=== PATIENT | female | born 1985 | race Caucasian/White ===

== ENCOUNTER 2019-08-27 10:15 | Emergency (ER) | payer OTHER ==
[~2019-08-27] VITALS: Ht 157.5 cm; Wt 67.6 kg
[2019-08-27] MEDS ORDERED: ISOVUE-370 76% 100ML VIAL As Ordered ONE (10:51)
--- NOTE | 2019-08-27 11:12 | REPVR ---
PROCEDURE INFORMATION: Exam: CT Head Without Contrast Exam date and time: 08/27/2019 10:50 AM Age: 34 years old Clinical indication: Visual disturbance; Additional info: Blurred vision TECHNIQUE: Imaging protocol: Computed tomography of the head without contrast. Radiation optimization: All CT scans at this facility use at least one of these dose optimization techniques: automated exposure control; mA and/or kV adjustment per patient size (includes targeted exams where dose is matched to clinical indication); or iterative reconstruction. Other technique: STROKE PROTOCOL was implemented. COMPARISON: No relevant prior studies available. FINDINGS: Brain: No acute intracranial hemorrhage, cerebral edema, or midline shift. Ventricles: No hydrocephalus. Bones/joints: No acute fracture. Sinuses: No acute sinusitis. Mastoid air cells: Visualized mastoid air cells are well aerated. Soft tissues: Unremarkable. IMPRESSION: 1. No acute intracranial abnormality. 2. [place] Stroke Program Early CT Score (ASPECTS) = 10 Electronically signed by: Álvaro Mancuso On 08/27/2019 11:11:56 AM
[2019-08-27 11:14] LABS: BASO % 0.6 % (0.0-1.0); EOS # 0.1 10^3/uL (0.0-0.5); EOS % 1.3 % (0.0-3.0); HEMATOCRIT 41.3 % (36.0-47.0); HEMOGLOBIN 13.3 g/dl (12.0-15.5); LYMPH # 1.5 10^3/uL (1.5-5.0); LYMPH % 23.3 % (24.0-44.0); MEAN CORPUSCULAR HGB CONC 32.2 g/dl (32.0-36.5); MEAN CORPUSCULAR VOLUME 90.2 fl (80.0-96.0); MONO # 0.8 10^3/uL (0.0-0.8); MONO % 12.1 % (0.0-5.0); NEUTROPHILS % 62.4 % (36.0-66.0); PLATELET COUNT, AUTOMATED 159 10^3/uL (150-450); RED BLOOD COUNT 4.58 10^6/uL (4.00-5.40); WHITE BLOOD COUNT 6.4 10^3/uL (4.0-10.0)
[2019-08-27 11:31] LABS: INR 1.04; PROTHROMBIN TIME 13.3 SECONDS (11.8-14.0)
[2019-08-27 11:32] LABS: PARTIAL THROMBOPLASTIN TIME 28.9 SECONDS (25.0-38.4)
--- NOTE | 2019-08-27 11:37 | REPVR ---
PROCEDURE INFORMATION: Exam: CT Angiography Neck With Contrast Exam date and time: 08/27/2019 10:57 AM Age: 34 years old Clinical indication: Visual disturbance; Additional info: CVA - nursing interventions must not delay CT TECHNIQUE: Imaging protocol: Computed tomography angiography of the neck with intravenous contrast. 3D rendering: MIP and/or 3D reconstructed images were created by the technologist. Radiation optimization: All CT scans at this facility use at least one of these dose optimization techniques: automated exposure control; mA and/or kV adjustment per patient size (includes targeted exams where dose is matched to clinical indication); or iterative reconstruction. Contrast material: ISOVUE 370; Contrast volume: 100 ml; Contrast route: IV; COMPARISON: No relevant prior studies available. FINDINGS: Right common carotid artery: No stenosis. No dissection or occlusion. Right internal carotid artery: No stenosis of the extracranial segment. No dissection or occlusion. Right external carotid artery: No occlusion or stenosis of the origin. Right vertebral artery: No stenosis. No dissection or occlusion. Left common carotid artery: No stenosis. No dissection or occlusion. Left internal carotid artery: No stenosis of the extracranial segment. No dissection or occlusion. Left external carotid artery: No occlusion or stenosis of the origin. Left vertebral artery: No stenosis. No dissection or occlusion. Bones/joints: An artificial disc is noted at the C6-C7 level. Soft tissues: Normal. No significant soft tissue swelling. IMPRESSION: No acute abnormality. REFERENCES: NASCET CRITERIA. The degree of internal carotid artery stenosis is based on NASCET criteria. Normal is no stenosis. Mild is less than 50% stenosis. Moderate is 50-69% stenosis. Severe is 70% to 99% stenosis. Total occlusion is no detectable patent lumen. Electronically signed by: Álvaro Mancuso On 08/27/2019 11:37:07 AM
--- NOTE | 2019-08-27 11:40 | REPVR ---
PROCEDURE INFORMATION: Exam: CT Angiography Head With Contrast Exam date and time: 08/27/2019 10:57 AM Age: 34 years old Clinical indication: Visual disturbance; Additional info: CVA - nursing interventions must not delay CT TECHNIQUE: Imaging protocol: Computed tomography angiography of the head with intravenous contrast. 3D rendering: MIP and/or 3D reconstructed images were created by the technologist. Radiation optimization: All CT scans at this facility use at least one of these dose optimization techniques: automated exposure control; mA and/or kV adjustment per patient size (includes targeted exams where dose is matched to clinical indication); or iterative reconstruction. Contrast material: ISOVUE 370; Contrast volume: 100 ml; Contrast route: IV; COMPARISON: CT Head without contrast 08/27/2019 10:39 AM FINDINGS: Anterior cerebral arteries: No occlusion or significant stenosis. No aneurysm. Right internal carotid artery: Intracranial segment is patent with no significant stenosis or occlusion. No aneurysm. Right middle cerebral artery: No occlusion or significant stenosis. No aneurysm. Right posterior cerebral artery: No occlusion or significant stenosis. No aneurysm. Right vertebral artery: No occlusion or significant stenosis. No aneurysm. Left internal carotid artery: Intracranial segment is patent with no significant stenosis or occlusion. No aneurysm. Left middle cerebral artery: No occlusion or significant stenosis. No aneurysm. Left posterior cerebral artery: No occlusion or significant stenosis. No aneurysm. Left vertebral artery: No occlusion or significant stenosis. No aneurysm. Basilar artery: No occlusion or significant stenosis. No aneurysm. IMPRESSION: No large vessel stenosis or occlusion. Electronically signed by: Álvaro Mancuso On 08/27/2019 11:39:53 AM
[2019-08-27 11:42] LABS: CK-MB VALUE MASS 1.5 NG/ML (<3.6); CPK CREATINE PHOSPHOKINASE 120 U/L (26-192); MB/CK RELATIVE INDEX 1.25 (< OR =4); TROPONIN I < 0.02 NG/ML (< 0.10)
[2019-08-27] MEDS ORDERED: ALTEPLASE RECOMBINANT IV ONE (12:00)
[2019-08-27] MEDS ORDERED: ALTEPLASE 100MG VIAL IV ONE (12:00)
[2019-08-27] MEDS ORDERED: ACETAMINOPHEN TAB 650MG DOSE (2X325MG) As Ordered ONE (12:13)
[2019-08-27] MEDS ORDERED: ACETAMINOPHEN TAB 650MG DOSE (2X325MG) PO ONE (12:15)
[2019-08-27 12:30] VITALS: BP 128/81
[2019-08-27] MEDS ORDERED: SODIUM CHLORIDE 0.9% 50 ML IV ONE (13:00)
--- NOTE | 2019-08-27 13:07 | REP ---
CHEST: Single view. There is no evidence of acute infiltrate. No pleural effusion is seen. The heart is normal in size. The mediastinal silhouette is unremarkable. The visualized osseous structures are intact. IMPRESSION: No acute pulmonary disease. Electronically Signed by Naseem Cox MD 08/28/2019 07:04 P
--- NOTE | 2019-08-27 18:46 | ECGEPIP ---
[facility] - ED Test Date: 2019-08-27 Pat Name: MARY JAIN Department: Room: - Gender: Female Rnp: pacheco JOHNSONB: 1985 Requested By: Art Javier Order Number: [id number] Reading MD: Art Javier Measurements Intervals [place] Rate: 94 P: 53 VT: 143 QRS: 53 QRSD: 81 T: 11 QT: 343 QTc: 430 Interpretive Statements SINUS RHYTHM WITH SINUS ARRHYTHMIA NONSPECIFIC ST T WAVE CHANGES DELAYED R WAVE PROGRESSION LOW QRS VOLTAGE LIMB LEADS NO PRIOR ECG FOR COMPARISON Electronically Signed on 08-27-2019 18:46:09 EDT by Art Javier
== END 2019-08-27 12:43 | disposition short-term general hospital (02) ==
LOC: M ED 10:15
DX: I63.9 Cerebral infarction, unspecified (principal); Z88.8 Allergy status to other drugs, medicaments and biological substances
CPT/HCPCS: 70450; 70496; 70498; 71045; 80047; 82550; 82553; 84484; 84702; 85025; 85610; 85730; 86850; 86900; 86901; 93005; 93041; 94760; 96365; 99285; J2997; Q9967

== ENCOUNTER 2020-05-10 11:56 | Emergency (ER) | payer OTHER ==
[~2020-05-10] VITALS: Ht 157.5 cm; Wt 67.7 kg
--- OUTSIDE RECORDS SUMMARY | 2020-05-10 12:03 | CCD ---
Author Author [facility] Organization [facility] Address Unknown Phone Unavailable Care Team Providers Care Casket Inspector Name Role Phone Melissa NIELSEN MD Unavailable Unavailable Melissa NIELSEN MD Unavailable Unavailable Melissa NIELSEN MD Unavailable Unavailable Melissa NIELSEN MD Unavailable Unavailable Melissa NIELSEN MD Unavailable Unavailable Melissa NIELSEN MD Unavailable Unavailable Melissa NIELSEN MD Unavailable Unavailable Melissa NIELSEN MD Unavailable Unavailable Melissa NIELSEN MD Unavailable Unavailable Melissa NIELSEN MD Unavailable Unavailable Melissa NIELSEN MD Unavailable Unavailable Melissa NIELSEN MD Unavailable Unavailable Melissa NIELSEN MD Unavailable Unavailable Melissa NIELSEN MD Unavailable Unavailable Melissa NIELSEN MD Unavailable Unavailable Melissa NIELSEN MD Unavailable Unavailable Melissa NIELSEN MD Unavailable Unavailable Melissa NIELSEN MD Unavailable Unavailable Melissa NIELSEN MD Unavailable Unavailable Melissa NIELSEN MD Unavailable Unavailable Melissa NIELSEN MD Unavailable Unavailable Melissa NIELSEN MD Unavailable Melissa Mcgraw MD Unavailable Melissa Mcgraw MD Unavailable Melissa Mcgraw MD Unavailable Unavailable Melissa NIELSEN MD Unavailable Unavailable Melissa NIELSEN MD Unavailable Unavailable Melissa NIELSEN MD Unavailable Unavailable Melissa NIELSEN MD Unavailable Unavailable Melissa NIELSEN MD Unavailable Unavailable Melissa NIELSEN MD Unavailable Unavailable Melissa NIELSEN MD Unavailable Unavailable Melissa NIELSEN MD Unavailable Unavailable Melissa NIELSEN MD Unavailable Unavailable Melissa NIELSEN MD Unavailable Unavailable SETTERMelissa MD Unavailable Unavailable SETTERMelissa MD Unavailable Unavailable SETTERMelissa MD Unavailable Unavailable SETTER, Melissa EPPS MD Unavailable Unavailable SETTER, Melissa EPPS MD Unavailable Unavailable SETTER, Melissa EPPS MD Unavailable Unavailable SETTER, Melissa EPPS MD Unavailable Unavailable SETTER, Melissa EPPS MD Unavailable Unavailable SETTER, Melissa EPPS MD Unavailable Unavailable SETTER, Melissa EPPS MD Unavailable Unavailable SETTER, Melissa EPPS MD Unavailable Unavailable SETTER, Melissa EPPS MD Unavailable Unavailable SETTER, Melissa EPPS MD Unavailable Unavailable SETTER, Melissa EPPS MD Unavailable Unavailable SETTER, Melissa EPPS MD Unavailable Unavailable SETTER, Melissa EPPS MD Unavailable Unavailable SETTER, Melissa EPPS MD Unavailable Unavailable SETTER, Melissa EPPS MD Unavailable Unavailable SETTER, Melissa EPPS MD Unavailable Unavailable SETTER, Melissa EPPS MD Unavailable Unavailable SETTER, Melissa EPPS MD Unavailable Unavailable SETTERMelissa MD Unavailable Unavailable SETTERMelissa MD Unavailable Unavailable SETTER, Melissa EPPS MD Unavailable Unavailable SETTER, Melissa EPPS MD Unavailable Unavailable SETTER, Melissa EPPS MD Unavailable Unavailable SETTER, Melissa EPPS MD Unavailable Unavailable SETTER, Melissa EPPS MD Unavailable Unavailable SETTERMelissa MD Unavailable Unavailable SETTERMelissa MD Unavailable Unavailable SETTERMelissa MD Unavailable Unavailable SETTERMelissa MD Unavailable Unavailable SETTERMelissa MD Unavailable Unavailable SETTERMelissa MD Unavailable Unavailable SETTERMelissa MD Unavailable Unavailable SETTERMelissa MD Unavailable Unavailable SETTERMelissa MD Unavailable Unavailable SETTERMelissa MD Unavailable Unavailable SETTERMelissa MD Unavailable Unavailable SETTERMelissa MD Unavailable Unavailable SETTERMelissa MD Unavailable Unavailable SETTERMelissa MD Unavailable Unavailable SETTERMelissa MD Unavailable Unavailable SETTERMelissa MD Unavailable Unavailable SETTERMelissa MD Unavailable Unavailable SETTERMelissa MD Unavailable Unavailable SETTERMelissa MD Unavailable Unavailable SETTERMelissa MD Unavailable Unavailable SETTERMelissa MD Unavailable Unavailable SETTERMelissa MD Unavailable Unavailable SETTERMelissa MD Unavailable Unavailable SETTERMelissa MD Unavailable Unavailable SETTERMelissa MD Unavailable Unavailable SETTERMelissa MD Unavailable Unavailable SETTERMelissa MD Unavailable Unavailable SETTERMelissa MD Unavailable Unavailable SETTMelissa PHIPPS MD Unavailable Unavailable SETTDESIRE, Melissa EPPS MD Unavailable Unavailable SETTDESIRE, Melissa EPPS MD Unavailable Unavailable SETTER, Melissa EPPS MD Unavailable Unavailable SETTDESIRE, Melissa EPPS MD Unavailable Unavailable SETTDESIRE, Melissa EPPS MD Unavailable Unavailable SETTDESIRE, Melissa EPPS MD Unavailable Unavailable SETTDESIRE, Melissa EPPS MD Unavailable Unavailable SETTER, Melissa EPPS MD Unavailable Unavailable SETTDESIRE, Melissa EPPS MD Unavailable Unavailable SETTER, Melissa EPPS MD Unavailable Unavailable SETTDESIRE, Melissa EPPS MD Unavailable Unavailable SETTDESIRE, Melissa EPPS MD Unavailable Unavailable SETTER, Melissa EPPS MD Unavailable Unavailable SETTER, Melissa EPPS MD Unavailable Unavailable SETTER, Melissa EPPS MD Unavailable Unavailable Mollura, E Rosa PA Unavailable Unavailable Mollura, E Rosa PA Unavailable Unavailable Mollura, E Rosa PA Unavailable Unavailable Mollura, E Rosa PA Unavailable Unavailable Mollura, E Rosa PA Unavailable Unavailable Mollura, E Rosa PA Unavailable Unavailable Mollura, E Rosa PA Unavailable Unavailable Mollura, E Rosa PA Unavailable Unavailable Mollura, E Rosa PA Unavailable Unavailable Mollura, E Rosa PA Unavailable Unavailable Mollura, E Rosa PA Unavailable Unavailable Mollura, E Rosa PA Unavailable Unavailable Mollura, E Rosa PA Unavailable Unavailable Mollura, E Rosa PA Unavailable Unavailable Mollura, E Rosa PA Unavailable Unavailable Mollura, E Rosa PA Unavailable Unavailable Mollura, E Rosa PA Unavailable Unavailable Mollura, E Rosa PA Unavailable Unavailable Mollura, E Rosa PA Unavailable Unavailable Mollura, E Rosa PA Unavailable Unavailable Mollura, E Rosa PA Unavailable Unavailable Mollura, E Rosa PA Unavailable Unavailable Mollura, E Rosa PA Unavailable Unavailable Mollura, E Rosa PA Unavailable Unavailable Mollura, E Rosa PA Unavailable Unavailable Mollura, E Rosa PA Unavailable Unavailable Mollura, E Rosa PA Unavailable Unavailable Mollura, E Rosa PA Unavailable Unavailable Mollura, E Rosa PA Unavailable Unavailable Mollura, E Rosa PA Unavailable Unavailable Mollura, E Rosa PA Unavailable Unavailable Mollura, E Rosa PA Unavailable Unavailable Mollura, E Rosa PA Unavailable Unavailable Mollura, E Rosa PA Unavailable Unavailable Mollura, E Rosa PA Unavailable Unavailable Mollura, E Rosa PA Unavailable Unavailable Kwasi Forrester 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 HISTORY-C Unavailable Unavailable Ruszczyk, C Iliana 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 HISTORY-C Unavailable Unavailable Ruszczyk, C Iliana 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 HISTORY-C Unavailable Unavailable Ruszczyk, C Iliana 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 HISTORY-C Unavailable Unavailable Ruszczyk, C Iliana 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 HISTORY-C Unavailable Unavailable Ruszczyk, C Iliana 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 HISTORY-C Unavailable Unavailable Ruszczyk, C Iliana 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 HISTORY-C Unavailable Unavailable Ruszczyk, C Iliana 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 HISTORY-C Unavailable Unavailable Ruszczyk, C Iliana 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 HISTORY-C Unavailable Unavailable Ruszczyk, C Iliana 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 HISTORY-C Unavailable Unavailable Ruszczyk, C Iliana 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 HISTORY-C Unavailable Unavailable Ruszczyk, C Iliana 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 HISTORY-C Unavailable Unavailable Ruszczyk, C Iliana 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 HISTORY-C Unavailable Unavailable Ruszczyk, C Iliana 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 HISTORY-C Unavailable Unavailable Ruszczyk, C Iliana 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 HISTORY-C Unavailable Unavailable Ruszczyk, C Iliana 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 HISTORY-C Unavailable Unavailable Ruszczyk, C Iliana 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 HISTORY-C Unavailable Unavailable Ruszczyk, C Iliana 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 HISTORY-C Unavailable Unavailable Ruszczyk, C Iliana 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 HISTORY-C Unavailable Unavailable Ruszczyk, C Iliana 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 HISTORY-C Unavailable Unavailable Chiqui Ortega PA-C Unavailable Unavailable Chiqui Ortega PA-C Unavailable Unavailable Chiqui Ortega PA-C Unavailable Unavailable CECILE STEINBERG MD Unavailable Unavailable GALCECILE GAXIOLA MD Unavailable Unavailable GALCECILE GAXIOLA MD Unavailable Unavailable CECILE STEINBERG MD Unavailable Unavailable CECILE STEINBERG MD Unavailable Unavailable GALCECILE GAXIOLA MD Unavailable Unavailable GALCECILE GAXOILA MD Unavailable Unavailable GALCECILE GAXIOLA MD Unavailable Unavailable GALGANCECILE Woodruff MD Unavailable Unavailable GALGANCECILE Woodruff MD Unavailable Unavailable GALCECILE GAXIOLA MD Unavailable Unavailable GALCECILE GAXIOLA MD Unavailable Unavailable GALCECILE GAXIOLA MD Unavailable Unavailable GALCECILE GAXIOLA MD Unavailable Unavailable GALGANCECILE Woodruff MD Unavailable Unavailable GALGANCECILE Woodruff MD Unavailable Unavailable GALGANCECILE Woodruff MD Unavailable Unavailable GALGANCECILE Woodruff MD Unavailable Unavailable GALGANCECILE Woodruff MD Unavailable Unavailable GALCECILE GAXIOLA MD Unavailable Unavailable GALCECILE GAXOILA MD Unavailable Unavailable GALCECILE GAXIOLA MD Unavailable Unavailable GALGANCECILE Woodruff MD Unavailable Unavailable GALGANCECILE Woodruff MD Unavailable Unavailable GALGANCECILE Woodruff MD Unavailable Unavailable GALGANCECILE Woodruff MD Unavailable Unavailable GALGANCECILE Woodruff MD Unavailable Unavailable GALGANO, CECILE MD Unavailable Unavailable CECILE STEINBERG MD Unavailable Unavailable Kunnumpurath, F Stacy MD Unavailable Unavailable Kunnumpurath, F Stacy MD Unavailable Unavailable Kunnumpurath, F Stacy MD Unavailable Unavailable Kunnumpurath, F Stacy MD Unavailable Unavailable Kunnumpurath, F Stacy MD Unavailable Unavailable Kunnumpurath, F Stacy MD Unavailable Unavailable Kunnumpurath, F Stacy MD Unavailable Unavailable Kunnumpurath, F Stacy MD Unavailable Unavailable Kunnumpurath, F Stacy MD Unavailable Unavailable Kunnumpurath, F Stacy MD Unavailable Unavailable Kunnumpurath, F Stacy MD Unavailable Unavailable Kunnumpurath, F Stacy MD Unavailable Unavailable Kunnumpurath, F Stacy MD Unavailable Unavailable Kunnumpurath, F Stacy MD Unavailable Unavailable Kunnumpurath, F Stacy MD Unavailable Unavailable Kunnumpurath, F Stacy MD Unavailable Unavailable Kunnumpurath, F Stacy MD Unavailable Unavailable Kunnumpurath, F Stacy MD Unavailable Unavailable Kunnumpurath, F Stacy MD Unavailable Unavailable Kunnumpurath, F Stacy MD Unavailable Unavailable Kunnumpurath, F Stacy MD Unavailable Unavailable Kunnumpurath, F Stacy MD Unavailable Unavailable Kunnumpurath, F Stacy MD Unavailable Unavailable Kunnumpurath, F Stacy MD Unavailable Unavailable Kunnumpurath, F Stacy MD Unavailable Unavailable Kunnumpurath, F Stacy MD Unavailable Unavailable Kunnumpurath, F Stacy MD Unavailable Unavailable Kunnumpurath, F Stacy MD Unavailable Unavailable Kunnumpurath, F Stacy MD Unavailable Unavailable Kunnumpurath, F Stacy MD Unavailable Unavailable Kunnumpurath, F Stacy MD Unavailable Unavailable Kunnumpurath, F Stacy MD Unavailable Unavailable Kunnumpurath, F Stacy MD Unavailable Unavailable Kunnumpurath, F Stacy MD Unavailable Unavailable Kunnumpurath, F Stacy MD Unavailable Unavailable Kunnumpurath, F Stacy MD Unavailable Unavailable Kunnumpurath, F Stacy MD Unavailable Unavailable Kunnumpurath, F Stacy MD Unavailable Unavailable CECILE STEINBERG Unavailable Unavailable Kwasi Israel MD Unavailable Feghali, C Lake MD Unavailable Feghali, C Lake MD Unavailable Feghali, C Lake MD Unavailable Feghali, C Lake MD Unavailable Feghali, C Lake MD Unavailable Feghali, C Lake MD Unavailable Feghali, C Lake MD Unavailable Feghali, C Lake MD Unavailable Feghali, C Lake MD Unavailable Feghali, C Lake MD Unavailable Feghali, C Lake MD Unavailable Feghali, C Lake MD Unavailable Feghali, C Lake MD Unavailable Feghali, C Lake MD Unavailable SYSTEM, NOT IN PROVIDER Unavailable Unavailable Kely HARRISEW DO Unavailable [phone] Kely HARRIS KAILEE DO Unavailable [phone] Kely HARRIS KAILEE DO Unavailable [phone] Kely HARRIS KAILEE DO Unavailable [phone] Kely HARRIS KAILEE DO Unavailable [phone] Kely HARRIS KAILEE DO Unavailable [phone] Kely HARRIS KAILEE DO Unavailable [phone] Kely HARRIS KAILEE DO Unavailable [phone] Kely HARRIS KAILEE DO Unavailable [phone] Kely HARRIS KAILEE DO Unavailable [phone] Kely HARRIS KAILEE DO Unavailable [phone] Kely HARRISEW DO Unavailable [phone] Kely HARRIS KAILEE DO Unavailable [phone] Kely HARRIS DO Unavailable [phone] Kely HARRIS DO Unavailable [phone] Kely HARRIS DO Unavailable [phone] Kely HARRIS DO Unavailable [phone] Kely HARRIS DO Unavailable [phone] Kely HARRIS DO Unavailable [phone] Kely HARRIS DO Unavailable [phone] Kely HARRIS DO Unavailable [phone] Kunnumpurath, F Stacy MD Unavailable Unavailable Kunnumpurath, F Stacy MD Unavailable Unavailable Kunnumpurath, F Stacy MD Unavailable Unavailable Kunnumpurath, F Stacy MD Unavailable Unavailable Kunnumpurath, F Stacy MD Unavailable Unavailable Kunnumpurath, F Stacy MD Unavailable Unavailable Kunnumpurath, F Stacy MD Unavailable Unavailable Kunnumpurath, F Stacy MD Unavailable Unavailable Kunnumpurath, F Stacy MD Unavailable Unavailable Kunnumpurath, F Stacy MD Unavailable Unavailable Kunnumpurath, F Stacy MD Unavailable Unavailable Kunnumpurath, F Stacy MD Unavailable Unavailable Kunnumpurath, F Stacy MD Unavailable Unavailable Kunnumpurath, F Stacy MD Unavailable Unavailable Kunnumpurath, F Stacy MD Unavailable Unavailable Kunnumpurath, F Stacy MD Unavailable Unavailable Kunnumpurath, F Stacy MD Unavailable Unavailable Kunnumpurath, F Stacy MD Unavailable Unavailable Kunnumpurath, F Stacy MD Unavailable Unavailable Kunnumpurath, F Stacy MD Unavailable Unavailable Kunnumpurath, F Stacy MD Unavailable Unavailable Kunnumpurath, F Stacy MD Unavailable Unavailable Kunnumpurath, F Stacy MD Unavailable Unavailable Kunnumpurath, F Stacy MD Unavailable Unavailable Kunnumpurath, F Stacy MD Unavailable Unavailable Kunnumpurath, F Stacy MD Unavailable Unavailable Kunnumpurath, F Stacy MD Unavailable Unavailable Kunnumpurath, F Stacy MD Unavailable Unavailable Kunnumpurath, F Stacy MD Unavailable Unavailable Kvngnngocth, F Stacy MD Unavailable Unavailable Kvngnngocth, F Stacy MD Unavailable Unavailable Kvngnngocth, F Stacy MD Unavailable Unavailable Kunnumpurath, F Stacy MD Unavailable Unavailable Kunnumpurath, F Stacy MD Unavailable Unavailable Kunnumpurath, F Stacy MD Unavailable Unavailable Kunnjessicaurath, F Stacy MD Unavailable Unavailable Kvngndoug, F Stacy Unavailable Unavailable Kunndoug, F Stacy MD Unavailable Unavailable LAURA ODELL MD Unavailable LAURA ODELL MD Unavailable LAURA ODELL MD Unavailable LAURA ODELL MD Unavailable LAURA ODELL MD Unavailable SHU [id number], E JOVANA [id number] Unavailable Unavailab le SHU [id number], E JOVANA [id number] Unavailable Unavailab le SHU [id number], E JOVANA [id number] Unavailable Unavailab FRIDA Sellers MD Unavailable [phone] FRIDA DE LEON MD Unavailable [phone] FRIDA DE LEON MD Unavailable [phone] FRIDA DE LEON MD Unavailable [phone] FRIDA DE LEON MD Unavailable [phone] FRIDA DE LEON MD Unavailable [phone] FRIDA DE LEON MD Unavailable [phone] FRIDA DE LEON MD Unavailable [phone] FRIDA DE LEON MD Unavailable [phone] FRIDA DE LEON MD Unavailable [phone] FRIDA DE LEON MD Unavailable [phone] FRIDA DE LEON MD Unavailable [phone] FRIDA DE LEON MD Unavailable [phone] FRIDA DE LEON MD Unavailable [phone] FRIDA DE LEON MD Unavailable [phone] BLACK, FRIDA CHRISTOPHER MD Unavailable [phone] BLACK, FRIDA ENCARNACION MD Unavailable [phone] BLACK, FRIDA ENCARNACION MD Unavailable [phone] BLACK, FRIDA ENCARNACION MD Unavailable [phone] BLACK, FRIDA ALCAZARER MD Unavailable [phone] BLACK, FRIDA ENCARNACION MD Unavailable [phone] BLACK, FRIDA ENCARNACION MD Unavailable [phone] BLACK, FRIDA ENCARNACION MD Unavailable [phone] BLACK, FRIDA ENCARNACION MD Unavailable [phone] BLACK, FRIDA ENCARNACION MD Unavailable [phone] BLACK, FRIDA ENCARNACION MD Unavailable [phone] BLACK, FRIDA ENCARNACION MD Unavailable [phone] BLACK, FRIDA ENCARNACION MD Unavailable [phone] BLACK, FRIDA ENCARNACION MD Unavailable [phone] BLACK, FRIDA ENCARNACION MD Unavailable [phone] BLACK, FRIDA ENCARNACION MD Unavailable [phone] BLACK, FRIDA ENCARNACION MD Unavailable [phone] BLACK, FRIDA ENCARNACION MD Unavailable [phone] BLACK, FRIDA ENCARNACION MD Unavailable [phone] BLACK, FRIDA ENCARNACION MD Unavailable [phone] BLACK, FRIDA ENCARNACION MD Unavailable [phone] BLACK, FRIDA ENCARNACION MD Unavailable [phone] BLACK, FRIDA ENCARNACION MD Unavailable [phone] BLACK, FRIDA ENCARNACION MD Unavailable [phone] BLACK, FRIDA ENCARNACION MD Unavailable [phone] BLACK, FRIDA ENCARNACION MD Unavailable [phone] BLACK, FRIDA ENCARNACION MD Unavailable [phone] BLACK, FRIDA ENCARNACION MD Unavailable [phone] BLACK, FRIDA ENCARNACION MD Unavailable [phone] BLACK, FRIDA ENCARNACION MD Unavailable [phone] BLACK, FRIDA ENCARNACION MD Unavailable [phone] BLACK, FRIDA ENCARNACION MD Unavailable [phone] BLACK, FRIDA ENCARNACION MD Unavailable ([phone] BLACK, FRIDA ENCARNACION MD Unavailable ([phone] BLACK, FRIDA ENCARNACION MD Unavailable ([phone] Stuck, K Joselyn PA Unavailable Unavailable Stuck, K Joselyn PA Unavailable Unavailable Stuck, K Joselyn PA Unavailable Unavailable Stuck, K Joselyn PA Unavailable Unavailable Stuck, K Joselyn PA Unavailable Unavailable Stuck, K Joselyn PA Unavailable Unavailable Stuck, K Joselyn PA Unavailable Unavailable Stuck, K Joselyn PA Unavailable Unavailable Stuck, K Joselyn PA Unavailable Unavailable Stuck, K Joselyn PA Unavailable Unavailable Stuck, K Joselyn PA Unavailable Unavailable Stuck, K Joselyn PA Unavailable Unavailable Stuck, K Joselyn PA Unavailable Unavailable Stuck, K Joselyn PA Unavailable Unavailable Stuck, K Joselyn PA Unavailable Unavailable Stuck, K Joselyn PA Unavailable Unavailable Stuck, K Joselyn PA Unavailable Unavailable Stuck, K Joselyn PA Unavailable Unavailable Stuck, K Joselyn PA Unavailable Unavailable Stuck, K Joselyn PA Unavailable Unavailable Stuck, K Joselyn PA Unavailable Unavailable Stuck, K Joselyn PA Unavailable Unavailable Stuck, K Joselyn PA Unavailable Unavailable Stuck, K Joselyn PA Unavailable Unavailable Stuck, K Joselyn PA Unavailable Unavailable Stuck, K Joselyn PA Unavailable Unavailable Stuck, K Joselyn PA Unavailable Unavailable Stuck, K Joselyn PA Unavailable Unavailable Stuck, K Joselyn PA Unavailable Unavailable Stuck, K Joselyn PA Unavailable Unavailable Stuck, K Joselyn PA Unavailable Unavailable Stuck, K Joselyn PA Unavailable Unavailable Stuck, K Joselyn PA Unavailable Unavailable Stuck, K Joselyn PA Unavailable Unavailable Stuck, K Joselyn PA Unavailable Unavailable Stuck, K Joselyn PA Unavailable Unavailable Stuck, K Joselyn PA Unavailable Unavailable Stuck, K Joselyn PA Unavailable Unavailable Stuck, K Joselyn PA Unavailable Unavailable Stuck, K Joselyn PA Unavailable Unavailable Stuck, K Joselyn PA Unavailable Unavailable Melissa IBANEZ MD Unavailable Unavailable Melissa IBANEZ MD Unavailable Unavailable Melissa IBANEZ MD Unavailable Unavailable Melissa IBANEZ MD Unavailable Unavailable Melissa IBANEZ MD Unavailable Unavailable Melissa IBANEZ MD Unavailable Unavailable Melissa IBANEZ MD Unavailable Unavailable Melissa IBANEZ MD Unavailable Unavailable Melissa IBANEZ MD Unavailable Unavailable Melissa IBANEZ MD Unavailable Unavailable Melissa IBANEZ MD Unavailable Unavailable Melissa IBANEZ MD Unavailable Unavailable Melissa IBANEZ MD Unavailable Unavailable Melissa IBANEZ MD Unavailable Unavailable Melissa IBANEZ MD Unavailable Unavailable Melissa IBANEZ MD Unavailable Unavailable Melissa IBANEZ MD Unavailable Unavailable Melissa IBANEZ MD Unavailable Unavailable Melissa IBANEZ MD Unavailable Unavailable Melissa IBANEZ MD Unavailable Unavailable Melissa IBANEZ MD Unavailable Unavailable Melissa IBANEZ MD Unavailable Unavailable Melissa IBANEZ MD Unavailable Unavailable Melissa IBANEZ MD Unavailable Unavailable Melissa IBANEZ MD Unavailable Unavailable Melissa IBANEZ MD Unavailable Unavailable Melissa IBANEZ MD Unavailable Unavailable Melissa IBANEZ MD Unavailable Unavailable Melissa IBANEZ MD Unavailable Unavailable Melissa IBANEZ MD Unavailable Unavailable Melissa IBANEZ MD Unavailable Unavailable Melissa IBANEZ MD Unavailable Unavailable Melissa IBANEZ MD Unavailable Unavailable Melissa IBANEZ MD Unavailable Unavailable Melissa IBANEZ MD Unavailable Unavailable Melissa IBANEZ MD Unavailable Unavailable Melissa IBANEZ MD Unavailable Unavailable Melissa IBANEZ MD Unavailable Unavailable Melissa IBANEZ MD Unavailable Unavailable Melissa IBANEZ MD Unavailable Unavailable Melissa IBANZE MD Unavailable Unavailable Melissa IBANEZ MD Unavailable Unavailable Melissa IBANEZ MD Unavailable Unavailable Melissa IBANEZ MD Unavailable Unavailable Melissa IBANEZ MD Unavailable Unavailable Melissa IBANEZ MD Unavailable Unavailable Melissa IBANEZ MD Unavailable Unavailable Melissa IBANEZ MD Unavailable Unavailable Melissa IBANEZ MD Unavailable Unavailable Melissa IBANEZ MD Unavailable Unavailable Melissa IBANEZ MD Unavailable Unavailable Melissa IBANEZ MD Unavailable Unavailable Melissa IBANEZ MD Unavailable Unavailable Melissa IBANEZ MD Unavailable Unavailable Melissa IBANEZ MD Unavailable Unavailable Melissa IBANEZ MD Unavailable Unavailable Melissa IBANEZ MD Unavailable Unavailable Melissa IBANEZ MD Unavailable Unavailable Melissa IBANEZ MD Unavailable Unavailable Melissa IBANEZ MD Unavailable Unavailable Melissa IBANEZ MD Unavailable Unavailable Melissa IBANEZ MD Unavailable Unavailable Melissa IBANEZ MD Unavailable Unavailable Melissa IBANEZ MD Unavailable Unavailable Melissa IBANEZ MD Unavailable Unavailable Melissa IBANEZ MD Unavailable Unavailable PARNES, Z CARLO MD Unavailable Unavailable PARNES, Z CARLO MD Unavailable Unavailable PARNES, Z CARLO MD Unavailable Unavailable PARNES, Z CARLO MD Unavailable Unavailable PARNES, Z CARLO MD Unavailable Unavailable PARNES, Z CARLO MD Unavailable Unavailable PARNES, Z CARLO MD Unavailable Unavailable PARNES, Z CARLO MD Unavailable Unavailable PARNES, Z CARLO MD Unavailable Unavailable PARNES, Z CARLO MD Unavailable Unavailable PARNES, Z CARLO MD Unavailable Unavailable PARNES, Z CARLO MD Unavailable Unavailable PARNES, Z CARLO MD Unavailable Unavailable PARNES, Z CARLO MD Unavailable Unavailable PARNES, Z CARLO MD Unavailable Unavailable PARNES, Z CARLO MD Unavailable Unavailable PARNES, Z CARLO MD Unavailable Unavailable PARNES, Z CARLO MD Unavailable Unavailable PARNES, Z CARLO MD Unavailable Unavailable PARNES, Z CARLO MD Unavailable Unavailable PARNES, Z CARLO MD Unavailable Unavailable PARNES, Z CARLO MD Unavailable Unavailable PARNES, Z CARLO MD Unavailable Unavailable PARNES, Z CARLO MD Unavailable Unavailable PARNES, Z CARLO MD Unavailable Unavailable PARNES, Z CARLO MD Unavailable Unavailable PARNES, Z CARLO MD Unavailable Unavailable PARNES, Z CARLO MD Unavailable Unavailable PARNES, Z CARLO MD Unavailable Unavailable PARNES, Z CARLO MD Unavailable Unavailable PARNES, Z CARLO MD Unavailable Unavailable PARNES, Z CARLO MD Unavailable Unavailable PARNES, Z CARLO MD Unavailable Unavailable PARNES, Z CARLO MD Unavailable Unavailable PARNES, Z CARLO MD Unavailable Unavailable PARNES, Z CARLO MD Unavailable Unavailable PARNES, Z CARLO MD Unavailable Unavailable PARNES, Z CARLO MD Unavailable Unavailable Kimmie ANDERSON MD Unavailable Unavailable Kimmie ANDERSON MD Unavailable Unavailable Kimmie ANDERSON MD Unavailable Unavailable Kimmie ANDERSON MD Unavailable Unavailable Kimmie ANDERSON MD Unavailable Unavailable Kimmie ANDERSON MD Unavailable Unavailable Kimmie ANDERSON MD Unavailable Unavailable Kimmie ANDERSON MD Unavailable Unavailable DULEEP, K JUSTUS MD Unavailable Unavailable DULEEP, K JUSTUS MD Unavailable Unavailable DULEEP, K JUSTUS MD Unavailable Unavailable DULEEP, K JUSTUS MD Unavailable Unavailable DULEEP, K JUSTUS MD Unavailable Unavailable DULEEP, K JUSTUS MD Unavailable Unavailable DULEEP, K JUSTUS MD Unavailable Unavailable DULEEP, K JUSTUS MD Unavailable Unavailable DULEEP, K JUSTUS MD Unavailable Unavailable DULEEP, K JUSTUS MD Unavailable Unavailable DULEEP, K JUSTUS MD Unavailable Unavailable DULEEP, K JUSTUS MD Unavailable Unavailable DULEEP, K JUSTUS MD Unavailable Unavailable DULEEP, K JUSTUS MD Unavailable Unavailable DULEEP, K JUSTUS MD Unavailable Unavailable DULEEP, K JUSTUS MD Unavailable Unavailable DULEEP, K JUSTUS MD Unavailable Unavailable DULEEP, K JUSTUS MD Unavailable Unavailable DULEEP, K JUSTUS MD Unavailable Unavailable DULEEP, K JUSTUS MD Unavailable Unavailable DULEEP, K JUSTUS MD Unavailable Unavailable DULEEP, K JUSUTS MD Unavailable Unavailable DULEEP, K JUSTUS MD Unavailable Unavailable DULEEP, K JUSTUS MD Unavailable Unavailable DULEEP, K JUSTUS MD Unavailable Unavailable DULEEP, K JUSTUS MD Unavailable Unavailable DULEEP, K JUSTUS MD Unavailable Unavailable DULEEP, K JUSTUS MD Unavailable Unavailable DULEEP, K JUSTUS MD Unavailable Unavailable DULEEP, K JUSTUS MD Unavailable Unavailable DULEEP, K JUSTUS MD Unavailable Unavailable DULEEP, K JUSTUS MD Unavailable Unavailable DULEEP, K JUSTUS MD Unavailable Unavailable DULEEP, K JUSTUS MD Unavailable Unavailable DULEEP, K JUSTUS MD Unavailable Unavailable DULEEP, K JUSTUS MD Unavailable Unavailable DULEEP, K JUSTUS MD Unavailable Unavailable DULEEP, K JUSTUS MD Unavailable Unavailable DULEEP, K JUSTUS MD Unavailable Unavailable DULEEP, K JUSTUS MD Unavailable Unavailable DULEEP, K JUSTUS MD Unavailable Unavailable DULEEP, K JUSTUS MD Unavailable Unavailable DULEEP, K JUSTUS MD Unavailable Unavailable DULEEP, Kimmie JEROME MD Unavailable Unavailable DULEEP, K JUSTUS Unavailable Unavailable DULEEP, K JUSTUS Unavailable Unavailable DULEEP, K JUSTUS MD Unavailable Unavailable DULEEP, K JUSTUS MD Unavailable Unavailable DULEEP, K JUSTUS MD Unavailable Unavailable DULEEP, K JUSTUS MD Unavailable Unavailable DULEEP, K JUSTUS MD Unavailable Unavailable Re-disclosure Warning The records that you are about to access may contain information from federally-assisted alcohol or drug abuse programs. If such information is present, then the following federally mandated warning applies: This information has been disclosed to you from records protected by federal confidentiality rules (42 CFR part 2). The federal rules prohibit you from making any further disclosure of this information unless further disclosure is expressly permitted by the written consent of the person to whom it pertains or as otherwise permitted by 42 CFR part 2. A general authorization for the release of medical or other information is NOT sufficient for this purpose. The Federal rules restrict any use of the information to criminally investigate or prosecute any alcohol or drug abuse patient.The records that you are about to access may contain highly sensitive health information, the redisclosure of which is protected by Article 27-F of the [facility] Public Health law. If you continue you may have access to information: Regarding HIV / AIDS; Provided by facilities licensed or operated by the [facility] Office of Mental Health; or Provided by the [facility] Office for People With Developmental Disabilities. If such information is present, then the following [facility] mandated warning applies: This information has been disclosed to you from confidential records which are protected by state law. State law prohibits you from making any further disclosure of this information without the specific written consent of the person to whom it pertains, or as otherwise permitted by law. Any unauthorized further disclosure in violation of state law may result in a fine or long term sentence or both. A general authorization for the release of medical or other information is NOT sufficient authorization for further disc losure. Allergies and Adverse Reactions Type Description Substance Reaction Status Data Source(s ) Allergy to substance No Known Allergies No known allergies (situation ) [facility] (Freddie Nieves MD [facility]) Family History Family Member Name Family Member Gender Family Member Status Date o f Status Description Data Source(s) Unknown Male Problem [facility] ([facility]) Unknown Unknown Problem [facility] ([facility]) Encounters Encounter Providers Location Date Indications Data Source(s ) Outpatient Attender: Stacy Patino MDConsultant: Rosa LEA 02/02/2020 06:48:00 AM EST - 02/02/2020 07:48:00 AM EST [facility] Patient discharged. Outpatient Attender: CECILE STEINBERG MD 01/01/2020 12:00:0 0 AM EDT [facility] Outpatient Attender: Stacy Patino MDConsultant: Rosa LEA 10/30/2019 08:05:00 AM EDT - 10/30/2019 08:05:00 AM EDT [facility] Outpatient Attender: Lake Israel MD [id number] 12:00:00 AM EDT - 10/09/2019 11:11:22 AM [facility] Attender: CECILE STEINBERG MD [id number] 11/2019 12:00:00 AM EDT - 10/02/2019 10:12:56 AM EDT [facility] Outpatient Attender: CECILE BAILEYOConsultant: Rosa LEA 10/01/2019 08:41:00 AM EDT - 10/01/2019 09:41:00 AM EDT [facility] Outpatient Referrer: Joselyn LEA 09/18/2019 01:37 :20 PM EDT Pain in right arm [facility] Pain in right arm Outpatient Attender: CECILE STEINBERG MD [id number] 12:00:00 AM EDT - 09/18/2019 04:13:45 PM EDT Hemiplegia, unspecified affecting unspecified side [facility] Hemiplegia, unspecified affecting unspec ified side Outpatient Attender: Iliana ANDRE 09/18/2019 12: 00:00 AM EDT [facility] Outpatient Attender: Stacy Patino MDConsultant: Rosa LEA 09/11/2019 08:48:00 AM EDT - 09/11/2019 08:48:00 AM EDVa [facility] Outpatient<td ID="[email or web address] [email or web address]">NEW PATIENT WITH REFERRAL</td><td>Kailee Harris DO</td><td>Freddie Duckworth MD [facility]</td><td>09/05/2019</td><td>8:15AM</td><td>11:59PM</td><td><content ID="[email or web address]">Transient Visual Loss</content>, <content ID="encounterDiagnosisID0-1">Stroke/cerebrovascular Accident</content></td> Attender: KAILEE Mcnamara MD [facility] 09/05/2019 08:15:00 AM EDT - 09/05/2019 11:59:00 PM EDT Stroke/cerebrovascular AccidentTransient Visual Loss [facility] (Freddie Nieves MD [facility]) Stroke/cerebrovascular Accident Transient Visual Loss Outpatient Attender: Lake Israel MD 09/04/2019 12:00:[address] [facility] Outpatient Attender: Stacy Patino MD Family Practice 0 09/03/2019 02:20:00 PM EDT [facility] ([facility]) Outpatient Attender: Stacy Patino MDConsultant: Rosa LEA 09/03/2019 02:07:00 PM EDT - 09/03/2019 02:07:00 PM EDT [facility] Inpatient Attender: JUSTUS ANDERSON MD Attender: LAURA ODELL MDAdmitter: LAURA ODELL MDReferrer: PROVIDER SYSTEMConsultant: JOVANA IRELAND [id number] 08/27/2019 12:00:00 AM EDT - 08/30/2019 06:00:00 PM EDT stroke [facility] stroke Patient discharged. Outpatient Attender: CECILE STEINBERG MD 07/17/2019 12:00:[address] 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 Outpatient Attender: Dina Ortega PA-CReferrer: Lake king MD 05/02/2019 12:00:00 AM EST Encounter for other preprocedural examination [facility] Encounter for other preprocedural examin ation Outpatient Referrer: Joselyn LEA 05/02/2019 12:00 :00 AM EST Brachial plexus disorders [facility] Brachial plexus disorders Outpatient Attender: [place] MDReferrer: Joselyn LEA [id number] 04/24/2019 12:00:00 AM EST - 04/24/2019 10:57:59 AM [facility] Outpatient Attender: SUPRIYA NIELSEN MDReferrer: CARLO Chu 04/23/2019 12:00:00 AM [facility] Outpatient Referrer: CECILE STEINBERG MD 04/17/2019 1 0:24:20 AM EST Radiculopathy, cervical region [facility] Radiculopathy, cervical region Outpatient Attender: CECILE STEINBERG MD [id number] 12:00:00 AM EST - 04/17/2019 11:09:09 AM [facility] Outpatient Attender: SUPRIYA NIELSEN MDReferrer: CARLO Chu [id number] 04/09/2019 12:00:00 AM EST - 04/09/2019 08:59:21 AM EST Pain in right shoulder [facility] Pain in right shoulder Emergency Attender: ALYSHA DE LEON MDConsultant: Rosa LEA 04/02/2019 11:37:00 AM EST - 04/02/2019 02:37:00 PM [facility] Patient discharged. Outpatient Attender: CARLO IRAHETA MDConsultant: Rosa LEA 03/31/2019 10:01:00 AM EST - 03/31/2019 10:01:00 AM [facility] Outpatient Attender: CARLO ESEQUIEL MDConsultant: Rosa LEA 02/24/2019 01:50:00 PM EST - 02/24/2019 01:50:00 PM [facility] Outpatient Attender: Stacy Patino MDConsultant: Rosa LEA 02/17/2019 01:42:00 PM EST - 02/17/2019 02:42:00 PM [facility] Medications Medication Brand Name Start Date Product Form Dose Route Admi nistrative Instructions Pharmacy Instructions Status Indications Reaction Description Data Source(s) 2 mg 05/06/2020 12:00:00 AM EST tablet 84 TAKE TWO TABLETS BY MOUTH EVERY 4 HOURS NEEDED FOR PAIN MAXIMUM DAILY DOSE = 6 TAKE TWO TABLETS BY MOUTH EVERY 4 HOURS NEEDED FOR PAIN MAXIMUM DAILY DOSE = 6 SOLD: 05/07/2020 [facility] 2 mg 04/22/2020 12:00:00 AM EST tablet 84 TAKE TWO TABLETS BY MOUTH EVERY 4 HOURS NEEDED TAKE TWO TABLETS BY MOUTH EVERY 4 HOURS NEEDED SOLD : 04/23/2020 [facility] 5 % 04/21/2020 12:00:00 AM EST adhesive patch,medicate d [address] PLACE ONE PATCH ON THE SKIN ONCE DAILY. 12 HOURS ON AND [address] ONE PATCH ON THE SKIN ONCE DAILY. 12 HOURS ON AND 12 HOURS OFF DIRECTED SOLD: 04/23/2020 [facility] 500-125 mg 04/07/2020 12:00:00 AM EST tablet 22 TAKE 2 TABLETS BY MOUTH NOW, THEN TAKE ONE TABLET BY MOUTH EVERY 8 HOURS UNTIL GONE TAKE 2 TABLETS BY MOUTH NOW, THEN TAKE ONE TABLET BY MOUTH EVERY 8 HOURS UNTIL GONE SOLD: 04/07/2020 [facility] 300 mg 03/06/2020 12:00:00 AM EST capsule 180 TAKE TWO CAPSULES BY MOUTH THREE TIMES A DAY TAKE TWO CAPSULES BY MOUTH THREE TIMES A DAY SOLD: [facility] 300 mg 03/06/2020 12:00:00 AM EST capsule 180 TAKE TWO CAPSULES BY MOUTH THREE TIMES A DAY TAKE TWO CAPSULES BY MOUTH THREE TIMES A DAY SOLD: 1 [facility] 300 mg 03/06/2020 12:00:00 AM EST capsule 180 TAKE TWO CAPSULES BY MOUTH THREE TIMES A DAY TAKE TWO CAPSULES BY MOUTH THREE TIMES A DAY SOLD: 0 [facility] 2 mg 02/03/2020 12:00:00 AM EST tablet 112 TAKE TWO TABLETS BY MOUTH EVERY 3 HOURS NEEDED FOR PAIN, MAXIMUM DAILY DOSE = 16 TAKE TWO TABLETS BY MOUTH EVERY 3 HOURS NEEDED FOR PAIN, MAXIMUM DAILY DOSE = 16 SOLD: 02/04/2020 [facility] 2 mg 01/23/2020 12:00:00 AM EDT tablet 112 TAKE 2 TABLETS BY MOUTH EVERY 3 HOURS NEEDED FOR PAIN MAXIMUM DAILY DOSE =16 TAKE 2 TABLETS BY MOUTH EVERY 3 HOURS NEEDED FOR PAIN MAXIMUM DAILY DOSE =16 SOLD: 01/23/2020 [facility] 300 mg 12/26/2019 12:00:00 AM EDT capsule 84 TAKE TWO CAPSULES BY MOUTH THREE TIMES A DAY TAKE TWO CAPSULES BY MOUTH THREE TIMES A DAY SOLD: 0 [facility] 300 mg 12/26/2019 12:00:00 AM EDT capsule 84 TAKE TWO CAPSULES BY MOUTH THREE TIMES A DAY TAKE TWO CAPSULES BY MOUTH THREE TIMES A DAY SOLD: 0 [facility] 300 mg 12/26/2019 12:00:00 AM EDT capsule 84 TAKE TWO CAPSULES BY MOUTH THREE TIMES A DAY TAKE TWO CAPSULES BY MOUTH THREE TIMES A DAY SOLD: 0 [facility] topiramate 50 MG Oral Tablet [Topamax] Topamax 10/30/2019 12:00:00 A M EDT active [facility] ([facility]) Cyclobenzaprine hydrochloride 10 MG Oral Tablet Cyclobenzaprine HCl 10 MG Oral Tablet Cyclobenzaprine HCl 10 MG Oral Tablet 09/05/2019 12:00:00 AM EDT 1 active Cyclobenzaprine hydrochlorid e 10 MG Oral Tablet [facility] (Freddie Nieves MD [facility]) Methocarbamol 500 MG Oral Tablet Methocarbamol 500 MG Oral T ablet 09/05/2019 12:00:00 AM EDT 1 active Methocar bamol 500 MG Oral Tablet [facility] (Freddie Nieves MD [facility]) tizanidine 4 MG Oral Tablet tiZANidine HCl 4 MG Oral T ablet tiZANidine HCl 4 MG Oral Tablet 09/05/2019 12:00:00 AM EDT 1 active tizanidine 4 MG Oral Tablet [facility] (Freddie Nieves MD [facility]) Acetaminophen 325 MG Oral Tablet Acetaminophen 325 MG Oral T ablet 09/05/2019 12:00:00 AM EDT active Acetamin ophen 325 MG Oral Tablet [facility] (Freddie Nieves MD [facility]) Ibuprofen 600 MG Oral Tablet Ibuprofen 600 MG Oral Tablet 12:00:00 AM EDT active Ibuprofen 600 MG Oral Tablet [facility] (Freddie Nieves MD [facility]) Multivitamin 5000 mg Oral Tablet Multivitamin 5000 mg Oral T ablet 09/05/2019 12:00:00 AM EDT 1 active Multivit zuleta [facility] (Freddie Nieves MD [facility]) gabapentin 400 MG Oral Capsule Gabapentin 400 MG Oral Capsule Gabapentin 400 MG Oral Capsule 09/05/2019 12:00:00 AM EDT 1 activ e gabapentin 400 MG Oral Capsule [facility] (Freddie Nieves MD [facility]) Ondansetron 4 MG Oral Tablet Ondansetron HCl 4 MG Oral Tablet Ondansetron HCl 4 MG Oral Tablet 09/05/2019 12:00:00 AM EDT 1 act january Ondansetron 4 MG Oral Tablet [facility] (Freddie Nieves MD [facility]) Prednisone 10 MG Oral Tablet predniSONE 10 MG Oral Tab let predniSONE 10 MG Oral Tablet 09/05/2019 12:00:00 AM EDT active Prednisone 10 MG Oral Tablet [facility] (Freddie Nieves MD [facility]) Divalproex Sodium 250 MG Delayed Release Oral Tablet Divalproex Sodium 250 MG Oral Tablet Delayed Release Divalproex Sodium 250 MG Oral Tablet Del ayed Release 09/05/2019 12:00:00 AM EDT 1 active Divalproex Sodium 250 MG Delayed Release Oral Tablet [facility] (Freddie Nieves MD [facility]) Prednisone 10 MG Oral Tablet predniSONE 10 MG Oral Tab let (DELTASONE) predniSONE 10 MG Oral Tablet (DELTASONE) 09/05/2019 12:00:00 AM EDT active Take 30 mg for 2 days, then 20 mg for 2 days, then 10 mg for 2 days and then stop [facility] Magnesium 400 MG Oral Tablet Magnesium 400 MG Oral Tablet 12:00:00 AM EDT 1 active Magnesium [place] (Freddie Nieves MD [facility]) topiramate 25 MG Oral Tablet [Topamax] Topamax 09/03/2019 12:00:00 A M EDT completed [facility] ([facility]) topiramate 25 MG Oral Tablet Topiramate 25 MG Oral Tab let (TOPAMAX) Topiramate 25 MG Oral Tablet (TOPAMAX) 09/03/2019 12:00:00 AM EDT active TAKE ONE TABLET BY MOUTH EVERY DAY INCREASE TO TWO TABLETS DAILY IF TOLERATED [facility] 25 mg 09/03/2019 12:00:00 AM EDT tablet 60 TAKE ONE TABLET BY MOUTH EVERY DAY, INCREASE TO TWO TABLETS DAILY IF TOLERATED TAKE ONE TABLET BY MOUTH EVERY DAY, INCREASE TO TWO TABLETS DAILY IF TOLERATED SOLD: 09/03/2019 [facility] Prednisone 20 MG Oral Tablet predniSONE (DELTASONE) ta blet 20 mg predniSONE (DELTASONE) tablet 20 mg 08/31/2019 09:00:00 AM EDT 20 mg Oral active 20 mg, Oral, Daily Standard, First dose on 08/31/19 at 0900, For 30 days
Take with food.
[facility] Medication administered onsite tizanidine 4 MG Oral Tablet tizanidine (ZANAFLEX) tabl et 4 mg tizanidine (ZANAFLEX) tablet 4 mg 08/30/2019 05:00:00 PM EDT 4 mg Oral active 4 mg, Oral, Three Times Daily Standard, First dose (after last reorder) on 08/30/19 at 1700, For 2 doses [facility] Medication administered onsite Valproic Acid 100 MG/ML Injectable Solut ion valproate sodium (DEPACON) injection 250 mg valproate sodium (DEPACON) injection 250 mg 08/30/2019 01:46 :52 PM EDT 250 mg Intravenous active 250 mg, Intr avenous, at 40 mL/hr, 2 Times Daily PRN, headache, Starting 08/30/19 at 1346, For 30 doses [facility] Medication administered onsite NaCl infusion 0.9 % [id number] 08/30/2019 01:45:00 PM EDT Intravenous active at 150 mL/hr, Intrav enous, Continuous, Starting 08/30/19 at 1345, For 30 days [facility] Medication administered onsite Prochlorperazine 5 MG/ML Injectable Solu tion prochlorperazine (COMPAZINE) injection 10 mg prochlorperazine (COMPAZINE) injection 10 mg 0 10:30:00 AM EDT 10 mg Intravenous completed 10 mg, Intravenous, Once, 08/30/19 at 1030, For 1 dose [facility] Medication administered onsite methylPREDNISolone sodium succinate (SOLU-MEDROL) injection 125 mg [id number] 08/30/2019 10:30:00 AM EDT 125 mg Intravenous aborted 125 mg, Intravenous, Every 6 hours, First dose on 08/30/19 at 1030, For 3 doses [facility] Medication administered onsite diphenhydrAMINE (BENADRYL) injection 25 mg [id number] 08/30/2019 05:30:00 AM EDT 25 mg Intravenous aborted 25 m g, Intravenous, Every 8 hours, First dose (after last modification) on 08/30/19 at 0530, For 3 doses [facility] Medication administered onsite Divalproex Sodium 250 MG Delayed Release Oral Tablet Divalproex Sodium 250 MG Oral Tablet Delayed Release (Depakote) Divalproex Sodium 250 MG Oral Tablet Delayed Release (Depakote) 08/30/2019 12:00:00 AM EDT 250 mg Oral active Take 1 tablet by mouth every 8 (eight) hours as needed (if headache) for up to 7 days [facility] 10 mg 08/30/2019 12:00:00 AM EDT tablet 30 TAKE 6 TABLETS BY MOUTH ONCE DAILY FOR 2 DAYS, 5 TABLETS FOR 2 DAYS, 4 TABLETS FOR 2 DAYS TAKE 6 TABLETS BY MOUTH ONCE DAILY FOR 2 DAYS, 5 TABLETS FOR 2 DAYS, 4 TABLETS FOR 2 DAYS SOLD: 08/31/2019 [facility] Prednisone 10 MG Oral Tablet predniSONE 10 MG Oral Tab let (DELTASONE) predniSONE 10 MG Oral Tablet (DELTASONE) 08/30/2019 12:00:00 AM EDT Oral aborted Take 6 tablets by mouth nabil y for 2 days, THEN 5 tablets daily for 2 days, THEN 4 tablets daily for 2 days, THEN 2 tablets daily for 2 days, THEN 1 tablet daily for 2 days.. [facility] tizanidine 4 MG Oral Tablet tiZANidine HCl 4 MG Oral T ablet (ZANAFLEX) tiZANidine HCl 4 MG Oral Tablet (ZANAFLEX) 08/30/2019 12:00:00 AM EDT 2 mg Oral active Take 0.5 table ts by mouth every 8 (eight) hours as needed for up to 10 days [facility] Magnesium 400 MG Oral Capsule [id number] 08/30/2019 12:00:00 AM EDT 400 mg Oral active Take 400 mg by mouth daily [facility] gabapentin 100 MG Oral Capsule Gabapentin 100 MG Oral Capsule (NEURONTIN) Gabapentin 100 MG Oral Capsule (NEURONTIN) 08/30/2019 12:00:00 AM EDT 200 mg Oral active Take 2 capsules by m outh Three times daily [facility] 4 mg 08/30/2019 12:00:00 AM EDT tablet 30 TAKE ONE-HALF TABLET BY MOUTH EVERY 8 HOURS NEEDED FOR UP TO 10 DAYS TAKE ONE-HALF TABLET BY MOUTH EVERY 8 HOURS NEEDED FOR UP TO 10 DAYS SOLD: 08/31/2019 [facility] 250 mg 08/30/2019 12:00:00 AM EDT tablet,delayed release (DR/EC) 90 TAKE ONE TABLET BY MOUTH EVERY 8 HOURS NEEDED (IF HEADACHE) FOR UP TO 7 DAYS TAKE ONE TABLET BY MOUTH EVERY 8 HOURS NEEDED (IF HEADACHE) FOR UP TO 7 DAYS SOLD: 08/31/2019 [facility] Prednisone 10 MG Oral Tablet predniSONE 10 MG Oral Tab let (DELTASONE) predniSONE 10 MG Oral Tablet (DELTASONE) 08/30/2019 12:00:00 AM EDT aborted Take 60 mg for 2 days, then 50 mg for 2 days, then 40 mg for 2 days, then 30 mg for 2 days, then 20 mg for 2 days, then 10 mg for 2 days and then stop [facility] 100 mg 08/30/2019 12:00:00 AM EDT capsule 180 TAKE TWO CAPSULES BY MOUTH THREE TIMES A DAY TAKE TWO CAPSULES BY MOUTH THREE TIMES A DAY SOLD: 0 [facility] Prednisone 10 MG Oral Tablet predniSONE 10 MG Oral Tab let (DELTASONE) predniSONE 10 MG Oral Tablet (DELTASONE) 08/30/2019 12:00:00 AM EDT aborted Take 30 mg for 2 days, then 20 mg for 2 days, then 10 mg for 2 days and then stop [facility] Prednisone 10 MG Oral Tablet predniSONE 10 MG Oral Tab let (DELTASONE) predniSONE 10 MG Oral Tablet (DELTASONE) 08/30/2019 12:00:00 AM EDT Oral active Take 6 tablets by mouth daily for 2 days , THEN 5 tablets daily for 2 days, THEN 4 tablets daily for 2 days.. [facility] heparin (porcine) 5000 UNIT/ML injection 5,000 Units [id number] 08/29/2019 09:00:00 PM EDT 5000 U Subcutaneous active 5,000 Units, Subcutaneous, 2 Times Daily, First dose on Sun08/29/19 at 2100, For 30 days [facility] Medication administered onsite gabapentin 100 MG Oral Capsule gabapentin (NEURONTIN) capsule 200 mg gabapentin (NEURONTIN) capsule 200 mg 08/29/2019 05:00:00 PM EDT 200 mg Oral active 200 mg, Oral, Three Times D [facility] Standard, First dose (after last modification) on Sun08/29/19 at 1700, For 83 doses [facility] Medication administered onsite Prochlorperazine 5 MG/ML Injectable Solu tion prochlorperazine (COMPAZINE) injection 10 mg prochlorperazine (COMPAZINE) injection 10 mg 0 01:30:00 PM EDT 10 mg Intravenous completed 10 mg, Intravenous, Every 8 hours, First dose (after last reorder) on Sun08/29/19 at 1330, For 2 doses [facility] Medication administered onsite tizanidine 4 MG Oral Tablet tizanidine (ZANAFLEX) tabl et 4 mg tizanidine (ZANAFLEX) tablet 4 mg 08/29/2019 01:30:00 PM EDT 4 mg Oral completed 4 mg, Oral, Every 6 hours, First dose (after last reorder) on Sun08/29/19 at 1330, For 2 doses [facility] Medication administered onsite diphenhydrAMINE (BENADRYL) injection 25 mg [id number] 08/29/2019 01:30:00 PM EDT 25 mg Intravenous aborted 25 m g, Intravenous, Every 8 hours, First dose (after last reorder) on Sun08/29/19 at 1330, For 3 doses [facility] Medication administered onsite 2 ML Metoclopramide 5 MG/ML Prefilled Sy ringe metoclopramide (REGLAN) injection 10 mg metoclopramide (REGLAN) injection 10 mg 08/29/2019 12:15:00 AM E DT 10 mg Intravenous active 10 mg, I ntravenous, Every 8 hours, First dose (after last modification) on Sun08/29/19 at 0015, For 7 doses
Please give 30 minutes after benadryl
[facility] Medication administered onsite Prochlorperazine 5 MG/ML Injectable Solu tion prochlorperazine (COMPAZINE) injection 10 mg prochlorperazine (COMPAZINE) injection 10 mg 0 11:30:00 PM EDT 10 mg Intravenous completed 10 mg, Intravenous, Every 8 hours, First dose (after last modification) on [facility] 08/28/19 at 2330, For 2 doses [facility] Medication administered onsite tizanidine 4 MG Oral Tablet tizanidine (ZANAFLEX) tabl et 4 mg tizanidine (ZANAFLEX) tablet 4 mg 08/28/2019 05:38:00 PM EDT 4 mg Oral completed 4 mg, Oral, Every 6 hours, First dose (after last modification) on [facility] 08/28/19 at 1745, For 2 doses [facility] Medication administered onsite 2 ML Metoclopramide 5 MG/ML Prefilled Sy ringe metoclopramide (REGLAN) injection 10 mg metoclopramide (REGLAN) injection 10 mg 08/28/2019 04:00:00 PM E DT 10 mg Intravenous aborted 10 mg, I ntravenous, Every 6 hours, First dose on [facility] 08/28/19 at 1600, For 3 doses
Please give 30 minutes after benadryl
[facility] Medication administered onsite diphenhydrAMINE (BENADRYL) injection 25 mg [id number] 08/28/2019 03:36:00 PM EDT 25 mg Intravenous completed 25 mg, Intravenous, Every 8 hours, First dose (after last modification) on [facility] 08/28/19 at 1545, For 3 doses [facility] Medication administered onsite 50 ML Magnesium Sulfate 40 MG/ML Injecti on magnesium sulfate infusion 2 g/50 mL (premix) magnesium sulfate infusion 2 g/50 mL (premix) 08/28/19 03:30:00 PM EDT 16 meq Intravenous completed 16 mEq, Intravenous, Administer over 60 Minutes, Once, [facility] 08/28/19 at 1530, For 1 dose
each 8 mEq equivalent to 1 gm
[facility] Medication administered onsite methylPREDNISolone sodium succinate (SOLU-MEDROL) injection 150 mg [id number] 08/28/2019 03:30:00 PM EDT 150 mg Intravenous completed 150 mg, Intravenous, Once, Chelsi 08/28/19 at 1530, For 1 dose [facility] Medication administered onsite tizanidine 4 MG Oral Tablet tizanidine (ZANAFLEX) tabl et 2 mg tizanidine (ZANAFLEX) tablet 2 mg 08/28/2019 10:33:07 AM EDT 2 mg Oral aborted 2 mg, Oral, Every 6 hours PRN, Muscle spasms, Starting Chelsi 08/28/19 at 1033, For 30 days [facility] Medication administered onsite Acetaminophen 10 MG/ML Injectable Soluti on acetaminophen (OFIRMEV) infusion 1,000 mg acetaminophen (OFIRMEV) infusion 1,000 mg 08/28/2019 03:45:00 AM EDT 1000 mg Intravenous completed 1,000 mg , Intravenous, Administer over 15 Minutes, Once, Chelsi 08/28/19 at 0345, For 1 dose
Maximum dose 3 gm daily from all sources
[facility] Medication administered onsite 2 ML Metoclopramide 5 MG/ML Prefilled Sy ringe metoclopramide (REGLAN) injection 10 mg metoclopramide (REGLAN) injection 10 mg 08/28/2019 03:30:00 AM E DT 10 mg Intravenous completed 10 mg, I ntravenous, Once, Chelsi 08/28/19 at 0330, For 1 dose [facility] Medication administered onsite tizanidine 4 MG Oral Tablet tizanidine (ZANAFLEX) tabl et 2 mg tizanidine (ZANAFLEX) tablet 2 mg 08/28/2019 03:25:00 AM EDT 2 mg Oral completed 2 mg, Oral, Once, Chelsi 08/28/19 at 0330, For 1 dose [facility] Medication administered onsite 1 ML Ketorolac Tromethamine 15 MG/ML Car [facility] ketorolac (TORADOL) 15 MG/ML injection 15 mg ketorolac (TORADOL) 15 MG/ML injection 15 mg 0 02:00:00 AM EDT 15 mg Intravenous completed 15 mg, Intravenous, Once, Chelsi 08/28/19 at 0200, For 1 dose [facility] Medication administered onsite tramadol hydrochloride 50 MG Oral Tablet tramadol (ULT RAJENDRA) tablet 50 mg tramadol (ULTRAM) tablet 50 mg 08/28/2019 12:45:00 AM EDT 50 mg Oral completed 50 mg, Oral, Once, Chelsi 08/28/19 at 0045, [facility] Medication administered onsite gadobutrol (GADAVIST) contrast injection 6.5 mL [id number] 08/28/2019 12:15:00 AM EDT 0.1 mL/kg Intravenous completed 6.5 mL (rounded from 6.63 mL = 0.1 mL/kg 66.3 kg), Intravenous, 1 TIME IMAGING, Chelsi 08/28/19 at 0015, For 1 dose
Do not mix or administer in the same IV line with other medications.
[facility] Medication administered onsite Acetaminophen 10 MG/ML Injectable Soluti on acetaminophen (OFIRMEV) infusion 1,000 mg acetaminophen (OFIRMEV) infusion 1,000 mg 08/27/2019 09:45:00 PM EDT 1000 mg Intravenous completed 1,000 mg , Intravenous, Administer over 15 Minutes, Once, Sun08/27/19 at 2145, For 1 dose
Maximum dose 3 gm daily from all sources
[facility] Medication administered onsite ondansetron (ZOFRAN) injection 4 mg [id number] 08/27/2019 09:37:0 7 PM EDT 4 mg Intravenous aborted 4 mg, In travenous, Every 8 hours PRN, Nausea, Vomiting, Starting Sun08/27/19 at 2137, For 30 days [facility] Medication administered onsite gabapentin 100 MG Oral Capsule gabapentin (NEURONTIN) capsule 100 mg gabapentin (NEURONTIN) capsule 100 mg 08/27/2019 03:30:00 PM EDT 100 mg Oral aborted 100 mg, Oral, Three Times D aily Standard, First dose on Sun08/27/19 at 1530, For 30 days [facility] Medication administered onsite sodium chloride infusion 0.9 % [id number] 08/27/2019 02:15:00 PM ED T 50 mL Intravenous completed Intravenous, Once, Sun08/27/19 at 1415, For 1 dose
After completion of Alteplase flush line with 50 ml NS at the same rate as the Alteplase infusion.
[facility] Medication administered onsite Hydralazine Hydrochloride 20 MG/ML Injec table Solution hydrALAZINE (APRESOLINE) injection 10 mg hydrALAZINE (APRESOLINE) injection 10 mg 08/27/2019 02 :09:43 PM EDT 10 mg Intravenous active 10 m g, Intravenous, Once PRN, Other, For SBP > 180 or DBP > 105, Starting Sun08/27/19 at 1409, For 30 days
Dilute in 25-50 ml normal saline. Administer over 30 minutes.
[facility] Medication administered onsite Acetaminophen 325 MG Oral Tablet acetaminophen (TYLENO L) tablet 650 mg acetaminophen (TYLENOL) tablet 650 mg 08/27/2019 02:09:43 PM EDT 65 0 mg Oral active 650 mg, Oral, E very 6 hours PRN, Mild Pain (Pain Scale Score 1- 3), Moderate Pain (Pain Scale Score 4-6), Headaches, Starting Sun08/27/19 at 1409, For 30 days
Maximum daily dose of acetaminophen is 3,000 mg from all sources in 24 hours.
[facility] Medication administered onsite 4 ML Labetalol hydrochloride 5 MG/ML Car tr[facility] labetalol (TRANDATE) injection 10 mg labetalol (TRANDATE) injection 10 mg 08/27/2019 02:09:43 PM EDT 10 mg Intravenous active 10 mg, Intrav enous, Once PRN, High Blood Pressure, For SBP > 180 or DBP > 105, Starting Sun08/27/19 at 1409, For 30 days
May repeat X1
[facility] Medication administered onsite 400 mg 05/08/2019 12:00:00 AM EST capsule 90 TAKE ONE CAPSULE BY MOUTH THREE TIMES A DAY TAKE ONE CAPSULE BY MOUTH THREE TIMES A DAY SOLD: 05/08/2019 [facility] 5 mg 05/07/2019 12:00:00 AM EST tablet 18 TAKE ONE TABLET BY MOUTH EVERY 4 HOURS NEEDED FOR UP TO 3 DAYS, MAXIMUM DAILY DOSE = 6 TABLETS TAKE ONE TABLET BY MOUTH EVERY 4 HOURS NEEDED FOR UP TO 3 DAYS, MAXIMUM DAILY DOSE = 6 TABLETS SOLD: 05/08/2019 [facility] Ondansetron 4 MG Oral Tablet Ondansetron HCl 4 MG Oral Tablet (ZOFRAN) Ondansetron HCl 4 MG Oral Tablet (ZOFRAN) 05/07/2019 12:00:00 AM EST 4 mg Oral active Take 1 tablet by mouth every 8 (eight) hours as needed for Nausea for up to 8 doses [facility] 4 mg 05/07/2019 12:00:00 AM EST tablet 20 TAKE ONE TABLET BY MOUTH EVERY 8 HOURS NEEDED FOR NAUSEA FOR UP TO 8 DOSES TAKE ONE TABLET BY MOUTH EVERY 8 HOURS NEEDED FOR NAUSEA FOR UP TO 8 DOSES SOLD: 05/08/2019 [facility] Oxycodone Hydrochloride 5 MG Oral Tablet oxyCODONE HCl 5 MG Oral Tablet (ROXICODONE) oxyCODONE HCl 5 MG Oral Tablet (ROXICODONE) 05/07/2019 12:00:00 AM EST 5 mg Oral active Take 1 t ablet by mouth every 4 (four) hours as needed for up to 3 days, Max Daily Dose: 30 mg [facility] Ibuprofen 400 MG Oral Tablet ibuprofen (ADVIL,MOTRIN) tablet 400 mg ibuprofen (ADVIL,MOTRIN) tablet 400 mg 05/06/2019 02:45:00 PM EST 400 mg Oral active 400 mg, Oral, Every 4 hours PRN, Mild Pain (Pain Scale Score 1-3), Starting Sun05/06/19 at 1445, For 240 hours
Take with food
[facility] Medication administered onsite 0.4 ML Enoxaparin sodium 100 MG/ML Prefi lled Syringe enoxaparin sodium (LOVENOX) injection 40 mg enoxaparin sodium (LOVENOX) injection 40 mg 05/06/2019 09:00:00 AM EST 40 mg Subcutaneous active 40 mg, Subcutaneous, Daily Standard, First dose on Sun05/06/19 at 0900, For 30 days [facility] Medication administered onsite oxyCODONE (ROXICODONE) immediate release tablet 5 mg 05/06/2019 08:40:32 AM EST 5 mg Oral active [Order 1 Start] Name: oxyCODONE (ROXICODONE) immediate release tablet 5 mg Signed Summary: 5 mg, Oral, Every 4 hours PRN, Moderate Pain (Pain Scale Score 4-6), Starting Sun05/06/19 at 0840, For 3 d ays
Oxycodone immediate release is limited to 10 mg per dose. Higher doses ( only) require Pain Service consultation and approval.
[Order 1 End] [Order 2 Start] Name: oxyCODONE (ROXICODONE) immediate release tablet 10 mg Signed Summary: 10 mg, Oral, Every 4 hours PRN, Severe Pain (Pain Scale Score 7-10), Starting Sun05/06/19 at 0840, For 3 days
Oxycodone immediate release is limited to 10 mg per dose. Higher doses ( only) require Pain Service consultation and approval.
[Order 2 End] [facility] Medication administered onsite Methocarbamol 500 MG Oral Tablet methocarbamol (ROBAXI N) tablet 500 mg methocarbamol (ROBAXIN) tablet 500 mg 05/05/2019 09:00:00 PM EST 50 0 mg Oral active 500 mg, Oral, F our Times Daily Standard, First dose on Sun05/05/19 at 2100, For 30 days [facility] Medication administered onsite gabapentin 400 MG Oral Capsule gabapentin (NEURONTIN) capsule 400 mg gabapentin (NEURONTIN) capsule 400 mg 05/05/2019 09:00:00 PM EST 400 mg Oral active 400 mg, Oral, Three Times D aily Standard, First dose on Sun05/05/19 at 2100, For 30 days [facility] Medication administered onsite Ibuprofen 400 MG Oral Tablet ibuprofen (ADVIL,MOTRIN) tablet 400 mg ibuprofen (ADVIL,MOTRIN) tablet 400 mg 05/05/2019 07:15:00 PM EST 400 mg Oral aborted 400 mg, Oral, Every 4 hours, First dose on Sun05/05/19 at 1915, For 10 days
Take with food
[facility] Medication administered onsite Acetaminophen 325 MG Oral Tablet acetaminophen (TYLENO L) tablet 650 mg acetaminophen (TYLENOL) tablet 650 mg 05/05/2019 07:15:00 PM EST 65 0 mg Oral active 650 mg, Oral, E very 6 hours, First dose on Sun05/05/19 at 1915, For 30 days
Maximum daily dose of acetaminophen is 3,000 mg from all sources in 24 hours.
[facility] Medication administered onsite ondansetron (ZOFRAN) injection 4 mg [id number] 05/05/2019 07:06:0 0 PM EST 4 mg Intravenous active 4 mg, In travenous, Every 8 hours PRN, Nausea, Vomiting, Starting Sun05/05/19 at 1906, For 30 days [facility] Medication administered onsite sodium chloride 0.9 % bolus 500 mL [id number] 05/05/2019 05:45:00 PM EST 500 mL Intravenous completed 500 mL, Intravenous, Once, Sun05/05/19 at 1745, For 1 dose, [facility] Medication administered onsite sodium chloride 0.9 % bolus 500 mL [id number] 05/05/2019 05:15:00 PM EST 500 mL Intravenous completed 500 mL, Intravenous, Once, Sun05/05/19 at 1715, For 1 dose, [facility] Medication administered onsite dextrose 5 %-0.9 % sodium chloride infusion [id number] 05/05/2019 04:15:00 PM EST Intravenous completed at 75 mL/hr, Intravenous, Continuous, Starting Sun05/05/19 at 1615, For 6 hours [facility] Medication administered onsite HYDROmorphone (DILAUDID) injection 0.5 mg [id number] 05/05/2019 03:43:39 PM EST 0.5 mg Intravenous aborted 0.5 mg, Intravenous, Every 5 min PRN, Severe Pain (Pain Scale Score > 6), Starting Sun05/05/19 at 1543, For 4 doses, [facility] Medication administered onsite Acetaminophen 10 MG/ML Injectable Soluti on acetaminophen [facility] infusion 1,000 mg acetaminophen ([facility] infusion 1,000 mg 05/05/2019 03:30:00 PM EST 1000 mg Intravenous completed 1,000 mg , Intravenous, Administer over 15 Minutes, Once, Sun05/05/19 at 1530, For 1 dose
Maximum dose 3 gm daily from all sources
[facility] Medication administered onsite HYDROmorphone (DILAUDID) injection 0.5 mg [id number] 05/05/2019 03:16:34 PM EST 0.5 mg Intravenous completed 0. 5 mg, Intravenous, Once PRN, Severe Pain (Pain Scale Score 7-10), Starting Sun05/05/19 at 1516, For 1 dose, Pre-op [facility] Medication administered onsite fentaNYL (SUBLIMAZE) (PF) injection 12.5 mcg [id number] 05/05/2019 02:48:36 PM EST 12.5 ug Intravenous aborted 12.5 mcg, Intravenous, Every 5 min PRN, Moderate Pain (Pain Scale Score 4-6), Starting Sun05/05/19 at 1448, For 10 doses, Recovery [facility] Medication administered onsite 72 HR Scopolamine 0.0139 MG/HR Transderm al Patch scopolamine (TRANSDERM-SCOP) patch 1.5 mg scopolamine (TRANSDERM-SCOP) patch 1.5 mg 05/05/2019 1 0:15:00 AM EST 1 {patch} Transdermal active 1 patch, Transdermal, Once, Sun05/05/19 at 1015, For 1 dose, Pre-op
Programmed to deliver in-vivo approximately 1 mg of scopolamine over 3 days
[facility] Medication administered onsite 4 mg 04/02/2019 12:00:00 AM EST tablets,dose pack 21 TAKE BY MOUTH DIRECTED TAKE BY MOUTH DIRECTED SOLD: 04/02/2019 [facility] 8 mg 04/02/2019 12:00:00 AM EST tablet,disintegrating [address] ONE TABLET UNDER THE TONGUE THREE TIMES A DAY PLACE ONE TABLET UNDER THE TONGUE THREE TIMES A DAY SOLD: 04/02/2019 [facility] gabapentin 400 MG Oral Capsule Gabapentin 400 MG Oral Capsule (NEURONTIN) Gabapentin 400 MG Oral Capsule (NEURONTIN) 02/06/2019 12:00:00 AM EST 400 mg Oral aborted Take 1 capsule by [facility] Three times daily [facility] Methocarbamol 500 MG Oral Tablet Methocarbamol 500 MG Oral Tablet (ROBAXIN) Methocarbamol 500 MG Oral Tablet (ROBAXIN) 500 mg Oral aborted Take 500 mg by mouth Four times daily [facility] Acetaminophen 500 MG Oral Tablet Acetaminophen 500 MG Oral Tablet (TYLENOL) Acetaminophen 500 MG Oral Tablet (TYLENOL) 500 mg Oral aborted Take 500 mg by mouth every 6 (six) hours as needed for Pain [facility] Insurance Providers Payer name Policy type / Coverage type Policy ID Covered republican ID Covered republican's relationship to mitchell Policy Mitchell Plan Information [facility] [id number] [facility] O/P [id number] [facility] U [id number] Se lf [id number] [facility] [place] [id number] 01 [id number] [facility] [id number] 18 [facility] [place] [id number] [facility] [id number] SP [id number] [facility] [id number] 18 [id number] [facility] [id number] SP [id number] [facility] Commercial [id number] Self [id number] [facility] Commercial [id number] Self [id number] [facility] Commercial [id number] Self [id number] [facility] Commercial [id number] Self [id number] [facility] Commercial [id number] Self [id number] [facility] Commercial [id number] Self [id number] [facility] Commercial [id number] Self [id number] Problems, Conditions, and Diagnoses Code Display Name Description Problem Type Effective Dates Data Source(s) 368.12 Transient Visual Loss Transient Visual Loss Problem 09/05/2019 12:00:00 AM EDT [facility] (Freddie Nieves [facility]) 437.9 Stroke/cerebrovascular Accident Stroke/cerebrovascular Accident Problem 09/05/2019 12:00:00 AM EDT [facility] (Freddie [facility]ieves [facility]) [id number] Cervical rib Cervical rib Problem 05/05/2019 12:00:00 A Mayda ANDUJARENT ([facility]) Note: s/p resection right cervical rib [id number] History of cervical discectomy History of cerv ical discectomy Problem 05/05/2019 12:00:00 AM EST [facility] ([facility]) Radiculopathy, cervical region Radiculopathy, cervical region Problem 03/31/2019 12:00:00 AM EST [facility] ([facility]) [id number] Bicipital tenosynovitis Bicipital tenosynovitis Proble m 03/31/2019 12:00:00 AM EST [facility] ([facility]) [id number] Neck pain Neck pain Problem 03/31/2019 12:00:00 AM ES T MED[facility] ([facility]) Q765 Cervical rib Cervical rib Diagnosis 02/02/2020 06:48:00 A M [facility] [id number] Migraine with aura, not intractable, wit hout status migrainosus Migraine with aura, not intractable, without status migrainosus Diagnosis 10/30/2019 08:05:00 AM [facility] M5412 Radiculopathy, cervical region Radiculopathy, cervical region Diagnosis 10/30/2019 08:05:00 AM [facility] fol fol Diagnosis 10/09/2019 10:27:25 AM ED [facility] G8190 Hemiplegia, unspecified affecting unspec ified side Hemiplegia, unspecified affecting unspecified side Diagnosis 10/01/2019 08:41:00 AM EDT [facility] M54.12 Radiculopathy, cervical region Radiculopathy, cervical region Diagnosis 09/18/2019 01:37:[address] [facility] G81.90 Hemiplegia, unspecified affecting unspec ified side Hemiplegia, unspecified affecting unspecified side Diagnosis 09/18/2019 01:31:[address] [facility] H538 Other visual disturbances Other visual disturbances Di agnosis 09/11/2019 08:48:[address] [facility] I639 Cerebral infarction, unspecified Cerebral infarc tion, unspecified Diagnosis 09/11/2019 08:48:[address] [facility] stroke stroke Diagnosis 08/27/2019 01:58:28 PM ED [facility] s/p op s/p op Diagnosis 05/15/2019 10:23:07 AM [facility] Neurogenic thoracic outlet syndrome Neurogenic t horacic outlet syndrome Diagnosis 05/05/2019 08:58:15 AM [facility] neuorgenic TOS neuorgenic TOS Diagnosis 05/05/2019 08:58: 15 AM [facility] Z01.818 Encounter for other preprocedural examin ation Encounter for other preprocedural examination Diagnosis 05/02/2019 11:30:54 AM [facility] pretest pretest Diagnosis 05/02/2019 12:00:00 AM [facility] G54.0 Brachial plexus disorders Brachial plexus disorders Di agnosis 04/17/2019 10:47:02 AM [facility] M25.511 Pain in right shoulder Pain in right shoulder Diagnosi s 04/09/2019 01:18:50 PM [facility] Y[address] or not applicable Unspecified place or not applicable Diagnosis 04/02/2019 11:37:00 AM [facility] [id number] Exposure to other specified factors, ini tial encounter Exposure to other specified factors, initial encounter Diagnosis 04/02/2019 11:37:00 AM [facility] [id number] Strain of muscle, fascia and tendon at n beatriz level, initial encounter Strain of muscle, fascia and tendon at neck level, initial encounter Diagnosis 04/02/2019 11:37:00 AM [facility] M7581 Other shoulder lesions, right shoulder O ther shoulder lesions, right shoulder Diagnosis 04/02/2019 11:37:00 AM [facility] C03153 Pain in right shoulder Pain in right shoulder Diagnosi s 04/02/2019 11:37:00 AM [facility] Surgeries/Procedures Procedure Description Date Indications Data Source(s) Surgical / procedural history : Cervical Repair & Tubal Ligation-2017, Tonsillectomy-2000, Adenoidectomy-2000, Cervical Cerclage for 3 pregnancies- 2010,2012,2016, Cervical Discoplasty-2019, Uterine Repair-2017, Cervical Discectomy Surgical / procedural history : Cervical Repair & Tubal Ligation- 2017, Tonsillectomy-2000, Adenoidectomy-2000, Cervical Cerclage for 3 pregnancies-2010,2012,2016, Cervical Discoplasty-2019, Uterine Repair-2017, Cervical Discectomy 09/05/2019 12:00:00 AM EDT [facility] (Ang [facility]ieves [facility]) Medical Eye Exam Medical Eye Exam 09/05/2019 12:00:00 AM EDT [facility] (Freddie [facility]ieves [facility]) BLOOD COUNT COMPLETE AUTO&AUTO DIFRNTL WBC COUNT CBC AND DIFFER ENTIAL Routine 08/29/2019 4:38 AM EDT 08/29/2019 08:38:[address] [facility] BASIC METABOLIC PANEL CALCIUM TOTAL BASIC METABOLIC PANEL Routi ne 08/29/2019 4:38 AM EDT 08/29/2019 08:38:00 AM EDT [facility] CT HEAD/BRAIN W/O CONTRAST MATERIAL CT HEAD WITHOUT CONTRAST 70 450 Routine 08/28/2019 11:15 AM EDT 08/28/2019 03:15:[address] [facility] URNLS DIP STICK/TABLET REAGENT AUTO MICROSCOPY URINAL YSIS WITH REFLEX URINE CULTURE Routine 08/28/2019 3:46 AM EDT 08/28/2019 07:46 :[address] [facility] GONADOTROPIN CHORIONIC QUANTITATIVE BETA HCG, QUANT Routine 08/28/2019 3:46 AM EDT 08/28/2019 07:46:00 AM EDT [facility] BLOOD COUNT COMPLETE AUTO&AUTO DIFRNTL WBC COUNT CBC AND DIFFER ENTIAL Routine 08/28/2019 3:46 AM EDT 08/28/2019 [facility] CALCIUM TOTAL BASIC METABOLIC PANEL Routi ne 08/28/2019 3:46 AM EDT 08/28/2019 07:46:00 AM EDT [facility] MRI SPINAL CANAL CERVICAL W/O & W/CONTR MATRL MR CERV ICAL SPINE WITH AND WITHOUT CONTRAST [id number] STAT 08/28/2019 12:11 AM EDT 08/28/2019 04:11:[address] [facility] MRI SPINAL CANAL THORACIC W/O & W/CONTR MATRL MR THOR ACIC SPINE WITH AND WITHOUT CONTRAST [id number] STAT 08/28/2019 12:08 AM EDT 08/28/2019 04:08:[address] [facility] MRI BRAIN BRAIN STEM W/O CONTRAST MATERIAL MR BRAIN WITHOUT CONTRAST [id number] STAT 08/28/2019 12:07 AM EDT 08/28/2019 04:07:[address] [facility] ECHOCARDIOGRAM COMPLETE WITH BUBBLE STUDY ECHOCARDIOG RAJENDRA COMPLETE WITH BUBBLE STUDY Routine 08/27/2019 3:21 PM EDT 08/27/2019 07:21 [facility] COVID-19 PCR Routine 08/27/2019 2:16 PM EDT 08/27/2019 [facility]:16[facility] RESPIRATORY PANEL Routine 08/27/2019 2:16 PM EDT 08/27/2019 06:16:[address] [facility] BLOOD COUNT COMPLETE AUTO&AUTO DIFRNTL WBC COUNT CBC AND DIFFER ENTIAL Routine 08/27/2019 2:16 PM EDT 08/27/2019 06:16[facility] THYROID STIMULATING HORMONE TSH TSH Routine 08/27/2019 2:16 PM EDT 08/27/2019 06:16:[address] [facility] HEMOGLOBIN GLYCOSYLATED A1C HEMOGLOBIN A1C Routine 08/27/2019 2:16 PM EDT 08/27/2019 06:16:[address] [facility] LIPID PANEL LIPID PANEL Routine 08/27/2019 2:16 PM EDT 08/27/2019 06:16[facility] BASIC METABOLIC PANEL CALCIUM TOTAL BASIC METABOLIC PANEL Routi ne 08/27/2019 2:16 PM EDT 08/27/2019 06:16:00 PM EDT [facility] GLUCOSE QUANTITATIVE BLOOD XCPT REAGENT STRIP POCT GLUCOSE, DOC KED Routine 08/27/2019 2:15 PM EDT 08/27/2019 06:15:[address] [facility] BLOOD COUNT COMPLETE AUTOMATED CBC Routine 05/06/2019 4:28 A M EST 05/06/2019 09:28:00 AM [facility] PHOSPHORUS INORGANIC PHOSPHORUS LEVEL Routine 05/06/2019 4:[address] 05/06/2019 09:28:00 AM [facility] MAGNESIUM MAGNESIUM LEVEL Routine 05/06/2019 4:28 AM EST 05/06/2019 09:28:00 AM [facility] BASIC METABOLIC PANEL CALCIUM TOTAL BASIC METABOLIC PANEL Routi ne 05/06/2019 4:28 AM EST 05/06/2019 09:28:00 AM [facility] XR CHEST FRONTAL ONLY [id number] XR CHEST FRONTAL ONLY [id number] STAT 05/05/2019 4:16 PM EST 05/05/2019 09:16:00 PM [facility] CARDIAC REPORT CARDIAC REPORT 05/05/2019 11:12 AM EST 05/05/2019 04:12:17 PM [facility] CARDIAC REPORT CARDIAC REPORT 05/05/2019 11:10 AM EST 05/05/2019 04:10:55 PM [facility] EXCISION 1ST &/OR CERVICAL RIB <td><content ID="proced [id number]">EXCISION 1ST &/OR CERVICAL RIB</content></td><td></td><td>05/05/2019 10:57 AM EST</td><td><paragraph>Neurogenic thoracic outlet syndrome</paragraph></td><td> </td> 05/05/2019 03:57:00 PM EST - 05/05/2019 08:43:00 PM ES T Neurogenic thoracic outlet syndrome [facility] Neurogenic thoracic outlet syndrome GONADOTROPIN CHORIONIC QUANTITATIVE POCT ISTAT BHCG Routine 05/05/2019 9:48 AM EST 05/05/2019 02:48:00 PM EST [facility] LEVEL I SURG PATHOLOGY GROSS EXAMINATION ONLY SURGICA L PATHOLOGY EXAM ( ONLY) Routine 05/05/2019 12:00 AM EST 05/05/2019 05:00 :00 AM EST [facility] BLOOD COUNT COMPLETE AUTOMATED CBC Routine 0 12:08 PM EST Preoperative testing 05/02/2019 05:08:00 PM EST Preoperative [facility] Preoperative testing BLOOD TYPING ABO TYPE AND SCREEN Routine 05/02/2019 12:08 PM EST Preoperative testing 05/02/2019 05:08:00 PM EST Preoperative [facility] Preoperative testing Results ID Date Data Source [id number] 04/11/2020 12:00:00 AM EST [facility] Name Value Range Interpretation Code Description Data Chikis rce(s) Supporting Document(s) SARS-CoV2 Rapid Antigen Negative [facility] and reported by [facility]. ID Date Data Source [id number] 03/31/2020 01:02:11 PM EST [facility] Name Value Range Interpretation Code Description Data Chikis rce(s) Supporting Document(s) Progress Note [facility] SWVOXh2yUjFUDfWz03/TMYkwGQOfi4NwZCoxXSx4MAhwXLAoP9VhJXC4zX0bBME4LReSPiIkQiHhWHG4 lbm [file] DQo= ID Date Data Source [id number] 02/03/2020 09:02:00 [place] [address] PHONE: [phone] FAX: [phone] Name .................. : CRISTOBAL MARY Torres Acct Number.................. : [id number] ROOM. ................. : Number ................... : [id number] Stay type ............. : O/P Discharge Date......... ... : Admit Date ......... : Admit Phys .................... : RADHA Date of ....... : 1985 Family Phys ................... : HUGH Phone .................. : [phone] Age ................................ : 34 Film# .................. .:[id number] Sex ................................. : F Unsigned transcriptions are preliminary reports and do not represent a medical or legal document CHEST 2 VIEWS 69225 COMPLETE:02/02/20 11:34 83652 (REASON FOR CHEST: CERVICAL RIB TWO VIEW CHEST, 02/02/20: INDICATION: Status post cervical rib removal. FINDINGS: Lung lama are clear. No focal infiltrate or consolidation is identified. Cardiac silhouette appears unremarkable. Osseous structures show resection of the right first rib as well as an intervertebral prosthesis in the cervical spine. IMPRESSION: No acute pulmonary findings. Examination dictated by VENU Gallo. Examination was reviewed with Ashley López MD, radiologist at the time of this dictation. Electronically Reviewed and Signed By Ashley López MD , 02/03/20 09:02, KGG Transcribe Initials: SSR, Transcribe Date: 02/02/20 12:27, Dictation Date: Copy for: [address] [place] [address] REC Page 1 of 1 Name Value Range Interpretation Code Description Data Chikis rce(s) Supporting Document(s) ID Date Data Source [id number] 10/09/2019 11:29:36 AM EDT [facility] Name Value Range Interpretation Code Description Data Chikis rce(s) Supporting Document(s) Progress Note [facility] IDCBQt6kSnGRCiJp47/FWGfsQDAca3DlPLvxINl9QJvuFKYaI6VxTBU2iQ0wPEV4KGrMOcQsJpQoZzA7 lbm [file] 2b4Ml/4lsPS47IsUxay/tLA/9hMUlBgt3p0o6xKXLdbh27d+cd938nbDRSt6M2ZMhD06VUcnnXjb+needle control cheniller [file] AgICAgICAgICAgICAgICAgICAgICAgICAgICAgICAgICAgICAgICAgICAgICAgICAgICAgICAgICAgIC AgICAgICAgICAgICANCiAgICAgICAgICAgICAgICAg ICAgICAgICAgICAgICAgICAgICAgICAgICAgICAgICAgICAgICAgICAgICAgICAgICAgICAgICAgICAg ICAgICAgICAgICAgICAgICAgICAgICANCiAgICAgICAgICAgICAgICAgICAgICAgICAgICAgICAgICAg ICAgICAgICAgICAgICAgICAgICAgICAgICAgICAgIC AgICAgICAgICAgICAgICAgICAgICAgICAgICAgICAgICANCiAgICAgICAgICAgICAgICAgICAgICAgIC AgICAgICAgICAgICAgICAgICAgICAgICAgICAgICAgICAgICAgICAgICAgICAgICAgICAgICAgICAgIC AgICAgICAgICAgICAgICANCiAgICAgICAgICAgICAg ICAgICAgICAgICAgICAgICAgICAgICAgICAgICAgICAgICAgICAgICAgICAgICAgICAgICAgICAgICAg ICAgICAgICAgICAgICAgICAgICAgICAgICANCiAgICAgICAgICAgICAgICAgICAgICAgICAgICAgICAg ICAgICAgICAgICAgICAgICAgICAgICAgICAgICAgIC AgICAgICAgICAgICAgICAgICAgICAgICAgICAgICAgICAgICANCiAgICAgICAgICAgICAgICAgICAgIC AgICAgICAgICAgICAgICAgICAgICAgICAgICAgICAgICAgICAgICAgICAgICAgICAgICAgICAgICAgIC AgICAgICAgICAgICAgICAgICANCiAgICAgICAgICAg ICAgICAgICAgICAgICAgICAgICAgICAgICAgICAgICAgICAgICAgICAgICAgICAgICAgICAgICAgICAg ICAgICAgICAgICAgICAgICAgICAgICAgICAgICANCiAgICAgICAgICAgICAgICAgICAgICAgICAgICAg ICAgICAgICAgICAgICAgICAgICAgICAgICAgICAgIC AgICAgICAgICAgICAgICAgICAgICAgICAgICAgICAgICAgICAgICANCiAgICAgICAgICAgICAgICAgIC AgICAgICAgICAgICAgICAgICAgICAgICAgICAgICAgICAgICAgICAgICAgICAgICAgICAgICAgICAgIC AgICAgICAgICAgICAgICAgICAgICANCjw/pQBsD2df aOAczuO9Z8ckQf1EDc3BGA8il3HjOTBnFWzwyuYrGmmPOqOaDAJpPpiPEqb0DTdwWN6PwQYyA9FgF9Aq FUxePL3UXGSkWSXxkSWxIXJeZSDiZcU3OYUqZSyoWL1JpGOoNLylMBTbFGYtKvYqXJEcWRJnBZEfTA7L CTGbE151boMwLy4EJp1MWvLmZY0ydg3VLoSqBLYzTu yEYqe5XUjpEM5TaLHejVNuWrZoBCYFKjBnK5tmo3CmZpnhVEKCJFqsKG9Gr1DcrJKuGFw+Ke7PXU3ol0 GkQSitBlNfJV3dog8BJKbCKnQoJ0UfmXlrQVQmi0qlVWJvDZ5tyYMaUXX6YKYkyHlggzgfWcBDKYwbUG rnFKCKHGFhkZR3OlB3VxErMwPgOOQ8XAAsXE7tJEyf LP3STWH7QNiwGFBeXLYzW9qKDcSaNQXnDMBzuEocFT6EVuVbM6GzrtDvuYKqJyQzWDZKFf6+DQplbmRv PovEWeB9BHJhe1GoKAq8PH7POMNqCVvoTC1HOOUdaG0dKXgxUP7MIkMkIGIgUTHGAoRiE21jtINgMBo6 C3ZaZbZoCIMtAscxGMEhLKrdJcZoPIJrFdMlLGhjJU 4+ID4+GOhjWZ7BFXuddzGtCNGkXi1IZJFrSHAeJL7lLKGqWLDyG3N1iPgxYCKAMxJgK2ocbzqhJR4yWG WxM177fUhnpcUzQZD2OENhDv1YDPGwNDV4RFZcjNLaNoDdKOANBHoiVM3DhYYuVKF0gK5lBUdwIGPyKB ZtE5sLGgJgcUhwET61rGycofBaiULuWMr+Dj7XJV8i q7StGVu3rkTgOTvlETM7MWbcQQGqRQMwAEXvLSY7FYN9GSMVCjAtAUOeSLLkYPotNPJtMOGtop6ULCYe XFIcExa2CFXtQOJlTBKqUQxxOAYdMAQ0ULG6QCJhLGUxZZ6UVwMaZWNyNVPyMZscLTAwNBNadt8PRXKk MSYcDvb1RjMqFWXjLFHgWXtiVTBjJCT5LStyOZMmIQ AkCP4ROxFlQZWoLNfxNQDoCCQvJHNkxn0DJINvRQJiMfT9DCIkQAZqKTIfANmlTGHcDVYzFDz0XLMpJQ VwGD3HZyLqIWAjIQY8ILIcKDPsYSKvzw0HPNZzRYHnHKS3FEKfMHXxEDSyEFlyTVKaBQAjTAI0SZYjGT IxQK2UUoUfQFGcMAI9XMQdNOClQZXoaz9MDTSkJAXs WlR6BAHqBYLnQJEyHNlhECAhNEFaZUFqHBPiKWGwDC7GZtEnDHNjEXBaTBvrDCIpKGJeir7XAWZzWDPl RRUfLGFoDNAbWIHmPKofFPScCML2LRB0CJMkJCGqBM1GBmChVAFwXfKrLAUzFOBrBQWgsn7WXZZtONKj YXHuJkPaSPVgNPHaJKduSKLfMAE6BKN7INKoNYSwEK 3OPsUqLNFsSaPhTGDjZHSgDFZtrb1UWOKyMZIcUmY1DDFnGLGfAYWeKYryJMQvBHU3QjK1BKFrMVXfWP 8WFnFjZVGmZjlxIkMfKVZcZUCxoc2TKNCkHZOmLKJzGhQiYEKyBPOwXEsfIZHsMOQ0Nxq2WVLhXURsGW 3TRhXnIJOqBre5LYtaTKEuPRNrrn9LpEMdgXvdas5K YQxQOi8GbUsxBUC0QAnjVm1nsUIxSBHzHSBLKj7XnfFqJUUmMZSOKWepOVVzWXi0TIQeUEFgZGB3WLoc LAk1CkIeRsZmTtJaIpZ1QdD6AaZ1VuA8ZSM2ORBoOOnaEUZoROOcCZLlMBEjBvJhTHZnNNI+PV6tEWu+ Ub7Zr0SlrjR2snCmVWbxFRE8Hc4UDKVKA6NTPv== ID Date Data Source [id number] 10/02/2019 10:52:35 AM EDT [facility] Name Value Range Interpretation Code Description Data Chikis rce(s) Supporting Document(s) Progress Note [facility] AQCLWx4vWsGCGnUm60/DYTiuINFmo0QvJAbgNWm0VFosMJLeT8VrHSY7vP2kJAN6XUsMVlDzLuMlItS9 lbm [file] AgICAgICAgICAgICAgICAgICAgICAgICAgICAgICAgICAgICAgICAgICAgICAgICAgICAgICAgICAgIC AgICAgICAgICAgICAgICANCiAgICAgICAgICAgICAgICAgICAgICAgICAgICAgICAgICAgICAgICAgIC AgICAgICAgICAgICAgICAgICAgICAgICAgICAgICAg ICAgICAgICAgICAgICAgICAgICAgICAgICANCiAgICAgICAgICAgICAgICAgICAgICAgICAgICAgICAg ICAgICAgICAgICAgICAgICAgICAgICAgICAgICAgICAgICAgICAgICAgICAgICAgICAgICAgICAgICAg ICAgICAgICANCiAgICAgICAgICAgICAgICAgICAgIC AgICAgICAgICAgICAgICAgICAgICAgICAgICAgICAgICAgICAgICAgICAgICAgICAgICAgICAgICAgIC AgICAgICAgICAgICAgICAgICANCiAgICAgICAgICAgICAgICAgICAgICAgICAgICAgICAgICAgICAgIC AgICAgICAgICAgICAgICAgICAgICAgICAgICAgICAg ICAgICAgICAgICAgICAgICAgICAgICAgICAgICANCiAgICAgICAgICAgICAgICAgICAgICAgICAgICAg ICAgICAgICAgICAgICAgICAgICAgICAgICAgICAgICAgICAgICAgICAgICAgICAgICAgICAgICAgICAg ICAgICAgICAgICANCiAgICAgICAgICAgICAgICAgIC AgICAgICAgICAgICAgICAgICAgICAgICAgICAgICAgICAgICAgICAgICAgICAgICAgICAgICAgICAgIC AgICAgICAgICAgICAgICAgICAgICANCiAgICAgICAgICAgICAgICAgICAgICAgICAgICAgICAgICAgIC AgICAgICAgICAgICAgICAgICAgICAgICAgICAgICAg ICAgICAgICAgICAgICAgICAgICAgICAgICAgICAgICANCiAgICAgICAgICAgICAgICAgICAgICAgICAg ICAgICAgICAgICAgICAgICAgICAgICAgICAgICAgICAgICAgICAgICAgICAgICAgICAgICAgICAgICAg ICAgICAgICAgICAgICANCiAgICAgICAgICAgICAgIC AgICAgICAgICAgICAgICAgICAgICAgICAgICAgICAgICAgICAgICAgICAgICAgICAgICAgICAgICAgIC AgICAgICAgICAgICAgICAgICAgICAgICANCjw/kSSmQ0uywHZclkL4S1dvYw2RHb1IKF7gg6GjHSMeSY eykjEqYmiQBgIiIUGsQpbLOeq0OQfiZZ5EtYTwT9Mg D0QiMQbgCB2UWEFjKKUwcCZuRPOhFUNzTcG6UIYsMZagRB5DoFTdCQsqBKHiXKCmQjLoNIZkGWKjMDIe QF7CMABjL856hqKbIm3UXw7NMnQbFT9mwe8NXwXyTBZoJrzUTty4XHtzME1SwHBwaSTtAuWzNFRQNfDc V3ipz7PkWwsbMDRIPHtnQO9Ky4NuiVVjKOt+Pg0KZW 3wp4JtRAmhZaBcXO9pye5HZLcAMjQqP0UigJkzCGAbf6orBZSsYI1bzEFlFTV6CAD6h5MpPYuvO2I5R7 iyBEXQZQJ0RBzwJU2jTXLcLBM3GaEzACQJBN9XDZJgZMDsjZGvOAWaCMCDIO5MSLcoIFO8JLNiunZceD DiFRtgSD3TRRBmmeJwIgQeIMTZSIp+Yy4JDP5bm5Hg ZNqfMZKeFF8jzv4XJZgEUhLqD9O4hBOoH5P8WOdtSu2AHEVgXUYrNxMgQRVRRIcrRY9FNZ4suxR3LB8Z wAZuEYIcRTIzwQCxUQs4Y90vlJClGLlrQD4HIJV+Ashley+Tq8TNQPzDPLsFVPtCpOiXBTSYfEpP2NxU4RE w8DxF6TaLP90sZkyttDfDEbmDN9XTA2vFSKsWPMAGA 9FdQAeyR5vwzHzNtDlQHABZrTuY32ohPMvTBOvEIP4HJLsAs3ZKNPrS0LiuqLwsKywghKtRHGkIOCXWF 0DIEagewLqkBHcgUqjNU38tCasDL1UQt0QXpPwBO2klu0QnSNvTt2WEYOnPC8OLTOlAJXqRWFtFFG8VZ LrXtSpOPxoWJDoYJBiHUV3QNGeCEQtJS0LDmLeSBUf PyM7YtMwKQSzTYQigb0UYSLoSVBbYDB2QiPcUDGwFYYgHXfwXOVoROFaCDO2DLXfVVTxZQ6PHwNkKLAn RWD2XjJpOBWvLMWnqe9HBRNlEZMvAXk7KjBiRLYsUKMlANpaWBLePCR3END7BFYdBJTxTP7UDrEcGCSq EHtaFXIbIEWbDMUwjp1PUMBbQLShTIxcYsFvWQUiND ZqKSbjAAOmQFGzIZLhZMKnTQTdIJ4ALyDzPFUjRASdBPLaUJCtHCLpnm0HMFFcVZKcIWO3CuRmFEWgJN OpZKzgKYUrVLZwPmthEWFlEHAaNC4UVlYvALQjPXZcUgrrKGVrUMYout2VAXIgGWYgZwW8LHHsTFAbPM UxRWesQBEmNALlEwG1IMUhCZLzWY5EXsXqYTDzVxDd PFjuWEThIDChkk1XZHOsYZTzREX1FENrIPNyQIYdTUysSCDuQOH2DiwdGZTlBWTgBG4XJsZkGKZdLdU3 VXSwMSZfYFOfhi9DHPKeKPAzDLB2RWKmRUUwELTdKYheMDZhFYI6OLNuFLBsFVSzOA0UNhKyLNPnPlXr SrNgEOYcFGOegq6OOBPfBLDqQrP1FTAmLFIsBDMyII uvEJVfJCG4XZQ7YBRgFVEdSC1CItNiFSVvCtonCgLbZAYjLUTcid4TVHSzLHNqLRSfGcAiLRHuXMKgMU ijATVqDQJ1XOl7WJKyPXYgUS4BYzArEZieRKNAPmv0KNugD4y8COHiWH6XW5Kqv3UtXlvcSZNKGCvwRL 7mojFyIJIeSd0HD3yGTch5ZFO4XAU8YlK0P9YdHgH3 Dib0CXCeXXA3XOFzTHwfEM0vLMK1TztdGvrkXoOhNrHhCaAxQPxvFTW1HlVgWNX2WKE7KbHkPK3ZYe6D MkK4KJV7gZVlYt5ZUxq4LnoCFwGmIL4COWt= ID Date Data Source [id number] 10/02/2019 09:15:00 [place] [address] PHONE: [phone] FAX: [phone] Name .................. : CRISTOBAL Torres Acct Number.................. : [id number] ROOM. ................. : MR Number ................... : [id number] Stay type ............. : O/P Discharge Date......... ... : 10/01/19 Admit Date .... ..... : 10/01/19 Admit Phys .................... : IDRIS UT Date of ....... : 1985 Family Phys ................... : PARVIZMADDY Phone .................. : [phone] Age ................................ : 34 Film# .................. .:[id number] Sex ................................. : F Unsigned transcriptions are preliminary reports and do not represent a medical or legal document CT CTA NECK W [facility] [address] COMPLETE:10/01/19 10:18 [facility] [address] (REASON FOR EXAM: ASSESS VESSEL ABNORMALITY CTA OF THE NECK WITH CONTRAST: FINDINGS: The brachiocephalic artery and proximal subclavian arteries are normal in appearance. Vertebral artery stenosis or dissection is not appreciated. The common carotid arteries, internal carotid arteries and external carotid arteries are unremarkable. Acute pathology or mass is not seen in the visualized pulmonic apices or soft tissues of the neck. IMPRESSION: No pathology is seen on CTA neck. While performing the above CT examination, radiation dose reduction was accomplished utilizing automated exposure control, adjusting of the mA and kV based on the patient's body size and/or the use of imperative reconstructive techniques. CT dose: 1113.3 mGycm Contrast agent in mL: 75 Isovue 370 Method of administration: Intravenous Electronically Reviewed and Signed By Ashley López MD , 10/02/19 09:15, KGG Transcribe Initials: DZ , Transcribe Date: 10/01/19 20:18, Dictation Date: Copy for: IDRIS HUBER Copy for: [address] [place] [address] REC Page 1 of 1 Name Value Range Interpretation Code Description Data Chikis rce(s) Supporting Document(s) ID Date Data Source [id number] 10/02/2019 09:15:00 AM EDT [facility] [address] [place] [address] PHONE: [phone] FAX: [phone] Name .................. : CRISTOBAL Torres Acct Number.................. : [id number] ROOM. ................. : MR Number ................... : [id number] Stay type ............. : O/P Discharge Date......... ... : 10/01/19 Admit Date .... ..... : 10/01/19 Admit Phys .................... : IDRIS CARPIO Date of ....... : 1985 Family Phys ................... : HUGH Phone .................. : [phone] Age ................................ : 34 Film# .................. .:[id number] Sex ................................. : F Unsigned transcriptions are preliminary reports and do not represent a medical or legal document [place] [address] COMPLETE:10/01/19 10:18 [facility] [address]36[address] (REASON FOR EXAM: ASSESS VESSEL ABNORMALITY CTA OF THE HEAD WITH AND WITHOUT CONTRAST: FINDINGS: The distal vertebral arteries, distal internal carotid arteries and basilar artery are unremarkable. The anterior cerebral arteries, middle cerebral arteries and posterior cerebral arteries are also grossly unremarkable. Atherosclerotic narrowing, vasculitis, aneurysmal dilatation or arterial embolus is not seen. IMPRESSION: Unremarkable CTA brain. While performing the above CT examination, radiation dose reduction was accomplished utilizing automated exposure control, adjusting of the mA and kV based on the patient's body size and/or the use of imperative reconstructive techniques. CT dose: 1221.2 mGycm Contrast agent in mL: 75 Isovue 370 Method of administration: Intravenous Electronic ally Reviewed and Signed By Ashley López MD , 10/02/19 09:15, KGG Transcribe Initials: GODFREY , Transcribe Date: 10/01/19 19:49, Dictation Date: Copy for: [facility] CECILE Copy for: [address] [place] [address] REC Page 1 of 1 Name Value Range Interpretation Code Description Data Chikis rce(s) Supporting Document(s) ID Date Data Source [id number] 09/25/2019 02:05:34 PM EDT [facility] Name Value Range Interpretation Code Description Data [facility] rce(s) Supporting Document(s) Progress Note [facility] VPRXGc9aFkZSBkCs03/VSKyoBWEnb6SgFVcxCKs1CCqhLZFzZ4AxXFE1lP4oVNX2VIdMLbHnDyUdHsXe [facility] [file] AgICAgICAgICAgICAgICAgICAgICAgICAgICAgICAgICAgICAgICAgICANCiAgICAgICAgICAgICAgIC AgICAgICAgICAgICAgICAgICAgICAgICAgICAgICAg ICAgICAgICAgICAgICAgICAgICAgICAgICAgICAgICAgICAgICAgICAgICAgICAgICAgICANCiAgICAg ICAgICAgICAgICAgICAgICAgICAgICAgICAgICAgICAgICAgICAgICAgICAgICAgICAgICAgICAgICAg ICAgICAgICAgICAgICAgICAgICAgICAgICAgICAgIC AgICANCiAgICAgICAgICAgICAgICAgICAgICAgICAgICAgICAgICAgICAgICAgICAgICAgICAgICAgIC AgICAgICAgICAgICAgICAgICAgICAgICAgICAgICAgICAgICAgICAgICAgICANCiAgICAgICAgICAgIC AgICAgICAgICAgICAgICAgICAgICAgICAgICAgICAg ICAgICAgICAgICAgICAgICAgICAgICAgICAgICAgICAgICAgICAgICAgICAgICAgICAgICAgICANCiAg ICAgICAgICAgICAgICAgICAgICAgICAgICAgICAgICAgICAgICAgICAgICAgICAgICAgICAgICAgICAg ICAgICAgICAgICAgICAgICAgICAgICAgICAgICAgIC AgICAgICANCiAgICAgICAgICAgICAgICAgICAgICAgICAgICAgICAgICAgICAgICAgICAgICAgICAgIC AgICAgICAgICAgICAgICAgICAgICAgICAgICAgICAgICAgICAgICAgICAgICAgICANCiAgICAgICAgIC AgICAgICAgICAgICAgICAgICAgICAgICAgICAgICAg ICAgICAgICAgICAgICAgICAgICAgICAgICAgICAgICAgICAgICAgICAgICAgICAgICAgICAgICAgICAN CiAgICAgICAgICAgICAgICAgICAgICAgICAgICAgICAgICAgICAgICAgICAgICAgICAgICAgICAgICAg ICAgICAgICAgICAgICAgICAgICAgICAgICAgICAgIC AgICAgICAgICANCiAgICAgICAgICAgICAgICAgICAgICAgICAgICAgICAgICAgICAgICAgICAgICAgIC AgICAgICAgICAgICAgICAgICAgICAgICAgICAgICAgICAgICAgICAgICAgICAgICAgICANCjw/eHBhY2 ktpITskeW7G3gjXu8ZRt8FZU1ud5DkWZXtZLkjdoSn CmnUDxIyFEVtCgnPEco1DSimAH2EmEUqH6LkB4QkTZouHW8MYXUtJWBwiCPnITNiXVMvPzL9EYDqSSse FT6ZhJUyERupBXHxJXDiPbMlFHSeGMRmEUViMX0NBJBiQ396umWxUm7FTh2RRvRuLD9gil5WFmSdZOKf FciJXri3TOciVB6BdSJnlJJwZrJaURNXBaQsF9ctw2 TtXzhpZDHWYBdqNP4Sz7ClcLKeRUn+Yu4SKR7of5JbLIslNqJuPQ2bfv5WTYcOUkImF1BkwDymTFEek7 haUNXkXL3fwRKaBJR8NG8uA7ecJNieKOWUMYccHO2gFGWUBRFgrJS6TzB3UpAuEfDqFAT4QtDbDR6pAP qaNA3IPDM0RNpgKHZoXWZnQ7oOAeVdURJtDBZnrFxk PZ8EQsJzM3LoyaUzgGOeRbHdRDYWGw7+NQfckwZeDpeZHcB5SNVgv7LySKh0CA1IEYGhLJjoEX8ELHRt jR4qYIguPJ2ZRwFaGDNxFZXJQgYtP50vyHSyQBp2U9FfIrXzVRIfXjcjGXXpVInqJpJlNNQlViQaBCgq ID4+ID4+LAckDE3AMYsvanQqZJTjIq0WEXCiBNFqBT 6qLMOyACCzN3K5vBbyUFKWNmNsN9ebtkkeYG3tHMIfH561wVfdnoQfZNH6HATgNp4ZBXBkXVV0RUGreA JdAwDjECTKXFhyZA1FjJGbSRO2jY8vGTqvIUTaYIGwL7oGSrCgbThjTK45sXxvbwOxqUTsIYo+Pg0KZW 7ji9SsIDo0qvWbNXiwULJ6QRecNSVhDCQxCXBcXFH8 KAQ8TWUAZbVqTJGtOFNlLTknTDIhGCPfnt1NYFAhLSAnEJLaMfQtNRJfDOHtHGbsJRCySZB3YKOcDQDg JIOiTJ8UFkZgRVJaMSOlDDhoKNBxQRInuc2MNFAjMKXuNZwyICHbNVUaWODaCZakPJZyECG1DYB8TZIi IABkUH3GFlLhPQOjJFJfYhkbUDZlUCZyzz6ZLOLhZL CeCdJ3AXZlOVRbMXIoUOqdCUXvXPC1OTO7KJAfJKMyIA9LHsZfEANnVYivLNTeGKIfAFDesr7BFGWbZN MhNVAvBLApMBNmALFqUNkyIEPfFIL7RQq0FDKlWNNjSR2MXpQfGOJnJVrzMVKrDYVxNNXbhv3VXTCsUT SmYEC7LZAjYNDwCFYbZIafKKGxEWKxZECaAKJtXSCz TW0WIwGdJCRgQVV2FhTaCMTgMDYlko2JRVUuPASbKmF8NIMrIWLuEFFwQVfyENXzLBWyFIBgOPPtHSIa BK2EVaWaQNLgOpW7SPToFOXbEHTwtf9GXCEfDVFtRxg7TSXuUWCkSXLoVXvmVIRiBGMoHBr5RBVyQOAp BY1MBmAjTUWjSrG3ZkcrEFScGGWgkt4BOFUsCAFjAO TzXcIkRBGhKTJnJOvwTIBcXPM3FmW3ZRGnDKFyRK0ADwWbKVZiSnU6XaNcISDlZMZmtr8HUFBtLXBnCu T3GkSiIHVdFDCmRVmiFSKbVCG1YkIrDMVeMOXyDB3TJiQdAVRoAsLdOUIzFQFgXDZdms3OzOJkrTcxpr 3JJXgTNp2JsLzaSMX7BTdiRw6mgNQfARAsPLRFHb4F shVmONPnWQHAWFgvXICfJZe1OpF1XKk8JjsbLVPcSDd2Y6E9QxJhXlNuX1ZdMEhsSoK4EPDrKqftHrP0 TWQ1DORpNxAvFVjvWyQaL4YkCFOyG7N+RM7yGDf+Eb9Oc7SjdxX0fdNfIFckFaYrUI6RVRTQY5LNJo== ID Date Data Source [id number] 09/18/2019 02:19:46 PM EDT [facility] XR SPINE CERV 2-3 VIEWS 16025FAYCD RESUL TInterpreted by:Purvi Suárez MDHISTORY: Evaluate fusionCOMPARISON: MRI cervical spine August 02, 2019.TECHNIQUE: 2 plain radiographsFINDINGS/IMPRESSION: Anterior fusion at the C6-C7 level is redemonstrated. The alignment of the cervical spine is near-anatomic and unchanged compared to the prior MRI. The spinal lamina line is intact. The remainder of the disc spaces preserve their height. The vertebral bodies appear normal in density. The prevertebral soft tissues are within normal limits..This document has been electronically signed by Purvi Suárez MD on 09/18/2019 2:17 PM Name Value Range Interpretation Code Description Data Chikis rce(s) Supporting Document(s) ID Date Data Source [id number] 09/08/2019 06:57:11 AM EDT [facility] Name Value Range Interpretation Code Description Data Chikis rce(s) Supporting Document(s) Discharge Summary [facility] RYYACk4vLaAMHnWo05/FTCkxCDSvc9OfBTnfVYk1HQrrMHJwS3TsMIJ2uI9rBMN5LUoJEpFuTcUbSeY8 lbm [file] taUBccYFFDVn2P ID Date Data Source [id number] 09/03/2019 03:34:00 PM EDT [facility] ([facility]) Name Value Range Interpretation Code Description Data Chikis rce(s) Supporting Document(s) C reactive protein [Mass/volume] in Serum or Plasma by High sensitivity method 0.44 mg/L 1.00-3.00 Below low normal [facility] ([facility]) <content>CDC/S HS-CRP CUT-OFF: RELATIVE RISK:</content>
<content><1.0 mg/L Low</content>
<content>1.0 - 3.0 mg/L Average</edin nt>
<content>>3.0 mg/L High</content>
<content>Optimally, the average of HS-CRP results repeated</content>
<content>two weeks apart should be used for risk assessment.</content>
<content></content> Nuclear Ab [Titer] in Serum by Immunofluorescence Laboratory test res ult [facility] ([facility]) <content>Negative <1:80</content>
<content>Borderline 1:80</content>
<content>Positive >1:80</content>
<content></content> ID Date Data Source [id number] 09/03/2019 03:34:00 PM EDT [facility] ([facility]) Name Value Range Interpretation Code Description Data Chikis rce(s) Supporting Document(s) Antithrombin Activity 125 % 75-135 [facility] ( [facility]) Direct Xa inhibitor anticoagulants such as rivaroxaban, apixaban and edoxaban will lead to spuriously elevated antithrombin activity levels possibly masking a deficiency. Antithrombin Antigen 110 % 72-124 [facility] ([facility]) This test was developed and its performa nce characteristics determined by [facility]. It has not been cleared or approved by the Food and Drug Administration. ID Date Data Source [id number] 09/03/2019 03:34:00 PM EDT [facility] ([facility]) Name Value Range Interpretation Code Description Data Chikis rce(s) Supporting Document(s) Protein S, Free 134 % 57-157 [facility] ([facility]) This test was developed and its performa nce characteristics determined by [facility]. It has not been cleared or approved by the Food and Drug Administration. Protein S, Total 87 % 60-150 [facility] ([facility]) This test was developed and its performa nce characteristics determined by [facility]. It has not been cleared or approved by the Food and Drug Administration. Protein C Antigen 117 % 60-150 [facility] ([facility]) ID Date Data Source [id number] 09/03/2019 03:34:00 PM EDT [facility] ([facility]) Name Value Range Interpretation Code Description Data Chikis rce(s) Supporting Document(s) Factor V Leiden Laboratory test result [facility] ([facility]) Result: Negative (no mutation found) Factor V Leiden is a specific mutation ([id number]) in the factor V gene that is associated with an increased risk of venous thrombosis. Factor V Leiden is more resistant to inactivation by activated protein C. As a result, factor V persists in the circulation leading to a mild hyper- coagulable state. The Leiden mutation accounts for 90% - 95% of APC resistance. Factor V Leiden has been reported in patients with deep vein thrombosis, pulmonary embolus, central retinal vein occlusion, cerebral sinus thrombosis and hepatic vein thrombosis. Other risk factors to be considered in the workup for venous thrombosis include the [id number] mutation in the factor II (prothrombin) gene, protein S and C deficiency, and antithrombin deficiencies. Anticardiolipin antibody and lupus anticoagulant analysis may be appropriate for certain patients, as well as homocysteine levels. Contact your local [facility] for information on how to order additional testing if desired. Genetic counselors are available for health care providers to discuss results at [phone] Methodology: DNA analysis of the Factor V gene was performed by allele-specific PCR. The diagnostic sensitivity and specificity is >99% for both. Molecular-based testing is highly accurate, but as in any laboratory test, diagnostic errors may occur. All test results must be combined with clinical information for the most accurate interpretation. This test was developed and its performance characteristics determined by [employer]. It has not been cleared or approved by the Food and Drug Administration. References: Paulo Burks (1995). Clin Lab Med 16:169-186. Mik Espinoza, PhD, FAC Danielle Rao, PhD, [facility] Yue Obregon MKatS., PhD, FAC Ade Marrero, PhD, FAC Patricia Julian, PhD, [facility] Waldemar Raphael PhD, FAC ID Date Data Source [id number] 09/03/2019 03:34:00 PM EDT [facility] ([facility]) Name Value Range Interpretation Code Description Data Chikis rce(s) Supporting Document(s) Anticardiolipin Ab,IgG,Qn Laboratory test result 0-14 [facility] ([facility]) <content>Negative: <15</con tent>
<content>Indeterminate: 15 - 20</content>
<content>Low-Med Positive: >20 - 80</content>
<content>High Positive: >80</content>
<content></content> Anticardiolipin Ab,IgM,Qn 11 MPLU/mL 0-12 [facility] ([facility]) <content>Negative: <13</con tent>
<content>Indeterminate: 13 - 20</content>
<content>Low-Med Positive: >20 - 80</content>
<content>High Positive: >80</content>
<content></content> ID Date Data Source [id number] 09/03/2019 03:34:00 PM EDT [facility] Name Value Range Interpretation Code Description Data Chikis rce(s) Supporting Document(s) Dilute ProthrombinTime(dPT) 42.1 sec 0.0-55.0 [facility] ([facility]) dPT Confirm Ratio 0.99 Ratio 0.00-1.40 [facility] ([facility]) Thrombin Time 20.2 sec 0.0-23.0 [facility] ([facility]) Lupus ReflexInterpretation Laboratory test result [facility] ([facility]) No lupus anticoagulant was detected. dRVVT 36.8 sec 0.0-47.0 [facility] ([facility]) PTT-LA 30.0 sec 0.0-51.9 [facility] ([facility]) ID Date Data Source [id number] 09/03/2019 03:34:00 PM EDT [facility] ([facility]) Name Value Range Interpretation Code Description Data Chikis rce(s) Supporting Document(s) Sed Rate 7 mm/hr 0-20 [facility] ([facility]) Sed Rate Reenter 7 [facility] ([facility]) ID Date Data Source [id number] 09/03/2019 03:34:00 PM EDT [facility] ([facility]) Name Value Range Interpretation Code Description Data Chikis rce(s) Supporting Document(s) Rheumatoid factor [Units/volume] in Serum or Plasma Laboratory t est result 0-14 [facility] ([facility]) ID Date Data Source [id number] 09/10/2019 10:09:00 PM EDT [facility] Value Range Interpretation Code Description Data Chikis rce(s) Supporting Document(s) Nuclear Ab [Titer] in Serum by Immunofluorescence Negative [facility] Negative <1:80 Borderline 1:80 Positive >1:80 ID Date Data Source [id number] 09/10/2019 10:09:00 PM EDT [facility] Value Range Interpretation Code Description Data Chikis rce(s) Supporting Document(s) F5 gene mutations found [Identifier] in Blood or Tissue by Molecular genetics method Nominal COMMENT [facility] Result: Negative (no mutation found)Fac tor V Leiden is a specific mutation (R506Q) in the factorV gene that is associated with an increased risk of venousthrombosis. Factor V Leiden is more resistant toinactivation by activated protein C. As a result, factor Vpersists in the circulation leading to a mild hyper-coagulable state. The Leiden mutation accounts for 90% -95% of APC resistance. Factor V Leiden has been reported inpatients with deep vein thrombosis, pulmonary embolus,central retinal vein occlusion, cerebral sinus thrombosisand hepatic vein thrombosis. Other risk factors to beconsidered in the workup for venous thrombosis include [id number] mutation in the factor II (prothrombin) gene,protein S and C deficiency, and antithrombin deficiencies.Anticardiolipin antibody and lupus anticoagulant analysismay be appropriate for certain patients, as well ashomocysteine levels.Contact your local [facility] for information on how to orderadditional testing if desired.Genetic counselors are available for health care providers to discuss results at [phone]:DNA analysis of the Factor V gene was performed by allele-specificPCR. The diagnostic sensitivity and specificity is >99% for both.Molecular-based testing is highly accurate, but as in any laboratorytest, diagnostic errors may occur. All test results must be combinedwith clinical information for the most accurate interpretation.This test was developed and its performance characteristics determinedby [facility]. It has not been cleared or approved by the Food and DrugAdministration.References:Paulo Burks (1995). Clin Lab Med 16:169- 186.Mik Espinoza, PhD, Matilde Rao, PhD, Hema Obregon M.S., PhD, Gogo Marrero, PhD, Sheila Julian, PhD, Milan Raphael PhD, FAC ID Date Data Source [id number] 09/06/2019 06:09:00 AM EDT [facility] Name Value Range Interpretation Code Description Data Chikis rce(s) Supporting Document(s) aPTT.lupus sensitive W excess phospholip id actual/Normal (normalized LA confirm) 42.1 sec 0.0-55.0 [facility] aPTT.lupus sensitive/aPTT.lupus sensitiv e W excess phospholipid (screen to confirm ratio) 0.99 Ratio 0.00-1.40 [facility] Thrombin time 20.2 sec 0.0-23.0 [facility] aPTT.lupus sensitive (LA screen) 30.0 sec 0.0-51.9 [facility] dRVVT (LA screen) 36.8 sec 0.0-47.0 [facility] Lupus anticoagulant two screening tests W Reflex [interpretation] C omment: [facility] No lupus anticoagulant was detected. ID Date Data Source [id number] 09/06/2019 06:08:00 AM EDT [facility] Name Value Range Interpretation Code Description Data Chikis rce(s) Supporting Document(s) Antithrombin actual/normal in Platelet poor plasma by Chromo genic method 125 % 75-135 [facility] Direct Xa inhibitor anticoagulants such as rivaroxaban, apixaban andedoxaban will lead to spuriously elevated antithrombin activitylevels possibly masking a deficiency. Antithrombin Ag actual/normal in Platelet poor plasma by Immunologic method 110 % 72-124 [facility] This test was developed and its performa nce characteristicsdetermined by [facility]. It has not been cleared or approvedby the Food and Drug Administration. ID Date Data Source [id number] 09/06/2019 06:08:00 AM EDT [facility] Name Value Range Interpretation Code Description Data Chikis rce(s) Supporting Document(s) Protein C Ag actual/normal in Platelet poor plasma by Immuno logic method 117 % 60-150 [facility] Protein S Ag actual/normal in Platelet poor plasma by Immuno logic method 87 % 60-150 [facility] This test was developed and its performa nce characteristicsdetermined by [facility]. It has not been cleared or approvedby the Food and Drug Administration. Protein S Free Ag actual/normal in Platelet poor plasm a by Immunologic method 134 % 57-157 [facility] This test was developed and its performa nce characteristicsdetermined by [facility]. It has not been cleared or approvedby the Food and Drug Administration. ID Date Data Source [id number] 09/05/2019 04:43:00 PM EDT [facility] Name Value Range Interpretation Code Description Data Chikis rce(s) Supporting Document(s) Cardiolipin IgG Ab [Units/volume] in Serum by Immunoassay <9 GPL U/mL 0-14 [facility] Negative: <15 Indeterminate: 15 - 20 Low-Med Positive: >20 - 80 High Positive: >80 Cardiolipin IgM Ab [Units/volume] in Serum by Immunoassay 11 MPL U/mL 0-12 [facility] Negative: <13 Indeterminate: 13 - 20 Low-Med Positive: >20 - 80 High Positive: >80 ID Date Data Source [id number] 09/03/2019 04:34:00 PM EDT [facility] Name Value Range Interpretation Code Description Data Chikis rce(s) Supporting Document(s) C reactive protein [Mass/volume] in Serum or Plasma by High sensitivity method 0.44 MG/L 1.00 - 3.00 L [facility] CDC/S HS-CRP CUT-OFF: RELATIVE RISK: <1.0 mg/L Low 1.0 - 3.0 mg/L Average >3.0 mg/L High Optimally, the average of HS-CRP results repeated two weeks apart should be used for risk assessment. ID Date Data Source [id number] 09/03/2019 04:34:00 PM EDT [facility] Name Value Range Interpretation Code Description Data Chikis rce(s) Supporting Document(s) RA QUANT <10 IU/mL 0 - 14 [facility] ID Date Data Source [id number] 09/03/2019 04:28:00 PM EDT [facility] Name Value Range Interpretation Code Description Data Chikis rce(s) Supporting Document(s) Erythrocyte sedimentation rate by Westergren method 7 mm/hr 0 - 20 [facility] SED RATE REENTER 7 [facility] ID Date Data Source [id number] 08/29/2019 11:54:09 AM EDT [facility] CT HEAD WITHOUT CONTRAST [id number] RESU LTInterpreted by:Christa Salmon, DOINDICATION: post-alteplase, 24 hours.TECHNIQUE: Multidetector axial CT images were obtained from the skull base to the vertex without administration of intravenous contrast. Automated dose lowering techniques and/or adjustment according to patient size were utilized for this exam.COMPARISON: MR brain dated 08/27/2019.FINDINGS: No acute intracranial hemorrhage or acute territorial infarction is evident. The ventricles are appropriate in size. No mass effect or midline shift is appreciated. The basal cisterns are patent. No extra-axial fluid collections are identified. The calvarium is intact. The visualized paranasal sinuses and mastoid air cells are clear. IMPRESSION: No acute intracranial hemorrhage or acute territorial infarction.This document has been electronically signed by Nima Rios MD on 08/29/2019 11:51 AM Name Value Range Interpretation Code Description Data [facility] rce(s) Supporting Document(s) ID Date Data Source [id number] 08/29/2019 04:53:20 AM [facility] Name Value Range Interpretation Code Description Data [facility] rce(s) Supporting Document(s) Leukocytes [#/volume] in Blood by Automated count 6.4 10*3/uL 4-10 [facility] Erythrocytes [#/volume] in Blood by Automated count 4.07 10*6/uL 4.1- 5.3 L [facility] Hemoglobin [Mass/volume] in Blood 12.4 g/dL 11.5-15.5 [facility] Hematocrit [Volume Fraction] of Blood by Automated count 35.9 % 3 6-45 L [facility] Erythrocyte mean corpuscular volume [Entitic volume] by Auto mated count 88.3 fL 80-96 [facility] Erythrocyte mean corpuscular hemoglobin [Entitic mass] by Automated count 30.5 pg 27-33 [facility] Erythrocyte mean corpuscular hemoglobin concentration [Mass/volume] by Automated count 34.5 g/dL 32.0-36.0 [facility] Erythrocyte distribution width [Ratio] by Automated count 13.2 % 11.5-14.5 [facility] Platelets [#/volume] in Blood by Automated count 165 10*3/uL 150-400 [facility] Differential cell count method - Blood [facility] Neutrophils/100 leukocytes in Blood by Automated count 89 % [facility] Lymphocytes/100 leukocytes in Blood by Automated count 9 % [facility] Monocytes/100 leukocytes in Blood by Automated count 2 % [facility] Eosinophils/100 leukocytes in Blood by Automated count 0 % [facility] Basophils/100 leukocytes in Blood by Automated count 0 % [facility] Neutrophils [#/volume] in Blood by Automated count 5.66 10*3/uL 1.8-7 .0 [facility] Lymphocytes [#/volume] in Blood by Automated count 0.58 10*3/uL 1.2-4 .0 L [facility] Monocytes [#/volume] in Blood by Automated count 0.14 10*3/uL 0-0.8 [facility] Eosinophils [#/volume] in Blood by Automated count 0.00 10*3/uL 0-0.5 [facility] Basophils [#/volume] in Blood by Automated count 0.01 10*3/uL 0-0.2 [facility] Nucleated erythrocytes/100 leukocytes [Ratio] in Blood by Automated count 0 /100{WBCs} 0-0 [facility] ID Date Data Source [id number] 08/29/2019 05:13:27 AM EDT [facility] Name Value Range Interpretation Code Description Data Chikis rce(s) Supporting Document(s) Bicarbonate [Moles/volume] in Serum 22 mmol/L 22-29 [facility] Chloride [Moles/volume] in Serum or Plasma 104 mmol/L 98-107 [facility] Creatinine [Mass/volume] in Serum or Plasma 0.78 mg/dL 0.50-0.90 [facility] Glucose [Mass/volume] in Serum or Plasma 143 mg/dL 70-140 H [facility] Potassium [Moles/volume] in Serum or Plasma 4.5 mmol/L 3.4-5.1 [facility] Sodium [Moles/volume] in Serum or Plasma 136 mmol/L 136-145 [facility] Urea nitrogen [Mass/volume] in Serum or Plasma 8 mg/dL 6-20 [facility] Anion gap 3 in Serum or Plasma 11 mmol/L 8-15 [facility] Osmolality of Serum or Plasma by calculation 284 mosm/kg 275-300 [facility] Creatinine/Urea nitrogen [Mass Ratio] in Serum or Plasma 11 [facility] Calcium [Mass/volume] in Serum or Plasma 9.2 mg/dL 8.6-10.0 [facility] Glomerular filtration rate/1.73 sq M pre dicted among non-blacks [Volume Rate/Area] in Serum or Plasma by Creatinine-based formula (MDRD) >6 0 [facility] Glomerular filtration rate/1.73 sq M pre dicted among blacks [Volume Rate/Area] in Serum or Plasma by Creatinine-based formula (MDRD) >60 [facility] ID Date Data Source [id number] 08/28/2019 09:31:28 PM EDT [facility] Name Value Range Interpretation Code Description Data Chikis rce(s) Supporting Document(s) Consultation [facility] NIOQVv7bIeMVUzYt58/SHWheSQGys3SoQKtgEEl9BLgeHUCgH9PnAFL9hP7wUSO5KSvDXjLaQcNqWbW8 lbm [file] AgICAgICAgICAgICAgICAgICAgICAgICAgICAgICAgICAgICAgICAgICAgICAgICAgICAgICAgICAgIC AgICAgICAgICAgICAgICAgICAgICAgICAgDQogICAg ICAgICAgICAgICAgICAgICAgICAgICAgICAgICAgICAgICAgICAgICAgICAgICAgICAgICAgICAgICAg ICAgICAgICAgICAgICAgICAgICAgICAgICAgICAgICAgICAgDQogICAgICAgICAgICAgICAgICAgICAg ICAgICAgICAgICAgICAgICAgICAgICAgICAgICAgIC AgICAgICAgICAgICAgICAgICAgICAgICAgICAgICAgICAgICAgICAgICAgICAgDQogICAgICAgICAgIC AgICAgICAgICAgICAgICAgICAgICAgICAgICAgICAgICAgICAgICAgICAgICAgICAgICAgICAgICAgIC AgICAgICAgICAgICAgICAgICAgICAgICAgICAgDQog ICAgICAgICAgICAgICAgICAgICAgICAgICAgICAgICAgICAgICAgICAgICAgICAgICAgICAgICAgICAg ICAgICAgICAgICAgICAgICAgICAgICAgICAgICAgICAgICAgICAgDQogICAgICAgICAgICAgICAgICAg ICAgICAgICAgICAgICAgICAgICAgICAgICAgICAgIC AgICAgICAgICAgICAgICAgICAgICAgICAgICAgICAgICAgICAgICAgICAgICAgICAgDQogICAgICAgIC AgICAgICAgICAgICAgICAgICAgICAgICAgICAgICAgICAgICAgICAgICAgICAgICAgICAgICAgICAgIC AgICAgICAgICAgICAgICAgICAgICAgICAgICAgICAg DQogICAgICAgICAgICAgICAgICAgICAgICAgICAgICAgICAgICAgICAgICAgICAgICAgICAgICAgICAg ICAgICAgICAgICAgICAgICAgICAgICAgICAgICAgICAgICAgICAgICAgDQogICAgICAgICAgICAgICAg ICAgICAgICAgICAgICAgICAgICAgICAgICAgICAgIC AgICAgICAgICAgICAgICAgICAgICAgICAgICAgICAgICAgICAgICAgICAgICAgICAgICAgDQogICAgIC AgICAgICAgICAgICAgICAgICAgICAgICAgICAgICAgICAgICAgICAgICAgICAgICAgICAgICAgICAgIC AgICAgICAgICAgICAgICAgICAgICAgICAgICAgICAg CGHoQPc4P4lpNHNfYDWnGY8rDRe2Ns6+ETcXHdNqIPB2jkXlgV0XBU8nm8EzLQiyEGTfc6RjUOm0DR3N SGMnIKlhZV1CCMnsek7FMVZkFAXktPJFg3twDjYxMJS9XUXiHlvhKG6WPMQhO2qxdmBxPELqDOVXTAbw MCBSIDkgMCBSIDExIDAgUiAxMyAwIFIgMTUgMCBSID E0XYOlKgZzWRpoOS2Ww1NhxEG1UUo+Lp0PJQ8hg1IwEAobVOJrGI5slm9PYVcEXzCgZ6MjtjZ0MCP4RS FdYz5ZSLOiKGChjKUbUSHyGOPNSqIwJ6LbvT67BACYQa0+LWckdoCnFcaPQhD4GKGao5UbRSf6IV5VYX YpHWj5fHUyT93mr6KpeMInRrppW1mbjUO1cS7gBZgj ZuUjT0UagW7rDNQCMQMrnPU0BdCuDjVzRJBjTzuxTpHYRDbKOiNcM3Qyb6HhEqW7NISlUpZoAUhkYUDm PkN3GH71zQsfVA2MPHEpAFHbSK70XMM6TZOeXv7ZJw4ALnIpNU8kic4NJhFsYGIhKbpXQeq0RYwgJS1K jHTfD4IspVQag7fDJbZdR9KKOIWfIXWkYj8HRGLkYu ZaTFViXJpsZZ9qZZAzZWUAiLigazL5XD5LUO2osaOnDC0EErVjTx2vRe6FNpPmS1ReK2SlOAEsVNHOSP jfAS5EIXegSV6zGQ2Ei5YYeEGwsW3vbl3QSTOzYWRiYwuvnr7GHcsvZ4D9pVtjZUPbByGjAIZIPWmcTS 1VGTAeTTA7HPWtUiIiONEJVsYgF46oQI5CT8Inq99v JiW5VEUvBdBzKOpaKV66bAsuntTeaSBduSesCQ8SWg0+DQplbmRvYmoNCnhyZWYNCjAgMzcNCjAwMDAw IIUpGOQaQsH4YeCcGm5XAZBfYXSrVJFaZxRqHXNiNBDyDYvrPEFrMPUgHSLzITUcMJMrCT6CMxQpNNIo PJVtEPJjWQIsEXInvi0WNQJdHROeQNP8FlWkJOAdUB XrJIplFGCfMUN8YJAgCWJoLSExIZ0LHjUfYTAzYPJmVUgwBVNxEWCppc4AMCHmQHBoDNYaTwDgGPXxDO SmLFomMHYyTBK0YmBiWRCvUOXqZT7CRwEuTASnGFK7RDYpKCZfZBBdmv3RUSShASRtPnXaIhJbTCYeJJ OsAAafIISiRDK0TAh9BOQzZXGbQX9EXnDuLSRiUKug QLVtKPTyRYRcrr8AVFFyCEEqTTy8XDTxABMeWLZlYLfuGTEmOQIzBLt4ZACmSOWeGC1MGzCyQWXsZeQ9 AQmnKBUnBVLvbz7XPJNmLZEpCFI2XwBpKYVlPVOwHKqhYETgJHF0XWT9TVYcWNZdAX7OLwYgWTHdPzBo JdYkAZVoPGSbqc1UBNYxROHgFdD8FgQmLHJgSOKyBT pcCVDaHBN9Jzi6BQZaHBXqKB8BBcCpEEHeQkr9XmWzWWReZTTeiq2CYWHgKXDcRSTfYBEeAAQeNKGsCU teUVGoBGB8EiDxPJGfQQTcVZ5CGhZqZCHeTsd5YhSsPARtXMWywh7YCIErINZ0OPYhHpEyGFVxWLJcEH jbLLYaGWWvPaX6KFAqVJNbRS6ECcFkCSIpLVF9YlTo HPTvLTGxso0IYUEnHSW1TYE1QtOeWSIqVNDcJNqpVRJyEYYiYnA8LWIrEENqLG2MMbMvQZWpZITvJsWr HCRkFKFrrd9BFGFcUXP1AyO3HDIeNQYoTFGmVCmpTOOqFQFgQMN9TYQbLSBqOU6OFcUnQNChOEJ9AQRh XVFgDMLscs7AJIVxKOM0XIOfKsXgUCRoZJMnVFcnPS BjKRD1PFe8OEUjRHCrBZ2HXlIvLEAnNKM5MUXaBSFpZXKkkp0VmFHqwVheng8UJEiPDd1AqOdsGNT3WU zcQz0eoRIkJfNkWBIHHp7SejKuZICmNNMDFLuiUMJpQHAlGCM9JuOkJIYtE1F6TJGtKxLzOCMgYINsQD AnKUOyDtO8VyL7BIfrLHTnZtG9PWuwR7XlRNGmXjR3 H2CkIXGpBTR+HA2lIXw+Op2Pg8SlobG7ppAjFEn5LLd1Rb9NRJFTI4ERDh== ID Date Data Source [id number] 08/28/2019 09:30:40 AM EDT [facility] MR CERVICAL SPINE WITH AND WITHOUT CONTR AST [id number] RESULTInterpreted by:Tamika Welsh MDORDERING CLINICAL INFORMATION: 34-year-old female with history headache and decreased sensation in the right upper and lower extremities. Recent cervical manipulation of physical therapy. Concern for dissection. Also evaluate for infection or cord compression. History of neurogenic thoracic outlet syndrome and chronic right upper extremity weakness TECHNIQUE: Multiplanar multi-sequential imaging of the cervical and thoracic spine was performed before and following intravenous administration of contrast. The amount of contrast material used was recorded in the [facility]IS and this information can be retrieved from there.COMPARISON: MRI of the cervical and thoracic spine dated 02/05/2019; MR cervical spine dated 04/02/2019; radiographs of the cervical spine dated 04/17/2019; MR brain dated 08/27/2019.FINDINGS: CERVICAL SPINE:Seven cervical vertebral segments are designated. There is redemonstration of C6-C7 disc arthroplasty with intervertebral disc spacer at associated susceptibility artifact which limits assessment that level.MR CERVICAL SPINE: SPINAL CORD: The spinal cord is normal in signal and morphology. There is no abnormal enhancement within the spinal cord.VERTEBRAE: Straightening of the cervical lordosis is present. The vertebrae are normal in alignment. The vertebral bodies are normal in height. Age-appropriate fatty marrow changes are observed.CRANIOCERVICAL JUNCTION AND SPINAL CANAL: The craniocervical junction is normal. POST-SURGICAL CHANGES: C6-C7 disc arthroplas ty with intervertebral disc spacer.INDIVIDUAL LEVELS: C2-C3: No disc herniation, spinal canal or foraminal narrowing.C3-C4: No disc herniation, spinal canal or foraminal narrowing.C4-C5: Central disc protrusion and congenitally shortened pedicles with resultant mild effacement of the ventral thecal sac, without evidence of cord compression. Bilateral neural foramen are patent.C5-C6: Broad-based disc bulge and congenitally shortened pedicles with associated effacement of the ventral thecal sac and mild compression of the anterior spinal cord, without signal abnormality within the cord. Mild bilateral neural foraminal stenosis. Findings are unchanged.C6-C7: Susceptibility artifact limits evaluation. Congenitally shortened pedicles result in effacement of the ventral thecal sac resulting in moderate central canal stenosis. No spinal cord compression or abnormal signal within the cord. Bilateral neural foramina are patent. Findings are unchanged.C7-T1: No disc herniation, spinal canal or foraminal narrowing. No abnormal epidural or intradural collection. No abnormal enhancement. Visualized major arterial structures are intact.THORACIC SPINE:Review of the individual levels reveals no disc herniation, spinal canal or foraminal narrowing.VERTEBRAE: Normal kyphotic curvature is present. The vertebral bodies are normal in height. The vertebrae are normal in alignment. Age-appropriate fatty marrow changes are observed.SPINAL CORD: The spinal cord is normal in signal and caliber The conus medullaris is normal in morphology and terminates at T12-L1.POST-SURGICAL CHANGES: None.INDIVIDUAL LEVELS: Review of the individual levels reveals no disc herniation, spinal canal or foraminal narrowing.OTHER: No abnormal enhancement is seen.IMPRESSION:1. No abnormal spinal cord signal is seen.2. No abnormal collection or postcontrast enhancement is seen.3. 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 No evidence of arterial injury.This document has been electronically signed by Nubia Maya MD on 08/28/2019 9:28 AM Name Value Range Interpretation Code Description Data Chikis rce(s) Supporting Document(s) ID Date Data Source [id number] 08/28/2019 09:30:40 AM [facility] MR THORACIC SPINE WITH AND WITHOUT CONTR AST [id number] RESULTInterpreted by:Tamika Welsh MDORDERING CLINICAL INFORMATION: 34-year-old female with history headache and decreased sensation in the right upper and lower extremities. Recent cervical manipulation of physical therapy. Concern for dissection. Also evaluate for infection or cord compression. History of neurogenic thoracic outlet syndrome and chronic right upper extremity weakness TECHNIQUE: Multiplanar multi-sequential imaging of the cervical and thoracic spine was performed before and following intravenous administration of contrast. The amount of contrast material used was recorded in the [facility] and this information can be retrieved from there.COMPARISON: MRI of the cervical and thoracic spine dated 02/05/2019; MR cervical spine dated 04/02/2019; radiographs of the cervical spine dated 04/17/2019; MR brain dated 08/27/2019.FINDINGS: CERVICAL SPINE:Seven cervical vertebral segments are designated. There is redemonstration of C6-C7 disc arthroplasty with intervertebral disc spacer at associated susceptibility artifact which limits assessment that level.MR CERVICAL SPINE: SPINAL CORD: The spinal cord is normal in signal and morphology. There is no abnormal enhancement within the spinal cord.VERTEBRAE: Straightening of the cervical lordosis is present. The vertebrae are normal in alignment. The vertebral bodies are normal in height. Age-appropriate fatty marrow changes are observed.CRANIOCERVICAL JUNCTION AND SPINAL CANAL: The craniocervical junction is normal. POST-SURGICAL CHANGES: C6-C7 disc arthroplas ty with intervertebral disc spacer.INDIVIDUAL LEVELS: C2-C3: No disc herniation, spinal canal or foraminal narrowing.C3-C4: No disc herniation, spinal canal or foraminal narrowing.C4-C5: Central disc protrusion and congenitally shortened pedicles with resultant mild effacement of the ventral thecal sac, without evidence of cord compression. Bilateral neural foramen are patent.C5-C6: Broad-based disc bulge and congenitally shortened pedicles with associated effacement of the ventral thecal sac and mild compression of the anterior spinal cord, without signal abnormality within the cord. Mild bilateral neural foraminal stenosis. Findings are unchanged.C6-C7: Susceptibility artifact limits evaluation. Congenitally shortened pedicles result in effacement of the ventral thecal sac resulting in moderate central canal stenosis. No spinal cord compression or abnormal signal within the cord. Bilateral neural foramina are patent. Findings are unchanged.C7-T1: No disc herniation, spinal canal or foraminal narrowing. No abnormal epidural or intradural collection. No abnormal enhancement. Visualized major arterial structures are intact.THORACIC SPINE:Review of the individual levels reveals no disc herniation, spinal canal or foraminal narrowing.VERTEBRAE: Normal kyphotic curvature is present. The vertebral bodies are normal in height. The vertebrae are normal in alignment. Age-appropriate fatty marrow changes are observed.SPINAL CORD: The spinal cord is normal in signal and caliber The conus medullaris is normal in morphology and terminates at T12-L1.POST-SURGICAL CHANGES: None.INDIVIDUAL LEVELS: Review of the individual levels reveals no disc herniation, spinal canal or foraminal narrowing.OTHER: No abnormal enhancement is seen.IMPRESSION:1. No abnormal spinal cord signal is seen.2. No abnormal collection or postcontrast enhancement is seen.3. 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 No evidence of arterial injury.This document has been electronically signed by Nubia Maya MD on 08/28/2019 9:28 AM Name Value Range Interpretation Code Description Data Chikis rce(s) Supporting Document(s) ID Date Data Source [id number] 08/28/2019 09:00:22 AM [facility] MR BRAIN WITHOUT CONTRAST [id number] ULTInterpreted by:Tamika Welsh MDCLINICAL INDICATION: 34-year-old female with history headache and decreased sensation in the right upper and lower extremities. Recent cervical manipulation of physical therapy. Concern for dissection.Technique: Multiplanar and multisequence MR images of the brain were obtained without intravenous contrast administration.COMPARISON: MR brain dated 02/05/2019; MR cervical spine dated 02/05/2019, 08/27/2019. FINDINGS: No abnormal areas of restricted diffusion to suggest acute infarction.No abnormal areas of susceptibility artifact on susceptibility weighted imaging to suggest acute intracranial hemorrhage.Redemonstrated tiny focus of T2 prolongation adjacent the left frontal horn favored to represent epididymitis granulomatous, normal variant. Otherwise no cerebral edema or other signal abnormality of the brain parenchyma.Ventricles and sulci are normal in size and configuration. The basal cisterns are patent. There is no shift of the midline structures. No extra-axial fluid collections.The cerebellar tonsils are normally positioned. The pituitary gland is normal in size.Imaged portions of the paranasal sinuses and mastoid air cells are clear. Normal arterial flow voids are identified. There is no evidence of dissection.IMPRESSION: No acute intracranial disease process. No evidence of arterial dissection.This document has been electronically signed by Nubia Maya MD on 08/28/2019 8:58 AM Name Value Range Interpretation Code Description Data Chikis rce(s) Supporting Document(s) ID Date Data Source [id number] 08/28/2019 04:05:49 AM [facility] Name Value Range Interpretation Code Description Data [facility] rce(s) Supporting Document(s) Leukocytes [#/volume] in Blood by Automated count 5.9 10*3/uL 4-10 [facility] Erythrocytes [#/volume] in Blood by Automated count 4.28 10*6/uL 4.1- 5.3 [facility] Hemoglobin [Mass/volume] in Blood 12.7 g/dL 11.5-15.5 [facility] Hematocrit [Volume Fraction] of Blood by Automated count 37.7 % 3 6-45 [facility] Erythrocyte mean corpuscular volume [Entitic volume] by Auto mated count 88.0 fL 80-96 [facility] Erythrocyte mean corpuscular hemoglobin [Entitic mass] by Automated count 29.7 pg 27-33 [facility] Erythrocyte mean corpuscular hemoglobin concentration [Mass/volume] by Automated count 33.8 g/dL 32.0-36.0 [facility] Erythrocyte distribution width [Ratio] by Automated count 13.7 % 11.5-14.5 [facility] Platelets [#/volume] in Blood by Automated count 144 10*3/uL 150-400 L [facility] Differential cell count method - Blood [facility] Neutrophils/100 leukocytes in Blood by Automated count 56 % [facility] Lymphocytes/100 leukocytes in Blood by Automated count 29 % [facility] Monocytes/100 leukocytes in Blood by Automated count 12 % [facility] Eosinophils/100 leukocytes in Blood by Automated count 2 % [facility] Basophils/100 leukocytes in Blood by Automated count 1 % [facility] Neutrophils [#/volume] in Blood by Automated count 3.35 10*3/uL 1.8-7 .0 [facility] Lymphocytes [#/volume] in Blood by Automated count 1.70 10*3/uL 1.2-4 .0 [facility] Monocytes [#/volume] in Blood by Automated count 0.73 10*3/uL 0-0.8 [facility] Eosinophils [#/volume] in Blood by Automated count 0.09 10*3/uL 0-0.5 [facility] Basophils [#/volume] in Blood by Automated count 0.05 10*3/uL 0-0.2 [facility] Nucleated erythrocytes/100 leukocytes [Ratio] in Blood by Automated count 0 /100{WBCs} 0-0 [facility] ID Date Data Source [id number] 08/28/2019 04:44:07 AM T [facility] Name Value Range Interpretation Code Description Data [facility] rce(s) Supporting Document(s) Bicarbonate [Moles/volume] in Serum 22 mmol/L 22-29 [facility] Chloride [Moles/volume] in Serum or Plasma 105 mmol/L 98-107 [facility] Creatinine [Mass/volume] in Serum or Plasma 0.80 mg/dL 0.50-0.90 [facility] Glucose [Mass/volume] in Serum or Plasma 87 mg/dL 70-140 [facility] Potassium [Moles/volume] in Serum or Plasma 4.1 mmol/L 3.4-5.1 [facility] Sodium [Moles/volume] in Serum or Plasma 138 mmol/L 136-145 [facility] Urea nitrogen [Mass/volume] in Serum or Plasma 6 mg/dL 6-20 [facility] Anion gap 3 in Serum or Plasma 11 mmol/L 8-15 [facility] Osmolality of Serum or Plasma by calculation 282 mosm/kg 275-300 [facility] Creatinine/Urea nitrogen [Mass Ratio] in Serum or Plasma 8 [facility] Calcium [Mass/volume] in Serum or Plasma 8.9 mg/dL 8.6-10.0 [facility] Glomerular filtration rate/1.73 sq M pre dicted among non-blacks [Volume Rate/Area] in Serum or Plasma by Creatinine-based formula (MDRD) >6 0 [facility] Glomerular filtration rate/1.73 sq M pre dicted among blacks [Volume Rate/Area] in Serum or Plasma by Creatinine-based formula (MDRD) >60 [facility] ID Date Data Source [id number] 08/28/2019 07:12:34 PM EDT [facility] Name Value Range Interpretation Code Description Data [facility] rce(s) Supporting Document(s) Choriogonadotropin.beta subunit [Moles/volume] in Serum or Plasma <5 [facility] ID Date Data Source [id number] 08/28/2019 04:26:05 AM EDT [facility] Name Value Range Interpretation Code Description Data [facility] rce(s) Supporting Document(s) Color of Urine [facility] Clarity of Urine [facility] Specific gravity of Urine by Refractometry automated 1.045 1.003 -1.030 H [facility] pH of Urine by Automated test strip 6.0 5.0-8.0 [facility] Protein [Mass/volume] in Urine by Automated test strip Neg [facility] Glucose [Mass/volume] in Urine by Automated test strip Neg [facility] Ketones [Mass/volume] in Urine by Automated test strip 20 mg/dL Neg [facility] Bilirubin.total [Presence] in Urine by Automated test strip Negative [facility] Hemoglobin [Presence] in Urine by Automated test strip Neg ative [facility] Leukocyte esterase [Presence] in Urine by Automated test strip Negative [facility] Nitrite [Presence] in Urine by Automated test strip [facility] Leukocytes [#/area] in Urine sediment by Automated count 0 -5 [facility] Erythrocytes [#/area] in Urine sediment by Automated count 1 /HPF 0-3 [facility] Service comment [facility] ID Date Data Source [id number] 08/27/2019 11:46:24 PM EDT [facility] Name Value Range Interpretation Code Description Data [facility] rce(s) Supporting Document(s) Consultation [facility] AFFPZc6iKrFSSfRs96/ROEiiDLAxz3IlLNqiOTy8HTjwQWPaI6IsZAO6yU7rVWC9YGzZSwIaTaZbYtQp m [file] [id number]/Mat Inspector++C1ZWB9OALe5IuRD+hmuu1si+osYiWZdzXtRl4XtgSpzuqCWcqjADDJkq14 [file] Z3CLRlVAI6GgJ6MHCkRKMxJNemPidkZYIhJlApLJ 7VCj8ALpB1KZQ5pJHfWm4EIcJ6NkmVVaGzHC6PRLo= ID Date Data Source [id number] 08/27/2019 07:36:06 PM EDT [facility] Name Value Range Interpretation Code Description Data Chikis e(s) Supporting Document(s) History and Physical [facility] NHHVPm0vAkGFVyRp30/RYCvdDHHhx6DdTMfsVQo7LQsiYPTiY1FvYCU1tW2yIZT8EHfTKuOpDsGhAcSt lbm [file] structural engineer+I13O/xORxQkzbRX1NChJlbjQEVGDWpuo15YulfGr35EmAfsRpvOiwfHNKvXhL8y7Eqrcl7ctxweH [file] RDv3HAMnJICnBPWoGHW1QLywYkJmRbOhWS7ILe4FLgN2LAC1oNRbTe9XSIG3GDHTXtJfBZ3PRGg= ID Date Data Source [id number] 08/27/2019 08:16:07 PM T [facility] Service Cmnt XXX-Imp : NoneMicroorganism XXX Cult : 2019 nCoV Real-Time RT-PCR: NOT DETECTEDTest performed using the [employer] Xpert Xpress SARS-CoV-2 assay. This test is only for use under the Food and Drug Administration's Emergency Use Authorization. Additional information is available on the following FDA websites for health care providers and patients. https://www.fda.gov/media/200125/download , h ttps://www.fda.gov/media/539694/download(NOTE)Dr. Anderson requested rapid testing 08/27/2019 Name Value Range Interpretation Code Description Data [facility] rce(s) Supporting Document(s) ID Date Data Source [id number] 08/27/2019 02:16:00 PM [facility] Service Cmnt XXX-Imp : NoneMicroorganism XXX Cult : 2019 nCoV Real-Time RT-PCR: NOT DETECTEDTest performed using the [employer] Xpert Xpress SARS-CoV-2 assay. This test is only for use under the Food and Drug Administration's Emergency Use Authorization. Additional information is available on the following FDA websites for health care providers and patients. https://www.fda.gov/media/286788/download , h ttps://www.fda.gov/media/203870/download(NOTE)Dr. Anderson requested rapid testing 08/27/2019 Name Value Range Interpretation Code Description Data [facility]ik[facility] rce(s) Supporting Document(s) Microorganism identified in Unspecified specimen by [facility] This lab was ordered by [facility] and reported by [facility]. ID Date Data Source [id number] 08/27/2019 06:50:41 PM [facility] Service Cmnt XXX-Imp : NoneMicroorganism XXX Cult : Polymerase chain reaction is NEGATIVE for Influenza A H1, H3 and 2009 H1 viruses, Influenza B virus, Respiratory syncytial virus, Human metapneumovirus, Parainfluenza virus 1, 2, 3 and 4, Adenovirus, Rhinovirus/Enterovirus, Coronavirus HKU1, NL63, OC43, and 229E, Bordetella pertussis, Mycoplasma pneumoniae and Chlamydia pneumoniae.This assay does not detect novel Coronavirus (SARS-CoV, SARS-CoV-2, MERS-CoV). Name Value Range Interpretation Code Description Data [facility] rce(s) Supporting Document(s) ID Date Data Source [id number] 08/27/2019 02:29:31 PM [facility] Name Value Range Interpretation Code Description Data [facility] rce(s) Supporting Document(s) Leukocytes [#/volume] in Blood by Automated count 7.7 10*3/uL 4-10 [facility] Erythrocytes [#/volume] in Blood by Automated count 4.43 10*6/uL 4.1- 5.3 [facility] Hemoglobin [Mass/volume] in Blood 13.2 g/dL 11.5-15.5 [facility] Hematocrit [Volume Fraction] of Blood by Automated count 39.0 % 3 6-45 [facility] Erythrocyte mean corpuscular volume [Entitic volume] by Auto mated count 88.0 fL 80-96 [facility] Erythrocyte mean corpuscular hemoglobin [Entitic mass] by Automated count 29.8 pg 27-33 [facility] Erythrocyte mean corpuscular hemoglobin concentration [Mass/volume] by Automated count 33.9 g/dL 32.0-36.0 [facility] Erythrocyte distribution width [Ratio] by Automated count 13.4 % 11.5-14.5 [facility] Platelets [#/volume] in Blood by Automated count 157 10*3/uL 150-400 [facility] Differential cell count method - Blood [facility] Neutrophils/100 leukocytes in Blood by Automated count 69 % [facility] Lymphocytes/100 leukocytes in Blood by Automated count 19 % [facility] Monocytes/100 leukocytes in Blood by Automated count 10 % [facility] Eosinophils/100 leukocytes in Blood by Automated count 1 % [facility] Basophils/100 leukocytes in Blood by Automated count 1 % [facility] Neutrophils [#/volume] in Blood by Automated count 5.38 10*3/uL 1.8-7 .0 [facility] Lymphocytes [#/volume] in Blood by Automated count 1.47 10*3/uL 1.2-4 .0 [facility] Monocytes [#/volume] in Blood by Automated count 0.79 10*3/uL 0-0.8 [facility] Eosinophils [#/volume] in Blood by Automated count 0.05 10*3/uL 0-0.5 [facility] Basophils [#/volume] in Blood by Automated count 0.04 10*3/uL 0-0.2 [facility] Nucleated erythrocytes/100 leukocytes [Ratio] in Blood by Automated count 0 /100{WBCs} 0-0 [facility] ID Date Data Source [id number] 08/27/2019 03:10:42 PM EDT [facility] Name Value Range Interpretation Code Description Data Chikis rce(s) Supporting Document(s) Cholesterol [Mass/volume] in Serum or Plasma 147 mg/dL <200 [facility] Triglyceride [Mass/volume] in Serum or Plasma 52 mg/dL <150 [facility] Cholesterol in HDL [Mass/volume] in Serum or Plasma 63 mg/dL >50 [facility] Cholesterol in LDL [Mass/volume] in Serum or Plasma by calcu lation 73 mg/dL <100 [facility] Cholesterol in VLDL [Mass/volume] in Serum or Plasma by calc ulation 10 mg/dl 16-42 L [facility] Cholesterol non HDL [Mass/volume] in Serum or Plasma 84 mg/dL <130 [facility] ID Date Data Source [id number] 08/27/2019 03:10:42 PM [facility] Name Value Range Interpretation Code Description Data Chik[facility] rce(s) Supporting Document(s) Bicarbonate [Moles/volume] in Serum 20 mmol/L 22-29 L [facility] Chloride [Moles/volume] in Serum or Plasma 106 mmol/L 98-107 [facility] Creatinine [Mass/volume] in Serum or Plasma 0.74 mg/dL 0.50-0.90 [facility] Glucose [Mass/volume] in Serum or Plasma 92 mg/dL 70-140 [facility] Potassium [Moles/volume] in Serum or Plasma 4.3 mmol/L 3.4-5.1 [facility] Sodium [Moles/volume] in Serum or Plasma 137 mmol/L 136-145 [facility] Urea nitrogen [Mass/volume] in Serum or Plasma 6 mg/dL 6-20 [facility] Anion gap 3 in Serum or Plasma 11 mmol/L 8-15 [facility] Osmolality of Serum or Plasma by calculation 281 mosm/kg 275-300 [facility] Creatinine/Urea nitrogen [Mass Ratio] in Serum or Plasma 8 [facility] Calcium [Mass/volume] in Serum or Plasma 9.2 mg/dL 8.6-10.0 [facility] Glomerular filtration rate/1.73 sq M pre dicted among non-blacks [Volume Rate/Area] in Serum or Plasma by Creatinine-based formula (MDRD) >6 0 [facility] Glomerular filtration rate/1.73 sq M pre dicted among blacks [Volume Rate/Area] in Serum or Plasma by Creatinine-based formula (MDRD) >60 [facility] ID Date Data Source [id number] 08/27/2019 03:10:42 PM [facility] Name Value Range Interpretation Code Description Data [facility] rce(s) Supporting Document(s) Thyrotropin [Units/volume] in Serum or Plasma 1.300 u[IU]/mL 0.270-4. 200 [facility] ID Date Data Source [id number] 08/27/2019 02:51:59 PM T [facility] Name Value Range Interpretation Code Description Data [facility] rce(s) Supporting Document(s) Hemoglobin A1c/Hemoglobin.total in Blood by HPLC 5.2 % 4.0-6.0 [facility] (NOTE)<5.7% Average risk of diabetes (ADA)5.7-6.4% Increased risk of diabetes(ADA)>/= 6.5% Diagnostic for diabetes(ADA) Glucose mean value [Mass/volume] in Blood Estimated fr om glycated hemoglobin 101 mg/dL <126 [facility] ID Date Data Source [id number] 08/27/2019 02:20:18 PM T [facility] Name Value Range Interpretation Code Description Data [facility] rce(s) Supporting Document(s) Glucose [Mass/volume] in Capillary blood by Glucometer 81 mg/dL 70- 140 [facility] ID Date Data Source [id number] 08/27/2019 11:08:00 AM EDT [facility] ([facility]) Name Value Range Interpretation Code Description Data Chikis rce(s) Supporting Document(s) Laboratory test finding (navigational concept) Laboratory test r esult Normal (applies to non-numeric results) [facility] ([facility]) <content>QUANTITATIVE RESULT QU ALITATIVE INTERPRETATION</content>
<content> </content>
<content><5.0 IU/L NEGATIVE</content>
<content>5.0 - 25.0 IU/L INDETERMINATE</content>
<content>>25.0 IU/L POSITIVE</content>
<content></content> ID Date Data Source [id number] 08/27/2019 10:58:00 AM EDT [facility] ([facility]) Name Value Range Interpretation Code Description [facility] Document[facility]s) AB Screen (Indirect Jada)Vis Laboratory test result Normal (applies to non- numeric results) [facility] ([facility]) Blood Type Laboratory test result Normal (applies to non-n umeric results) [facility] ([facility]) ID Date Data Source [id number] 08/27/2019 10:58:00 AM EDT [facility] ([facility]) Name Value Range Interpretation Code Description Data [facility](s) Supporting Document(s) CPK Creatine Phosphokinase 120 U/L 26-192 Lorna l (applies to non-numeric results) [facility] ([facility]) CK-MB Value Mass 1.5 ng/mL Normal (applies to non-numeric results) [facility] ([facility]) MB/CK Relative Index 1.25 Normal (applies to non-num мария results) [facility] ([facility]) <content>DIAGNOSIS CRITERIA</content>
<content>MMB ng/ml Relative Index (RI)</content>
<content>NON-AMI < or = 5 N/A</content>
<content>JJ ZONE > 5 < or = 4</content>
<content>AMI > 5 > 4</content>
<content></content> Troponin I Laboratory test result Normal (applies to non-n umeric results) [facility] ([facility]) <content>Troponin I Reference Interval f or Siemens [place] LOCI:</content>
<content></content>
<content>99th Percentile= 0.00-0.045 ng/ml</content>
<content></content>
<content>Risk Stratification:</content>
<content><= 0.10 ng/ml Decreased Risk for Adverse Clinical</content>
<content>Events.</content>
<content>0.10-1.50 ng/ml Increased Risk for Adverse Clinical</content>
<content>Events. Evaluation of additional</content>
<content>criterion and/or repeat testing in 2-6</content>
<content>hours is suggested to rule out myocardial</content>
<content>damage.</content>
<content>>= 1.50 ng/ml Indicative of Myocardial Injury.</content>
<content></content> ID Date Data Source [id number] 08/27/2019 10:58:00 AM EDT [facility] ([facility]) Name Value Range Interpretation Code Description Data [facility] rce(s) Supporting Document(s) aPTT in Platelet poor plasma by Coagulation assay 28.9 s 25.0-38.4 Normal (applies to non-numeric results) [facility] ([facility]) ID Date Data Source [id number] 08/27/2019 10:58:00 AM EDT [facility] ([facility]) Name Value Range Interpretation Code Description Data [facility] rce(s) Supporting Document(s) Prothrombin Time 13.3 s 11.8-14.0 Normal (applies to non-numeric results) [facility] ([facility]) Inr 1.04 Normal (applies to non-numeric resul ts) [facility] ([facility]) THERAPUTIC HUMAN INR VALUES INDICATIONS NORMAL RANGES PROPHYLAXIS/TREATMENT OF: VENOUS THROMBOSIS 2.0-3.0 PULMONARY EMBOLISM 2.0-3.0 PREVENTION OF SYSTEMIC EMBOLISM FROM: TISSUE HEART VALVES 2.0-3.0 ACUTE MYOCARDIAL INFARCTION 2.0-3.0 VALVULAR HEART DISEASE 2.0-3.0 ATRIAL FIBRILLATION 2.0-3.0 MECHANICAL VALVES(HIGH RISK) 2.5-3.5 RECURRENT MYOCARDIAL INFARCTION 2.5-3.5 ID Date Data Source [id number] 08/27/2019 10:58:00 AM EDT [facility] ([facility]) Name Value Range Interpretation Code Description Data [facility] rce(s) Supporting Document(s) White Blood Count 6.4 10 4.0-10.0 Normal (applies to non-numeri c results) [facility] ([facility]) Red Blood Count 4.58 10 4.00-5.40 Normal (applies to non-numeric results) [facility] ([facility]) Mean Corpuscular Volume 90.2 fl 80.0-96.0 Normal ( applies to non-numeric results) [facility] ([facility]) Hematocrit 41.3 % 36.0-47.0 Normal (applies to non-numeric resul ts) [facility] ([facility]) Hemoglobin 13.3 g/dL 12.0-15.5 Normal (applies to non-numeric resul ts) [facility] ([facility]) Mean Corpuscular HGB Conc 32.2 g/dL 32.0-36.5 Normal (applies to non-numeric results) [facility] ([facility]) Red Cell Distribution Width 12.7 % 11.5-14.5 Norm al (applies to non-numeric results) [facility] ([facility]) Mean Corpuscular Hemoglobin 29.0 pg 27.0-33.0 Norm al (applies to non-numeric results) [facility] ([facility]) Lymph % 23.3 % 24.0-44.0 Below low normal [facility] ( [facility]) Platelet Count, Automated 159 10 150-450 Normal (applies to non-numeric results) [facility] ([facility]) Neutrophils % 62.4 % 36.0-66.0 Normal (applies to non-numeric re sults) [facility] ([facility]) Eos % 1.3 % 0.0-3.0 Normal (applies to non-numeric resul ts) [facility] ([facility]) [place] % 12.1 % 0.0-5.0 Above high normal [facility] ([facility]) Baso % 0.6 % 0.0-1.0 Normal (applies to non-numeric resul ts) [facility] ([facility]) Nucleated Red Blood Cell % 0.0 % 0-0 Normal (applies to n on-numeric results) [facility] ([facility]) Neutrophils # 4.0 10 1.5-8.5 Normal (applies to non-numeric re sults) [facility] ([facility]) Immature Granulocyte % 0.3 % 0-3.0 Normal (applies to non-n umeric results) [facility]) Baso # 0.0 10 0.0-0.2 Normal (applies to non-numeric resul ts) [facility] ([facility]) Lymph # 1.5 10 1.5-5.0 Normal (applies to non-numeric resul ts) [facility] ([facility]) [place] # 0.8 10 0.0-0.8 Normal (applies to non-numeric resul ts) [facility] ([facility]) Eos # 0.1 10 0.0-0.5 Normal (applies to non-numeric resul ts) [facility] ([facility]) ID Date Data Source [id number] 08/27/2019 10:57:00 AM EDT [facility] ([facility]) Name Value Range Interpretation Code Description Data [facility] rce(s) Supporting Document(s) Laboratory test finding (navigational concept) 40.0 % 3 8.0-51.0 Normal (applies to non-numeric results) [facility] ([facility]) Laboratory test finding (navigational concept) 140 meq/L 1 36-145 Normal (applies to non-numeric results) [facility] ([facility]) Laboratory test finding (navigational concept) 4.1 meq/L 3 .5-5.1 Normal (applies to non-numeric results) [facility] ([facility]) Laboratory test finding (navigational concept) 97 mg/dL 7 0-105 Normal (applies to non-numeric results) [facility] ([facility]) Laboratory test finding (navigational concept) 104 meq/L 9 8-109 Normal (applies to non-numeric results) [facility] ([facility]) Laboratory test finding (navigational concept) 24.0 MM/L 2 3.0-27.0 Normal (applies to non-numeric results) [facility] ([facility]) Laboratory test finding (navigational concept) 4.5 mg/dL 4 .5-5.3 Normal (applies to non-numeric results) [facility] ([facility]) Laboratory test finding (navigational concept) 0.8 mg/dL 0 .6-1.3 Normal (applies to non-numeric results) [facility] ([facility]) Laboratory test finding (navigational concept) 6 mg/dL 8-26 Below low normal [facility] ([facility]) ID Date Data Source [id number] 06/12/2019 12:05:03 PM EDT [facility] Name Value Range Interpretation Code Description Data Chikis rce(s) Supporting Document(s) Progress Note [facility] HXMWEb9pFsEMYqLv57/YOSqrTDYov7OoBWfwFJo7KKukXEEkS0DiKFJ7mV6dGRV6VNjDJlIvDbIePoN7 lbm [file] 1ZyZl/rHNazvL2qb8Cim/shot blaster+u2XLkZgObTsYBSHjq1 [file] oVUKDCeMXtrvh9Yl8hk0dywQTRC9HwV7v3pQ1cX0FzwmTbvttPYKGlw/Hrki1E4i7olSzzBl+OeCx/chef manager [file] P9OTFyBVSrR4B2QWJqMWv+LR8kFNu+Nh2Rj1FvmnX8wqOhDPnwZIG9SX9VLVYJR2GOLu== ID Date Data Source [id number] 05/15/2019 12:23:12 PM [facility] Name Value Range Interpretation Code Description Data Chikis rce(s) Supporting Document(s) Progress Note [facility] HNEFMd0tJiRGShXb71/HGMdjQNWtj7AeHIlcWKo8EAezHOPuD7EeWMW0lP4aUCD6NMdYVbWqCsQqIzPq lbm [file] HYDROELECTRIC POWERPLANT SUPERVISOR+Yq8EAZPsXAg7Q1D4TFHxLEi6L6VPF1AOWPBqPFlhGDipXKBsUHx0N0N5ZPCdJ2NNV5Gtqqzyoy2+ GE7FY32VLORsIKk3P0K2zEDmW7C2yNxWxZQ2XD7CSE2KpLd6pDQwrM4+SV1RX1QOToJgLSu0M6A1vGOb O5W3bAwGrWH4XP6AHV3DyAToCXGnqwXkBw9iS5WUWC jPBlNYZCL7IV3FjHEsVL5GoOWVM8ZtuKQoKb1aYVfuaWPsdW4iPw7iUPzxVO3JHiHETAsMTPZ3SY0OlH FpCA6MmJJOV3JnwLGgKy5xESpfpTVxlb3+ZK2YYMShWs8VIx4+BJjdtsVhTqyJIwK5RQNoi9UaEDn1CO 5WNF6ftJtyARI4Ic5ClQG7jMTqJ6lJLG1YjLVxG38w fTFiPPVoHa2PKiV7xwTooB9GAK27fNBwu4U5EUFyN1lgJTyqj87mZWwoSJbLNJ6aNJIWOZcvSXmnREY4 NzRnczljXZGtOl0HHuOoENe7uU3fnGE1MXC9UvqyeRTvTDwwBtGvDcNxOuL9fOtumwt9XTwsTN6iHBbd czptZXRhLyc+VMtyRHHxDGRcPimRZGSdhO1zffR0lw XlEFrxpYRfKu8lc2s8UzecJm0wUu4tIXo6LsFnPsHeUWRhDp9dnZ61QEnhwyHjAa7RKwFuYBH4B4WuNq pSREY+XHsePUrfsJp1qTAuFCLdCz5AYFBfXJQcTCUkQZKaAAWeDXNnIBZqHPSfWTVfFXQfUMRoIFKpAK AgICAgICAgICAgICAgICAgICAgICAgICAgICAgICAg JPNwFGRvNGSpMALmDUOiZKOfVVCwLVKiGUBiINPnCJ4LZMHcMQAwPDDnUIHmWWRnEXRxNAKrXNUyHLUy ICAgICAgICAgICAgICAgICAgICAgICAgICAgICAgICAgICAgICAgICAgICAgICAgICAgICAgICAgICAg YBZnUAIqJBUhGIGiKR9ENZPvSBWfPXVuIDIzCBZjKZ AgICAgICAgICAgICAgICAgICAgICAgICAgICAgICAgICAgICAgICAgICAgICAgICAgICAgICAgICAgIC WrWYUiTTPpOWYlYBOoEYEwOTKhBTYdVX4HBYCzJBQyBPOlYZEgMWDyUXFdWIXxJYWhAKGsVAAaHNXpLK AgICAgICAgICAgICAgICAgICAgICAgICAgICAgICAg ACJwIXMtZIHwPIMgTNQjQFPvNOOuEEZoVKHrBHXmUEOyZU6EXTImOEXwVHCbELYvHFHmQRHiSDRxRPRo ICAgICAgICAgICAgICAgICAgICAgICAgICAgICAgICAgICAgICAgICAgICAgICAgICAgICAgICAgICAg ULJdJOLeRHGiQOZwKIKtCG4EFBGeQGOzNEJhWYXrAK AgICAgICAgICAgICAgICAgICAgICAgICAgICAgICAgICAgICAgICAgICAgICAgICAgICAgICAgICAgIC XiMWRnDEBrACRbMKDbXRIoIQJvCRBwPABwWD3SFNZqZWBaXWPfOKDvBMWiCCDqGQRwKRQkEVIpHZYnAK AgICAgICAgICAgICAgICAgICAgICAgICAgICAgICAg OPXtKIIqCWOjCFImMLRrTZVpIWWvAALkTGBaXZPaNMWtRWWeNF9MPWRdYUAcUMIgGXVcLTToBERrPFXd ICAgICAgICAgICAgICAgICAgICAgICAgICAgICAgICAgICAgICAgICAgICAgICAgICAgICAgICAgICAg NQDwGMMtANZpNGPiZQEpOTFrIC3RQMIiTHNiWNZpAX AgICAgICAgICAgICAgICAgICAgICAgICAgICAgICAgICAgICAgICAgICAgICAgICAgICAgICAgICAgIC OwVESsFKPzSGPnJPDhRHEvIOTpARPvXOAhFTYnNQ6FMMEjFVHoRUOxZSZmADKsOFAsGYKhTPJwHUOhXD AgICAgICAgICAgICAgICAgICAgICAgICAgICAgICAg NVVqBHNpHGQjDOKkQZRtZAXpQPQdTNZoBCKlPCWfNFKqTTVoMWSaHB1ORP44yGNup9S7GEIxWB1geub/ Jc7BCFbmvyFbbLAiED6PJbFdBS2ojb3YLnUrIL9jpb0NENyZOaHrE8N2sXEdHFXkLWXKVvMeU07tZQwb Xy70IQluGCThZcIaUHb4Zh5FZgBtE9whKTRuCyB0VZ CrNfF9JJKvBaB6WGKwWmZnRSblLM1Ni4VonYRmZIa+Ii4HQP3ql0FbXLfqVxPyXI6ock0BNGlSIqHkL9 MwfgE1LRR6SAJcKa4JBWRgYRNxoKAsGgKhXPUQCuTjP8OhtA02HQNAWx9+GUavllChSohMRhO3IBZbe4 UyJMc8ZV7WHCXaWMv5uKHrKNWzD2Lks4UaFg41GCRy ZbkvX8efSfPphWmdUhFXcVQ4L6j8owerHrNoWGIvVg2bFM9tREThPTWcZbV5PZUVSJ0JFQNuUHUpuXNw BBSqQPUEUA6WJTnnPZY2VGJtkaLtdALkCPliAR3HTSEbzoLwEwSmXAMVRKd+Sl6IIX5py1UiQGazTYAz TJ9sex8IFOhRXnJkN7F3zMCdL6T9HEbiZq3GSVXoSJ SuNzGkYBVJBThyUR5JBK5gmvO4WR2CeRNyVFPeDCHrkVJkKOy6Z82jsFXoSDmdJO3BZDQ+Ashley+Pg0KIC YjJCOcHBOkNaTcOMRTMyGyE2HfD8DXk7OrP6FjXT40jCjbkqAeHDvpKX2LKF2eQBLcRCINXQ9DzXDsyN 2hvbXgOjNlMAKZNkVrV75iqJObDYVlOCJ5VPKaLk3W IRGqR5SlrmUkxHxngrWuZBDrDBVIEI0EZPnephXsqCOkhUwvBD42ePdwEX6VUa6ZRjOpTN8gnz6UoNTo Es5ARWTiBU6VIYFnCTQwPFFdVHP6JVXcJaFkRRjmJPVoOBKdODC3SMUwNKVgWB0BXcMpCKXdZyPwLPYq KGUgWXVouq7BUCIaVPYxShR0ZBQpFSLuIZNwEKvwZA SoOTVhVDN2UQAqNGNuZD5WWvZwDHUrLLH5GIaqWMElARXkmn5LRRBlILWtEQCiHgQtWUMeACFiFEpqBQ OqVTX0QWwbTHTyIOEbIB1SDrBgQDLiQDRlLHLgFIMkFOHfsq3FJNJsXFFcMTijWJHhBMXnWISyEGpsCL GfFJV7MPS3VHTnZATnBM8GIlXdUGGiHKt7KGKoUYVp DPCqtc9NKCSgUZMwLXW5IgSaWUSySUDmPAbsRCEeXEOsQes6GKNhKQVzSU4KEhAgFCCnKUXhRiPrHWIu OGTpzk6GWQRiTJVrATWlIyZyVSFbWVItMMuaZSVqDRGmFlW3RYUwUZMlRG6VVsSuOBVgDnAmDYMjXRCy UUMotq6YTJFkDGIqYfD6OINeKXCvKYGlFMpaEUErRD WePBi5JVUzXXXmLX3HOhBlUXKqSoA2PxkgGUPcSWOjzr4ABVMzYUAdOae6ULShZMGiMVDzWEtbAOJzTZ V1KUU0RTNyUKZnJH0VRfVcSHBfHcImJTBlCOVyLZYzkm3OYGAjQKHrUPL5GDMnDQZcEPFzIOctNCHzIJ W0RnPgFQDtCUXaID7NOtStSRVmGswgSoWzMOOvSDKx da0NRIQqCJPtHoMcQeLsUQQwGWIuFTpwLTCvQIC7Qun4MOPsPLVgYV2DEpKmDHjrIKJDVti7VQjiO7n3 WAAnHY3QZ8Icq2MfXdrtJBRRUHycCR0gkvWsSJNfZs1AN0lXUjazBTO1JYXtRGE1DxmmHPnrPNMcTGQg XVL3EYY1JfqxOZ5dHIQ9LeL9FBAsBEQhQNMhW5G5TQ Q9CnC0FMpdMxQ9D6P6GcHaYG2DYw6XAyG4YLJ3gXFhAk9YMsw7LlRICyEgHP6XUHr= ID Date Data Source [id number] 05/08/2019 07:32:38 AM EST [facility] Name Value Range Interpretation Code Description Data Chikis rce(s) Supporting Document(s) Discharge Summary [facility] LRCUWi2bEjQRKoLh28/CVBsmFUEbg2KaPFdnJJz5RDtnIVOtF7NlPIH5iI0uROJ8MBrUAoGfEnItRxOy lbm [file] gx/8X4JcfLcZj+tsuel21No5s60UgGBRbDOJJq+GGgnbYlPkzabvkMvw9LlpfNl7DdqbMVaUq/OM/+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 HISTORY [file] AgICAgICAgICAgICAgICAgICAgICAgICAgICAgICAgICAgICAgICAgICAgICAgICAgICAgICAgICAgIC KkOPUwYCQcLWMqMGCkXCPlBC5IFYWmKCDtBOTaYBDlDLAxMNCmJTJhKMOtPVYfIPUhRWMaCVRqPNAvVS AgICAgICAgICAgICAgICAgICAgICAgICAgICAgICAg IYFcIUIkOXSwRLLaYXAgWGPwGYUmUNPsIALqPH1WERDjXIMyKNXsGMTdVMXvAVHlKFBfHJWbGGXoKRNg ICAgICAgICAgICAgICAgICAgICAgICAgICAgICAgICAgICAgICAgICAgICAgICAgICAgICAgICAgICAg YVVlBCTbTRSmXX3MCECbXCGvBYKvTDHpHVGrVHYiNN AgICAgICAgICAgICAgICAgICAgICAgICAgICAgICAgICAgICAgICAgICAgICAgICAgICAgICAgICAgIC YeQCHtBGDbCWTwUWCbDXJwPNPdOP3LCHEfRLLeMJDnUQUuYLIhUINiFEDpDVXmRPBfBTNhKSBkWOVeGB AgICAgICAgICAgICAgICAgICAgICAgICAgICAgICAg RGApJIEvQGRkQWWcRYMfGNJrXUFhKMBfWRCyNYOeKO0NMAGvBWKzCEAbKMUeFJQoSKOzOSOrJXRrYALf ICAgICAgICAgICAgICAgICAgICAgICAgICAgICAgICAgICAgICAgICAgICAgICAgICAgICAgICAgICAg ZCEaWQVvZIPuJQZeAL6FNVAsGILbIUHxGUJdINJcWE AgICAgICAgICAgICAgICAgICAgICAgICAgICAgICAgICAgICAgICAgICAgICAgICAgICAgICAgICAgIC FwZYWlCJAgFDEkUQXlZOFoYQCuDZDtVT6FDCWwWNFyXUYhQSOfZXThPUFqPGDbKHUgJLGjAHSdZDEdIV AgICAgICAgICAgICAgICAgICAgICAgICAgICAgICAg ZXPlGIToJYPcLOHnPSLrWVVcYFRdDEGiIIAiIMWmAZWsDO6ERVCaIBBiJYWaFIEsPBMmJLCcHNBaDTHk ICAgICAgICAgICAgICAgICAgICAgICAgICAgICAgICAgICAgICAgICAgICAgICAgICAgICAgICAgICAg BLWlQKRuDWEkWCRkBWDqYT9ALRBkBBPrSQQaDRXgNI AgICAgICAgICAgICAgICAgICAgICAgICAgICAgICAgICAgICAgICAgICAgICAgICAgICAgICAgICAgIC MgBEMiRBRnUEWhONErAIPaJPHkDFOvMTFxOE9DKZ91vQHpc3J8XLLxPT1ouno/Tk8DEZaoqcRcvFGmBM 3HWkJaXT2bex3ZPhDzCF8nfq0RUCmUEsJkY1R9zKWu FHFiZKUXQhKqK96rWPhuMg48GMwiXCZzXoRgXFo2Zc4CUlWwB0xdQFOcTiE7BUAxChW4OKGqGaM1FGSw HxRnOTDmPYZxXG0UAUSiQ437phPyUT5GNt6RFaMoNI7ygt8KYkNvKJYwSsrMOza8TMcgYN0PpDZxyFTl XuEoWFAJOtJlL7ogh4VvLxdkHXQUHXouRA2Om2UgdY AxDQo+Eb1QGV5kp0BkNVrwXsQtKX4mvf4MKKzGWrJsV9KscRhtRNEqq1XeEKAsXMEPqP2vHQQ1YBK3TK QkcZdqmYTYYBDpbBahphpaOTHtUAWtUy2wIn5oARMuMUDtIgS0SQIEZM5PGRVmYTUuyNLvIAEwNQLQAW 0JYBgvEAW8IAIfesMybAEyIBjsFI5KWZWpkmDiWeRq MCBSDQo+Jl5YPG1xw9WbMGdeBKCnAW2mzq8IOMoMTxOsO1Q1sCTzL1X9PRwmJc0MVDYmNUNdUcGdAIDZ YNvsEB8QGO8onrG7YQ8WwHWvMIGlQOGhvLVbQRq3I59lxRWxRRepNO2XRQR+Ashley+Wa6PBCLrWBAtEXWu UgTvXQSYEsZuJ6VkR1LCi4IvB7TmOP30gEmrjeMfQB ozZQ1OJJ5uOQXoGNNCJB4TnJQbeV7hwcGiWbFbCTCCNnPyT36peGCuEIMbODP9PQFqGt6XRJWbG2Llnz HbaKkzosZvZWWkDMUYTL2HVJqtkaDxeADajGdaHD76jZcaOZ1WBv9MHmGzGE0gaq6ZeQMgTr2MIWCtPZ 9YSENjMQQaLMEyEJD6ULZgOmOsBRwqEXPuPPSrVKS2 ZAHsDRKaSB9HHmMcZRGoHuAoMozhKOSwBGAazt8LWRTaOPHlApOkDjPhCBMyDSCaVFgmKBVnFGAtNFX4 OORiIIPzWF4IJpYbCLJsRKA2CmbzBUMrGCYqne0RWXHcHUZmEmHhYaGcPWSmAHAlRIziZXNnUKO0HtFk OAJyRXBgZH9HXfPpVHYhWRN4MItlIPDrHNRore0CVO RvQYWeBHurChGyZDZzZTOyBSlkMCLaBWM6MXS1QOXzKBZaKI8HIpWqRROeHXH4XhHeYMAtHJXgwu5WGH WhSXArZWajIPWmJZJcTQEvKNqzSZSkHAJaCnh7TJGaBMBwDF0EIwHsOBDmOKW5BHBtZXMuVTDuqe3PIK PwWZAxLhK5AKCqRYTlHGWwBVbqOLIvNUEvENU4MMVk ZKDvHG2RJxYqUWCxJQFrRSClGGKvIYTlid6WSJPrZVGpEuGxZKHoASRtQQInRJlcZOCnTQZ3RHb2DUWs NNJzVT0MXwEhJYIfEWZ7FKYxLPWhCEIujl2VHLFoGHGxQQp5ZMZkMQBiQGCqTOmrUUPhUWI9CwDtESHa ADDuDJ8GOmVfRZNaXmH4SnFiMRItMGVdlt2NPHZlSP DiEsx5AQBwMHKbMBGsSIpsWVWcHPX0JEX0TUWyMPTgKQ1HEwBpJXXuRtafBiOfDSSiXPNpbi8YSXXsBF AcXVQwDILxSHTzEVGxPMqjMYAaVRF8Wda9BYYmGPHjIG0KZaKdFYGnQls0QcCnJMKkVGMkgh9RUQDoDK BfHgRyCCNmZFJbLDIbRFicLKQfWVIbQuB9IKXkHAPy XX0SKnYbFTWmFkA1FpZqMNGuOBLdms9AOGGvKOHeVREiNECmDXEaYRMnNAjuNVCbTEN8TyY2JATvJUUf DK7RWaAiOSJjTnP0MZDvAYHqPHBxtn6NWSIhYPKdHgH3HoBpJHKkJYEzJIxnHDLyVHE0WrD2LSKdJBOq RQ5NTuSgCQQiKqDqVktuZOAcJIVjfm2UoIRkiDgopc 5YELoUVc3DeKizDGY0TFjkTc3jiSPkKKXpIYOARl3LobZrPYVgZVIUKAzlLXDfCRE7PeX8AYDqSdq7Et u8CLEjOvZ2UMW8FcuhDAC1JpmdLcQ0OyB7HET6CoZuUtncBJE3QFFlEsg3AYKcEEW8MNAuSXH+IF0gDQ o+Qe8Qt7VsbqG4olGmWDmoIsEdQD4KGJQVM5GKAw== ID Date Data Source [id number] 05/08/2019 07:32:28 AM EST [facility] Name Value Range Interpretation Code Description Data Chikis rce(s) Supporting Document(s) Operative Note [facility] FUBJJq8cSmOUEaZt15/ARFnuOGTki3IdXCchPQv9JEqrNCMsL3RgJNW7pK2fGEK9DOhYLrGlUjHyUqXq lbm [file] WrBZA4SifcQO8rXCCBMf0+EQwvvCLteVbwNHOCGgG1SBR3FZvkHBFAPq6P ID Date Data Source [id number] 05/06/2019 05:05:48 AM [facility] Name Value Range Interpretation Code Description Data Chikis rce(s) Supporting Document(s) Leukocytes [#/volume] in Blood by Automated count 10.2 10*3/uL 4-10 [facility] Erythrocytes [#/volume] in Blood by Automated count 3.38 10*6/uL 4.1- 5.3 L [facility] Hemoglobin [Mass/volume] in Blood 10.4 g/dL 11.5-15.5 L [facility] Hematocrit [Volume Fraction] of Blood by Automated count 30.5 % 3 6-45 L [facility] Erythrocyte mean corpuscular volume [Entitic volume] by Auto mated count 90.1 fL 80-96 [facility] Erythrocyte mean corpuscular hemoglobin [Entitic mass] by Automated count 30.8 pg 27-33 [facility] Erythrocyte mean corpuscular hemoglobin concentration [Mass/volume] by Automated count 34.2 g/dL 32.0-36.0 [facility] E[facility]throcyte distribution width [Ratio] by Automated count 13.6 % 11.5-14.5 [facility] Platelets [#/volume] in Blood by Automated count 126 10*3/uL 150-400 L [facility] ID Date Data Source [id number] 05/06/2019 05:21:00 AM [facility] Name Value Range Interpretation Code Description Data Chikis rce(s) Supporting Document(s) Bicarbonate [Moles/volume] in Serum 21 mmol/L 22-29 L [facility] Chloride [Moles/volume] in Serum or Plasma 103 mmol/L 98-107 [facility] Creatinine [Mass/volume] in Serum or Plasma 0.75 mg/dL 0.50-0.90 [facility] Glucose [Mass/volume] in Serum or Plasma 107 mg/dL 70-140 [facility] Potassium [Moles/volume] in Serum or Plasma 3.7 mmol/L 3.4-5.1 [facility] Sodium [Moles/volume] in Serum or Plasma 132 mmol/L 136-145 L [facility] Urea nitrogen [Mass/volume] in Serum or Plasma 8 mg/dL 6-20 [facility] Anion gap 3 in Serum or Plasma 8 mmol/L 8-15 [facility] Osmolality of Serum or Plasma by calculation 273 mosm/kg 275-300 L [facility] Creatinine/Urea nitrogen [Mass Ratio] in Serum or Plasma 11 [facility] Calcium [Mass/volume] in Serum or Plasma 7.8 mg/dL 8.6-10.0 L [facility] Glomerular filtration rate/1.73 sq M pre dicted among non-blacks [Volume Rate/Area] in Serum or Plasma by Creatinine-based formula (MDRD) >6 0 [facility] Glomerular filtration rate/1.73 sq M pre dicted among blacks [Volume Rate/Area] in Serum or Plasma by Creatinine-based formula (MDRD) >60 [facility] ID Date Data Source [id number] 05/06/2019 05:21:00 AM [facility] Name Value Range Interpretation Code Description Data Chikis rce(s) Supporting Document(s) Magnesium [Mass/volume] in Serum or Plasma 1.8 mg/dL 1.6-2.6 [facility] ID Date Data Source [id number] 05/06/2019 05:21:00 AM [facility] Name Value Range Interpretation Code Description Data Chikis rce(s) Supporting Document(s) Phosphate [Mass/volume] in Serum or Plasma 3.3 mg/dL 2.5-4.5 [facility] ID Date Data Source [id number] 05/05/2019 05:45:04 PM [facility] XR CHEST FRONTAL ONLY [id number] RESULTI nterpreted by:Cristian Banuelos MDINDICATION: Pneumothorax evaluation.TECHNIQUE: XR CHEST FRONTAL ONLY [id number], 05/05/2019 4:13 PM, upright.COMPARISON: 01/31/2019.FINDINGS: A surgical drain projects over the right supraclavicular fossa. A mild degree of subcutaneous emphysema also is present in the right supraclavicular fossa and right superior chest wall.The patient has undergone resection of the right cervical rib. The thoracic skeleton otherwise is intact. The mediastinal contours are normal. I see no findings of pleural disease such as pneumothorax. The lungs are clear except for mild atelectasis in both lung bases.IMPRESSION: 1. No evidence of pneumothorax.This document has been electronically signed by Cristian Banuelos MD on 05/05/2019 5:42 PM Name Value Range Interpretation Code Description Data Chikis rce(s) Supporting Document(s) ID Date Data Source [id number] 05/05/2019 09:50:50 AM [facility] Name Value Range Interpretation Code Description Data Chikis rce(s) Supporting Document(s) History and Physical [facility] RVLOYa6fUrAVFbIy53/EMYuoQVPxd7QmVRycYQy8QEceIRLhD5YzAJX8bI7yBBO3BDjSYeVdOgHbIeDt lbm [file] Rg0K ID Date Data Source [id number] 05/05/2019 10:01:17 AM [facility] Name Value Range Interpretation Code Description Data Chikis rce(s) Supporting Document(s) Choriogonadotropin.beta subunit free [Units/volume] in Serum or Plasm a <5 [facility] (NOTE)Levels between 5 and 25 [IU]/L may indicate earlypregnancy and should be repeated after 48 hours. ID Date Data Source [id number] 05/07/2019 05:18:00 PM [facility] Surgical Pathology ReportName: PARUL JAIN JMRN: [id number] Number: [id number] Date: 05/05/2019 00:00Received Date: 05/05/2019 15:36Physician(s): [place] ANTHONY CSpecimen(s) ReceivedA: Right cervical ribClinical HistoryNeurogenic POS. Patient wants specimen.DiagnosisBONE, RIGHT CERVICAL RIB, EXCISION: BONE (GROSS ONLY)./Nirav Mills M.D.;Resident PathologistElectronically Signed By Alysha Monreal MD;, Attending Pathologist05/07/2019 17:18:30The attending pathologist named above attests that he/she has personallyreviewed the relevant preparation(s) for the specimen, performedmicroscopic examination when indicated, and rendered the final diagnosis.Unless 'gross-only' is specified, the final diagnosis is based on amicroscopic examination of account executive sales representative sections of tissue.Gross DescriptionThe specimen is received fresh labeled with the patient's name "Mark" and "right cervical rib". It consists of a 4.0 x 3.0 x 1.0 cmaggregate of red-newman fragmented bone with a minimal amount of attachedsoft tissue. Gross only.AEM/jrs This report may include one or more immunohistochemical stain results thatuse analyte specific reagents. All positive and negative controls havebeen reviewed by the attending pathologist and are satisfactory. The testswere developed and their performance characteristics determined by [facility] Pathology department. They have not been cleared or approved by the USFood and Drug Administration. The FDA has determined that such clearanceor approval is not necessary. Name Value Range Interpretation Code Description Data Chikis rce(s) Supporting Document(s) ID Date Data Source [id number] 05/02/2019 06:38:32 PM [facility] Name Value Range Interpretation Code Description Data Chikis rce(s) Supporting Document(s) ABO and Rh group [Type] in Blood [facility] Blood group antibody screen [Presence] in Serum or Plasma [facility] Blood bank comment [facility] ID Date Data Source [id number] 05/02/2019 04:58:20 PM [facility] Name Value Range Interpretation Code Description Data Chikis rce(s) Supporting Document(s) Leukocytes [#/volume] in Blood by Automated count 5.7 10*3/uL 4-10 [facility] Erythrocytes [#/volume] in Blood by Automated count 4.39 10*6/uL 4.1- 5.3 [facility] Hemoglobin [Mass/volume] in Blood 13.0 g/dL 11.5-15.5 [facility] Hematocrit [Volume Fraction] of Blood by Automated count 38.9 % 3 6-45 [facility] Erythrocyte mean corpuscular volume [Entitic volume] by Auto mated count 88.8 fL 80-96 [facility] Erythrocyte mean corpuscular hemoglobin [Entitic mass] by Automated count 29.6 pg 27-33 [facility] Erythrocyte mean corpuscular hemoglobin concentration [Mass/volume] by Automated count 33.4 g/dL 32.0-36.0 [facility] Erythrocyte distribution width [Ratio] by Automated count 13.7 % 11.5-14.5 [facility] Platelets [#/volume] in Blood by Automated count 149 10*3/uL 150-400 L [facility] ID Date Data Source [id number] 04/26/2019 12:51:21 PM [facility] Name Value Range Interpretation Code Description Data Chikis rce(s) Supporting Document(s) Progress Note [facility] ODCOGl8zAnNXNfPm22/FZFwvREFrb0YiOTizCDd6WUnpTGEcY4FqJVQ8zQ3nHSD0RLtKHgKgItMdLtQa [facility] [file] fwvoKuj6tMCh+yYoQGFykPyepe+DI8n1FhnhF6+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 [file] DEtJGh4KFbgNBXWfmO9SlBeUPjKZUaaN2sK2Nxea4djaa6dmo0yS0OT/J+5P/U+U/chef manager/1/sp6JOmB3Ql [file] By6vMCYGNh9+OFxhuYOwrUqlDPOCFwK0WrfaOLmvZKKPZh2E ID Date Data Source [id number] 04/24/2019 11:43:54 AM [facility] Name Value Range Interpretation Code Description Data Chikis rce(s) Supporting Document(s) Progress Note [facility] HCGUXe9tXiPWTtIq30/NIXfaCZLsb4YtGLcyWFi4VCmnIDCbM7RfVQA0yB5wESS0ZCyDFlGmQmFcTXJf lbm [file] BkYTRhNmI+YF1vTUf+Ou6At9TxcgO5hkPwFJvhFRGhOI3PBXYJE9HODs== ID Date Data Source [id number] 04/24/2019 11:40:27 AM EST [facility] Name Value Range Interpretation Code Description Data Chikis rce(s) Supporting Document(s) Progress Note [facility] ZDXOWr2pUtZUGzRh49/BDKkpTHBgt5XrQHyoDWx0DRmsIJPeM4RuBKQ4uM8uDAR1LVsMJuLjFyXuKUSp lbm [file] VDXDAiJnNMfyDElsOGWLGk9O ID Date Data Source [id number] 04/17/2019 12:19:19 PM EST [facility] XR SPINE CERV 2-3 VIEWS [id number] RESUL TInterpreted by:Tejas Connell MDINDICATION: Assess hardware.TECHNIQUE: Frontal and lateral views of the cervical spine were obtained.COMPARISON: Prior study dated 02/03/2019.FINDINGS: There is redemonstration of an interbody cage at the C6-7 level. The alignment is maintained. No acute fracture is identified. There is straightening of the cervical lordosis. There is mild prevertebral soft tissue swelling, improved compared to the prior exam.IMPRESSION:Status post C6-C7 disc arthroplasty with stable alignment.This document has been electronically signed by Tejas Connell MD on 04/17/2019 12:17 PM Name Value Range Interpretation Code Description Data Chikis rce(s) Supporting Document(s) ID Date Data Source [id number] 04/17/2019 11:11:51 AM [facility] Name Value Range Interpretation Code Description Data Chikis rce(s) Supporting Document(s) Progress Note [facility] FXFXZy4mQwDDCmTl56/PTMqfJZShu4KkVNhzTHg6NMerSWJhG3HpWMN0cR5tMMP6NSfHFeUjLpEaNOYt [facility] [file] 4+XZdiuSPkqXnrYKASWrO6OYF9YXbaQLYVHw5L ID Date Data Source [id number] 04/03/2019 10:20:00 [place] [address] PHONE: [phone] FAX: [phone] Name .................. : CRISTOBAL Torres Acct Number.................. : [id number] ROOM. ................. : TR-06 Number ................... : [id number] Stay type ............. : E/R Discharge Date......... ... : Admit Date ......... : 04/02/19 Admit Phys .................... : BLACK FELIPE Date of ....... : 1985 Family Phys ................... : HUGH Phone .................. : [phone] Age ................................ : 34 Film# .................. .:[id number] Sex ................................. : F Unsigned transcriptions are preliminary reports and do not represent a medical or legal document MRI CERVICAL SPINE W/O CONTRA [id number] COMPLETE:04/02/19 12:15 23690 Reason(s): Trauma/Injury MRI OF THE CERVICAL SPINE WITHOUT CONTRAST: INDICATION: Trauma. FINDINGS: Alignment is maintained. Anterior vertebral body heights are maintained. There is no evidence of fracture or dislocation. There is no abnormal signal in the cord. The craniocervical junction is normal. There is no abnormal bone marrow signal in the cervical spine. C2-3: No significant disc bulge or neural foraminal narrowing. C3-4: No significant disc bulge or neural foraminal narrowing. C4-5: Mild circumferential disc bulge causes no significant neural foraminal narrowing. C5-6: Mild circumferential disc bulge causes no significant neural foraminal narrowing. C6-7: The patient is status post disc replacement. There is no evidence of neural foraminal narrowing. C7- T1: No significant disc bulge or neural foraminal narrowing. IMPRESSION: Postoperative changes at C6-7 with disc replacement. Mild degenerative disc bulges not significantly changed compared to January 2019. No evidence of neural foraminal narrowing. Page 1 of 2 [facility] [address] [place] [address] PHONE: [phone] FAX: [phone] Name .................. : CRISTOBAL Torres Acct Number.................. : [id number] [facility] : [id number] Stay type ............. : E/R Discharge Date......... ... : Admit Date ......... : 04/02/19 Admit Phys .. .................. : BLACK CHRI Date of ....... : 1985 Family Phys ................... : [place] Phone .................. : [phone] Age ................................ : 34 Film# .................. .:[id number] Sex ................................. : F Unsigned transcriptions are preliminary reports and do not represent a medical or legal document MRI CERVICAL SPINE W/O CONTRA [id number] COMPLETE:04/02/19 12:15 [id number] Reason(s): Trauma/Injury Electronically Reviewed and Si gned By Carson Carmona M.D. , 04/03/19 10:20, [facility] Transcribe Initials: GODFREY , Transcribe Date: 04/02/19 13:25, Dictation Date: Copy for: [facility] via fax Copy for: EMERGENCY DEPT via modem Copy for: 710 MED REC DISCHARGED Page 2 of 2 Name Value Range Interpretation Code Description Data Chikis rce(s) Supporting Document(s) ID Date Data Source [id number] 04/03/2019 09:53:00 AM EST [facility] [address] [place] [address] PHONE: [phone] FAX: [phone] Name .................. : CRISTOBAL Torres Acct Number.................. : [id number] ROOM. ................. : TR-06 MR Number ................... : [id number] Stay type ............. : E/R Discharge Date......... ... : Admit Date ......... : 04/02/19 Admit Phys .................... : BLACK CHRI Date of ....... : 1985 Family Phys ................... : [place] Phone .......... ........ : [phone] Age ................................ : 34 Film# .................. .:[id number] Sex ................................. : F Unsigned transcriptions are preliminary reports and do not represent a medical or legal document SPINE CERV COMP- 5 OR MORE VIE [id number] COMPLETE:04/02/19 11:58 [id number] Reason(s): Neck Pain CERVICAL SPINE SERIES: INDICATION: Neck pain. FINDINGS: Examination reveals an intervertebral disc replacement at C6-7. Osseous and surgical components appear to be in near anatomic alignment and position. The remaining disc spaces appear preserved. Prevertebral soft tissues are within normal limits. The right side neural foramina are widely patent. The left side neural foramina are not well assessed secondary to poor positioning. The visualized portions of the upper lung lama are clear. A cervical collar is present which obscures detail. IMPRESSION: Status post surgical disc replacement at C6-7. The examination otherwise appears unremarkable. Examination dictated by VENU Gallo. Examination was reviewed with Jealni Price MD, radiologist at the time of this dictation. Electronically Reviewed and Signed By JELANI PRICE MD , 04/03/19 09:53, [facility] Transcribe Initials: GODFREY , Transcribe Date: 04/02/19 12:36, Dictation Date: Copy for: [facility] via fax Copy for: EMERGENCY DEPT via mcgill[facility] Copy for: 710 MED REC DISCHARGED Page 1 of 1 Name Value Range Interpretation Code Description Data Chikis rce(s) Supporting Document(s) ID Date Data Source [id number] 04/02/2019 11:37:00 AM EST [facility] 1 OrderSheet [facility] Emergency Department [address] [place] [address] Phone #: [phone] 04/02/2019 11:32 Patient: MARY JAIN Sex: F : 1985 Age: 34yWEIGHT:62.5 kg (S) HEIGHT:62 inches (S) BMI:25.2ALLERGIES: ProcardiaCHIEF COMPLAINT: numbnessDIAGNOSIS: Strain of neck muscle, TendinitisLAB ORDERSOrder Description Priority Entered Acknowledged InitialedDIAGNOSTIC STUDY ORDERSOrder Description Priority Entered Acknowledged InitialedSpine Cervical STAT 11:58 04/02/2019 11:59 BurnhamComplete Yoshi Pierce quartz miner, [place] [facility](Oxygen?(No)) PA; Tech1 Reason for Study: Neck PainMRI Spine Cervical ST AT 12:15 04/02/2019 12:16 BurnhamW/O Cont Yoshi Pierce quartz miner, [place] [facility](Oxygen?(No)) (No) PA; Tech1 Reason for Study: Trauma/InjuryMEDICATION/IV/DRIP/FLUID ORDERSOrder Description Priority Entered Acknowledged InitialedpredniSONE PO 60 11:50 04/02/2019 11:59 Dejon Coker R.N.;Toradol IM 30 mg 11:50 04/02/2019 11:59 Lilliam Coker R.N.;Valium PO 5 mg 11:50 04/02/2019 11:59 Lilliam Coker R.N.;GENERAL ORDERSOrder Description Priority Entered Acknowledged Initialed[Electronically signed by Lilliam Coker R.N. (14:37 0)][Electronically signed by Yoshi Pierce (20:38 04/02/2019)][Electronically locked by Lilliam Coker R.N. (14:37 04/02/2019)] Name Value Range Interpretation Code Description Data Chikis rce(s) Supporting Document(s) ID Date Data Source [id number] 04/02/2019 11:37:00 AM EST [facility] 1 Medication Reconciliation Report [facility] Emergency Department [address] [place] [address] Phone #: ext- [phone] 04/02/2019 11:32 Patient: MARY JAIN Sex: F : 1985 Age: 34yWeight: 62.5 kgHeight/Length: 62 in.BMI: 25.2ALLERGIES: ProcardiaThe patient's Home Medications are listed below:THE FOLLOWING MEDICATIONS NEED TO BE RECONCILED: Gabapentin Oral Robaxin Oral Tylenol OralThe source(s) of the original Home Medication information:Not obtained.The following Medications were given to the patient in the Emergency Department:Prednisone [PO] PO 60 mg, administered: 04/02/2019 11:59:00 AMToradol [IM] IM 30 mg, administered: 04/02/2019 11:59:00 AMValium [PO] PO 5 mg, administered: 04/02/2019 11:59:00 AMThe following Medications were prescribed to the patient:Medrol (Alli) 4 mg tablets in a dose pack Take 1 tablet as directed for 6 days -- Dispense 1 pack.Refills: 0. Substitution permitted.[facility] [address] [place] [address] [phone]. .ondansetron 8 mg disintegrating tablet Take 1 tablet three times a day for 5 days -- Dispense 15 tablet.Refills: 0. Substitution permitted.[facility] [address] [place] [address] [phone]. . -- VENU Liang Name Value Range Interpretation Code Description Data Chikis rce(s) Supporting Document(s) ID Date Data Source [id number] 04/02/2019 11:37:00 AM EST [facility] 1 Medication Administration Record [facility] Emergency Department [address] [place] [address] Phone #: [phone] ext- [phone] 04/02/2019 11:32 Patient: MARY JAIN Sex: F : 1985 Age: 34yWeight: 62.5 kgHeight/Length: 62 inBMI: 25.2ALLERGIES: Procardia Date/Time Medication Administered Medication OrderedGiven PREDNISONE [PO] predniSONE PO 60 mg11:59 04/02/2019 Dose: 60 mg POZoss, June, R.N.Given TORADOL [IM] (KETOROLAC Toradol IM 30 mg11:59 04/02/2019 TROMETHAMINE)Zoss, June, R.N. Dose: 30 mg IMGiven VALIUM [PO] (DIAZEPAM) Valium PO 5 mg11:59 04/02/2019 Dose: 5 mg POZoss, June, R.N. 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 Substitution permitted.[facility] [address] [place] [address] [phone]. .ondansetron 8 mg disintegrating tablet Take 1 tablet three times a day for 5 days -- Dispense 15 tablet.Refills: 0. Substitution permitted.[facility] [address] [place], [place] [phone]. .Follow-up:Follow up with a specialist [facility] [phone] Chris LEA at [facility] Neuro [phone]. Callfor an appointment. Reason for referral: evaluation and treatment. Summary of care provided to patient.Understanding of the discharge instructions verbalized by patient and family.Follow-up with: [facility], , , [address], [address] Follow up. Call for the next available appointment. Reason for referral: evaluation, treatment andevaluation of Labral Tear Right Shoulder. Summary of care provided to patient. ADDITIONAL INFORMATIONNeck Sprain or StrainA sudden force that causes turning or bending of the neck can cause sprain or strain. An examplewould be the force from a car accident. This can stretch or tear muscles called a strain. It can alsostretch or tear ligaments called a sprain. Either of these can cause neck pain. Sometimes neck painoccurs after a simple awkward movement. In either case, muscle spasm is commonly present andcontributes to the pain. 2 General Instructions [facility] Emergency Department [address] [place] [address] Phone #: ext- [phone] 04/02/2019 11:32 Patient: MARY JAIN Sex: F : 1985 Age: 34yUnless you had a forceful physical injury (for example, a car accident or fall), X-rays are often notordered for the initial evaluation of neck pain. If pain continues and does not respond to medicaltreatment, X-rays and other tests may be done later.Home care You may feel more soreness and spasm the first few days after the injury. Rest until symptoms start to improve. When lying down, use a comfortable pillow or a rolled towel that supports the head and keeps the spine in a neutral position. The position of the head should not be tilted forward or backward. Apply an ice pack over the injured area for 15 to 20 minutes every 3 to 6 hours. Do this for the first 24 to 48 hours. You can make an ice pack by filling a plastic bag that seals at the top with ice cubes and then wrapping it with a thin towel. After 48 hours, apply heat (warm shower or warm bath) for 15 to 20 minutes several times a day, or alternate ice and heat. You may use otrd-slj-sgexmik pain medicine to control pain, unless another pain medicine was prescribed. If you have chronic liver or kidney disease or ever had a stomach ulcer or gastrointestinal bleeding, talk with your healthcare provider before using these medicines. If a soft cervical collar was prescribed, only ear it for periods of increased pain. It should not be worn for more than 3 hours a day, or for longer than 1 to 2 weeks.Follow-up careFollow up with your healthcare provider, or as directed. Physical therapy may be needed.Sometimes fractures don't show up on the first X- ray. Bruises and sprains can sometimes hurt asmuch as a fracture. These injuries can take time to heal completely. If your symptoms don't improveor they get worse, talk with your healthcare provider. You may need a repeat X-ray or other tests. IfX-rays were taken, you will be told of any new findings that may affect your care.Call [phone] if you have: Neck swelling, difficulty or painful swallowing Trouble breathing Chest painWhen to seek medical advice 3 General Instructions [facility] Emergency Department [address] [place] [address] Phone #: [phone]- [phone] 04/02/2019 11:32 Patient: MARY JAIN Sex: F : 1985 Age: 34yCall your healthcare provider right away if any of these occur: Pain becomes worse or spreads into your arms or legs Weakness or numbness in one or both arms or legs [phone] [employer]. [address] [place] [address], [place] [address]. All rights reserved. This information is not intended as asubstitute for professional medical care. Always follow your healthcare professional's instructions.TendonitisA tendon is the thick fibrous cord that joins muscle to bone and allows joints to move. When a tendonbecomes inflamed, it is called tendonitis. This can occur from overuse, in jury, or infection. Thisusually involves the shoulders, forearm, wrist, hands and feet. Symptoms include pain, swelling andtenderness to the touch. Moving the joint increases the pain.It takes 4 to 6 weeks or more for tendonitis to heal. It is treated by preventing motion of the tendon,occasionally with a splint or brace, and the use of anti-inflammatory medicine.Home care Some people find relief with ice packs. These can be crushed or cubed ice in a plastic bag or a bag of frozen vegetables wrapped in a thin towel. Other people get better relief with heat. This can include a hot shower, hot bath, or a moist towel warmed in a microwave. Try each and use the method that feels best, for 15 to 20 minutes several times a day. Rest the inflamed joint and protect it from movement. You may use vcut-kjf-yxrzoiq ibuprofen or naproxen to treat pain and inflammation, unless another medicine was prescribed. If you can't take these medicines, acetaminophen may help with the pain, but does not treat inflammation. If you have chronic liver or kidney disease or ever had a stomach ulcer or gastrointestinal bleeding, talk with your doctor before using these medicines. As your symptoms improve, begin gradual motion at the involved joint.Follow-up careFollow up with your healthcare provider if you are not improving after 5 to 7 days of treatment.When to seek medical adviceCall your healthcare provider right away if any of these occur: Redness over the painful area 4 General Instructions [facility] Emergency Department [address] [place] [address] Phone #: ext- [phone] 04/02/2019 11:32 Patient: MARY JAIN Sex: F : 1985 Age: 34y Increasing pain or swelling at the joint Fever lasting 24 to 48 hours or chills, or as advised by your healthcare provider [phone] [employer]. [address] [place] [address], [place] [address]. All rights reserved. This information is not intended as asubstitute for professional medical care. Always follow your healthcare professional's instructions. You have been given the following additional information: Neck S prain or Strain Tendonitis(Electronically signed by VENU Liang 04/02/2019 20:38) Name Value Range Interpretation Code Description Data Chikis rce(s) Supporting Document(s) ID Date Data Source [id number] 04/02/2019 11:37:00 AM EST [facility] 1 Clinical Report - Nurses [facility] Emergency Department [address] [place] [address] Phone #: ext- [phone] 04/02/2019 11:32 Patient: MARY JAIN Sex: F : 1985 Age: 34yTRIAGEHistorian: patient.Triage time: 11:32 04/02/2019. Acuity: LEVEL 4.Chief Complaint: RIGHT UPPER EXTREMITY NUMBNESS.Alert.( pt had neck surgery for discs in nov, at PT today, when therapist stretched her neck a warm sensationwith up her neck and down her arm, right arm now numb, severe pain to shoulder blade and axillary area.).SEPSIS SCREEN: NEGATIVE. Negative (no infection suspected/documented). --11:38 04/02/19 Lilliam Coker RKatNKat11:32 04/02/19. BP: 154/104. MAP: 120. HR: 127. RR: 18. O2 saturation: 100%. Temp: 97 F. Pain levelnow: 910. --11:38 04/02/19 Lilliam Coker RKatN.Weight: 62.5 kg stated. Height/Length: 62 inches Per Patient. BMI: 25.2. --11:32 04/02/19June, R. N.MedicationsGabapentin Oral. --11:33 04/02/19June, R.N. Tylenol Oral. --11:34 04/02/19June, R.N. Robaxin Oral. --11:34 04/02/19June, R.N.AllergiesProcardia. --11:34 04/02/19, June, R.N.PROBLEMS:no known problems.ADDITIONAL SURGERIES:Cervical disc replacement.. --11:34 04/02/19, June, R.N.HistoryPAST MEDICAL HX: Last normal menstrual period- Mar 16.SOCIAL HX: Never smoker. Alcohol use. (rarely). No drug use. She was offered HIV testing butdeclined. She has not traveled outside the [place]Infectious disease exposure: No infectious disease exposure. Patient is not a known carrier of tuberculosis,hepatitis, HIV, MRSA or VRE. Patient is not a known carrier of CRE.SELF HARM ASSESSMENT: Self harm assessment was performed. The patient answered "no" to thequestion(s) "Have you recently felt down, depressed, or hopeless?", "Do you have thoughts of harming or 2 Clinical Report - Nurses [facility] Emergency Department [address] [place] [address] Phone #: ext- [phone] 04/02/2019 11:32 Patient: MARY JAIN Sex: F : 1985 Age: 34y killing yourself?", "Do you have a plan for harming or killing yourself?", "Have you recently had thoughts about harming or killing others?", "Do you have any dangerous items in your possession?", "Have you noticed less interest or pleasure in doing things?", "Are you here because you tried to hurt yourself?" and "Have you ever tried to hurt yourself before today?". ABUSE ASSESSMENT: Abuse assessment. yes. The patient had positive responses to the question(s) "Do you feel safe in your home?". No report of abuse. NUTRITIONAL RISK ASSESSMENT: The nutritional risk assessment revealed no deficiencies. FUNCTIONAL ASSESSMENT: Functional assessment: no impairments noted. LEARNING NEEDS ASSESSMENT: The learning needs assessment revealed no barriers. FALL RISK ASSESSMENT: Fall risk assessment completed. No risk factors identified. SKIN INTEGRITY ASSESSMENT: Skin integrity risk assessment completed. No skin integrity risk identified. --11:38 04/02/19 Lilliam Coker RJazzmine. Interventions To treatment room. --11:38 04/02/19 John Paul LilliamJassi.PHYSICAL ASSESSMENTGENERAL / NEURO / PSYCH: Oriented X 4. Appears in pain.EXTREMITIES: Limited ROM present. Neuro-vascular status intact to the extremity. No upper extremityedema. Right shoulder. Limited ROM due to pain (diminished abduction, adduction, flexion, extension andexternal and internal rotation).SKIN: Skin intact. Skin is warm and dry. --11:39 04/02/19 John Paul Lilliam RKatN.NURSING PROGRESS NOTESReassurance given. Bed placed in lowest position. Brakes of bed on. Patient ready for evaluation- PAnotified. --11:39 04/02/19 John Paul June RKatN. 11:59 04/02/2019 Prednisone PO 60 mg given. Allergies verified and confirmed 5 rights. Information reviewed with patient including reason for taking this medication. Verbalizes understanding. --11:59 04/02/19 Marisabel June RKatN. 11:59 04/02/2019 Toradol (Ketorolac Tromethamine) IM 30 mg given. Given in the left gluteus roland. Allergies verified and confirmed 5 rights. Information reviewed with patient including reason for taking this medication. Verbalizes understanding. --11:59 04/02/19 Marisabel June RKatN. 11:59 04/02/2019 Valium (diazePAM) PO 5 mg given. Allergies verified and confirmed 5 rights. Information reviewed with patient including reason for taking this medication and sedative warning. Verbalizes understanding. --11:59 04/02/19 MarisabelLilliam pruitt R.N. 3 Clinical Report - Nurses [facility] Emergency Department [address] [place] [address] Phone #: ext- [phone] 04/02/2019 11:32 Patient: MARY JAIN Sex: F : 1985 Age: 34y ( c-collar placed per PA order.). --12:08 04/02/19 Lilliam Coker R.N. ( meds given, pt aware of plan of care, mother at bedside.). --12:08 04/02/19 Lilliam Coker R.N. ( no pain relief from meds, c-collar remains in place, xray and MRI complete). --13:06 04/02/19 Lilliam Coker R.N. 13:05 04/02/19. BP: 137/102. MAP: 113. HR: 125. RR: 20. O2 saturation: 98%. Pain level now: 12/03. --13:06 04/02/19 Lilliam Coker R.N. ( c-collar removed, plan of care and results discussed with pt by this RN and PA. mother remains at bedside.). --13:41 04/02/19 Lilliam Coker R.N. ( PA attempting to speak with neurosurgeon office to facilitate closer appt for pt. pt in room, mother at bedside.). --14:05 04/02/19 Lilliam Coker R.N.DISPOSITION / DISCHARGE Condition at departure: improved and stable. No learning barriers present. Discharge instructions provided and reviewed with the patient and parent. Reviewed medication(s). Follow up contact number. Patient and parent verbalized understanding. Written instructions provided in Yi. The patient was discharged home and accompanied by parent. She left ambulatory and via private vehicle. Parent driving. --14:37 04/02/19 Lilliam Coker R.N. 14:36 04/02/19. BP: 132/92. MAP: 105. HR: 83. RR: 18. O2 saturation: 99%. Temp: 98 F. Pain level now: 12/03. --14:37 04/02/19 Lilliam Coker R.N.Locked/Released at 04/02/2019 14:37 by Lilliam Coker R.N. Name Value Range Interpretation Code Description Data Chikis rce(s) Supporting Document(s) ID Date Data Source [id number] 04/02/2019 11:37:00 AM EST [facility] 1 Clinical Report - Physicians/Mid Levels [facility] Emergency Department [address] [place] [address] Phone #: ext- [phone] 04/02/2019 11:32 Patient: MARY JAIN Sex: F : 1985 Age: 34y Time Seen: 11:32 04/02/2019. Arrived- By private vehicle. Historian- patient.HISTORY OF PRESENT ILLNESS Chief Complaint: Right upper extremity numbness and pain. This started today pt had neck surgery for discs in jan, at PT today, when therapist stretched her neck a warm sensation with up her neck and down her arm, right arm now numb, severe pain to shoulder blade and axillary area. and is still present. It was abrupt in onset and has been constant. At its maximum, severity described as severe. When seen in the E.D., severity described as severe. Modifying factors- worsened by movement. No loss of appetite, weight loss, headache, visual disturbance or fatigue. No muscle aches or weakness. Denies sleep problem. Similar symptoms previously. Patient has had similar symptoms several times. Recent medical care: The patient was seen recently at this facility in a clinic.REVIEW OF SYSTEMSNo fever, sore throat, sinus drainage, nasal congestion or cough. No difficulty breathing, chest pain,abdominal pain, nausea or vomiting. No diarrhea, black stools, bloody stools, chills or difficulty withurination. No skin rash, back pain, calf pain, headache or blackouts. No double vision. No difficulty withambulation.PAST HISTORYAdditional Surgeries:Cervical disc replacement.. Medications: Robaxin Oral. Tylenol Oral. Gabapentin Oral. Allergies: Procardia.SOCIAL HISTORYNever smoker. No alcohol use or drug use.PHYSICAL EXAMVital Signs: 04/02/2019 11:32 BP: 154/104. MAP: 120. HR: 127. RR: 18. O2 saturation: 100%. Temp: 97F. Pain level now: 12/03. Have been reviewed as abnormal. Hypertensive. Tachycardic. Oxygensaturation normal.Appearance: Alert. No acute distress. Appears to be in pain. 2 Clinical Report - Physicians/Mid Levels [facility] Emergency Department [address] [place] [address] Phone #: ext- [phone] 04/02/2019 11:32 Patient: MARY JAIN Sex: F : 1985 Age: 34y Eyes: Pupils equal, round and reactive to light. Eyes normal inspection. ENT: Ears normal. Nose normal. Pharynx normal. Neck: Decrease in ROM. Pain in the neck upon movement. Muscle spasm of the neck. Moderate soft tissue tenderness in the mid and lower central neck area. CVS: Normal heart rate and rhythm. Heart sounds normal. Respiratory: No respiratory distress. Breath sounds normal. Abdomen: No visible injury. Back: Normal inspection. Skin: Skin warm and dry. Normal skin color. No rash. Normal skin turgor. Extremities: Right shoulder: moderate tenderness. Limited ROM due to pain. Neurovascular intact distally. ( paresthesia's to from axilla to fingertips, decreased sensation to LT). Neuro: Oriented X 3. She has pain-related weakness of the right arm (4-/5 movement possible against some resistance by examiner). Sensory deficit present. Altered sensation to light touch on the right arm. The sensory deficit corresponds to C7.LABS, X-RAYS, AND EKGC-Spine X-rays: No acute findings. (hardware intact). Views: 5 view C-spine series. The X-rays wereinterpreted by the radiologist and contemporaneously by me. Interpretation time: 14:08 04/02/2019.MRI C-Spine: Note- Alignment is maintained. Anterior vertebral body heights are maintained. There is noevidence of fracture or dislocation. There is no abnormal signal in the cord. The craniocervical junction is normal. There is no abnormal bone marrow signal in the cervical spine. C2-3: No significant disc bulge or neural foraminal narrowing. C3-4: No significant disc bulge or neural foraminal narrowing. C4-5: Mild circumferential disc bulge causes no significant neural foraminal narrowing. C5-6: Mild circumferential disc bulge causes no significant neural foraminal narrowing. C6-7: The patient is status post disc replacement. There is no evidence of neural foraminal narrowing. C7-T1: No significant disc bulge or neural foraminal narrowing. IMPRESSION: Postoperative changes at C6-7 with disc replacement. Mild degenerative disc bulges not significantly changed compared to January 2019. No evidence of neural foraminal narrowing. The study was interpreted by the radiologist and contemporaneously by me. Interpretation time: 14:08 3 Clinical Report - Physicians/Mid Levels [facility] Emergency Department [address] [place] [address] Phone #: ext- [phone] 04/02/2019 11:32 Patient: MARY JAIN Sex: F : 1985 Age: 34y04/02/2019.Laboratory Tests:MRI Spine Cervical W/O Cont: (SAIGE: 04/02/2019 12:15) ( MsgRcvd 04/02/2019 13:31) In Progress Test Result Flag Units (Reference) MRI CERVICAL [place]INE [place] [address] PHONE: [phone] FAX: [phone] -- Name .................. : CRISTOBAL Torres Acct Number.................. : [id number] ROOM. ................. : TR-06 MR Number ................... : [id number] Stay type ............. : E/R Discharge Date......... ... : Admit Date ......... : 04/02/19 Admit Phys .................... : BLACK CHRI Date of ....... : 1985 Family Phys ................... : [place] Phone .................. : [phone] Age ................................ : 34 Film# .................. .:[id number] Sex ................................. : F -- Unsigned transcriptions are preliminary reports and do not represent a medical or legal document MRI CERVICAL SPINE W/O CONTRA [id number] COMPLETE:04/02/19 12:15 [id number] Reason(s): Trauma/Injury -- -- -- -- MRI OF THE CERVICAL SPINE WITHOUT CONTRAST: -- INDICATION: Trauma. -- -- FINDINGS: Alignment is maintained. Anterior vertebral body heights are maintained. There is no evidence of fracture or dislocation. -- There is no abnormal signal in the cord. -- The craniocervical junction is normal. There is no abnormal bone marrow signal in the cervical -- spine. -- C2-3: No significant disc bulge or neural foraminal narrowing. -- C3-4: No significant disc bulge or neural foraminal narrowing. -- C4-5: Mild circumferential disc bulge causes no significant neural foraminal narrowing. -- C5-6: Mild circumferential disc bulge causes no significant neural foraminal narrowing. -- C6-7: The patient is status post disc replacement. There is no evidence of neural foraminal -- narrowing. -- C7-T1: No significant disc bulge or neural foraminal narrowing. -- -- IMPRESSION: Postoperative changes at C6-7 with disc replacement. Mild degenerative disc bulges not significantly changed compared to January 2019. No evidence of neural foraminal narrowing. -- -- -- [address] [place] [address] PHONE: [phone] FAX: [phone] -- Name .................. : CRISTOBAL Torres Acct Number.................. : [id number] ROOM. ................. : TR-06 Number ................... : [id number] Stay type ............. : E/R Discharge Date......... ... : 4 Clinical Report - Physicians/Mid Levels [facility] Emergency Department [address] [place] [address] Phone #: ext- [phone] 04/02/2019 11:32 Patient: KIAN JAINNAH Melissa Sex: F : 1985 Age: 34y Admit Date ......... : 04/02/19 Admit Phys .................... : BLACK CHRI Date of ....... : 1985 Family Phys ................... : HUGH Phone .................. : [phone] Age ................................ : 34 Film# .................. .:[id number] Sex ................................. : F -- Unsigned transcriptions are preliminary reports and do not represent a medical or legal document MRI CERVICAL SPINE W/O CONTRA [id number] COMPLETE:04/02/19 12:15 [id number] Reason(s): Trauma/Injury -- -- Electronically Reviewed and Signed By DCTNAME , SIGNDATE, WAYNE -- Transcribe Initials: GODFREY , Transcribe Date: 04/02/19 13:25, Dictation Date: -- -- <<REPDIST>> -- -- -- -- Page 2 of2 --Spine Cervical Complete: (SAIGE: 04/02/2019 11:58) ( MsgRcvd 04/02/2019 12:39) In Progress Exam SPINE CERV COMP-5 OR MORE [facility] [address] [place] [address] PHONE: [phone] FAX: [phone] Name ............ ...... : CRISTOBAL Torres Acct Number.................. : [id number] ROOM. ................. : TR-06 MR Number ................... : [id number] Stay type ............. : E/R Discharge Date......... ... : Admit Date ......... : 04/02/19 Admit Phys .................... : BLACK CHRI Date of ....... : 1985 Family Phys ................... : HUGH Phone .................. : [phone] Age ................................ : 34 Film# .................. .:[id number] Sex ................................. : F Unsigned transcriptions are preliminary reports and do not represent a medical or legal document SPINE CERV COMP-5 OR MORE VIE 09577 COMPLETE:04/02/19 11:58 [id number] Reason(s): Neck Pain CERVICAL SPINE SERIES: INDICATION: Neck pain. FINDINGS: Examination reveals an intervertebral disc replacement at C6-7. Osseous and surgical components appear to be in near anatomic alignment and position. The remaining disc spaces appear preserved. Prevertebral soft tissues are within normal limits. The right side neural foramina are widely patent. The left side neural foramina are not well assessed secondary to poor positioning. The visualized portions of the upper lung lama are clear. A cervical collar is present which obscures detail. IMPRESSION: Status post surgical disc replacement at C6-7. The examination otherwise appears unremarkable. Examination dictated by VENU Gallo. Examination was reviewed with Jelani Price MD, radiologist at the time of this dictation. 5 Clinical Report - Physicians/[facility] Levels [facility] Emergency Department [address] [place] [address] Phone #: [phone]- [phone] 04/02/2019 11:32 Patient: MARY JAIN Sex: F : 1985 Age: 34y Electronically Reviewed and Signed By DCTNAME , SIGNDATE, GMM Transcribe Initials: GODFREY , Transcribe Date: 04/02/19 12:36, Dictation Date: <<REPDIST>> Page 1 of 1.PROGRESS AND PROCEDURESCourse of Care: 14:Apr 02 2019. Evaluation after observation. (Discussed c-spine xray and MRIresults with VENU Valderrama at [facility] and she feels s/s are not from post-op complications. Pt will followup in the office.). Patient and mother counseled in person regarding the patient's stable condition, test results, diagnosis and need for follow- up. Patient and mother agrees with plan of care. 14:Apr 02 2019. Disposition: Discharged home in good and improved condition (14:Apr 02 2019).CLINICAL IMPRESSION Acute cervical strain. 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 Refills: 0. Substitution permitted. [facility][phone] - [address] [place], [place] [phone]. FaxNumber: . ondansetron 8 mg disintegrating tablet Take 1 tablet three times a day for 5 days -- Dispense 15 tablet. Refills: 0. Substitution permitted. [facility]00 - [address] [place], [place] [phone]. . Follow-up: Follow up with a specialist [facility] [phone] Chris LEA at [facility] [phone]. Call for an appointment. Reason for referral: evaluation and treatment. Summary of care provided to patient. 6 Clinical Report - [facility] Emergency Department [address] [place] [address] Phone #: [phone]- [phone] 04/02/2019 11:32 Patient: MARY JAIN Sex: F : 1985 Age: 34y Understanding of the discharge instructions verbalized by patient and family. Follow-up with: [facility], , , [address] [place] [address], [facility] Follow up. Call for the next available appointment. Reason for referral: evaluation, treatment and evaluation of Labral Tear Right Shoulder. Summary of care provided to patient.(Electronically signed by VENU Liang 04/02/2019 20:38) Name Value Range Interpretation Code Description Data Chikis rce(s) Supporting Document(s) Procedure Social History Code Duration Value Status Description Data Source(s ) Alcohol intake 10/09/2019 12:00:00 AM EDT Lifetime non-drinker (finding) completed Lifetime non-drinker (finding) [facility] Smoking 10/09/2019 12:00:00 AM EDT Never smoker completed Never s [facility] Alcohol intake 10/02/2019 12:00:00 AM EDT Lifetime non-drinker (finding) completed Lifetime non-drinker (finding) [facility] Smoking 10/02/2019 12:00:00 AM EDT Never smoker completed Never s [facility] Alcohol intake 09/18/2019 12:00:00 AM EDT Lifetime non-drinker (finding) completed Lifetime non-drinker (finding) [facility] Smoking 09/18/2019 12:00:00 AM EDT Never smoker completed Never s [facility] Smoking 09/05/2019 09:07:59 AM EDT Never smoked tobacco (findi ng) completed Never smoked tobacco (finding) [place] (Freddie Nieves MD [facility]) Alcohol intake 08/27/2019 12:00:00 AM EDT Lifetime non-drinker (finding) completed Lifetime non-drinker (finding) [facility] Smoking 08/27/2019 12:00:00 AM EDT Never smoker completed Never [facility] Alcohol intake 06/11/2019 12:00:00 AM EDT Lifetime non-drinker (finding) completed Lifetime non-drinker (finding) [facility] Smoking 06/11/2019 12:00:00 AM EDT Never smoker completed Never [facility] Alcohol intake 05/15/2019 12:00:00 AM EST Lifetime non-drinker (finding) completed Lifetime non-drinker (finding) [facility] Smoking 05/15/2019 12:00:00 AM EST Never smoker completed Never [facility] Alcohol intake 05/06/2019 12:00:00 AM EST Lifetime non-drinker (finding) completed Lifetime non-drinker (finding) [facility] Smoking 05/06/2019 12:00:00 AM EST Never smoker completed Never [facility] Alcohol intake 05/02/2019 12:00:00 AM EST Lifetime non-drinker (finding) completed Lifetime non-drinker (finding) [facility] Smoking 05/02/2019 12:00:00 AM EST Never smoker completed Never [facility] Alcohol intake 04/24/2019 12:00:00 AM EST Lifetime non-drinker (finding) completed Lifetime non-drinker (finding) [facility] Smoking 04/24/2019 12:00:00 AM EST Never smoker completed Never [facility] Alcohol intake 04/17/2019 12:00:00 AM EST Lifetime non-drinker (finding) completed Lifetime non-drinker (finding) [facility] Smoking 04/17/2019 12:00:00 AM EST Never smoker completed Never [facility] Vital Signs ID Date Data Source UNK Name Value Range Interpretation Code Description Data Source(s) Body surface area 1.66 m2 1.66 m2 [facility] ([facility]) Body mass index (BMI) [Ratio] 26.3 kg/m2 26.3 k g/m2 [facility] ([facility]) Body height 62 [in_i] 62 [in_i] [facility] ([facility]) 5'2" Body weight 65.318 kg 65.318 kg [facility] ([facility]) Body weight 144.00 [lb_av] 144.00 [lb_av] [facility] ([facility]) Oxygen saturation in Arterial blood by Pulse oximetry 99 % 99 % [facility] ([facility]) Respiratory rate 18 /min 18 /min [facility] ( [facility]) Body temperature 97.9 [degF] 97.9 [degF] [facility] ([facility]) Heart rate 72 /min 72 /min [facility] ([facility]) Diastolic blood pressure 68 mm[Hg] 68 mm[Hg] [facility] ([facility]) Systolic blood pressure 112 mm[Hg] 112 mm[Hg] [facility] ([facility]) Body surface area 1.65 m2 1.65 m2 [facility] ([facility]) Body mass index (BMI) [Ratio] 25.8 kg/m2 25.8 k g/m2 [facility] ([facility]) Body height 62 [in_i] 62 [in_i] [facility] ([facility]) 5'2" Body weight 64.014 kg 64.014 kg [facility] ([facility]) Body weight 141.12 [lb_av] 141.12 [lb_av] [facility] ([facility]) Oxygen saturation in Arterial blood by Pulse oximetry 98 % 98 % [facility] ([facility]) Respiratory rate 16 /min 16 /min [facility] ( [facility]) Body temperature 98.3 [degF] 98.3 [degF] [facility] ([facility]) Heart rate 101 /min 101 /min [facility] ([facility]) Diastolic blood pressure 70 mm[Hg] 70 mm[Hg] [facility] ([facility]) Systolic blood pressure 118 mm[Hg] 118 mm[Hg] M [facility] ([facility]) Body surface area 1.66 m2 1.66 m2 [facility] ([facility]) Body mass index (BMI) [Ratio] 26.3 kg/m2 26.3 k g/m2 [facility] ([facility]) Body height 62 [in_i] 62 [in_i] [facility] ([facility]) 5'2" Body weight 65.318 kg 65.318 kg [facility] ([facility]) Body weight 144.00 [lb_av] 144.00 [lb_av] [facility] ([facility]) Oxygen saturation in Arterial blood by Pulse oximetry 97 % 97 % [facility] ([facility]) Respiratory rate 16 /min 16 /min [facility] ( [facility]) Body temperature 99.1 [degF] 99.1 [degF] [facility] ([facility]) Heart rate 70 /min 70 /min [facility] ([facility]) Diastolic blood pressure 70 mm[Hg] 70 mm[Hg] [facility] ([facility]) Systolic blood pressure 130 mm[Hg] 130 mm[Hg] [facility] ID Date Data Source [id number] 09/25/2019 02:05:33 PM [facility] Name Value Range Interpretation Code Description Data Source(s) WEIGHT RECORDED 143 lb 143 lb [facility] Body height Measured 62 in 62 in [facility] ID Date Data Source [id number] 09/08/2019 06:57:11 AM [facility] Name Value Range Interpretation Code Description Data Source(s) WEIGHT RECORDED 143.08 lb 143.08 lb [facility] Body height Measured 62 in 62 in [facility] ID Date Data Source [id number] 05/02/2019 06:38:40 PM [facility] Name Value Range Interpretation Code Description Data Source(s) WEIGHT RECORDED 143.3 lb 143.3 lb [facility] Body height Measured 62.01 in 62.01 in [facility] ID Date Data Source [id number] 04/17/2019 09:59:41 AM [facility] Name Value Range Interpretation Code Description Data Source(s) WEIGHT RECORDED 141 lb 141 lb [facility] Body height Measured 62 in 62 in [facility] ID Date Data Source [id number] 05/15/2019 02:23:48 PM [facility] Name Value Range Interpretation Code Description Data Source(s) WEIGHT RECORDED 141 lb 141 lb [facility] Body height Measured 62 in 62 in [facility] Patient Treatment Plan of Care Planned Activity Planned Date Details Description Data Source (s) Prednisone 10 MG Oral Tablet 09/05/2019 12:00:[address] [facility] topiramate 25 MG Oral Tablet 09/03/2019 12:00:[address] [facility] Prednisone 20 MG Oral Tablet 08/31/2019 09:00:[address] [facility] Valproic Acid 100 MG/ML Injectable Solution 08/30/2019 01:46:[address] [facility] Divalproex Sodium 250 MG Delayed Release Oral Tablet 12:00:[address] [facility] Magnesium 400 MG Oral Capsule 08/30/2019 12:00:[address] [facility] gabapentin 100 MG Oral Capsule 08/30/2019 12:00:[address] [facility] Prednisone 10 MG Oral Tablet 08/30/2019 12:00:[address] [facility] Prednisone 10 MG Oral Tablet 08/30/2019 12:00:[address] [facility] Prednisone 10 MG Oral Tablet 08/30/2019 12:00:[address] [facility] Prednisone 10 MG Oral Tablet 08/30/2019 12:00:[address] [facility] tizanidine 4 MG Oral Tablet 08/30/2019 12:00:[address] [facility] 4 ML Labetalol hydrochloride 5 MG/ML Cartridge 08/27/2019 02:09:[address] [facility] Hydralazine Hydrochloride 20 MG/ML Injectable Solution 08/27/2019 02:09:43 PM [facility] Ondansetron 4 MG Oral Tablet 05/07/2019 12:00:00 AM [facility] Oxycodone Hydrochloride 5 MG Oral Tablet 05/07/2019 12:00:00 AM [facility] oxyCODONE (ROXICODONE) immediate release tablet 5 mg 08:40:32 AM [facility] gabapentin 400 MG Oral Capsule 02/06/2019 12:00:00 AM [facility] Methocarbamol 500 MG Oral Tablet [facility] Acetaminophen 500 MG Oral Tablet [facility]
[2020-05-10] MEDS ORDERED: HYDROMORPHONE HCL 0.5 MG/ 0.5 ML SYRINGE (J1170 PER 1) IV ONE (13:00)
--- OUTSIDE RECORDS SUMMARY | 2020-05-10 13:15 | CCD ---
Author Author [facility] Organization [facility] Address Unknown Phone Unavailable Care Team Providers Care Automation Technician Name Role Phone Melissa NIELSEN MD Unavailable Melissa Mcgraw MD Unavailable Unavailable [...] E Rosa PA Unavailable Unavailable Kwasi Forrester TRAINING ASSISTANT-C Unavailable Unavailable Ruszczyk, C Iliana TRAINING ASSISTANT-C Unavailable Unavailable Ruszczyk, C Iliana TRAINING ASSISTANT-C Unavailable Unavailable Ruszczyk, C Iliana TRAINING ASSISTANT-C Unavailable Unavailable Ruszczyk, C Iliana TRAINING ASSISTANT-C Unavailable Unavailable Ruszczyk, C Iliana TRAINING ASSISTANT-C Unavailable Unavailable Ruszczyk, C Iliana TRAINING ASSISTANT-C Unavailable Unavailable Ruszczyk, C Iliana TRAINING ASSISTANT-C Unavailable Unavailable Ruszczyk, C Iliana TRAINING ASSISTANT-C Unavailable Unavailable Ruszczyk, C Iliana TRAINING ASSISTANT-C Unavailable Unavailable Ruszczyk, C Iliana TRAINING ASSISTANT-C Unavailable Unavailable Ruszczyk, C Iliana TRAINING ASSISTANT-C Unavailable Unavailable Ruszczyk, C Iliana TRAINING ASSISTANT-C Unavailable Unavailable Ruszczyk, C Iliana TRAINING ASSISTANT-C Unavailable Unavailable Ruszczyk, C Iliana TRAINING ASSISTANT-C Unavailable Unavailable Ruszczyk, C Iliana TRAINING ASSISTANT-C Unavailable Unavailable Ruszczyk, C Iliana TRAINING ASSISTANT-C Unavailable Unavailable Ruszczyk, C Iliana TRAINING ASSISTANT-C Unavailable Unavailable Ruszczyk, C Iliana TRAINING ASSISTANT-C Unavailable Unavailable Ruszczyk, C Iliana TRAINING ASSISTANT-C Unavailable Unavailable Chiqui Ortega PA-C Unavailable Unavailable OrtegaChiqui boyce PA-C Unavailable Unavailable Chiqui Ortega PA-C Unavailable [...] HARRISEW DO Unavailable [phone] Kely HARRIS DO [...] Unavailable Kunnumpurath, F Stacy MD Unavailable Unavailable Kvngndoug, F Stacy MD Unavailable Unavailable Sukumar, F Stacy ROLDAN Unavailable Unavailable Kvngnumpseniath, F Stacy MD Unavailable Unavailable Kunnumpurath, F Stacy Unavailable Unavailable Kunnumpurath, F Stacy Unavailable Unavailable Kvngnumpurath, F Stacy Unavailable Unavailable Sukumar, F Stacy Unavailable Unavailable Sukumar, F Stacy Unavailable Unavailable Sukumar, F Stacy ROLDAN Unavailable Unavailable LAURA ODELL MD Unavailable LAURA ODELL MD Unavailable LAURA ODELL MD Unavailable LAURA ODELL MD Unavailable LAURA ODELL MD Unavailable SHU [id number], E JOVANA [id number] Unavailable Unavailab le SHU [id number], E JOVANA [id number] Unavailable Unavailab le SHU [id number], E JOVANA [id number] Unavailable Unavailab FRIDA Sellers MD Unavailable [phone] [...] FRIDA ENCARNACION MD Unavailable [phone] BLACK, RFIDA ENCARNACION MD Unavailable [phone] BLACK, FRIDA [...] [phone] BLACK, FRIDA ENCARNACION MD Unavailable BLACK, FRIDA ENCARNACION MD Unavailable BLACK, FRIDA ENCARNACION MD Unavailable BLACK, FRIDA ENCARNACION MD Unavailable BLACK, FRIDA ENCARNACION MD Unavailable Stuck, K Joselyn PA Unavailable Unavailable [...] Unavailable Unavailable Melissa IBANZE MD Unavailable Unavailable PARNES, Z CARLO MD [...] K JUSTUS MD Unavailable Unavailable DULEEP, K JSUTUS MD Unavailable Unavailable DULEEP, K JUSTUS MD [...] JUSTUS MD Unavailable Unavailable DULEEP, K JUSTUS Unavailable Unavailable DULEEP, K JUSTUS MD Unavailable Unavailable DULEEP, K JUSTUS MD Unavailable Unavailable DULEEP, K JUSTUS MD Unavailable Unavailable DULEEP, K JUSTUS MD Unavailable Unavailable DULEEP, K JUSTUS MD Unavailable Unavailable DULEEP, K JUTSUS MD Unavailable Unavailable DULEEP, K JUSTUS MD [...] is protected by Article 27-F of the [facility] Public Health law. If you continue you may have access to information: Regarding HIV / AIDS; Provided by facilities licensed or operated by the [facility] Office of Mental Health; or Provided by the [facility] Office for People With Developmental Disabilities. If such information is present, then the following [facility] mandated warning applies: This information has [...] law may result in a fine or senior living sentence or both. A general authorization for the release of medical or other information is NOT sufficient authorization for further disc losure. Allergies and Adverse Reactions Type Description Substance Reaction Status Data Source(s ) Allergy to substance No Known Allergies No known allergies (situation ) [facility] (Freddie Nieves [facility]) Family History Family Member Name Family Member Gender Family Member Status Date o f Status Description Data Source(s) Unknown Male Problem [facility] ([facility]) Unknown Unknown Problem [facility] ([facility]) Encounters Encounter Providers Location Date Indications Data Source(s ) Outpatient Attender: Stacy Patino MDConsultant: Rosa LEA 02/02/2020 06:48:00 AM EST - 02/02/2020 07:48:00 AM EST [facility] Patient discharged. Outpatient Attender: CECILE STEINBERG MD 01/01/2020 12:00:0 0 AM EDT [facility] Outpatient Attender: Stacy Patino MDConsultant: Rosa LEA 10/30/2019 08:05:00 AM EDT - 10/30/2019 08:05:00 AM EDT [facility] Outpatient Attender: Lake Israel MD [id number] 12:00:00 AM EDT - 10/09/2019 11:11:22 AM [facility] Attender: CECILE STEINBERG MD [id number] 11/2019 12:00:00 AM EDT - 10/02/2019 10:12:56 AM EDT [facility] Outpatient Attender: CECILE Deansultant: Rosa LEA 10/01/2019 08:41:00 AM EDT - 10/01/2019 09:41:00 AM EDT [facility] Outpatient Referrer: Joselyn LEA 09/18/2019 01:37 :20 PM EDT Pain in right arm [facility] Pain in right arm Outpatient Attender: CECILE STEINBERG MD [id number] 12:00:00 AM EDT - 09/18/2019 04:13:45 PM EDT Hemiplegia, unspecified affecting unspecified side [facility] Hemiplegia, unspecified affecting unspec ified side Outpatient Attender: Iliana ANDRE 09/18/2019 12: 00:00 AM EDT [facility] Outpatient Attender: Stacy Patino MDConsultant: Rosa LEA 09/11/2019 08:48:00 AM EDT - 09/11/2019 08:48:00 AM EDT [facility] Outpatient<td ID="encounterTypeDescripti onID0">NEW PATIENT WITH REFERRAL</td><td>Kailee Harris DO</td><td>Freddie Duckworth MD [facility]</td><td>09/05/2019</td><td>8:15AM</td><td>11:59PM</td><td><content ID="encounterDiagnosisID0-0">Transient Visual Loss</content>, <content ID="encounterDiagnosisID0-1">Stroke/cerebrovascular Accident</content></td> Attender: KAILEE Mcnamara MD [facility] 09/05/2019 08:15:00 AM EDT - 09/05/2019 11:59:00 PM EDT Stroke/cerebrovascular AccidentTransient Visual Loss [facility] ([facility]die Nieves [facility]) Stroke/cerebrovascular Accident Transient Visual Loss Outpatient Attender: Lake Israel MD 09/04/2019 12:00:0 0 AM [facility] Outpatient Attender: Stacy Patino MD [facility] 0 09/03/2019 02:20:00 PM EDT [facility] ([facility]) Outpatient Attender: Stacy Patino MDConsultant: Rosa LEA 09/03/2019 02:07:00 PM EDT - 09/03/2019 02:07:00 PM EDT [facility] Inpatient Attender: JUSTUS ANDERSON MD Attender: LAURA ODELL MDAdmitter: LAURA ODELL MDReferrer: PROVIDER SYSTEMConsultant: JOVANA IRELAND [id number] 08/27/2019 12:00:00 AM EDT - 08/30/2019 06:00:[address] [facility] stroke Patient discharged. Outpatient Attender: CECILE STEINBERG MD 07/17/2019 12:00:0 0 AM [facility] Outpatient Attender: Lake Israel MD [id number] 06/12/2019 1 2:00:00 AM EDT Brachial plexus disorders [facility] Brachial plexus disorders Outpatient Attender: SUPRIYA NIELSEN MD 05/21/2019 12:00:00 A M [facility] Outpatient Attender: Iliana Forrester TRAINING ASSISTANT-CReferrer : Joselyn LEA [id number] 05/15/2019 12:00:00 AM EST - 05/15/2019 11:38:33 AM EST s/p op [facility] s/p op Inpatient Attender: Lake Israel MD Admitter: Lake Israel MDConsultant: CECILE IBANEZ MD [id number] 05/05/2019 12:00:00 AM EST - 05/07/2019 05:14:00 PM EST Brachial plexus disorders [facility] Brachial plexus disorders Patient discharged. Outpatient Attender: Dina Ortega PA-CReferrer: Lake king MD 05/02/2019 12:00:00 AM EST Encounter for other preprocedural examination [facility] Encounter for other preprocedural examin ation Outpatient Referrer: Joselyn LEA 05/02/2019 12:00 :00 AM EST Brachial plexus disorders [facility] Brachial plexus disorders Outpatient Attender: Lake [place] MDReferrer: Joselyn LEA [id number] 04/24/2019 12:00:00 AM EST - 04/24/2019 10:57:59 AM [facility] Outpatient Attender: SUPRIYA NIELSEN MDReferrer: CARLO Chu 04/23/2019 12:00:00 AM [facility] Outpatient Referrer: CECILE STEINBERG MD 04/17/2019 1 0:24:20 AM EST Radiculopathy, cervical region [facility] Radiculopathy, cervical region Outpatient Attender: CECILE STEINBERG MD [id number] 12:00:00 AM EST - 04/17/2019 11:09:09 AM [facility] Outpatient Attender: SUPRIYA NIELSEN MDReferrer: CRALO Chu [id number] 04/09/2019 12:00:00 AM EST - 04/09/2019 08:59:21 AM EST Pain in right shoulder [facility] Pain in right shoulder Emergency Attender: ALYSHA DE LEON MDConsultant: Rosa LEA 04/02/2019 11:37:00 AM EST - 04/02/2019 02:37:00 PM [facility] Patient discharged. Outpatient Attender: CARLO IRAHETA MDConsultant: Rosa LEA 03/31/2019 10:01:00 AM EST - 03/31/2019 10:01:00 AM [facility] Outpatient Attender: CARLO ESEQUIEL MDConsultant: Rosa LEA 02/24/2019 01:50:00 PM EST - 02/24/2019 01:50:00 PM [facility] Outpatient Attender: Stacy Patino MDConsultant: Rosa LEA 02/17/2019 01:42:00 PM EST - 02/17/2019 02:42:00 PM [facility] Medications Medication Brand Name Start Date Product [...] 10/30/2019 12:00:00 A M EDT active [facility] ([facility]) Cyclobenzaprine hydrochloride 10 MG Oral Tablet Cyclobenzaprine HCl 10 MG Oral Tablet Cyclobenzaprine HCl 10 MG Oral Tablet 09/05/2019 12:00:00 AM EDT 1 active Cyclobenzaprine hydrochlorid e 10 MG Oral Tablet [facility] ([facility]) Methocarbamol 500 MG Oral Tablet Methocarbamol 500 MG Oral T ablet 09/05/2019 12:00:00 AM EDT 1 active Methocar bamol 500 MG Oral Tablet [facility] ([facility]) tizanidine 4 MG Oral Tablet tiZANidine HCl 4 MG Oral T ablet tiZANidine HCl 4 MG Oral Tablet 09/05/2019 12:00:00 AM EDT 1 active tizanidine 4 MG Oral Tablet [facility] ([facility]) Acetaminophen 325 MG Oral Tablet Acetaminophen 325 MG Oral T ablet 09/05/2019 12:00:00 AM EDT active Acetamin ophen 325 MG Oral Tablet [facility] ([facility]) Ibuprofen 600 MG Oral Tablet Ibuprofen 600 MG Oral Tablet 12:00:00 AM EDT active Ibuprofen 600 MG Oral Tablet [facility] ([facility]) Multivitamin 5000 mg Oral Tablet Multivitamin 5000 mg Oral T ablet 09/05/2019 12:00:00 AM EDT 1 active Multivit zuleta [facility] ([facility]die Nieves [facility]) gabapentin 400 MG Oral Capsule Gabapentin 400 MG Oral Capsule Gabapentin 400 MG Oral Capsule 09/05/2019 12:00:00 AM EDT 1 activ e gabapentin 400 MG Oral Capsule [facility] ([facility]) Ondansetron 4 MG Oral Tablet Ondansetron HCl 4 MG Oral Tablet Ondansetron HCl 4 MG Oral Tablet 09/05/2019 12:00:00 AM EDT 1 act january Ondansetron 4 MG Oral Tablet [facility] ([facility]) Prednisone 10 MG Oral Tablet predniSONE 10 MG Oral Tab let predniSONE 10 MG Oral Tablet 09/05/2019 12:00:00 AM EDT active Prednisone 10 MG Oral Tablet [facility] ([facility]die [facility]ieves [facility]) Divalproex Sodium 250 MG Delayed Release Oral Tablet Divalproex Sodium 250 MG Oral Tablet Delayed Release Divalproex Sodium 250 MG Oral Tablet Del ayed Release 09/05/2019 12:00:00 AM EDT 1 active Divalproex Sodium 250 MG Delayed Release Oral Tablet [facility] ([facility]die [facility]ieves [facility]) Prednisone 10 MG Oral Tablet predniSONE 10 MG Oral Tab let (DELTASONE) predniSONE 10 MG Oral Tablet (DELTASONE) 09/05/2019 12:00:00 AM EDT active Take 30 mg for 2 days, then 20 mg for 2 days, then 10 mg for 2 days and then stop [facility] Magnesium 400 MG Oral Tablet Magnesium 400 MG Oral Tablet 12:00:00 AM EDT 1 active Magnesium [place] (Freddie Nieves [facility]) topiramate 25 MG Oral Tablet [Topamax] Topamax 09/03/2019 12:00:00 A M EDT completed [facility] ([facility]) topiramate 25 MG Oral Tablet Topiramate 25 MG Oral Tab let (TOPAMAX) Topiramate 25 MG Oral Tablet (TOPAMAX) 09/03/2019 12:00:00 AM EDT active TAKE ONE TABLET BY MOUTH EVERY DAY INCREASE TO TWO TABLETS DAILY IF TOLERATED [facility] 25 mg 09/03/2019 12:00:00 AM EDT tablet [...] 0900, For 30 days
Take with food.
[facility] Medication administered onsite tizanidine 4 MG Oral Tablet tizanidine (ZANAFLEX) tabl et 4 mg tizanidine (ZANAFLEX) tablet 4 mg 08/30/2019 05:00:00 PM EDT 4 mg Oral active 4 mg, Oral, Three Times Daily Standard, First dose (after last reorder) on 08/30/19 at 1700, For 2 doses [facility] Medication administered onsite Valproic Acid 100 MG/ML Injectable Solut ion valproate sodium (DEPACON) injection 250 mg valproate sodium (DEPACON) injection 250 mg 08/30/2019 01:46 :52 PM EDT 250 mg Intravenous active 250 mg, Intr avenous, at 40 mL/hr, 2 Times Daily PRN, headache, Starting 08/30/19 at 1346, For 30 doses [facility] Medication administered onsite NaCl infusion 0.9 % [id number] 08/30/2019 01:45:00 PM EDT Intravenous active at 150 mL/hr, Intrav enous, Continuous, Starting 08/30/19 at 1345, For 30 days [facility] Medication administered onsite Prochlorperazine 5 MG/ML Injectable Solu tion prochlorperazine (COMPAZINE) injection 10 mg prochlorperazine (COMPAZINE) injection 10 mg 0 10:30:00 AM EDT 10 mg Intravenous completed 10 mg, Intravenous, Once, 08/30/19 at 1030, For 1 dose [facility] Medication administered onsite methylPREDNISolone sodium succinate (SOLU-MEDROL) injection 125 mg [id number] 08/30/2019 10:30:00 AM EDT 125 mg Intravenous aborted 125 mg, Intravenous, Every 6 hours, First dose on 08/30/19 at 1030, For 3 doses [facility] Medication administered onsite diphenhydrAMINE (BENADRYL) injection 25 mg [id number] 08/30/2019 05:30:00 AM EDT 25 mg Intravenous aborted 25 m g, Intravenous, Every 8 hours, First dose (after last modification) on 08/30/19 at 0530, For 3 doses [facility] Medication administered onsite Divalproex Sodium 250 MG Delayed Release Oral Tablet Divalproex Sodium 250 MG Oral Tablet Delayed Release (Depakote) Divalproex Sodium 250 MG Oral Tablet Delayed Release (Depakote) 08/30/2019 12:00:00 AM EDT 250 mg Oral active Take 1 tablet by mouth every 8 (eight) hours as needed (if headache) for up to 7 days [facility] 10 mg 08/30/2019 12:00:00 AM EDT tablet [...] THEN 1 tablet daily for 2 days.. [facility] tizanidine 4 MG Oral Tablet tiZANidine HCl 4 MG Oral T ablet (ZANAFLEX) tiZANidine HCl 4 MG Oral Tablet (ZANAFLEX) 08/30/2019 12:00:00 AM EDT 2 mg Oral active Take 0.5 table ts by mouth every 8 (eight) hours as needed for up to 10 days [facility] Magnesium 400 MG Oral Capsule [id number] 08/30/2019 12:00:00 AM EDT 400 mg Oral active Take 400 mg by mouth daily [facility] gabapentin 100 MG Oral Capsule Gabapentin 100 MG Oral Capsule (NEURONTIN) Gabapentin 100 MG Oral Capsule (NEURONTIN) 08/30/2019 12:00:00 AM EDT 200 mg Oral active Take 2 capsules by m outh Three times daily [facility] 4 mg 08/30/2019 12:00:00 AM EDT tablet 30 TAKE ONE-HALF TABLET BY MOUTH EVERY 8 HOURS NEEDED FOR UP TO 10 DAYS TAKE ONE-HALF TABLET BY MOUTH EVERY 8 HOURS NEEDED FOR UP TO 10 DAYS SOLD: 08/31/2019 [facility] 250 mg 08/30/2019 12:00:00 AM EDT tablet,delayed release (DR/EC) 90 TAKE ONE TABLET BY MOUTH EVERY 8 HOURS NEEDED (IF HEADACHE) FOR UP TO 7 DAYS TAKE ONE TABLET BY MOUTH EVERY 8 HOURS NEEDED (IF HEADACHE) FOR UP TO 7 DAYS SOLD: 08/31/2019 [facility] Prednisone 10 MG Oral Tablet predniSONE 10 MG Oral Tab let (DELTASONE) predniSONE 10 MG Oral Tablet (DELTASONE) 08/30/2019 12:00:00 AM EDT aborted Take 60 mg for 2 days, then 50 mg for 2 days, then 40 mg for 2 days, then 30 mg for 2 days, then 20 mg for 2 days, then 10 mg for 2 days and then stop [facility] 100 mg 08/30/2019 12:00:00 AM EDT capsule [...] mg for 2 days and then stop [facility] Prednisone 10 MG Oral Tablet predniSONE 10 MG Oral Tab let (DELTASONE) predniSONE 10 MG Oral Tablet (DELTASONE) 08/30/2019 12:00:00 AM EDT Oral active Take 6 tablets by mouth daily for 2 days , THEN 5 tablets daily for 2 days, THEN 4 tablets daily for 2 days.. [facility] heparin (porcine) 5000 UNIT/ML injection 5,000 Units [id number] 08/29/2019 09:00:00 PM EDT 5000 U Subcutaneous active 5,000 Units, Subcutaneous, 2 Times Daily, First dose on Sun08/29/19 at 2100, For 30 days [facility] Medication administered onsite gabapentin 100 MG Oral Capsule gabapentin (NEURONTIN) capsule 200 mg gabapentin (NEURONTIN) capsule 200 mg 08/29/2019 05:00:00 PM EDT 200 mg Oral active 200 mg, Oral, Three Times D [facility] Standard, First dose (after last modification) on Sun08/29/19 at 1700, For 83 doses [facility] Medication administered onsite Prochlorperazine 5 MG/ML Injectable Solu tion prochlorperazine (COMPAZINE) injection 10 mg prochlorperazine (COMPAZINE) injection 10 mg 0 01:30:00 PM EDT 10 mg Intravenous completed 10 mg, Intravenous, Every 8 hours, First dose (after last reorder) on Sun08/29/19 at 1330, For 2 doses [facility] Medication administered onsite tizanidine 4 MG Oral Tablet tizanidine (ZANAFLEX) tabl et 4 mg tizanidine (ZANAFLEX) tablet 4 mg 08/29/2019 01:30:00 PM EDT 4 mg Oral completed 4 mg, Oral, Every 6 hours, First dose (after last reorder) on Sun08/29/19 at 1330, For 2 doses [facility] Medication administered onsite diphenhydrAMINE (BENADRYL) injection 25 mg [id number] 08/29/2019 01:30:00 PM EDT 25 mg Intravenous aborted 25 m g, Intravenous, Every 8 hours, First dose (after last reorder) on Sun08/29/19 at 1330, For 3 doses [facility] Medication administered onsite 2 ML Metoclopramide 5 MG/ML Prefilled Sy ringe metoclopramide (REGLAN) injection 10 mg metoclopramide (REGLAN) injection 10 mg 08/29/2019 12:15:00 AM E DT 10 mg Intravenous active 10 mg, I ntravenous, Every 8 hours, First dose (after last modification) on Sun08/29/19 at 0015, For 7 doses
Please give 30 minutes after benadryl
[facility] Medication administered onsite Prochlorperazine 5 MG/ML Injectable Solu tion prochlorperazine (COMPAZINE) injection 10 mg prochlorperazine (COMPAZINE) injection 10 mg 0 11:30:00 PM EDT 10 mg Intravenous completed 10 mg, Intravenous, Every 8 hours, First dose (after last modification) on [facility] 08/28/19 at 2330, For 2 doses [facility] Medication administered onsite tizanidine 4 MG Oral Tablet tizanidine (ZANAFLEX) tabl et 4 mg tizanidine (ZANAFLEX) tablet 4 mg 08/28/2019 05:38:00 PM EDT 4 mg Oral completed 4 mg, Oral, Every 6 hours, First dose (after last modification) on [facility] 08/28/19 at 1745, For 2 doses [facility] Medication administered onsite 2 ML Metoclopramide 5 MG/ML Prefilled Sy ringe metoclopramide (REGLAN) injection 10 mg metoclopramide (REGLAN) injection 10 mg 08/28/2019 04:00:00 PM E DT 10 mg Intravenous aborted 10 mg, I ntravenous, Every 6 hours, First dose on [facility] 08/28/19 at 1600, For 3 doses
Please give 30 minutes after benadryl
[facility] Medication administered onsite diphenhydrAMINE (BENADRYL) injection 25 mg [id number] 08/28/2019 03:36:00 PM EDT 25 mg Intravenous completed 25 mg, Intravenous, Every 8 hours, First dose (after last modification) on [facility] 08/28/19 at 1545, For 3 doses [facility] Medication administered onsite 50 ML Magnesium Sulfate 40 MG/ML Injecti on magnesium sulfate infusion 2 g/50 mL (premix) magnesium sulfate infusion 2 g/50 mL (premix) 08/28/19 03:30:00 PM EDT 16 meq Intravenous completed 16 mEq, Intravenous, Administer over 60 Minutes, Once, [facility] 08/28/19 at 1530, For 1 dose
each 8 mEq equivalent to 1 gm
[facility] Medication administered onsite methylPREDNISolone sodium succinate (SOLU-MEDROL) injection 150 mg [id number] 08/28/2019 03:30:00 PM EDT 150 mg Intravenous completed 150 mg, Intravenous, Once, Chelsi 08/28/19 at 1530, For 1 dose [facility] Medication administered onsite tizanidine 4 MG Oral Tablet tizanidine (ZANAFLEX) tabl et 2 mg tizanidine (ZANAFLEX) tablet 2 mg 08/28/2019 10:33:07 AM EDT 2 mg Oral aborted 2 mg, Oral, Every 6 hours PRN, Muscle spasms, Starting Chelsi 08/28/19 at 1033, For 30 days [facility] Medication administered onsite Acetaminophen 10 MG/ML Injectable Soluti on acetaminophen (OFIRMEV) infusion 1,000 mg acetaminophen (OFIRMEV) infusion 1,000 mg 08/28/2019 03:45:00 AM EDT 1000 mg Intravenous completed 1,000 mg , Intravenous, Administer over 15 Minutes, Once, Chelsi 08/28/19 at 0345, For 1 dose
Maximum dose 3 gm daily from all sources
[facility] Medication administered onsite 2 ML Metoclopramide 5 MG/ML Prefilled Sy ringe metoclopramide (REGLAN) injection 10 mg metoclopramide (REGLAN) injection 10 mg 08/28/2019 03:30:00 AM E DT 10 mg Intravenous completed 10 mg, I ntravenous, Once, Chelsi 08/28/19 at 0330, For 1 dose [facility] Medication administered onsite tizanidine 4 MG Oral Tablet tizanidine (ZANAFLEX) tabl et 2 mg tizanidine (ZANAFLEX) tablet 2 mg 08/28/2019 03:25:00 AM EDT 2 mg Oral completed 2 mg, Oral, Once, Chelsi 08/28/19 at 0330, For 1 dose [facility] Medication administered onsite 1 ML Ketorolac Tromethamine 15 MG/ML Car tridge ketorolac (TORADOL) 15 MG/ML injection 15 mg ketorolac (TORADOL) 15 MG/ML injection 15 mg 0 02:00:00 AM EDT 15 mg Intravenous completed 15 mg, Intravenous, Once, Chelsi 08/28/19 at 0200, For 1 dose [facility] Medication administered onsite tramadol hydrochloride 50 MG Oral Tablet tramadol (ULT RAJENDRA) tablet 50 mg tramadol (ULTRAM) tablet 50 mg 08/28/2019 12:45:00 AM EDT 50 mg Oral completed 50 mg, Oral, Once, Chelsi 08/28/19 at 0045, For [address] [facility] Medication administered onsite gadobutrol (GADAVIST) contrast injection 6.5 mL [id number] 08/28/2019 12:15:00 AM EDT 0.1 mL/kg Intravenous completed 6.5 mL (rounded from 6.63 mL = 0.1 mL/kg 66.3 kg), Intravenous, 1 TIME IMAGING, Chelsi 08/28/19 at 0015, For 1 dose
Do not mix or administer in the same IV line with other medications.
[facility] Medication administered onsite Acetaminophen 10 MG/ML Injectable Soluti on acetaminophen (OFIRMEV) infusion 1,000 mg acetaminophen (OFIRMEV) infusion 1,000 mg 08/27/2019 09:45:00 PM EDT 1000 mg Intravenous completed 1,000 mg , Intravenous, Administer over 15 Minutes, Once, Sun08/27/19 at 2145, For 1 dose
Maximum dose 3 gm daily from all sources
[facility] Medication administered onsite ondansetron (ZOFRAN) injection 4 mg [id number] 08/27/2019 09:37:0 7 PM EDT 4 mg Intravenous aborted 4 mg, In travenous, Every 8 hours PRN, Nausea, Vomiting, Starting Sun08/27/19 at 2137, For 30 days [facility] Medication administered onsite gabapentin 100 MG Oral Capsule gabapentin (NEURONTIN) capsule 100 mg gabapentin (NEURONTIN) capsule 100 mg 08/27/2019 03:30:00 PM EDT 100 mg Oral aborted 100 mg, Oral, Three Times D aily Standard, First dose on Sun08/27/19 at 1530, For 30 days [facility] Medication administered onsite sodium chloride infusion 0.9 % [id number] 08/27/2019 02:15:00 PM ED T 50 mL Intravenous completed Intravenous, Once, Sun08/27/19 at 1415, For 1 dose
After completion of Alteplase flush line with 50 ml NS at the same rate as the Alteplase infusion.
[facility] Medication administered onsite Hydralazine Hydrochloride 20 MG/ML Injec table Solution hydrALAZINE (APRESOLINE) injection 10 mg hydrALAZINE (APRESOLINE) injection 10 mg 08/27/2019 02 :09:43 PM EDT 10 mg Intravenous active 10 m g, Intravenous, Once PRN, Other, For SBP > 180 or DBP > 105, Starting Sun08/27/19 at 1409, For 30 days
Dilute in 25-50 ml normal saline. Administer over 30 minutes.
[facility] Medication administered onsite Acetaminophen 325 MG Oral [...] mg from all sources in 24 hours.
[facility] Medication administered onsite 4 ML Labetalol hydrochloride 5 MG/ML [facility] labetalol (TRANDATE) injection 10 mg labetalol (TRANDATE) injection 10 mg 08/27/2019 02:09:43 PM EDT 10 mg Intravenous active 10 mg, Intrav enous, Once PRN, High Blood Pressure, For SBP > 180 or DBP > 105, Starting Sun08/27/19 at 1409, For 30 days
May repeat X1
[facility] Medication administered onsite 400 mg 05/08/2019 12:00:00 [...] DAILY DOSE = 6 TABLETS SOLD: 05/08/2019 [facility] Ondansetron 4 MG Oral Tablet Ondansetron HCl 4 MG Oral Tablet (ZOFRAN) Ondansetron HCl 4 MG Oral Tablet (ZOFRAN) 05/07/2019 12:00:00 AM EST 4 mg Oral active Take 1 tablet by mouth every 8 (eight) hours as needed for Nausea for up to 8 doses [facility] 4 mg 05/07/2019 12:00:00 AM EST tablet 20 TAKE ONE TABLET BY MOUTH EVERY 8 HOURS NEEDED FOR NAUSEA FOR UP TO 8 DOSES TAKE ONE TABLET BY MOUTH EVERY 8 HOURS NEEDED FOR NAUSEA FOR UP TO 8 DOSES SOLD: 05/08/2019 [employer] Oxycodone Hydrochloride 5 MG Oral Tablet oxyCODONE HCl 5 MG Oral Tablet (ROXICODONE) oxyCODONE HCl 5 MG Oral Tablet (ROXICODONE) 05/07/2019 12:00:00 AM EST 5 mg Oral active Take 1 t ablet by mouth every 4 (four) hours as needed for up to 3 days, Max Daily Dose: 30 mg [facility] Ibuprofen 400 MG Oral Tablet ibuprofen (ADVIL,MOTRIN) tablet 400 mg ibuprofen (ADVIL,MOTRIN) tablet 400 mg 05/06/2019 02:45:00 PM EST 400 mg Oral active 400 mg, Oral, Every 4 hours PRN, Mild Pain (Pain Scale Score 1-3), Starting Sun05/06/19 at 1445, For 240 hours
Take with food
[facility] Medication administered onsite 0.4 ML Enoxaparin sodium 100 MG/ML Prefi lled Syringe enoxaparin sodium (LOVENOX) injection 40 mg enoxaparin sodium (LOVENOX) injection 40 mg 05/06/2019 09:00:00 AM EST 40 mg Subcutaneous active 40 mg, Subcutaneous, Daily Standard, First dose on Sun05/06/19 at 0900, For 30 days [facility] Medication administered onsite oxyCODONE (ROXICODONE) immediate release [...] Service consultation and approval.
[Order 2 End] [facility] Medication administered onsite Methocarbamol 500 MG Oral Tablet methocarbamol (ROBAXI N) tablet 500 mg methocarbamol (ROBAXIN) tablet 500 mg 05/05/2019 09:00:00 PM EST 50 0 mg Oral active 500 mg, Oral, F our Times Daily Standard, First dose on Sun05/05/19 at 2100, For 30 days [facility] Medication administered onsite gabapentin 400 MG Oral Capsule gabapentin (NEURONTIN) capsule 400 mg gabapentin (NEURONTIN) capsule 400 mg 05/05/2019 09:00:00 PM EST 400 mg Oral active 400 mg, Oral, Three Times D aily Standard, First dose on Sun05/05/19 at 2100, For 30 days [facility] Medication administered onsite Ibuprofen 400 MG Oral Tablet ibuprofen (ADVIL,MOTRIN) tablet 400 mg ibuprofen (ADVIL,MOTRIN) tablet 400 mg 05/05/2019 07:15:00 PM EST 400 mg Oral aborted 400 mg, Oral, Every 4 hours, First dose on Sun05/05/19 at 1915, For 10 days
Take with food
[facility] Medication administered onsite Acetaminophen 325 MG Oral Tablet acetaminophen (TYLENO L) tablet 650 mg acetaminophen (TYLENOL) tablet 650 mg 05/05/2019 07:15:00 PM EST 65 0 mg Oral active 650 mg, Oral, E very 6 hours, First dose on Sun05/05/19 at 1915, For 30 days
Maximum daily dose of acetaminophen is 3,000 mg from all sources in 24 hours.
[facility] Medication administered onsite ondansetron (ZOFRAN) injection 4 mg [id number] 05/05/2019 07:06:0 0 PM EST 4 mg Intravenous active 4 mg, In travenous, Every 8 hours PRN, Nausea, Vomiting, Starting Sun05/05/19 at 1906, For 30 days [facility] Medication administered onsite sodium chloride 0.9 % bolus 500 mL [id number] 05/05/2019 05:45:00 PM EST 500 mL Intravenous completed 500 mL, Intravenous, Once, Sun05/05/19 at 1745, For 1 dose, [facility] Medication administered onsite sodium chloride 0.9 % bolus 500 mL [id number] 05/05/2019 05:15:00 PM EST 500 mL Intravenous completed 500 mL, Intravenous, Once, Sun05/05/19 at 1715, For 1 dose, [facility] Medication administered onsite dextrose 5 %-0.9 % sodium chloride infusion [id number] 05/05/2019 04:15:00 PM EST Intravenous completed at 75 mL/hr, Intravenous, Continuous, Starting Sun05/05/19 at 1615, For 6 hours [facility] Medication administered onsite HYDROmorphone (DILAUDID) injection 0.5 mg [id number] 05/05/2019 03:43:39 PM EST 0.5 mg Intravenous aborted 0.5 mg, Intravenous, Every 5 min PRN, Severe Pain (Pain Scale Score > 6), Starting Sun05/05/19 at 1543, For 4 doses, [facility] Medication administered onsite Acetaminophen 10 MG/ML Injectable Soluti on acetaminophen (OFIRMEV) infusion 1,000 mg acetaminophen (OFIRMEV) infusion 1,000 mg 05/05/2019 03:30:00 PM EST 1000 mg Intravenous completed 1,000 mg , Intravenous, Administer over 15 Minutes, Once, Sun05/05/19 at 1530, For 1 dose
Maximum dose 3 gm daily from all sources
[facility] Medication administered onsite HYDROmorphone (DILAUDID) injection 0.5 mg [id number] 05/05/2019 03:16:34 PM EST 0.5 mg Intravenous completed 0. 5 mg, Intravenous, Once PRN, Severe Pain (Pain Scale Score 7-10), Starting Sun05/05/19 at 1516, For 1 dose, Pre-op [facility] Medication administered onsite fentaNYL (SUBLIMAZE) (PF) injection 12.5 mcg [id number] 05/05/2019 02:48:36 PM EST 12.5 ug Intravenous aborted 12.5 mcg, Intravenous, Every 5 min PRN, Moderate Pain (Pain Scale Score 4-6), Starting Sun05/05/19 at 1448, For 10 doses, Recovery [facility] Medication administered onsite 72 HR Scopolamine 0.0139 MG/HR Transderm al Patch scopolamine (TRANSDERM-SCOP) patch 1.5 mg scopolamine (TRANSDERM-SCOP) patch 1.5 mg 05/05/2019 1 0:15:00 AM EST 1 {patch} Transdermal active 1 patch, Transdermal, Once, Sun05/05/19 at 1015, For 1 dose, Pre-op
Programmed to deliver in-vivo approximately 1 mg of scopolamine over 3 days
[facility] Medication administered onsite 4 mg 04/02/2019 12:00:00 [...] mg Oral aborted Take 1 capsule by [facility] Three times daily [facility] Methocarbamol 500 MG Oral Tablet Methocarbamol 500 MG Oral Tablet (ROBAXIN) Methocarbamol 500 MG Oral Tablet (ROBAXIN) 500 mg Oral aborted Take 500 mg by mouth Four times daily [facility] Acetaminophen 500 MG Oral Tablet Acetaminophen 500 MG Oral Tablet (TYLENOL) Acetaminophen 500 MG Oral Tablet (TYLENOL) 500 mg Oral aborted Take 500 mg by mouth every 6 (six) hours as needed for Pain [facility] Insurance Providers Payer name Policy type / Coverage type Policy ID Covered libertarian ID Covered libertarian's relationship to mitchell Policy Mitchell Plan Information [facility] [id number] [facility] [id number] [facility] [id number] SP [id number] [facility] HUMANA - O/P [id number] 01 [id number] [facility] U [id number] Se lf [id number] [facility] [place] [id number] 01 [id number] [facility] [id number] 18 [id number] [facility] [place] [id number] [facility] [id number] SP [id number] [facility] AT [facility] [place] [id number] 18 [id number] [facility] [id number] SP [id number] Critical access hospital Commercial [id number] Self [id number] Critical access hospital Commercial [id number] Self [id number] Critical access hospital Commercial [id number] Self [id number] Critical access hospital Commercial [id number] Self [id number] [facility] Commercial [id number] Self [id number] [facility] Commercial [id number] Self [id number] [facility] Commercial [id number] Self [id number] Problems, Conditions, and Diagnoses Code Display Name Description Problem Type Effective Dates Data Source(s) 368.12 Transient Visual Loss Transient Visual Loss Problem 09/05/2019 12:00:00 AM EDT [facility] ([facility]) 437.9 Stroke/cerebrovascular Accident Stroke/cerebrovascular Accident Problem 09/05/2019 12:00:00 AM EDT [facility] ([facility]) [id number] Cervical rib Cervical rib Problem 05/05/2019 12:00:00 A M EST [facility] ([facility]) Note: s/p resection right cervical rib [id number] History of cervical discectomy History of cerv ical discectomy Problem 05/05/2019 12:00:00 AM EST [facility] ([facility]) Radiculopathy, cervical region Radiculopathy, cervical region Problem 03/31/2019 12:00:00 AM EST [facility] ([facility]) [id number] Bicipital tenosynovitis Bicipital tenosynovitis Proble m 03/31/2019 12:00:00 AM EST [facility] ([facility]) [id number] Neck pain Neck pain Problem 03/31/2019 12:00:00 AM ES T [facility] ([facility]) Q765 Cervical rib Cervical rib Diagnosis 02/02/2020 06:48:00 A M [facility] [id number] Migraine with aura, not intractable, wit hout status migrainosus Migraine with aura, not intractable, without status migrainosus Diagnosis 10/30/2019 08:05:00 AM EDT [facility] M5412 Radiculopathy, cervical region Radiculopathy, cervical region Diagnosis 10/30/2019 08:05:00 AM EDT [facility] fol fol Diagnosis 10/09/2019 10:27:25 AM ED [facility] G8190 Hemiplegia, unspecified affecting unspec ified side Hemiplegia, unspecified affecting unspecified side Diagnosis 10/01/2019 08:41:00 AM EDT [facility] M54.12 Radiculopathy, cervical region Radiculopathy, cervical region Diagnosis 09/18/2019 01:37:20 PM [facility] G81.90 Hemiplegia, unspecified affecting unspec ified side Hemiplegia, unspecified affecting unspecified side Diagnosis 09/18/2019 01:31:33 P M [facility] H538 Other visual disturbances Other visual disturbances Di agnosis 09/11/2019 08:48:[address] [facility] I639 Cerebral infarction, unspecified Cerebral infarc tion, unspecified Diagnosis 09/11/2019 08:48:[address] [facility] stroke stroke Diagnosis 08/27/2019 01:58:28 PM ED [facility] s/p op s/p op Diagnosis 05/15/2019 10:23:07 AM [facility] Neurogenic thoracic outlet syndrome Neurogenic t horacic outlet syndrome Diagnosis 05/05/2019 08:58:15 AM [facility] neuorgenic TOS neuorgenic TOS Diagnosis 05/05/2019 08:58: 15 AM [facility] Z01.818 Encounter for other preprocedural examin ation Encounter for other preprocedural examination Diagnosis 05/02/2019 11:30:54 AM [facility] pretest pretest Diagnosis 05/02/2019 12:00:00 AM [facility] G54.0 Brachial plexus disorders Brachial plexus disorders Di agnosis 04/17/2019 10:47:02 AM [facility] M25.511 Pain in right shoulder Pain in right shoulder Diagnosi s 04/09/2019 01:18:50 PM [facility] Y[address] or not applicable Unspecified place or not applicable Diagnosis 04/02/2019 11:37:00 AM [facility] [id number] Exposure to other specified factors, ini tial encounter Exposure to other specified factors, initial encounter Diagnosis 04/02/2019 11:37:00 AM [facility] [id number] Strain of muscle, fascia and tendon at n beatriz level, initial encounter Strain of muscle, fascia and tendon at neck level, initial encounter Diagnosis 04/02/2019 11:37:00 AM [facility] M7581 Other shoulder lesions, right shoulder O ther shoulder lesions, right shoulder Diagnosis 04/02/2019 11:37:00 AM [facility] Z75143 Pain in right shoulder Pain in right shoulder Diagnosi s 04/02/2019 11:37:00 AM [facility] Surgeries/Procedures Procedure Description Date Indications Data Source(s) Surgical / procedural history : Cervical Repair & Tubal Ligation-2017, Tonsillectomy-2000, Adenoidectomy-2000, Cervical Cerclage for 3 pregnancies- 2010,2012,2015, Cervical Discoplasty-2019, Uterine Repair-2017, Cervical Discectomy Surgical / procedural history : Cervical Repair & Tubal Ligation- 2017, Tonsillectomy-2000, Adenoidectomy-2000, Cervical Cerclage for 3 pregnancies-2010,2012,2016, Cervical Discoplasty-2019, Uterine Repair-2017, Cervical Discectomy 09/05/2019 12:00:00 AM EDT [facility] ([facility]) Medical Eye Exam Medical Eye Exam 09/05/2019 12:00:00 AM EDT [facility] ([facility]) BLOOD COUNT COMPLETE AUTO&AUTO DIFRNTL WBC COUNT CBC AND DIFFER ENTIAL Routine 08/29/2019 4:38 AM EDT 08/29/2019 08:38:00 AM [facility] BASIC METABOLIC PANEL CALCIUM TOTAL BASIC METABOLIC PANEL Routi ne 08/29/2019 4:38 AM EDT 08/29/2019 08:38:00 AM EDT [facility] CT HEAD/BRAIN W/O CONTRAST MATERIAL CT HEAD WITHOUT CONTRAST 70 450 Routine 08/28/2019 11:15 AM EDT 08/28[facility]2019 [facility]TABLET REAGENT AUTO MICROSCOPY URINAL YSIS WITH REFLEX URINE CULTURE Routine 08/28/2019 3:46 AM EDT 08/28/2019 07:46 :00 AM [facility] GONADOTROPIN CHORIONIC QUANTITATIVE BETA HCG, QUANT Routine 08/28/2019 3:46 AM EDT 08/28/2019 07:46:00 AM EDT [facility] BLOOD COUNT COMPLETE AUTO&AUTO DIFRNTL WBC COUNT CBC AND DIFFER ENTIAL Routine 08/28/2019 3:46 AM EDT 08/28/2019 [facility]OLIC PANEL CALCIUM TOTAL BASIC METABOLIC PANEL Routi ne 08/28/2019 3:46 AM EDT 08/28/2019 07:46:00 AM EDT [facility] MRI SPINAL CANAL CERVICAL W/O & W/CONTR MATRL MR CERV ICAL SPINE WITH AND WITHOUT CONTRAST [id number] STAT 08/28/2019 12:11 AM EDT 08/28/2019 04:11:03 AM [facility] MRI SPINAL CANAL THORACIC W/O & W/CONTR MATRL MR THOR ACIC SPINE WITH AND WITHOUT CONTRAST [id number] STAT 08/28/2019 12:08 AM EDT 08/28/2019 04:08:32 AM [facility] MRI BRAIN BRAIN STEM W/O CONTRAST MATERIAL MR BRAIN WITHOUT CONTRAST [id number] STAT 08/28/2019 12:07 AM EDT 08/28/2019 04:07:18 AM [facility] ECHOCARDIOGRAM COMPLETE WITH BUBBLE STUDY ECHOCARDIOG RAJENDRA COMPLETE WITH BUBBLE STUDY Routine 08/27/2019 3:21 PM EDT 08/27/2019 07:21 :56 PM [facility] COVID-19 PCR COVID-19 PCR Routine 08/27/2019 2:16 PM EDT 08/27/2019 [facility]:16[facility] RESPIRATORY PANEL Routine 08/27/2019 2:16 PM EDT 08/27/2019 06:16:00 PM [facility] BLOOD COUNT COMPLETE AUTO&AUTO DIFRNTL WBC COUNT CBC AND DIFFER ENTIAL Routine 08/27/2019 2:16 PM EDT 08/27/2019 06:16:00 PM [facility] THYROID STIMULATING HORMONE TSH TSH Routine 08/27/2019 2:16 PM EDT 08/27/2019 06:16:00 PM [facility] HEMOGLOBIN GLYCOSYLATED A1C HEMOGLOBIN A1C Routine 08/27/2019 2:16 PM EDT 08/27/2019 06:16:00 PM [facility] LIPID PANEL LIPID PANEL Routine 08/27/2019 2:16 PM EDT 08/27/2019 [facility]:16[facility] BASIC MET[facility]OLIC PANEL CALCIUM TOTAL BASIC METABOLIC PANEL Routi ne 08/27/2019 2:16 PM EDT 08/27/2019 06:16:00 PM EDT [facility] GLUCOSE QUANTITATIVE BLOOD XCPT REAGENT STRIP POCT GLUCOSE, DOC KED Routine 08/27/2019 2:15 PM EDT 08/27/2019 06:15:00 PM [facility] BLOOD COUNT COMPLETE AUTOMATED CBC Routine 05/06/2019 4:28 A M EST 05/06/2019 09:28:00 AM [facility] PHOSPHORUS INORGANIC PHOSPHORUS LEVEL Routine 05/06/2019 4:[address] 05/06/2019 09:28:00 AM [facility] MAGNESIUM MAGNESIUM LEVEL Routine 05/06/2019 4:28 AM EST 05/06/2019 09:28:00 AM [facility] BASIC METABOLIC PANEL CALCIUM TOTAL BASIC METABOLIC PANEL Routi ne 05/06/2019 4:28 AM EST 05/06/2019 09:28:00 AM [facility] XR CHEST FRONTAL ONLY 77828 XR CHEST FRONTAL ONLY [id number] STAT 05/05/2019 4:16 PM EST 05/05/2019 09:16:00 PM [facility] CARDIAC REPORT CARDIAC REPORT 05/05/2019 11:12 AM EST 05/05/2019 04:12:17 PM [facility] CARDIAC REPORT CARDIAC REPORT 05/05/2019 11:10 AM EST 05/05/2019 04:10:55 PM [facility] EXCISION 1ST &/OR CERVICAL RIB <td><content ID="proced [email or web address]">EXCISION 1ST &/OR CERVICAL RIB</content></td><td></td><td>05/05/2019 10:57 AM EST</td><td><paragraph>Neurogenic thoracic outlet syndrome</paragraph></td><td> </td> 05/05/2019 03:57:00 PM EST - 05/05/2019 08:43:00 PM ES T Neurogenic thoracic outlet syndrome [facility] Neurogenic thoracic outlet syndrome GONADOTROPIN CHORIONIC QUANTITATIVE POCT ISTAT BHCG Routine 05/05/2019 9:48 AM EST 05/05/2019 02:48:00 PM EST [facility] LEVEL I SURG PATHOLOGY GROSS EXAMINATION ONLY SURGICA L PATHOLOGY EXAM ( ONLY) Routine 05/05/2019 12:00 AM EST 05/05/2019 05:00 :00 AM EST [facility] BLOOD COUNT COMPLETE AUTOMATED CBC Routine 0 12:08 PM EST Preoperative testing 05/02/2019 05:08:[address] [facility] Preoperative testing BLOOD TYPING ABO TYPE AND SCREEN Routine 05/02/2019 12:08 PM EST Preoperative testing 05/02/2019 05:08:[address] [facility] Preoperative testing Results ID Date Data Source [id number] 04/11/2020 12:00:00 AM EST [facility] Name Value Range Interpretation Code Description Data Chikis rce(s) Supporting Document(s) SARS-CoV2 Rapid Antigen Negative [facility] This lab was ordered by [facility] and reported by [facility]. ID Date Data Source [id number] 03/31/2020 01:02:11 PM EST [facility] Name Value Range Interpretation Code Description Data Chikis rce(s) Supporting Document(s) Progress Note [facility] JLZZIg6vMlIEXhDr71/AWSuvCTBlc5RsMFbeMXy4XAamCKMqZ3NrGIT2gW8lBBI2ILzTLaHmPhMlWEL8 lbm [file] DQo= ID Date Data Source [id number] 02/03/2020 09:02:00 [place] [address] PHONE: [phone] FAX: [phone] Name .................. : CRISTOBAL Torres Acct Number.................. : [id number] ROOM. ................. : Number ................... : [id number] Stay type ............. : O/P Discharge Date......... ... : Admit Date ......... : Admit Phys .................... : RADHA Date of ....... : 1985 Family Phys ................... : HUGH Phone .................. : [phone] Age ................................ : 34 Film# .................. .:[id number] Sex ................................. : F Unsigned transcriptions are preliminary reports and do not represent a medical or legal document CHEST 2 VIEWS [id number] COMPLETE:02/02/20 11:34 12194 (REASON FOR CHEST: CERVICAL RIB TWO VIEW [...] Date: 02/02/20 12:27, Dictation Date: Copy for: [address] [place] [address] REC Page 1 of 1 Name Value Range Interpretation Code Description Data Chikis rce(s) Supporting Document(s) ID Date Data Source [id number] 10/09/2019 11:29:36 AM EDT [facility] Name Value Range Interpretation Code Description Data Chikis rce(s) Supporting Document(s) Progress Note [facility] EMEWZd2iUdDVCtTa09/URZssEGSml2BcZItbWPs8ZYepQWUoE7FdAGU4sX0wAJA2SLfHTrZvKqYiPcM6 m [file] 2b4Ml/5jgCA56LxMlpu/tLA/5rTQsQfp8j8m7bTSOclq28g+ej031bfMHTg0D3UEdS51DUebvEvy+trademark attorney [file] AgICAgICAgICAgICAgICAgICAgICAgICAgICAgICAgICAgICAgICAgICAgICAgICAgICAgICAgICAgIC AgICAgICAgICAgICANCiAgICAgICAgICAgICAgICAg ICAgICAgICAgICAgICAgICAgICAgICAgICAgICAgICAgICAgICAgICAgICAgICAgICAgICAgICAgICAg ICAgICAgICAgICAgICAgICAgICAgICANCiAgICAgICAgICAgICAgICAgICAgICAgICAgICAgICAgICAg ICAgICAgICAgICAgICAgICAgICAgICAgICAgICAgIC AgICAgICAgICAgICAgICAgICAgICAgICAgICAgICAgICANCiAgICAgICAgICAgICAgICAgICAgICAgIC AgICAgICAgICAgICAgICAgICAgICAgICAgICAgICAgICAgICAgICAgICAgICAgICAgICAgICAgICAgIC AgICAgICAgICAgICAgICANCiAgICAgICAgICAgICAg ICAgICAgICAgICAgICAgICAgICAgICAgICAgICAgICAgICAgICAgICAgICAgICAgICAgICAgICAgICAg ICAgICAgICAgICAgICAgICAgICAgICAgICANCiAgICAgICAgICAgICAgICAgICAgICAgICAgICAgICAg ICAgICAgICAgICAgICAgICAgICAgICAgICAgICAgIC AgICAgICAgICAgICAgICAgICAgICAgICAgICAgICAgICAgICANCiAgICAgICAgICAgICAgICAgICAgIC AgICAgICAgICAgICAgICAgICAgICAgICAgICAgICAgICAgICAgICAgICAgICAgICAgICAgICAgICAgIC AgICAgICAgICAgICAgICAgICANCiAgICAgICAgICAg ICAgICAgICAgICAgICAgICAgICAgICAgICAgICAgICAgICAgICAgICAgICAgICAgICAgICAgICAgICAg ICAgICAgICAgICAgICAgICAgICAgICAgICAgICANCiAgICAgICAgICAgICAgICAgICAgICAgICAgICAg ICAgICAgICAgICAgICAgICAgICAgICAgICAgICAgIC AgICAgICAgICAgICAgICAgICAgICAgICAgICAgICAgICAgICAgICANCiAgICAgICAgICAgICAgICAgIC AgICAgICAgICAgICAgICAgICAgICAgICAgICAgICAgICAgICAgICAgICAgICAgICAgICAgICAgICAgIC AgICAgICAgICAgICAgICAgICAgICANCjw/hAUqQ6ha aKLmonA4C7dbKy3NTn7QEQ2yz3WzWZDsBCnpenJjQglCYsXjKIFtKsuKGap7WQsuGR4CrAXmL8EvF5Kb ZTeeIO9LJVLgJADdkTZqMYVtFSLuBmB1GIRxVKiePI7TgYCbJNktKEFrITSmPtHwQFSqTLUiYKYtSH2J ZTNbJ602wjFuRb7JQi8PCtKcDX6mmy7SOyBzPWApWc pNAcc9CSzeJF0XgWLrzKOyApZfUINQZsCdX4ays0RvWnwzCDLNEJouVE1Tp7NuyOEkLUe+Hs6ILV6nj6 ZcEHcuYfRtQP7poz3PLCrKCtLkG7MpcJbgYJNni6lzMDXaJN5sdGSpFLW5FSDnxEjmpcggDcDEPGbyQF miWKVDULNhwTQ7MoR0XnOvHdHvHMX3ZSSlHN5iQFge LE3ZHEJ4URzgAQHpTJNbN2pMBnAqICKjNIZjvHwmJX7EWwIfC7ZrfbKqfMVlAoPzMNTURg2+DQplbmRv PryTPtH0YSHej0DvZCn3LE5UUBGnZViwKF9YULNnyU8wIKuyKJ1DFpIsXJAkPTPCGkAgH70mkAPrDCj8 M1TuDgFwLFVzYubxARImPPvsFvCxVWUyRzNkKTdwQV 4+ID4+XZsmRR5PQGmxmyYdVKRwAd1CFFRqBKIkVW1kCSItKLXyU2I4eTefNYGUPtVuQ2tcepdmVE2pJK ZwS903vStrkqPuVRT6IERlZp7XUPHiYVZ8JUDkgCVhZiXbSUQUPCgwKK2GaVNbNSV4nU8sPWsdNBGsYQ MlF8mFBsWbxTytFI35wGkeqcWnkFEaFVv+Ip2MFM1q j8KgTYy4qyUrELgwZUD4JUmbWNXvDGTlNIKpUFB4PMP6LVXFLzSiYRYkTEDwUZygIKBmFIGaix3OZRJy EHCwFwz7IQMiQSFoEPIyQTkmCZSbWQA7GIP7VCSsUERlNZ5QJfOrOIGmGVRbCXorCQEkXQNmbv3FXVVp XPEfYfe6JhJnQDZpGFTiKNcxVJUrMDI6FMlzRXLzDB QyVQ8QSaQpCXRuYZfsACUgWKUiKYDyge8MXDPqZGWkDwS0GGEdHTCyTHYrEQftGDBdOHDvUKn3IFGrTP SuZQ1XFrYaDJJaXBY2VYToXHGwTUMvhr3MVFSqERIgSTE0HLWlYVSoKEJvBKruVPRfBDGsFMJ2HAUqWY EsZX6BRlDyOTPsBNK0WTYuKJJmRVRico8OQTRzEPTo MeA9ZWKcFOCgJDRiNVqfKOGrCYBrKJPpIEUgMLSjRX2QYwCtXOPjIMIvZCdpTEVrSOFzgf0GRXNcKXKe ZAPmPXHmLFVwTLPeYOcyLHXuMXH5IHU7VNMhUEWwYN6UJnEhYKSwFuVxJISmJDAnLTDvri4NVYDvRUFl KMQuJoKnPXIoKQKhSKmhCBRdBMA8IHX2XLGpXHWwRW 1SHwBnEVDoPpUpLVRcHTRbPWOkpy3JMNKoMHFcVhE8LCCaOQOfLUDuRJnzABKzYTJ3IzW8DOFxILItFR 6EInQpQRScLkdgWdFnMMYnSALzwb1RGOWgXDFeQBYuMkSnJQFpRAScBAwuNTQqAMM1Foj8JSNxJOUaZY 7WVhBfBEXyLju4NPgyEZOtICIypt9RwPLjzAcyvk9H MObUGi8BbKbkWMA8KVxhIe7kwDEoRCMtLIVENb3AyzMrJRRqYWJTHFlyTCZiTZr7TSLrJKTsZIL5ZXva VEt3KaCnUvYoHtXjDjB5SnH0KlH0ElP0SQP2HQCaYBjoGPPeOUFcPHRbPYVsLySnBRWpLLX+YH6jYFq+ Rx9Oa7QfehK0spTvXEioIJP3Yx6XBPWKF9EPGr== ID Date Data Source [id number] 10/02/2019 10:52:35 AM EDT [facility] Name Value Range Interpretation Code Description Data Chikis rce(s) Supporting Document(s) Progress Note [facility] CORUDx6aCeIGZtWq23/PWWlcZFFea4HuVWhgPSu2IYbyGEYoM4DoTMH2qQ4xEBB3AWvIAkCrSfZyXeN3 lbm [file] AgICAgICAgICAgICAgICAgICAgICAgICAgICAgICAgICAgICAgICAgICAgICAgICAgICAgICAgICAgIC AgICAgICAgICAgICAgICANCiAgICAgICAgICAgICAgICAgICAgICAgICAgICAgICAgICAgICAgICAgIC AgICAgICAgICAgICAgICAgICAgICAgICAgICAgICAg ICAgICAgICAgICAgICAgICAgICAgICAgICANCiAgICAgICAgICAgICAgICAgICAgICAgICAgICAgICAg ICAgICAgICAgICAgICAgICAgICAgICAgICAgICAgICAgICAgICAgICAgICAgICAgICAgICAgICAgICAg ICAgICAgICANCiAgICAgICAgICAgICAgICAgICAgIC AgICAgICAgICAgICAgICAgICAgICAgICAgICAgICAgICAgICAgICAgICAgICAgICAgICAgICAgICAgIC AgICAgICAgICAgICAgICAgICANCiAgICAgICAgICAgICAgICAgICAgICAgICAgICAgICAgICAgICAgIC AgICAgICAgICAgICAgICAgICAgICAgICAgICAgICAg ICAgICAgICAgICAgICAgICAgICAgICAgICAgICANCiAgICAgICAgICAgICAgICAgICAgICAgICAgICAg ICAgICAgICAgICAgICAgICAgICAgICAgICAgICAgICAgICAgICAgICAgICAgICAgICAgICAgICAgICAg ICAgICAgICAgICANCiAgICAgICAgICAgICAgICAgIC AgICAgICAgICAgICAgICAgICAgICAgICAgICAgICAgICAgICAgICAgICAgICAgICAgICAgICAgICAgIC AgICAgICAgICAgICAgICAgICAgICANCiAgICAgICAgICAgICAgICAgICAgICAgICAgICAgICAgICAgIC AgICAgICAgICAgICAgICAgICAgICAgICAgICAgICAg ICAgICAgICAgICAgICAgICAgICAgICAgICAgICAgICANCiAgICAgICAgICAgICAgICAgICAgICAgICAg ICAgICAgICAgICAgICAgICAgICAgICAgICAgICAgICAgICAgICAgICAgICAgICAgICAgICAgICAgICAg ICAgICAgICAgICAgICANCiAgICAgICAgICAgICAgIC AgICAgICAgICAgICAgICAgICAgICAgICAgICAgICAgICAgICAgICAgICAgICAgICAgICAgICAgICAgIC AgICAgICAgICAgICAgICAgICAgICAgICANCjw/yQZmJ4ecgXYefkD2S9vjQq5KGu0DIA9sq9WtBRYfMM chkkJuEwgZIxEuBUCrEysYPnt3YCsiKE2CaYQuF6Uu G4FeTClsQR4QFDZkOQFzvFBgTZFkBKRqTqS8RKUeOLqbIA1QqMOcKFqeBBZbEKFtWaYbVBDaUBHrQNHa RK3WESGmQ347lqXsKt1GKt4BYbQnWO5aco8GKtVpYUAeJciBFrd4UOqfXH6CoAQnoSXtCqIkXEOBFfUw L1geb1VbSxtpXLDPVWldVD3Zl9OrdOAyAIn+Pg0KZW 4fv5TyYRbwJoTzAT8kry1MQLtBYiNmM8OhlGicDAUrs9ixXZGvDL1slSByLGI6ONJ6u0VtXZgxA5D3L7 mxIZXBTJF2KVztZE3lSTAzCZR4GhOzVHNSCR6PUBZqWGWkrXJgYEEiZKBFOB2MTEufHRR7GUUquoCbhN IzQSzmHP5WXRDkqyXmKoPkBGRQISb+Nf3ZGL5ao0Vt GYawLMKaAH4kfd4PXKsDFzAmK9Q4kPTzW9S0LUtlYk2EROCiOIAnVlVzLVSUXAbgEP4VPC6cxmD9YF1W sIZbYSPdRCHkmJFiEQv4J47btJObONyjBO0RDCR+Ashley+Ie2PVJQaDZJcOKHkIsDsBFFUMdAeZ6EsO8LU e8MqP7RmFK38nBazwfVrBPjrTO6NRV7uNVAzRGGKRR 4TjXWrpF6gqlLwPkPtRYHWJzSoH11hmXJgYEOsGLE4GENzHl8ONUZqT6BohjNkeErxrrLeLSBuBYSARS 6TFUteofMvcRBjxJmhXC85cUsmLG3UBi6VQiDyOK5xgh1HoSPyRe0YLSWxPO1JIXOpHPJkSDDxKOV3GP ZtIdRlQRnwONMjWXDyCPI2NKTpAYKgPC4FMgFeNUXb YkY2NvVoGMBeIUMawi3PCRMxGHIsMYL7ZmKpVOLaUMJwXYslNTWnXETsZNM4LUFoZPKqHH8KBcBoUCEr ZAH0QbTsMOZlCXYhnu6ZMMQoNNVwTUg5FjXsUNQoCRKbDCoaZEMhQRS4JQC6IIRbMBCrKC8IHrYsKGZl ZUknZHGeDPZgBMDans2QUUBoFYXdWFzqYfGsDSXiQK XtJFpqCNAgORYjHSKmOSPhCAOiHD8NClMyRFLnVKStFEGuZFMuRLGgtp2HNMReVZKsDUO8UqKwVKPwYC HjETcqNNTnPQMeLcyaJOEyGJSgUY1OReQbNJSyOQBxVqrpLBMmKIJbwg4OHXNbRJAvCtB8UQYdLPUbQZ NmWXccAXVrHXQdNpE7KXHiJASrDM4YAbRdRJRdCnVe ADhmMCIkOYUrgh8UEXWkQECqHOZ2JMVfIAOvNINiBNahHDWpQMH5YnegHUGoPTUhBV7CMcFiRTJgKlY5 YDUfGQHsHDDucr2KMXAxDMUbXEH2NHBcUIBrQMMbOYovHTYcWEO1KOPjXDPiHHXmAA0QExOzABGjOtOh EdVsDFYcRRSavx4BQHHdGJQnZfH0BKLsFHKnFPHxBL shCSIhWIW9KAY8XZDtBOUjMS7GKnCkFCRdApndTsPpXFDhHDZpik0ZCWEuGAKxBLSoEfZeLOHgREXrOT skCYJdCHP9BCz6RWQxSVPhZP3YQtFhIJypDYSNXhj6KHdcW0m2DFTmKF3QP8Agl8YcZpqvOEFTIAmhBG 9aquVrEPAqUm7NG6yPUls8HGI3YEI6HdO4Y7JuOjA9 Njm6XBUeRTH4BWNrZFkrRZ1sUXA5OhpaPkuiRtMpGmUnDhGpQGxuLAM9PlBkDLY9NQR6NhApCA5BLn1P HyQ4JBF7mYVeLl4GSyk9SibBPaJlWW2VCRq= ID Date Data Source [id number] 10/02/2019 09:15:00 [place] [address] PHONE: [phone] FAX: [phone] Name .................. : CRISTOBAL Torres [facility] Number.................. : [id number] ROOM. ................. : MR Number ................... : [id number] Stay type ............. : O/P Discharge Date......... ... : 10/01/19 Admit Date .... ..... : 10/01/19 Admit Phys .................... : IDRIS [place] Date of ....... : 1985 Family Phys ................... : [employer] Phone .................. : [phone] Age ................................ : 34 Film# .................. .:[id number] Sex ................................. : F Unsigned transcriptions are preliminary reports and do not represent a medical or legal document CT CTA NECK [facility] [address] COMPLETE:10/01/19 10:18 [facility] [place] [id number] [place]REASON FOR EXAM: ASSESS VESSEL ABNORMALITY CTA [...] Date: Copy for: IDRIS HUBER Copy for: [address] [place] [address] REC Page 1 of 1 Name Value Range Interpretation Code Description Data Chikis rce(s) Supporting Document(s) ID Date Data Source [id number] 10/02/2019 09:15:00 AM EDT [facility] [address] [place] [address] PHONE: [phone] FAX: [phone] Name .................. : CRISTOBAL Torres Acct Number.................. : [id number] ROOM. ................. : MR Number ................... : [id number] Stay type ............. : O/P Discharge Date......... ... : 10/01/19 Admit Date .... ..... : 10/01/19 Admit Phys .................... : IDRIS CARPIO Date of ....... : 1985 Family Phys ................... : HUGH Phone .................. : [phone] Age ................................ : 34 Film# .................. .:[id number] Sex ................................. : F Unsigned transcriptions are preliminary reports and do not represent a medical or legal document [place] [address] COMPLETE:10/01/19 10:18 [facility] [id number] (REASON FOR EXAM: ASSESS VESSEL ABNORMALITY CTA [...] Date: 10/01/19 19:49, Dictation Date: Copy for: IDRIS CECILE Copy for: [address] [place] [address] Page 1 of 1 Name Value Range Interpretation Code Description Data Chikis rce(s) Supporting Document(s) ID Date Data Source [id number] 09/25/2019 02:05:34 PM EDT [facility] Name Value Range Interpretation Code Description Data Chikis rce(s) Supporting Document(s) Progress Note [facility] KTMLDk7ySjQSVzIt98/OIMkxMRFdx8JwGRhaKDa9NNanBAYuM2UrUCX9xL1dBFW9JZsCWmAnLqDjOcIe lbm [file] AgICAgICAgICAgICAgICAgICAgICAgICAgICAgICAgICAgICAgICAgICANCiAgICAgICAgICAgICAgIC AgICAgICAgICAgICAgICAgICAgICAgICAgICAgICAg ICAgICAgICAgICAgICAgICAgICAgICAgICAgICAgICAgICAgICAgICAgICAgICAgICAgICANCiAgICAg ICAgICAgICAgICAgICAgICAgICAgICAgICAgICAgICAgICAgICAgICAgICAgICAgICAgICAgICAgICAg ICAgICAgICAgICAgICAgICAgICAgICAgICAgICAgIC AgICANCiAgICAgICAgICAgICAgICAgICAgICAgICAgICAgICAgICAgICAgICAgICAgICAgICAgICAgIC AgICAgICAgICAgICAgICAgICAgICAgICAgICAgICAgICAgICAgICAgICAgICANCiAgICAgICAgICAgIC AgICAgICAgICAgICAgICAgICAgICAgICAgICAgICAg ICAgICAgICAgICAgICAgICAgICAgICAgICAgICAgICAgICAgICAgICAgICAgICAgICAgICAgICANCiAg ICAgICAgICAgICAgICAgICAgICAgICAgICAgICAgICAgICAgICAgICAgICAgICAgICAgICAgICAgICAg ICAgICAgICAgICAgICAgICAgICAgICAgICAgICAgIC AgICAgICANCiAgICAgICAgICAgICAgICAgICAgICAgICAgICAgICAgICAgICAgICAgICAgICAgICAgIC AgICAgICAgICAgICAgICAgICAgICAgICAgICAgICAgICAgICAgICAgICAgICAgICANCiAgICAgICAgIC AgICAgICAgICAgICAgICAgICAgICAgICAgICAgICAg ICAgICAgICAgICAgICAgICAgICAgICAgICAgICAgICAgICAgICAgICAgICAgICAgICAgICAgICAgICAN CiAgICAgICAgICAgICAgICAgICAgICAgICAgICAgICAgICAgICAgICAgICAgICAgICAgICAgICAgICAg ICAgICAgICAgICAgICAgICAgICAgICAgICAgICAgIC AgICAgICAgICANCiAgICAgICAgICAgICAgICAgICAgICAgICAgICAgICAgICAgICAgICAgICAgICAgIC AgICAgICAgICAgICAgICAgICAgICAgICAgICAgICAgICAgICAgICAgICAgICAgICAgICANCjw/eHBhY2 vvwFQvlcI1F5ibWw4LDv7EXM5rf3UpSCAnEKggekWm EpdBZoAxYCYgRsrMSok2LBwuJA7MfPQhY0MuO0YgSTxdIZ5GJEFbCUTpsZAbOTIhYRCcCpB1XSNbGGfv SZ3RpZLlPUhsKXHaGWIkXqOeVLByADRfXJIvIH1PIUDsJ904efKrOf3YPr6FFhEhYL9yji0YUnQjQHCe BbbVPgg3UMomLP8KwGEfbOIeUcBcVWGBFhJjF2ovi3 RxFzbrMONSGUaxYB4Qm2RmvBVcOZv+Zm0LAH4au6BrZJgbRtYkSJ9lwj0NINxTEpLuC0LtcLabDGXuq6 lrSVCaPJ2dyVQyTOQ8YK9rU4rdLBuhQMJYBYeiAH8sYSEWERVozJY0EzV1AsGpFjOzRHK2AmGrFZ2eCO nuCF7GOJX5NEncBQGqJZPuE0jPXhEcFNMpJNPivOrq CZ3YPwXiS2BbjsQwvEMjPeRrGHHGBu4+FWvvbhTpMnuPYaR0TBSkk2IdCAv2AG8HONNsFMbvTF4IZONj nK5pFPvgUK7OYtFwXJDqFOKUGjUtX52cjKBjCYf6P2QdWnCsNSPjAqzeTBYiYCpcZyWjHLByAdIjJBkx ID4+ID4+YYxeDD4FUPxzcqPcUBPuZm2ODXGaMZBmNH 4iKXPdSGDdI2L0qIpdJMJLKsAuM7ksamjgAT6jYTMoA824xXqmjrLqWCS6OHMsZw1TQTKxOWS5HJRyfS JnYbPqXUFXIEhaLQ1QbICzVDY0hS7pZRkxZBZhYGUlC0uMSvNosKwcIE62tCxmnuKvwUMoGZf+Pg0KZW 3ut3ZjBWz1thKuNHfzUGL3GBvaRYEqVPEqWSHbPXQ8 TZC1QJPRGqLhASUpGPKlQWhgSERfUPRhti8OZOUnDSDaEQHyYrOaZQLsOPTsBLqrLOGyYUH1XZBjQJVj WLPwKJ9YUdLgHSIzCZXlJLlhENIsYNDvsx7CGQElLEBkQEpjJLClTYTxRDDsUTmqGZTpJZM8FKX1FPRa ZXWqEF1HVfKvWYNtKNIyEcefLPNwCURsvz2WIBLtJB VzQaQ5ZBBvCLQcTWOvUAptHTEkGDA7UCF0ZGAiZVHgZY5VOwJbTBJgGRafXCNnTYXbDIZtnd2RQGQnTC UvUBCsCLVyYUAbUTTeJOmlGORgNFA5ELy2PHPgJZWxLE1SSoIiZHKvZCzpVFGkXVOaOGPsve9MHCEkGI OdCNH2PRFyWEPlDKDfQKrfLPYqUBBhHFGaKWKbIFUc TG5LUgPgJRLbWEP1NdZbOCBzNMXnso1NMMHdMXStLrW3UOTkDSLiINSbATmxNDUdQZIlHLRjTMPeNRKx ND3ODfFiYKFhVnT0LCDdSLHgCDTpfa2DQPFySHVeBwx1OCSvOGPrRXJtUYocDJQoITAsVLt6WNNzVDXk XC3OVuVfIQZnNsB7FsdvVOTqCYKago3FMAJvCWBgFT ItWiMvFWIwBFKiSJjsLGPaIIM3GlD3OZBlMVBmWR6SDcSgRGVpZoU3JuXaJZDiFTVssk8ALXGdGRGpJr O2DyAhEUJeJYDtUWlhIBUgPQX8WuEyAUQtOGSfTI3IIiUzXBMsQpTbFTOlOJGnHTVtot5FrTMbfIcvbr 3OZFeNGq5YiWolGQE6MAwyNb8ypEIiFBMjSPKEXd6M ajNaLGAvWQVWHQjjQKYkDPx7JiY3DIz5HepnDBWeLTa3B9J2LyDkEkMqU2OrKEymAdL3MYNdXyirRgO2 VRI3FFRuKxKeVMywRfPhK0OcLHDrM6Z+NQ7bOQq+Zx5Ce3PosbR9ptYpHRphRkGxXU0TJULBW7CCFw== ID Date Data Source [id number] 09/18/2019 02:19:46 PM EDT [facility] XR SPINE CERV 2-3 VIEWS [id number] RESUL TInterpreted by:Purvi Suárez MDHISTORY: Evaluate fusionCOMPARISON: [...] rce(s) Supporting Document(s) ID Date Data Source [id number] 09/08/2019 06:57:11 AM EDT [facility] Name Value Range Interpretation Code Description Data Chikis rce(s) Supporting Document(s) Discharge Summary [facility] UIBTMx2xAnNMAwUd68/XQAaaHKYaq6ObZMlzMYa7FNldOQMbJ9TdXXQ7wG4uHAF6MJuHDwPxSkKoQgC5 lbm [file] poQGhtXWIFAg8A ID Date Data Source [id number] 09/03/2019 03:34:00 PM EDT [facility] ([facility]) Name Value Range Interpretation Code Description Data Chikis rce(s) Supporting Document(s) C reactive protein [Mass/volume] in Serum or Plasma by High sensitivity method 0.44 mg/L 1.00-3.00 Below low normal [facility] ([facility]) <content>CDC/S HS-CRP CUT-OFF: RELATIVE RISK:</content>
<content><1.0 mg/L Low</content>
<content>1.0 - 3.0 mg/L Average</edin nt>
<content>>3.0 mg/L High</content>
<content>Optimally, the average of HS-CRP results repeated</content>
<content>two weeks apart should be used for risk assessment.</content>
<content></content> Nuclear Ab [Titer] in Serum by Immunofluorescence Laboratory test res ult [facility] ([facility]) <content>Negative <1:80</content>
<content>Borderline 1:80</content>
<content>Positive >1:80</content>
<content></content> ID Date Data Source [id number] 09/03/2019 03:34:00 PM EDT [facility] ([facility]) Name Value Range Interpretation Code Description Data Chikis rce(s) Supporting Document(s) Antithrombin Activity 125 % 75-135 [facility] ( [facility]) Direct Xa inhibitor anticoagulants such as rivaroxaban, apixaban and edoxaban will lead to spuriously elevated antithrombin activity levels possibly masking a deficiency. Antithrombin Antigen 110 % 72-124 [facility] ([facility]) This test was developed and its performa nce characteristics determined by [facility]. It has not been cleared or approved by the Food and Drug Administration. ID Date Data Source [id number] 09/03/2019 03:34:00 PM EDT [facility] ([facility]) Name Value Range Interpretation Code Description Data Chikis rce(s) Supporting Document(s) Protein S, Free 134 % 57-157 [facility] ([facility]) This test was developed and its performa nce characteristics determined by [facility]. It has not been cleared or approved by the Food and Drug Administration. Protein S, Total 87 % 60-150 [facility] ([facility]) This test was developed and its performa nce characteristics determined by [facility]. It has not been cleared or approved by the Food and Drug Administration. Protein C Antigen 117 % 60-150 [facility] ([facility]) ID Date Data Source [id number] 09/03/2019 03:34:00 PM EDT [facility] ([facility]) Name Value Range Interpretation Code Description Data Chikis rce(s) Supporting Document(s) Factor V Leiden Laboratory test result [facility] ([facility]) Result: Negative (no mutation found) Factor [...] the workup for venous thrombosis include the [id number] mutation in the factor II (prothrombin) gene, protein S and C deficiency, and antithrombin deficiencies. Anticardiolipin antibody and lupus anticoagulant analysis may be appropriate for certain patients, as well as homocysteine levels. Contact your local [facility] for information on how to order additional testing if desired. Genetic counselors are available for health care providers to discuss results at [phone] Methodology: DNA analysis of the Factor V gene was performed by allele-specific PCR. The diagnostic sensitivity and specificity is >99% for both. Molecular-based testing is highly accurate, but as in any laboratory test, diagnostic errors may occur. All test results must be combined with clinical information for the most accurate interpretation. This test was developed and its performance characteristics determined by [facility]. It has not been cleared or approved by the Food and Drug Administration. References: Paulo Burks (1995). Clin Lab Med 16:169-186. Mik Espinoza, PhD, [facility] Danielle Rao, PhD, [facility] Yue Obregon M.S., PhD, FAC Ade Marrero, PhD, [facility] Patricia Julian, PhD, [facility] Waldemar Raphael PhD, [facility] ID Date Data Source [id number] 09/03/2019 03:34:00 PM EDT [facility] ([facility]) Name Value Range Interpretation Code Description Data Chikis rce(s) Supporting Document(s) Anticardiolipin Ab,IgG,Qn Laboratory test result 0-14 [facility] ([facility]) <content>Negative: <15</con tent>
<content>Indeterminate: 15 - 20</content>
<content>Low-Med Positive: >20 - 80</content>
<content>High Positive: >80</content>
<content></content> Anticardiolipin Ab,IgM,Qn 11 MPLU/mL 0-12 [facility] ([facility]) <content>Negative: <13</con tent>
<content>Indeterminate: 13 - 20</content>
<content>Low-Med Positive: >20 - 80</content>
<content>High Positive: >80</content>
<content></content> ID Date Data Source [id number] 09/03/2019 03:34:00 PM EDT [facility] ([facility]) Name Value Range Interpretation Code Description Data Chikis rce(s) Supporting Document(s) Dilute ProthrombinTime(dPT) 42.1 sec 0.0-55.0 [facility] ([facility]) dPT Confirm Ratio 0.99 Ratio 0.00-1.40 [facility] ([facility]) Thrombin Time 20.2 sec 0.0-23.0 [facility] ([facility]) Lupus ReflexInterpretation Laboratory test result [facility] ([facility]) No lupus anticoagulant was detected. dRVVT 36.8 sec 0.0-47.0 [facility] ([facility]) PTT-LA 30.0 sec 0.0-51.9 [facility] ([facility]) ID Date Data Source [id number] 09/03/2019 03:34:00 PM EDT [facility] ([facility]) Name Value Range Interpretation Code Description Data Chikis rce(s) Supporting Document(s) Sed Rate 7 mm/hr 0-20 [facility] ([facility]) Sed Rate Reenter 7 [facility] ([facility]) ID Date Data Source [id number] 09/03/2019 03:34:00 PM EDT [facility] ([facility]) Name Value Range Interpretation Code Description Data Chikis rce(s) Supporting Document(s) Rheumatoid factor [Units/volume] in Serum or Plasma Laboratory t est result 0-14 [facility] ([facility]) ID Date Data Source [id number] 09/10/2019 10:09:00 PM EDT [facility] Value Range Interpretation Code Description Data Chikis rce(s) Supporting Document(s) Nuclear Ab [Titer] in Serum by Immunofluorescence Negative [facility] Negative <1:80 Borderline 1:80 Positive >1:80 ID Date Data Source [id number] 09/10/2019 10:09:00 PM EDT [facility] Value Range Interpretation Code Description Data Chikis rce(s) Supporting Document(s) F5 gene mutations found [Identifier] in Blood or Tissue by Molecular genetics method Nominal COMMENT [facility] Result: Negative (no mutation [...] in the workup for venous thrombosis include [id number] mutation in the factor II (prothrombin) gene,protein S and C deficiency, and antithrombin deficiencies.Anticardiolipin antibody and lupus anticoagulant analysismay be appropriate for certain patients, as well ashomocysteine levels.Contact your local [facility] for information on how to orderadditional testing if desired.Genetic counselors are available for health care providers to discuss results at [phone]).Methodology:DNA analysis of the Factor V gene was performed by allele-specificPCR. The diagnostic sensitivity and specificity is >99% for both.Molecular-based testing is highly accurate, but as in any laboratorytest, diagnostic errors may occur. All test results must be combinedwith clinical information for the most accurate interpretation.This test was developed and its performance characteristics determinedby [facility]. It has not been cleared or approved by the Food and DrugAdministration.References:Paulo Burks (1995). Clin Lab Med 16:169- 186.Mik Espinoza, PhD, Matilde Rao, PhD, Hema Obregon M.S., PhD, Gogo Marrero, PhD, Sheila Julian, PhD, Milan Raphael PhD, [facility] ID Date Data Source [id number] 09/06/2019 06:09:00 AM EDT [facility] Name Value Range Interpretation Code Description Data Chikis rce(s) Supporting Document(s) aPTT.lupus sensitive W excess phospholip id actual/Normal (normalized LA confirm) 42.1 sec 0.0-55.0 [facility] aPTT.lupus sensitive/aPTT.lupus sensitiv e W excess phospholipid (screen to confirm ratio) 0.99 Ratio 0.00-1.40 [facility] Thrombin time 20.2 sec 0.0-23.0 [facility] aPTT.lupus sensitive (LA screen) 30.0 sec 0.0-51.9 [facility] dRVVT (LA screen) 36.8 sec 0.0-47.0 [facility] Lupus anticoagulant two screening tests W Reflex [interpretation] C omment: [facility] No lupus anticoagulant was detected. ID Date Data Source [id number] 09/06/2019 06:08:00 AM EDT [facility] Name Value Range Interpretation Code Description Data Chikis rce(s) Supporting Document(s) Antithrombin actual/normal in Platelet poor plasma by Chromo genic method 125 % 75-135 [facility] Direct Xa inhibitor anticoagulants such as rivaroxaban, apixaban andedoxaban will lead to spuriously elevated antithrombin activitylevels possibly masking a deficiency. Antithrombin Ag actual/normal in Platelet poor plasma by Immunologic method 110 % 72-124 [facility] This test was developed and its performa nce characteristicsdetermined by [facility]. It has not been cleared or approvedby the Food and Drug Administration. ID Date Data Source [id number] 09/06/2019 06:08:00 AM EDT [facility] Name Value Range Interpretation Code Description Data Chikis rce(s) Supporting Document(s) Protein C Ag actual/normal in Platelet poor plasma by Immuno logic method 117 % 60-150 [facility] Protein S Ag actual/normal in Platelet poor plasma by Immuno logic method 87 % 60-150 [facility] This test was developed and its performa nce characteristicsdetermined by [facility]. It has not been cleared or approvedby the Food and Drug Administration. Protein S Free Ag actual/normal in Platelet poor plasm a by Immunologic method 134 % 57-157 [facility] This test was developed and its performa nce characteristicsdetermined by [facility]. It has not been cleared or approvedby the Food and Drug Administration. ID Date Data Source [id number] 09/05/2019 04:43:00 PM EDT [facility] Name Value Range Interpretation Code Description Data Chikis rce(s) Supporting Document(s) Cardiolipin IgG Ab [Units/volume] in Serum by Immunoassay <9 GPL U/mL 0-14 [facility] Negative: <15 Indeterminate: 15 - 20 Low-Med Positive: >20 - 80 High Positive: >80 Cardiolipin IgM Ab [Units/volume] in Serum by Immunoassay 11 MPL U/mL 0-12 [facility] Negative: <13 Indeterminate: 13 - 20 Low-Med Positive: >20 - 80 High Positive: >80 ID Date Data Source [id number] 09/03/2019 04:34:00 PM EDT [facility] Name Value Range Interpretation Code Description Data Chikis rce(s) Supporting Document(s) C reactive protein [Mass/volume] in Serum or Plasma by High sensitivity method 0.44 MG/L 1.00 - 3.00 L [facility] CDC/S HS-CRP CUT-OFF: RELATIVE RISK: <1.0 mg/L Low 1.0 - 3.0 mg/L Average >3.0 mg/L High Optimally, the average of HS-CRP results repeated two weeks apart should be used for risk assessment. ID Date Data Source [id number] 09/03/2019 04:34:00 PM EDT [facility] Name Value Range Interpretation Code Description Data Chikis rce(s) Supporting Document(s) RA QUANT <10 IU/mL 0 - 14 [facility] ID Date Data Source [id number] 09/03/2019 04:28:00 PM EDT [facility] Name Value Range Interpretation Code Description Data Chikis rce(s) Supporting Document(s) Erythrocyte sedimentation rate by Westergren method 7 mm/hr 0 - 20 [facility] SED RATE REENTER 7 [facility] ID Date Data Source [id number] 08/29/2019 11:54:09 AM EDT [facility] CT HEAD WITHOUT CONTRAST [id number] RESU LTInterpreted by:Christa Salmon, DOINDICATION: post-alteplase, 24 [...] Date Data Source [id number] 08/29/2019 04:53:20 AM [facility] Name Value Range Interpretation Code Description Data [facility] rce(s) Supporting Document(s) Leukocytes [#/volume] in Blood by Automated count 6.4 10*3/uL 4-10 [facility] Erythrocytes [#/volume] in Blood by Automated count 4.07 10*6/uL 4.1- 5.3 L [facility] Hemoglobin [Mass/volume] in Blood 12.4 g/dL 11.5-15.5 [facility] Hematocrit [Volume Fraction] of Blood by Automated count 35.9 % 3 6-45 L [facility] Erythrocyte mean corpuscular volume [Entitic volume] by Auto mated count 88.3 fL 80-96 [facility] Erythrocyte mean corpuscular hemoglobin [Entitic mass] by Automated count 30.5 pg 27-33 [facility] Erythrocyte mean corpuscular hemoglobin concentration [Mass/volume] by Automated count 34.5 g/dL 32.0-36.0 [facility] distribution width [Ratio] by Automated count 13.2 % 11.5-14.5 [facility] Platelets [#/volume] in Blood by Automated count 165 10*3/uL 150-400 [facility] Differential cell count method - Blood [facility] Neutrophils/100 leukocytes in Blood by Automated count 89 % [facility] Lymphocytes/100 leukocytes in Blood by Automated count 9 % [facility] Monocytes/100 leukocytes in Blood by Automated count 2 % [facility] Eosinophils/100 leukocytes in Blood by Automated count 0 % [facility] Basophils/100 leukocytes in Blood by Automated count 0 % [facility] Neutrophils [#/volume] in Blood by Automated count 5.66 10*3/uL 1.8-7 .0 [facility] Lymphocytes [#/volume] in Blood by Automated count 0.58 10*3/uL 1.2-4 .0 L [facility] Monocytes [#/volume] in Blood by Automated count 0.14 10*3/uL 0-0.8 [facility] Eosinophils [#/volume] in Blood by Automated count 0.00 10*3/uL 0-0.5 [facility] Basophils [#/volume] in Blood by Automated count 0.01 10*3/uL 0-0.2 [facility] Nucleated erythrocytes/100 leukocytes [Ratio] in Blood by Automated count 0 /100{WBCs} 0-0 [facility] ID Date Data Source [id number] 08/29/2019 05:13:27 AM EDT [facility] Name Value Range Interpretation Code Description Data Chikis rce(s) Supporting Document(s) Bicarbonate [Moles/volume] in Serum 22 mmol/L 22-29 [facility] Chloride [Moles/volume] in Serum or Plasma 104 mmol/L 98-107 [facility] Creatinine [Mass/volume] in Serum or Plasma 0.78 mg/dL 0.50-0.90 [facility] Glucose [Mass/volume] in Serum or Plasma 143 mg/dL 70-140 H [facility] Potassium [Moles/volume] in Serum or Plasma 4.5 mmol/L 3.4-5.1 [facility] Sodium [Moles/volume] in Serum or Plasma 136 mmol/L 136-145 [facility] Urea nitrogen [Mass/volume] in Serum or Plasma 8 mg/dL 6-20 [facility] Anion gap 3 in Serum or Plasma 11 mmol/L 8-15 [facility] Osmolality of Serum or Plasma by calculation 284 mosm/kg 275-300 [facility] Creatinine/Urea nitrogen [Mass Ratio] in Serum or Plasma 11 [facility] Calcium [Mass/volume] in Serum or Plasma 9.2 mg/dL 8.6-10.0 [facility] Glomerular filtration rate/1.73 sq M pre dicted among non-blacks [Volume Rate/Area] in Serum or Plasma by Creatinine-based formula (MDRD) >6 0 [facility] Glomerular filtration rate/1.73 sq M pre dicted among blacks [Volume Rate/Area] in Serum or Plasma by Creatinine-based formula (MDRD) >60 [facility] ID Date Data Source [id number] 08/28/2019 09:31:28 PM T [facility] Name Value Range Interpretation Code Description Data Chikis rce(s) Supporting Document(s) Consultation [facility] UAUMLc8mYbUFDzVk52/OROecIYRhm3DnUNeuYHb1PSrkKZOiC2EgUIH6sR4hSDL2AIhHZrNjWbXlSxU2 lbm [file] L7UrSEFyYET+ZE7sVNc+Or7Ra2MelsJ8uaUqRLv7RMu6Kk8HDIVGQ8RDVy== ID Date Data Source [id number] 08/28/2019 09:30:40 AM T [facility] MR CERVICAL SPINE WITH AND WITHOUT CONTR AST [id number] RESULTInterpreted by:Tamika Welsh MDORDERING CLINICAL INFORMATION: 34-year-old [...] rce(s) Supporting Document(s) ID Date Data Source [id number] 08/28/2019 09:30:40 AM [facility] MR THORACIC SPINE WITH AND WITHOUT CONTR AST [id number] RESULTInterpreted by:Tamika Welsh MDORDERING CLINICAL INFORMATION: 34-year-old [...] rce(s) Supporting Document(s) ID Date Data Source [id number] 08/28/2019 09:00:22 AM [facility] MR BRAIN WITHOUT CONTRAST [id number] RES ULTInterpreted by:Tamika Welsh MDCLINICAL INDICATION: 34-year-old [...] Name Value Range Interpretation Code Description Data [facility] rce(s) Supporting Document(s) ID Date Data Source [id number] 08/28/2019 04:05:49 AM [facility] Name Value Range Interpretation Code Description Data [facility] rce(s) Supporting Document(s) Leukocytes [#/volume] in Blood by Automated count 5.9 10*3/uL 4-10 [facility] Erythrocytes [#/volume] in Blood by Automated count 4.28 10*6/uL 4.1- 5.3 [facility] Hemoglobin [Mass/volume] in Blood 12.7 g/dL 11.5-15.5 [facility] Hematocrit [Volume Fraction] of Blood by Automated count 37.7 % 3 6-45 [facility] Erythrocyte mean corpuscular volume [Entitic volume] by Auto mated count 88.0 fL 80-96 [facility] Erythrocyte mean corpuscular hemoglobin [Entitic mass] by Automated count 29.7 pg 27-33 [facility] Erythrocyte mean corpuscular hemoglobin concentration [Mass/volume] by Automated count 33.8 g/dL 32.0-36.0 [facility] Erythrocyte distribution width [Ratio] by Automated count 13.7 % 11.5-14.5 [facility] Platelets [#/volume] in Blood by Automated count 144 10*3/uL 150-400 L [facility] Differential cell count method - Blood [facility] Neutrophils/100 leukocytes in Blood by Automated count 56 % [facility] Lymphocytes/100 leukocytes in Blood by Automated count 29 % [facility] Monocytes/100 leukocytes in Blood by Automated count 12 % [facility] Eosinophils/100 leukocytes in Blood by Automated count 2 % [facility] Basophils/100 leukocytes in Blood by Automated count 1 % [facility] Neutrophils [#/volume] in Blood by Automated count 3.35 10*3/uL 1.8-7 .0 [facility] Lymphocytes [#/volume] in Blood by Automated count 1.70 10*3/uL 1.2-4 .0 [facility] Monocytes [#/volume] in Blood by Automated count 0.73 10*3/uL 0-0.8 [facility] Eosinophils [#/volume] in Blood by Automated count 0.09 10*3/uL 0-0.5 [facility] Basophils [#/volume] in Blood by Automated count 0.05 10*3/uL 0-0.2 [facility] Nucleated erythrocytes/100 leukocytes [Ratio] in Blood by Automated count 0 /100{WBCs} 0-0 [facility] ID Date Data Source [id number] 08/28/2019 04:44:07 AM T [facility] Name Value Range Interpretation Code Description Data Chikis rce(s) Supporting Document(s) Bicarbonate [Moles/volume] in Serum 22 mmol/L 22-29 [facility] Chloride [Moles/volume] in Serum or Plasma 105 mmol/L 98-107 [facility] Creatinine [Mass/volume] in Serum or Plasma 0.80 mg/dL 0.50-0.90 [facility] Glucose [Mass/volume] in Serum or Plasma 87 mg/dL 70-140 [facility] Potassium [Moles/volume] in Serum or Plasma 4.1 mmol/L 3.4-5.1 [facility] Sodium [Moles/volume] in Serum or Plasma 138 mmol/L 136-145 [facility] Urea nitrogen [Mass/volume] in Serum or Plasma 6 mg/dL 6-20 [facility] Anion gap 3 in Serum or Plasma 11 mmol/L 8-15 [facility] Osmolality of Serum or Plasma by calculation 282 mosm/kg 275-300 [facility] Creatinine/Urea nitrogen [Mass Ratio] in Serum or Plasma 8 [facility] Calcium [Mass/volume] in Serum or Plasma 8.9 mg/dL 8.6-10.0 [facility] Glomerular filtration rate/1.73 sq M pre dicted among non-blacks [Volume Rate/Area] in Serum or Plasma by Creatinine-based formula (MDRD) >6 0 [facility] Glomerular filtration rate/1.73 sq M pre dicted among blacks [Volume Rate/Area] in Serum or Plasma by Creatinine-based formula (MDRD) >60 [facility] ID Date Data Source [id number] 08/28/2019 07:12:34 PM EDT [facility] Name Value Range Interpretation Code Description Data Chikis rce(s) Supporting Document(s) Choriogonadotropin.beta subunit [Moles/volume] in Serum or Plasma <5 [facility] ID Date Data Source [id number] 08/28/2019 04:26:05 AM EDT [facility] Value Range Interpretation Code Description Data Chikis rce(s) Supporting Document(s) Color of Urine [facility] Clarity of Urine [facility] Specific gravity of Urine by Refractometry automated 1.045 1.003 -1.030 H [facility] pH of Urine by Automated test strip 6.0 5.0-8.0 [facility] Protein [Mass/volume] in Urine by Automated test strip Neg [facility] Glucose [Mass/volume] in Urine by Automated test strip Neg [facility] Ketones [Mass/volume] in Urine by Automated test strip 20 mg/dL Neg [facility] Bilirubin.total [Presence] in Urine by Automated test strip Negative [facility] Hemoglobin [Presence] in Urine by Automated test strip Neg [facility] Leukocyte esterase [Presence] in Urine by Automated test strip Negative [facility] Nitrite [Presence] in Urine by Automated test strip Negati [facility] Leukocytes [#/area] in Urine sediment by Automated count 0 -5 [facility] Erythrocytes [#/area] in Urine sediment by Automated count 1 /HPF 0-3 [facility] Service comment [facility] ID Date Data Source [id number] 08/27/2019 11:46:24 PM EDT [facility] Name Value Range Interpretation Code Description Data Chikis rce(s) Supporting Document(s) Consultation [facility] XMFKYz2wXoHZJwUb17/WCAujDPMdf1EvZJgsLRu7QQjoPRRoE5DqOUB9nZ2cZYJ0EZiSTxPwJrWcDfMh lbm [file] [id number]/Insulation Technician++L5TKK3EUAp8MlED+touc0yu+yuAcDYgcDsXp7HnxHnvinGOatyWBDXes05 [file] M4LEDpIEZ7YoD5EBPwQDXkLDdtIptqHBHjNnClWF 2UYp9DIcB8AYV3vXOsAz0ARxG9ZxdYCkPiWB1WSAj= ID Date Data Source [id number] 08/27/2019 07:36:06 PM EDT [facility] Name Value Range Interpretation Code Description Data [facility] Supporting Document(s) History and Physical [facility] KKLOQw7zTjBIVyVs58/ATWvrTMBal1OkKBajKPw3YMlzWPQzY1ViZRW8fX6sUUI3KKwBMbWrYeFaCgJj lbm [file] 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 Xpert Xpress SARS-CoV-2 assay. This test is only for use under the Food and Drug Administration's Emergency Use Authorization. Additional information is available on the following FDA websites for health care providers and patients. https://www.fda.gov/media/377237/download , h ttps://www.fda.gov/media/607429/download(NOTE)Dr. Anderson requested rapid testing 08/27/2019 Name Value Range Interpretation Code Description Data Chikis rce(s) Supporting Document(s) ID Date Data Source [id number] 08/27/2019 02:16:00 PM [facility] Service Cmnt XXX-Imp : NoneMicroorganism XXX Cult : 2019 nCoV Real-Time RT-PCR: NOT DETECTEDTest performed using the [employer] Xpert Xpress SARS-CoV-2 assay. This test is only for use under the Food and Drug Administration's Emergency Use Authorization. Additional information is available on the following FDA websites for health care providers and patients. https://www.fda.gov/media/479330/download , h ttps://www.fda.gov/media/987576/download(NOTE)Dr. Anderson requested rapid testing 08/27/2019 Name Value Range Interpretation Code Description Data Chikis rce(s) Supporting Document(s) Microorganism identified in Unspecified specimen by [facility] This lab was ordered by [facility] and reported by [facility]. ID Date Data Source [id number] 08/27/2019 06:50:41 PM [facility] Service Cmnt XXX-Imp : NoneMicroorganism XXX Cult [...] rce(s) Supporting Document(s) ID Date Data Source [id number] 08/27/2019 02:29:31 PM [facility] Name Value Range Interpretation Code Description Data Chikis rce(s) Supporting Document(s) Leukocytes [#/volume] in Blood by Automated count 7.7 10*3/uL 4-10 [facility] Erythrocytes [#/volume] in Blood by Automated count 4.43 10*6/uL 4.1- 5.3 [facility] Hemoglobin [Mass/volume] in Blood 13.2 g/dL 11.5-15.5 [facility] Hematocrit [Volume Fraction] of Blood by Automated count 39.0 % 3 6-45 [facility] Erythrocyte mean corpuscular volume [Entitic volume] by Auto mated count 88.0 fL 80-96 [facility] Erythrocyte mean corpuscular hemoglobin [Entitic mass] by Automated count 29.8 pg 27-33 [facility] Erythrocyte mean corpuscular hemoglobin concentration [Mass/volume] by Automated count 33.9 g/dL 32.0-36.0 [facility] distribution width [Ratio] by Automated count 13.4 % 11.5-14.5 [facility] Platelets [#/volume] in Blood by Automated count 157 10*3/uL 150-400 [facility] Differential cell count method - Blood [facility] Neutrophils/100 leukocytes in Blood by Automated count 69 % [facility] Lymphocytes/100 leukocytes in Blood by Automated count 19 % [facility] Monocytes/100 leukocytes in Blood by Automated count 10 % [facility] Eosinophils/100 leukocytes in Blood by Automated count 1 % [facility] Basophils/100 leukocytes in Blood by Automated count 1 % [facility] Neutrophils [#/volume] in Blood by Automated count 5.38 10*3/uL 1.8-7 .0 [facility] Lymphocytes [#/volume] in Blood by Automated count 1.47 10*3/uL 1.2-4 .0 [facility] Monocytes [#/volume] in Blood by Automated count 0.79 10*3/uL 0-0.8 [facility] Eosinophils [#/volume] in Blood by Automated count 0.05 10*3/uL 0-0.5 [facility] Basophils [#/volume] in Blood by Automated count 0.04 10*3/uL 0-0.2 [facility] Nucleated erythrocytes/100 leukocytes [Ratio] in Blood by Automated count 0 /100{WBCs} 0-0 [facility] ID Date Data Source [id number] 08/27/2019 03:10:42 PM EDT [facility] Name Value Range Interpretation Code Description Data Chikis rce(s) Supporting Document(s) Cholesterol [Mass/volume] in Serum or Plasma 147 mg/dL <200 [facility] Triglyceride [Mass/volume] in Serum or Plasma 52 mg/dL <150 [facility] Cholesterol in HDL [Mass/volume] in Serum or Plasma 63 mg/dL >50 [facility] Cholesterol in LDL [Mass/volume] in Serum or Plasma by calcu lation 73 mg/dL <100 [facility] Cholesterol in VLDL [Mass/volume] in Serum or Plasma by calc ulation 10 mg/dl 16-42 L [facility] Cholesterol non HDL [Mass/volume] in Serum or Plasma 84 mg/dL <130 [facility] ID Date Data Source [id number] 08/27/2019 03:10:42 PM T [facility] Name Value Range Interpretation Code Description Data Chikis rce(s) Supporting Document(s) Bicarbonate [Moles/volume] in Serum 20 mmol/L 22-29 L [facility] Chloride [Moles/volume] in Serum or Plasma 106 mmol/L 98-107 [facility] Creatinine [Mass/volume] in Serum or Plasma 0.74 mg/dL 0.50-0.90 [facility] Glucose [Mass/volume] in Serum or Plasma 92 mg/dL 70-140 [facility] Potassium [Moles/volume] in Serum or Plasma 4.3 mmol/L 3.4-5.1 [facility] Sodium [Moles/volume] in Serum or Plasma 137 mmol/L 136-145 [facility] Urea nitrogen [Mass/volume] in Serum or Plasma 6 mg/dL 6-20 [facility] Anion gap 3 in Serum or Plasma 11 mmol/L 8-15 [facility] Osmolality of Serum or Plasma by calculation 281 mosm/kg 275-300 [facility] Creatinine/Urea nitrogen [Mass Ratio] in Serum or Plasma 8 [facility] Calcium [Mass/volume] in Serum or Plasma 9.2 mg/dL 8.6-10.0 [facility] Glomerular filtration rate/1.73 sq M pre dicted among non-blacks [Volume Rate/Area] in Serum or Plasma by Creatinine-based formula (MDRD) >6 0 [facility] Glomerular filtration rate/1.73 sq M pre dicted among blacks [Volume Rate/Area] in Serum or Plasma by Creatinine-based formula (MDRD) >60 [facility] ID Date Data Source [id number] 08/27/2019 03:10:42 PM EDT [facility] Name Value Range Interpretation Code Description Data Chikis rce(s) Supporting Document(s) Thyrotropin [Units/volume] in Serum or Plasma 1.300 u[IU]/mL 0.270-4. 200 [facility] ID Date Data Source [id number] 08/27/2019 02:51:59 PM EDT [facility] Name Value Range Interpretation Code Description Data Chikis rce(s) Supporting Document(s) Hemoglobin A1c/Hemoglobin.total in Blood by HPLC 5.2 % 4.0-6.0 [facility] (NOTE)<5.7% Average risk of diabetes (ADA)5.7-6.4% Increased risk of diabetes(ADA)>/= 6.5% Diagnostic for diabetes(ADA) Glucose mean value [Mass/volume] in Blood Estimated fr om glycated hemoglobin 101 mg/dL <126 [facility] ID Date Data Source [id number] 08/27/2019 02:20:18 PM EDT [facility] Name Value Range Interpretation Code Description Data Chikis rce(s) Supporting Document(s) Glucose [Mass/volume] in Capillary blood by Glucometer 81 mg/dL 70- 140 [facility] ID Date Data Source [id number] 08/27/2019 11:08:00 AM EDT [facility] ([facility]) Name Value Range Interpretation Code Description Data Chikis rce(s) Supporting Document(s) Laboratory test finding (navigational concept) Laboratory test r esult Normal (applies to non-numeric results) [facility] ([facility]) <content>QUANTITATIVE RESULT QU ALITATIVE INTERPRETATION</content>
<content> </content>
<content><5.0 IU/L NEGATIVE</content>
<content>5.0 - 25.0 IU/L INDETERMINATE</content>
<content>>25.0 IU/L POSITIVE</content>
<content></content> ID Date Data Source [id number] 08/27/2019 10:58:00 AM EDT [facility] ([facility]) Name Value Range Interpretation Code Description Data Chikis rce(s) Supporting Document(s) AB Screen (Indirect Jada)Vis Laboratory test result Normal (applies to non- numeric results) [facility] ([facility]) Blood Type Laboratory test result Normal (applies to non-n umeric results) [facility] ([facility]) ID Date Data Source [id number] 08/27/2019 10:58:00 AM EDT [facility] ([facility]) Name Value Range Interpretation Code Description Data Chikis rce(s) Supporting Document(s) CPK Creatine Phosphokinase 120 U/L 26-192 Lorna l (applies to non-numeric results) [facility] ([facility]) CK-MB Value Mass 1.5 ng/mL Normal (applies to non-numeric results) [facility] ([facility]) MB/CK Relative Index 1.25 Normal (applies to non-num мария results) [facility] ([facility]) <content>DIAGNOSIS CRITERIA</content>
<content>MMB ng/ml Relative Index (RI)</content>
<content>NON-AMI < or = 5 N/A</content>
<content>JJ ZONE > 5 < or = 4</content>
<content>AMI > 5 > 4</content>
<content></content> Troponin I Laboratory test result Normal (applies to non-n umeric results) [facility] ([facility]) <content>Troponin I Reference Interval f or Siemens [place] LOCI:</content>
<content></content>
<content>99th Percentile= 0.00-0.045 ng/ml</content>
<content></content>
<content>Risk Stratification:</content>
<content><= 0.10 ng/ml Decreased Risk for Adverse Clinical</content>
<content>Events.</content>
<content>0.10-1.50 ng/ml Increased Risk for Adverse Clinical</content>
<content>Events. Evaluation of additional</content>
<content>criterion and/or repeat testing in 2-6</content>
<content>hours is suggested to rule out myocardial</content>
<content>damage.</content>
<content>>= 1.50 ng/ml Indicative of Myocardial Injury.</content>
<content></content> ID Date Data Source [id number] 08/27/2019 10:58:00 AM EDT [facility] ([facility]) Name Value Range Interpretation Code Description Data Chikis rce(s) Supporting Document(s) aPTT in Platelet poor plasma by Coagulation assay 28.9 s 25.0-38.4 Normal (applies to non-numeric results) [facility] ([facility]) ID Date Data Source [id number] 08/27/2019 10:58:00 AM EDT [facility] ([facility]) Name Value Range Interpretation Code Description Data Chikis rce(s) Supporting Document(s) Prothrombin Time 13.3 s 11.8-14.0 Normal (applies to non-numeric results) [facility] ([facility]) Inr 1.04 Normal (applies to non-numeric resul ts) [facility] ([facility]) THERAPUTIC HUMAN INR VALUES INDICATIONS NORMAL RANGES PROPHYLAXIS/TREATMENT OF: VENOUS THROMBOSIS 2.0-3.0 PULMONARY EMBOLISM 2.0-3.0 PREVENTION OF SYSTEMIC EMBOLISM FROM: TISSUE HEART VALVES 2.0-3.0 ACUTE MYOCARDIAL INFARCTION 2.0-3.0 VALVULAR HEART DISEASE 2.0-3.0 ATRIAL FIBRILLATION 2.0-3.0 MECHANICAL VALVES(HIGH RISK) 2.5-3.5 RECURRENT MYOCARDIAL INFARCTION 2.5-3.5 ID Date Data Source [id number] 08/27/2019 10:58:00 AM EDT [facility] ([facility]) Name Value Range Interpretation Code Description Data Chikis rce(s) Supporting Document(s) White Blood Count 6.4 10 4.0-10.0 Normal (applies to non-numeri c results) [facility] ([facility]) Red Blood Count 4.58 10 4.00-5.40 Normal (applies to non-numeric results) [facility] ([facility]) Mean Corpuscular Volume 90.2 fl 80.0-96.0 Normal ( applies to non-numeric results) [facility] ([facility]) Hematocrit 41.3 % 36.0-47.0 Normal (applies to non-numeric resul ts) [facility] ([facility]) Hemoglobin 13.3 g/dL 12.0-15.5 Normal (applies to non-numeric resul ts) [facility] ([facility]) Mean Corpuscular HGB Conc 32.2 g/dL 32.0-36.5 Normal (applies to non-numeric results) [facility] ([facility]) Red Cell Distribution Width 12.7 % 11.5-14.5 Norm al (applies to non-numeric results) [facility] ([facility]) Mean Corpuscular Hemoglobin 29.0 pg 27.0-33.0 Norm al (applies to non-numeric results) [facility] ([facility]) Lymph % 23.3 % 24.0-44.0 Below low normal [facility] ( [facility]) Platelet Count, Automated 159 10 150-450 Normal (applies to non-numeric results) [facility] ([facility]) Neutrophils % 62.4 % 36.0-66.0 Normal (applies to non-numeric re sults) [facility] ([facility]) Eos % 1.3 % 0.0-3.0 Normal (applies to non-numeric resul ts) [facility] ([facility]) [place] % 12.1 % 0.0-5.0 Above high normal [facility] ([facility]) Baso % 0.6 % 0.0-1.0 Normal (applies to non-numeric resul ts) [facility] ([facility]) Nucleated Red Blood Cell % 0.0 % 0-0 Normal (applies to n on-numeric results) [facility] ([facility]) Neutrophils # 4.0 10 1.5-8.5 Normal (applies to non-numeric re sults) [facility] ([facility]) Immature Granulocyte % 0.3 % 0-3.0 Normal (applies to non-n umeric results) [facility] ([facility]) Baso # 0.0 10 0.0-0.2 Normal (applies to non-numeric resul ts) [facility] ([facility]) Lymph # 1.5 10 1.5-5.0 Normal (applies to non-numeric resul ts) [facility] ([facility]) [place] # 0.8 10 0.0-0.8 Normal (applies to non-numeric resul ts) [facility] ([facility]) Eos # 0.1 10 0.0-0.5 Normal (applies to non-numeric resul ts) [facility] ([facility]) ID Date Data Source [id number] 08/27/2019 10:57:00 AM EDT [facility] ([facility]) Name Value Range Interpretation Code Description Data Chikis rce(s) Supporting Document(s) Laboratory test finding (navigational concept) 40.0 % 3 8.0-51.0 Normal (applies to non-numeric results) [facility] ([facility]) Laboratory test finding (navigational concept) 140 meq/L 1 36-145 Normal (applies to non-numeric results) [facility] ([facility]) Laboratory test finding (navigational concept) 4.1 meq/L 3 .5-5.1 Normal (applies to non-numeric results) [facility] ([facility]) Laboratory test finding (navigational concept) 97 mg/dL 7 0-105 Normal (applies to non-numeric results) [facility] ([facility]) Laboratory test finding (navigational concept) 104 meq/L 9 8-109 Normal (applies to non-numeric results) [facility] ([facility]) Laboratory test finding (navigational concept) 24.0 MM/L 2 3.0-27.0 Normal (applies to non-numeric results) [facility] ([facility]) Laboratory test finding (navigational concept) 4.5 mg/dL 4 .5-5.3 Normal (applies to non-numeric results) [facility] ([facility]) Laboratory test finding (navigational concept) 0.8 mg/dL 0 .6-1.3 Normal (applies to non-numeric results) [facility] ([facility]) Laboratory test finding (navigational concept) 6 mg/dL 8-26 Below low normal [facility] ([facility]) ID Date Data Source [id number] 06/12/2019 12:05:03 PM EDT [facility] Name Value Range Interpretation Code Description Data Chikis rce(s) Supporting Document(s) Progress Note [facility] YMEUKy6wSeGGZkWu07/SJKfnGDUgh0RmZNvjYRl8YIikWWDxK7CcDMU0hU9yCOT0TZtOHiPvUaRyGfO9 lbm [file] 1ZyZl/fHWciiG1sj3Txv/sounding device operator+c6KDuOkYyHyHJBWgi9 [file] fKQSPStWIsltc0Ik0gt4xrgMHYD0FbR8j5iS1pX7HuomQvgtrICQSbe/Ouli6C6d9cdSdwEz+OeCx/cold food packer [file] X9EJIwUWFqV3C8TLZsBRa+VT9iUMo+Hl1Sj6KltmH1hiWwGGokPLN5PB1JQVQIZ8TRMk== ID Date Data Source [id number] 05/15/2019 12:23:12 PM [facility] Name Value Range Interpretation Code Description Data Chikis rce(s) Supporting Document(s) Progress Note [facility] TCQCZi2oElYVHfFq70/AIBucLKUlx1LiVYvqFEh5FNnrRBItX1FvZSO2uV1lWCG4YTrKWfDvChIxSdUx lbm [file] SUEDE CLEANER+Ux6WOABzJNm2V7P0RIOkUEo5F6DJP7JRTXYzTLoiGRooNLRiGTm1W6A6GHJmN2XVY9Opkjycez1+ RP2QY57BGLJkAZq8R1F5gAJmL6F9tHxUiXS4SR7HTI7HjId2fQLipK3+OQ5CO2IKGsCoDFm0N0V9oFVp J9E1gLoLgZA4UY6SRF3ZrAMxZPDlfbBnKs0hC2OZZO iKVvKYXLH2DH8YcYIuNO9WwJSER9PmfGRcJf5oPEgffSOhkR9nBk2kTHqrPA1HHnVUPPiHQIY3DL9VeG JvXO1VuSBWZ9BveJXoEj3jVKfzwKPrip0+GR9JABUlIh9BLs6+MObqlvKpAifNYoH2USHhb1LtEIj1PQ 4YSZ0izCzdHQP2Dq6HgUT3oADoC6sDVM1WrJDlP84z sUHdGRRaQg4KJsT2amYrwQ3XVX92cXZod8X3NWOhF5dyYDkug70tNDgxTYtKIU6lSYWCOUuxPRnsEAW6 CsLubojrVZDvSi7IHoRqLKv7aC1cwON3ORP9AjsvoIRqIGunCjGcUyYpXzD6pTazsdf6MQksAG2iBXoe czptZXRhLyc+TJpyNKAnALSlGmtZNOYupC5wcpB2pg SqUZxkeYLbRw4bp0r5BwdjEo0mNy7fXGt1ZdMlWlTsPXYwZe3rqR40VOnjbxWoWb8WHgRaOQM3M4MaEp pSREY+KBedQPogcLf5nZEnWWKvLu2CEIDtLPWgWPDjNVLeAVOhWODuGJLxMQCiCVRlUCMzLWVuROVoYW AgICAgICAgICAgICAgICAgICAgICAgICAgICAgICAg BMDaQZWjJEAtYMFfAPOtZOMaHOVkQDEsPJPqAZUlDN4UEMCmWRDoFZIxRBWkHGJpBABpBFCvKLTaMFWl ICAgICAgICAgICAgICAgICAgICAgICAgICAgICAgICAgICAgICAgICAgICAgICAgICAgICAgICAgICAg AEQzSSRcTMPbAITpZW3ZDSUmMCZePLSvKEPfCTUhIT AgICAgICAgICAgICAgICAgICAgICAgICAgICAgICAgICAgICAgICAgICAgICAgICAgICAgICAgICAgIC YbDUTkGLIiSBSfVHBxAJCsLLYpYXReSI3FPZVoEJLxKMPhUTKlXGDdOWDqIDGgNIHdOSGkSTYqAKCeBM AgICAgICAgICAgICAgICAgICAgICAgICAgICAgICAg KWVnKTTjRTOgNREzXLVuVMUoFEHgMHRgZAWiQDDlHIVfNL8WYUVrQIGeDUVbEWQaZCVcDBUbBWSnAOWi ICAgICAgICAgICAgICAgICAgICAgICAgICAgICAgICAgICAgICAgICAgICAgICAgICAgICAgICAgICAg IOJjHCXqGHYlRSPiNSLcXK3JFFPcMUTmHKEuKVIiUS AgICAgICAgICAgICAgICAgICAgICAgICAgICAgICAgICAgICAgICAgICAgICAgICAgICAgICAgICAgIC TuWZNwFUCsFJWoXGKhAWJhZNVqDUYqRRUdQR6ELQUrDLFyWOKiHTCjYOUwJVYkLJLgHQLwHBKlSKQuFF AgICAgICAgICAgICAgICAgICAgICAgICAgICAgICAg KEUjBVBoKQMtHUTeVIFzUXDqZADoUERmIYLvNNZsWVAkGDAnJL0PKWOjJZJhKGFvZIWoOWJuEMJrHBIr ICAgICAgICAgICAgICAgICAgICAgICAgICAgICAgICAgICAgICAgICAgICAgICAgICAgICAgICAgICAg RCFySWOyONOpMCTxNDZgXEAtZJ8ZSBIyQGSsDAFfSY AgICAgICAgICAgICAgICAgICAgICAgICAgICAgICAgICAgICAgICAgICAgICAgICAgICAgICAgICAgIC SiYKHmTUZaINSbLIVyYYDlRSAiKVVaODZxMQThFN7MKFYbQPNyVGHnDNCgULTgBOEdKERzOYNaZKIcTV AgICAgICAgICAgICAgICAgICAgICAgICAgICAgICAg QQNvCCLcTGYrNCEwOPHiFTClZMKlEHJdWJPbDVPhGHQfZOOaEZKwOQ0DWN96iLVpb2W5UAOjAW8xjep/ Ld4MAGrkawJdsMJpPX4WTuFfIV2shr0AHoXaXB3rnn4NMLpBMbQgX1S6uBYcUJFoFDMRMvOdQ95sSJlk Cm23ORqgRPFuEvOhAOt6Wz2BZlQnN9rfMIExNpD2AZ EcLvY3SPYyUjG5XDHwAqXkWItiGY2Sv3BlaIYpVGx+Ul6UXC3ku6ExUJbhDgIaJK9hyj0VHVsQDyWuB2 SbprQ3ZTY0WBSjKc8PNXIuYHIveUAuUkHdMWCJBnTuJ4EpnB42YCMPQr0+OTopvvTrDfjYGlO6IOOci2 DbCWx3QM2HPFLwDLe5xUMnJDJjC7Cia9RpVf97XZBo LtsbJ4qnDcBctZzeMaIKiFA6D5j4twcnZuGcNJVpWa6zKE5dZJGoDNIuQkT3RBCWST9LLMLmISCsjDWh MROeDUPRIZ9MQMacDWC3BKVtwkUsyAGrXAihCF6ZDJPjujXsEzZoMYIMZAf+Is1ZSF5iu3ZpFGwmQNXn LH0yjq1NSYdXJmMyC6G3aJPyW4W7KNgzIw9IKITwZY LwNwQmYKQIXYkhEQ7YMY7ibsL2HB4YyYWzZVSqKPSjzYCkKYy3B54ibDXuYAsaLT2WVKF+Ashley+Pg0KIC QvEHGsYNVmDlSiQEWGRmAjV6FfV9YCi6DdM2GqAJ17vJqdolYsCExuKP7MAK5hVOMvPFIGPF6OmDPfsZ 4ejhOdRgShROUUIfHtU97nfCAqLZJyRBY1CLFiRl4W DINqN6NtdnFsrOsnisQqXEMeXKOLUY6YDVmgufTuzQRarAwkKX05fSfuPT7NTy8UQqZnVW3sgw7MtDNp Ay8SXBWcQH9MLOFpYIHsFSMsXRS6PDEaRkHkTSexYXCxAQIbSDU2APDyLCYqTF3ZEuWiDZKlNxDfZBPc UQLyHVZwdu6VWMNyTHKwFlA5EUSbBTApDHJnRGztDE GzWSFdLXM8FCFbZDUuFH6LZrLyOVBxWJN6BBtyQLYjEXJcaz6FLEGfZIDdEWHvLdDuOQJnIOGeDZpfRX SzIUT1ZNykMJNaIPLgMQ9PNaPkGQCjQJJyYOYxPEOzQNLmmk4YIPQrIVAfMNpzDRPhQTRdGUAiMCdaBY TgVWS5RIE7JZWjIBFaJZ5BJcXcLCYdAKc5JRGkJGKc HAHsdj8MZZFbDTXsKTU0OnSrEMXjVWSpZFycJHMcCQObIel8YAKgOQFnEL2JHoSyEPFiWFCoHqFuDGFl AHNyjq0PKPGlAZDoBRFnCuBjDAExZRIgCVtmCWHuVRPoXcU2KWXtCIBwAU8KLgGpWHPpVfHbHPIqHIIa UROcoj7EIFHkLKUjIwS5ECYnRARcFSTjMPkmSVBcFT FlMBw8SZNrKOYkHJ9YFeVyQGZzToL5UdafSAUnRBGvip9PBVCpATPeMum8EETtPHAeBIXuWUkfRNPrGY Q5EFK3KSBuCQPsZX0NBgXxAEIzBvZnNXZmZUJsWFXrta1VOBFtVFHuSGF0DHZtJQZzEUEqLLrdSVIjEZ Q0KuJcZNRoEIErQU1DBsUqJQZrRsfuDiAkFTRxNDJu ne7OTUKaMACbVwHjVvCrBFRcCQYlCWndFCLrIJQ4Uvn8ICKmRJBoTZ6ZCvTvXVeeFEFGIpz4DLfuI1i9 VFNwHP6KD8Iux9YbWtxkELJTPMghKO0hjsFmMXYaJd4ST8lAJhpvTCX4ZBHiAPA1XnqwZEtrINMhDGVr VNA6LSC2ShzrAT4oXDZ6MdI4OHEaTQNeCCBoD4D2XZ V3RtH0PMaeVvM0W6E1WpCnNE5JPf8YHfQ3DKL7lADnRw2LBqp4NxQGPaZhBO2YQMj= ID Date Data Source [id number] 05/08/2019 07:32:38 AM EST [facility] Name Value Range Interpretation Code Description Data Chikis rce(s) Supporting Document(s) Discharge Summary [facility] FONEYf3qJoJXYqPy81/ZOVovXHDpe9FjOZbcSQu2GXslZNKzC3OfEJJ8iQ3qXTD4LWkJJiEzIuNqMtEj lbm [file] gx/0N4NpiTkKe+bgdnq56Kp4k28YoPTEpKWMIc+QJuymZzBywghxvZtl3UeuvYc1ExnqBTsJp/OM/+TRAINING ASSISTANT [file] AgICAgICAgICAgICAgICAgICAgICAgICAgICAgICAgICAgICAgICAgICAgICAgICAgICAgICAgICAgIC GfBKXnRBXrWHQkHVVaQEWrOV4TLRVoVWQqPDJfCYDbWXWnWPUjCBAkCFUaILKvYLRqDYYxCULuQRUtVM AgICAgICAgICAgICAgICAgICAgICAgICAgICAgICAg ZEAhABQlKKDeNOZeQZHgTTLaDPBhADGgUTJzKF5UBFOoRJPcEFXbNMBfGOHvFWYzPUOwEZHjGNBlMDRb ICAgICAgICAgICAgICAgICAgICAgICAgICAgICAgICAgICAgICAgICAgICAgICAgICAgICAgICAgICAg ZQWsPUOiNHEoVA3FFRKsWRHbQLOzWRLqERAvSZBrCG AgICAgICAgICAgICAgICAgICAgICAgICAgICAgICAgICAgICAgICAgICAgICAgICAgICAgICAgICAgIC CcQDJhNEOqDLDqCQSbMLVrJDFmFM0OPPZjWATeFYCpMYWsVGXsWSDqZOUyOVTcMQTuJIDiEBFaOUKmIL AgICAgICAgICAgICAgICAgICAgICAgICAgICAgICAg WNYeRUYyANLdCXJcRKXoCAPdRQKgGOBrSILjCOTjUO4MAQKjNIGwEYVlSZSkMSLmBOEmWUPgKJWyLCKy ICAgICAgICAgICAgICAgICAgICAgICAgICAgICAgICAgICAgICAgICAgICAgICAgICAgICAgICAgICAg CPUbTMBhYQZuXXFwVX7DYVJgBFBrBZUeMBGaKQOpUG AgICAgICAgICAgICAgICAgICAgICAgICAgICAgICAgICAgICAgICAgICAgICAgICAgICAgICAgICAgIC LjTDWjRWXnFSXvTTWhDWLmSXWtHYAaDD8TOYVeUCKjFVOaUCJvJBQwZUNeXBIiFHVlKHZcSKPvVNPlMF AgICAgICAgICAgICAgICAgICAgICAgICAgICAgICAg UFUrTPCeJLRtGCQxVWGwSUJbHFNzDCBiQAJlQJYuONGaOL0TIUOiSBCfZGTuOKKnAXIfEYWtYWBmUIKn ICAgICAgICAgICAgICAgICAgICAgICAgICAgICAgICAgICAgICAgICAgICAgICAgICAgICAgICAgICAg FJWrNLOhGHUqESOzROMlKR1PVCBgXMNeCSYrQULtYB AgICAgICAgICAgICAgICAgICAgICAgICAgICAgICAgICAgICAgICAgICAgICAgICAgICAgICAgICAgIC XmBXIdZNWqVBFtDQZqPDAxHAXnVBSmGHPtUH0EPK75mTJop5U3ETGtXN8aenw/Ej9PEGppmiUmnWQhNO 7IUqYzCX8afg6GVzExAG5kmt2UDNkQNtHyI2T6uXKk WIYhMXEQBfBdZ00dFAlpEx65DVqxUNHzSoVjYBh4Jc8KBpYlT6zpRPUnPbG5HNAlLtY9NOOrQnZ8WZYv KjDaELVxGWSkEE3TYAZuR881azLrGE3ZTr7AHyYsTX7ylt6LJtYbGOYpChxDDbc8BDeqIN4FkYDxxVAb CkLdUNFFHzKdA5gjv0KqXpdeWEHZYJczFP9Rk3HsfX AxDQo+Sf8SQA9du7YhKDxeJuZiLF6myh8TMOnHXeOfO7PdeBeqUPMwa9DqSKQvOJMEhK6pXXJ8JPX4CT KmmXhtdGIYTAOynEfzufmnBSOsXGPqTv1sEz8cXXWbOFIxEaB3JMNLYG9YZBEkMUHxlOJkJANcXNBUEV 5GNAscGBX3KOKubdUbuWQzJTrmKR6ACUBxsgElCtMr MCBSDQo+Xc2PYB2ef5DzVBplWPNzKE6fhz2CTZfXOvElD5E8aWYwM3H1JLbmTy0MLMHnSSUhQwEgFAHJ EPnrUA5AZP0glvG9KC2YlJGeIVUxPNFbhSArOUr0D46kiKLyTVqxJD4COII+Ashley+Oh9VUADsQHNySAWs HqYoNHAHXyRoM7WzS4ULv8NoO2EmPT31aLqyapYdJB msAO0CCR7kQKSlCRKCTD1QrFMnaS6xyrTqExMaMQCBCuSqJ45ioZTyRZEuDNJ5JDQpAu6JIZEwA9Lixz ZbfBlntrNiVAQaJIYRAF0WYLzomyFnlOFvgYoyLV60bWluBB0WFw1ATdWmBG0nho5XnYGfHw3CTNGeDP 4FHDKwQCYiCRTbTIW7HDXxIbBwHXitNCOxJRVkHAK7 VVKfBIGqXO5OFrSeXXTaWdUqOkojCGWyFUHhur8WTECvBBDzVfVjZdMkBJSgJCOfDTtdRNEwZROxBTT0 JTJvMPPaRC1WMyXpZZPpPLI6EpooDOYgLDVoew3CQNJvRADtOcSlEeKfTUYgEGGtKUsrWKWyTTD7EbOr PYMtGNUeOB3PLaMgPZSoWQY8AIjsXUHvWGKreh5BFC PeEAHyPPrcEuGtRTXuITHsGKxcVCNjEQJ0NDH6HXLbJBYcYE6ZIqAtYFRaPJD6SsWrJRJvDPMpws9SWZ SiQWTjNIgfNBCxZYKkUZAqVEhlNQOvWJTkCtl7ROMdVKQwJM1ACuYmZKWyRJK2RIOlAGYbJNRtme1CFM PwNPLnBlW0MQGvYODqSEZbXVmvTFOoTCZeECV9OQZd PSHzQF6EIdZtLZTmFXCpMJHfWMHvMYUeej2PPNWvMGFdXdYkIRVeZDZjFKGtNHjeQVJtRDP4OUw4OOQa XVNmIB9XIeXkWTTtVPL9SASpGQSdGBXxwi5SFHFyJNNxIVd4JJXdKTEzFARsYSqrXEVeZKU0AzYzLKAa DWDwCV3OSmHcSPRoQoG3CgTkWHPzIOTevz1THAZvNO BuZpt2UKPbAWPePNAmFSlaMBZuBNS0HWA5LHBqAYIuKB3ASqAcHMKzYsraLiNqAWTvAGIqrn1RRWAaZV VvZQDbEKArZSKcOTBdYMsmGWBhKIB7Kti1JBRqIWQyBN7AJsEyFQEaRlt4HrCxPVIiUPSaoh3AYBZhDT UyPxSuWUIzXHCuCLQcPOrpHKPoYNNkXxB1GNCcFHNh WX4LDeJbTCIsSrZ2AfRjXJTlWEVkgo1PORSjTGQuAQCfDBOkJGGoWSDrIMedYCAvSNT0HzE7OQIfKBDc AA1RFjGtEWVnLuF9PRWjARNaBTHtvd8WDZSxSDScNgV0DrTeYGRdTIEiVOsrFRMsYGC4HnY9HFNuQMQx KN3BDoKqXGYzBgUpSpsmJKYkRMZwcp7ChRCirPwnmg 5JTIfTMv7BpVpkMNB5MPwoDo4wxLHoLVWwIYYQEx9QumJdFJKmCJKZJXqjFDFgSKG1UcN1WYPqCok0Cn h3YAUpLaJ3XZC3RtnlAYY1GyccToR4SvW1JSG3YcZqGxsiKNG8HNDyAbq8BVPbHIG3BYAyIQR+IF0gDQ o+Bj3Ql1SwsrE9itWtDXjmLlSpPU6WRQYZI8NESw== ID Date Data Source [id number] 05/08/2019 07:32:28 AM EST [facility] Name Value Range Interpretation Code Description Data Chikis rce(s) Supporting Document(s) Operative Note [facility] BLSONe4fSzBXKpDb36/TLPqxSKFjj3NpSUgbBHr1DVlrBYFjF1KmLZT2vI5cZEV7JJuLMsQsRuUzVrLh lbm [file] YgXFB2IoqoOX0eQHQKPd3+OFaxzMCphSggOXRJLdY4FVN0EJgaTIMWTe0E ID Date Data Source [id number] 05/06/2019 05:05:48 AM [facility] Name Value Range Interpretation Code Description Data Chikis rce(s) Supporting Document(s) Leukocytes [#/volume] in Blood by Automated count 10.2 10*3/uL 4-10 H [facility] Erythrocytes [#/volume] in Blood by Automated count 3.38 10*6/uL 4.1- 5.3 L [facility] Hemoglobin [Mass/volume] in Blood 10.4 g/dL 11.5-15.5 L [facility] Hematocrit [Volume Fraction] of Blood by Automated count 30.5 % 3 6-45 L [facility] Erythrocyte mean corpuscular volume [Entitic volume] by Auto mated count 90.1 fL 80-96 [facility] Erythrocyte mean corpuscular hemoglobin [Entitic mass] by Automated count 30.8 pg 27-33 [facility] Erythrocyte mean corpuscular hemoglobin concentration [Mass/volume] by Automated count 34.2 g/dL 32.0-36.0 [facility] distribution width [Ratio] by Automated count 13.6 % 11.5-14.5 [facility] Platelets [#/volume] in Blood by Automated count 126 10*3/uL 150-400 L [facility] ID Date Data Source [id number] 05/06/2019 05:21:00 AM [facility] Name Value Range Interpretation Code Description Data Chikis rce(s) Supporting Document(s) Bicarbonate [Moles/volume] in Serum 21 mmol/L 22-29 L [facility] Chloride [Moles/volume] in Serum or Plasma 103 mmol/L 98-107 [facility] Creatinine [Mass/volume] in Serum or Plasma 0.75 mg/dL 0.50-0.90 [facility] Glucose [Mass/volume] in Serum or Plasma 107 mg/dL 70-140 [facility] Potassium [Moles/volume] in Serum or Plasma 3.7 mmol/L 3.4-5.1 [facility] Sodium [Moles/volume] in Serum or Plasma 132 mmol/L 136-145 L [facility] Urea nitrogen [Mass/volume] in Serum or Plasma 8 mg/dL 6-20 [facility] Anion gap 3 in Serum or Plasma 8 mmol/L 8-15 [facility] Osmolality of Serum or Plasma by calculation 273 mosm/kg 275-300 L [facility] Creatinine/Urea nitrogen [Mass Ratio] in Serum or Plasma 11 [facility] Calcium [Mass/volume] in Serum or Plasma 7.8 mg/dL 8.6-10.0 L [facility] Glomerular filtration rate/1.73 sq M pre dicted among non-blacks [Volume Rate/Area] in Serum or Plasma by Creatinine-based formula (MDRD) >6 0 [facility] Glomerular filtration rate/1.73 sq M pre dicted among blacks [Volume Rate/Area] in Serum or Plasma by Creatinine-based formula (MDRD) >60 [facility] ID Date Data Source [id number] 05/06/2019 05:21:00 AM [facility] Name Value Range Interpretation Code Description Data Chikis rce(s) Supporting Document(s) Magnesium [Mass/volume] in Serum or Plasma 1.8 mg/dL 1.6-2.6 [facility] ID Date Data Source [id number] 05/06/2019 05:21:00 AM [facility] Name Value Range Interpretation Code Description Data Chikis rce(s) Supporting Document(s) Phosphate [Mass/volume] in Serum or Plasma 3.3 mg/dL 2.5-4.5 [facility] ID Date Data Source [id number] 05/05/2019 05:45:04 PM [facility] XR CHEST FRONTAL ONLY [id number] RESULTI nterpreted by:Cristian Banuelos MDINDICATION: Pneumothorax evaluation.TECHNIQUE: XR CHEST FRONTAL ONLY [id number], 05/05/2019 4:13 PM, upright.COMPARISON: 01/31/2019.FINDINGS: A surgical [...] rce(s) Supporting Document(s) ID Date Data Source [id number] 05/05/2019 09:50:50 AM [facility] Name Value Range Interpretation Code Description Data Chikis rce(s) Supporting Document(s) History and Physical [facility] EHLGUm1oTfMSAsYv86/XJIdoTQZnz9LgNVafPPm6GIowWJSuV2PuBZU8hF2mRII5MKkFZrPpVdCrDeQa lbm [file] Rg0K ID Date Data Source [id number] 05/05/2019 10:01:17 AM [facility] Name Value Range Interpretation Code Description Data Chikis rce(s) Supporting Document(s) Choriogonadotropin.beta subunit free [Units/volume] in Serum or Plasm a <5 [facility] (NOTE)Levels between 5 and 25 [IU]/L may indicate earlypregnancy and should be repeated after 48 hours. ID Date Data Source [id number] 05/07/2019 05:18:00 PM [facility] Surgical Pathology ReportName: PARUL JAIN JMRN: [id number] Number: [id number] Date: 05/05/2019 00:00Received Date: [...] diagnosis is based on amicroscopic examination of sales representative canvas products sections of tissue.Gross DescriptionThe specimen is received [...] developed and their performance characteristics determined by [facility] Pathology department. They have not been cleared or approved by the USFood and Drug Administration. The FDA has determined that such clearanceor approval is not necessary. Name Value Range Interpretation Code Description Data Chikis rce(s) Supporting Document(s) ID Date Data Source [id number] 05/02/2019 06:38:32 PM [facility] Name Value Range Interpretation Code Description Data Chikis rce(s) Supporting Document(s) ABO and Rh group [Type] in Blood [facility] Blood group antibody screen [Presence] in Serum or Plasma [facility] Blood bank comment [facility] ID Date Data Source [id number] 05/02/2019 04:58:20 PM [facility] Name Value Range Interpretation Code Description Data Chikis rce(s) Supporting Document(s) Leukocytes [#/volume] in Blood by Automated count 5.7 10*3/uL 4-10 [facility] Erythrocytes [#/volume] in Blood by Automated count 4.39 10*6/uL 4.1- 5.3 [facility] Hemoglobin [Mass/volume] in Blood 13.0 g/dL 11.5-15.5 [facility] Hematocrit [Volume Fraction] of Blood by Automated count 38.9 % 3 6-45 [facility] Erythrocyte mean corpuscular volume [Entitic volume] by Auto mated count 88.8 fL 80-96 [facility] Erythrocyte mean corpuscular hemoglobin [Entitic mass] by Automated count 29.6 pg 27-33 [facility] Erythrocyte mean corpuscular hemoglobin concentration [Mass/volume] by Automated count 33.4 g/dL 32.0-36.0 [facility] E[facility]th[facility] distribution width [Ratio] by Automated count 13.7 % 11.5-14.5 [facility] Platelets [#/volume] in Blood by Automated count 149 10*3/uL 150-400 L [facility] ID Date Data Source [id number] 04/26/2019 12:51:21 PM [facility] Name Value Range Interpretation Code Description Data Chikis rce(s) Supporting Document(s) Progress Note [facility] IIWRCs1zJsVGXpSu43/FOAdtYSBro9XrWRcuPBl1NGrsIQCbX6XgAKC0bL7rQKY0MTjADlCwPoTtPiOn lbm [file] bfbyIwa6aYRf+yYoQGFykPyepe+CJ5x0PjoqF2+MANAGER CLIENT [file] ZJbKOu8NTlfCDAHdtT4YvEhSLuBREptR4tT6Fbrh8kbdu8zpn2eM0NT/J+5P/U+U/cold food packer/1/hy6ESsS6Tu [file] Et3eKEBWCz1+ZZswbVNnwJsaYUNJNbQ4GrwmUSoeNBSQMs3M ID Date Data Source [id number] 04/24/2019 11:43:54 AM EST [facility] Name Value Range Interpretation Code Description Data Chikis rce(s) Supporting Document(s) Progress Note [facility] DIJISr2vJlEJBdYg90/QODhnIADge2CkSFypGOn0VRanPUJdA6YjXJE0hB8eQDN9BQmGIlIoRgPdTKDm lbm [file] BkYTRhNmI+KP2zRDq+Fp3Ks3QhicC8rlMbZHloQWAsZQ2OJFHID2EVGy== ID Date Data Source [id number] 04/24/2019 11:40:27 AM EST [facility] Name Value Range Interpretation Code Description Data Chikis rce(s) Supporting Document(s) Progress Note [facility] DSSHXi8hJmJFMaDz43/EOAgoQNLnu7EiUAhmPIc3SIpzXHDhY2EtRHT0uK5hLSY6CAvQZhIjKhKcHRJc lbm [file] VVIDWxWpBGrbLJjqFBTCJt7K ID Date Data Source [id number] 04/17/2019 12:19:19 PM [facility] XR SPINE CERV 2-3 VIEWS [id number] RESUL TInterpreted by:Tejas Connell MDINDICATION: Assess hardware.TECHNIQUE: [...] rce(s) Supporting Document(s) ID Date Data Source [id number] 04/17/2019 11:11:51 AM EST [facility] Name Value Range Interpretation Code Description Data Chikis rce(s) Supporting Document(s) Progress Note [facility] FIQQCw1dZpLDUxVs46/SELmhJXNmf7MwBHmmHXw8ZOpzRDLzU3YeWYO3lL5qDKV2PUqFDpQgAcWqYJBt [facility] [file] ICAgICAgICAgICAgICAgICAgICAgICAgICAgICAgICAgICAgICAgICAgICAgICAgICAgICAgICAgICAg ICAgICAgICAgICAgICAgICANCiAgICAgICAgICAgICAgICAgICAgICAgICAgICAgICAgICAgICAgICAg ICAgICAgICAgICAgICAgICAgICAgICAgICAgICAgIC AgICAgICAgICAgICAgICAgICAgICAgICAgICANCiAgICAgICAgICAgICAgICAgICAgICAgICAgICAgIC AgICAgICAgICAgICAgICAgICAgICAgICAgICAgICAgICAgICAgICAgICAgICAgICAgICAgICAgICAgIC AgICAgICAgICANCiAgICAgICAgICAgICAgICAgICAg ICAgICAgICAgICAgICAgICAgICAgICAgICAgICAgICAgICAgICAgICAgICAgICAgICAgICAgICAgICAg ICAgICAgICAgICAgICAgICAgICANCiAgICAgICAgICAgICAgICAgICAgICAgICAgICAgICAgICAgICAg ICAgICAgICAgICAgICAgICAgICAgICAgICAgICAgIC AgICAgICAgICAgICAgICAgICAgICAgICAgICAgICANCiAgICAgICAgICAgICAgICAgICAgICAgICAgIC AgICAgICAgICAgICAgICAgICAgICAgICAgICAgICAgICAgICAgICAgICAgICAgICAgICAgICAgICAgIC AgICAgICAgICAgICANCiAgICAgICAgICAgICAgICAg ICAgICAgICAgICAgICAgICAgICAgICAgICAgICAgICAgICAgICAgICAgICAgICAgICAgICAgICAgICAg ICAgICAgICAgICAgICAgICAgICAgICANCiAgICAgICAgICAgICAgICAgICAgICAgICAgICAgICAgICAg ICAgICAgICAgICAgICAgICAgICAgICAgICAgICAgIC AgICAgICAgICAgICAgICAgICAgICAgICAgICAgICAgICANCiAgICAgICAgICAgICAgICAgICAgICAgIC AgICAgICAgICAgICAgICAgICAgICAgICAgICAgICAgICAgICAgICAgICAgICAgICAgICAgICAgICAgIC AgICAgICAgICAgICAgICANCiAgICAgICAgICAgICAg ICAgICAgICAgICAgICAgICAgICAgICAgICAgICAgICAgICAgICAgICAgICAgICAgICAgICAgICAgICAg ICAgICAgICAgICAgICAgICAgICAgICAgICANCjw/aMMvY2pffGOlzyP6X6ibLa9AHu2IIK1ie7KcCGZs VZplxzDgKfsAQiHfPGXhUvaAMqw6MTcsBB1MyGRoA3 QzH4GnLHhlNS4FOXRgRVAxuDMlXYQgCKIaSlK5SOCwBBquXU9UtHJdXOuhEOZiWCPoCqYgYEAbJOXtAF IeUJ2VAXWnK718aiJoSc2IIx2NHdZlJJ0gcw9OKoYxZAUjAepOMvn4IUfqQN5UeFFswJJtQnNsBIMFSg VlO1xwa8ReNfdfFAGGNHyfXN9Jg1ZcyKMoPQa+Pg0K DG6to5XnRFppZbNoSC7mqs0QBRaHMhUtN7GxeZuoJNVxj0zjUNEuZI2uhEZxUZL5GWI7b3BfPHkeB9S4 F3frNIOHJRO0WXPxEwKaIzRsEGIsXCodZTTCLNfIHnQpS9Gwg6TdWeT6ZOQaJzKrWOvtQEBnXmG0LJ23 mWgrEG5WLKXaVVAaPG82PHF4HZOqUu6TWs4LWqCoLB 9bov6JLbbfAUSyYudSFia1RLnoKR0LpAIzP6GjkPPgd6hZNvRaC8FAXHS2XZHiWh4OCHGsUgYiBHSdHB wcPX7cGVDmQOVJjPicvrE1OC1WFF8zwtJyHT9RZbIlOq5xSs0HUkClM4JtK7WrWKSbPLIXDBnmRI4EOH wfBV2iSG6Vv3VZnQXzjM6qmm9QUWNkJCNzVxaaic3M VisxW8M8iRkdLOWtJlMrVOUCPHedRT7FSMMrDEF6CFKgBPEvTIFLGzRrS15gJR8LK0Cme01gVpS9CCAx FgZkAKqhHL35hDsgowXffLEnmBypQL5THd6+DQplbmRvYmoNCnhyZWYNCjAgMjkNCjAwMDAwMDAwMDAg QhA4RgHfWf6STXKpTUOtXYJwHaTxCZQvVTQoFMxsSL UpHEX1SvY2DREkZTJcSC3UMePzFXQoOgT9SXEjHKBwIGJgjr4DBJPwFVToPZL8LcZgYVFkUPAzCObpPM DtDXH7WET3NTEtIXLsFD9DAjEdCPNbWNEgGGLzICQaVFPajc2YPHWbWIPsGgY9GWJaJIIlJEXuWAtqBA KcKRA3UWjsANUyFQJcKG7UIsMeMUAdZGshCuOuIDFo KGOszh7NWZIlRTEgRCH5XQGoKWQjAOTnSDacKOFwOOI7GwL4FDBcSINzHV6LWaFeAUVvPYg0RmWpLUYx DRDokp3FVKVdBAHsNZkoYYEkHIOgHTHqEXoaUZFwXCFfZne7JJCgAWUaQV3UBuAgWJTuYPU8AaDgVTHs DFVsae1LHCWxIOWhNPD3QICyVIWcHBTgTUuaTLMjZO WoIKs8LMVmFFGnPT0VKpMrPUXwOeU7XBzmEMTsNMNuum3JGXIcZAXsKdLsAHUeFRYmBHCxQEwwLRKcID YbDad5QXHeTMUdXS9FWmDoYZJdZoN9TqMnLQIlCXPkvz6UKUIsNLRhEZK5SVHvIZUyUGUlTBvwYXSaZB D6GMS0HTAaOXLiGV8WIlMqSVHnIeY0BmJkIDTdVSNb qd8ISUAaBBFeYUR3KSAqUBEmSGCyZRqsMCEaJYO8ByYdRUIuPKIdTR9DTkNfENNmEdE9NmSrDQPxFGAe jf4AGLPpRNYuRydhYIDsTTZoOJDlFCb4qrGzwBOjHDu2LV1FV9MpfnVdJodRIh0Mx521EOL2GLUxKh7V W8gvIv1qTIFbIYIGQg9TXUj6OfPlI8PnOZZwHQJtHq CaDUPvIrX8Vdx2FZExWYOoKQI+HTo6YPUoEjSmJsVfCzUlCpA5ZeJcNIF1WRFxSKEePFD2NT5hYLNLTh 4+RLtckTJhkOvaFXULRlO5MJW3JBkfNRPKTz9U ID Date Data Source [id number] 04/03/2019 10:20:00 [place] [address] PHONE: [phone] FAX: [phone] Name .................. : CRISTOBAL Torres Acct Number.................. : [id number] ROOM. ................. : TR-06 Number ................... : [id number] Stay type ............. : E/R Discharge Date......... ... : Admit Date ......... : 04/02/19 Admit Phys .................... : BLACK CHRI Date of ....... : 1985 Family Phys ................... : [employer] Phone .................. : [phone] Age ................................ : 34 Film# .................. .:[id number] Sex ................................. : F Unsigned transcriptions are preliminary reports and do not represent a medical or legal document MRI CERVICAL SPINE W/O CONTRA [id number] COMPLETE:04/02/19 12:15 [id number] Reason(s): Trauma/Injury MRI OF THE CERVICAL SPINE [...] neural foraminal narrowing. Page 1 of 2 [facility] [address] [place] [address] PHONE: [phone] FAX: [phone] Name .................. : CRISTOBAL Torres Acct Number.................. : [id number] ROOM. ................. : TR-06 MR Number ................... : [id number] Stay type ............. : E/R Discharge Date......... ... : Admit Date ......... : 04/02/19 Admit Phys .. .................. : BLACK CHRI Date of ....... : 1985 Family Phys ................... : [employer] Phone .................. : [phone] Age ................................ : 34 Film# .................. .:[id number] Sex ................................. : F Unsigned transcriptions are preliminary reports and do not represent a medical or legal document MRI CERVICAL SPINE W/O CONTRA [id number] COMPLETE:04/02/19 12:15 49598 Reason(s): Trauma/Injury Electronically Reviewed and Si gned By Carson Carmona M.D. , 04/03/19 10:20, [place] Transcribe Initials: GODFREY , Transcribe Date: 04/02/19 13:25, Dictation Date: Copy for: [facility] T[facility]NSEND via fax Copy for: EMERGENCY DEPT via modem Copy for: 710 MED REC DISCHARGED Page 2 of 2 Name Value Range Interpretation Code Description Data Chikis rce(s) Supporting Document(s) ID Date Data Source [id number] 04/03/2019 09:53:00 AM EST [facility] [address] [place] [address] PHONE: [phone] FAX: [phone] Name .................. : CRISTOBAL Torres Acct Number.................. : [id number] ROOM. ................. : TR-06 MR Number ................... : [id number] Stay type ............. : E/R Discharge Date......... ... : Admit Date ......... : 04/02/19 Admit Phys .................... : BLACK CHRI Date of ....... : 1985 Family Phys ................... : [facility] [employer] Phone .......... ........ : [phone] Age ................................ : 34 Film# .................. .:[id number] Sex ................................. : F Unsigned transcriptions are preliminary reports and do not represent a medical or legal document SPINE CERV COMP- 5 OR MORE VIE 75135 COMPLETE:04/02/19 11:58 20650 Reason(s): Neck Pain CERVICAL SPINE SERIES: INDICATION: [...] By JELANI PRICE MD , 04/03/19 09:53, [facility] Transcribe Initials: GODFREY , Transcribe Date: 04/02/19 12:36, Dictation Date: Copy for: ANGEL TOWNSEND via fax Copy for: EMERGENCY DEPT via [place] Copy for: 710 MED REC DISCHARGED Page 1 of 1 Name Value Range Interpretation Code Description Data Chikis rce(s) Supporting Document(s) ID Date Data Source [id number] 04/02/2019 11:37:00 AM EST [facility] 1 OrderSheet [facility] Emergency Department [address] [place] [address] Phone #: [phone] 04/02/2019 11:32 Patient: MARY JAIN Sex: F : 1985 Age: 34yWEIGHT:62.5 kg (S) HEIGHT:62 inches (S) BMI:25.2ALLERGIES: ProcardiaCHIEF COMPLAINT: numbnessDIAGNOSIS: Strain of neck muscle, TendinitisLAB ORDERSOrder Description Priority Entered Acknowledged InitialedDIAGNOSTIC STUDY ORDERSOrder Description Priority Entered Acknowledged InitialedSpine Cervical STAT 11:58 04/02/2019 11:59 LeannehamComplete [facility] [place] [facility](Oxygen?(No)) PA; Tech1 Reason for Study: Neck PainMRI Spine Cervical ST AT 12:15 04/02/2019 12:16 BurnhamW/O Cont Yoshi [facility] [place] [facility](Oxygen?(No)) (No) PA; Tech1 Reason for Study: Trauma/InjuryMEDICATION/IV/DRIP/FLUID ORDERSOrder Description Priority Entered Acknowledged InitialedpredniSONE PO 60 11:50 04/02/2019 11:59 Dejon Coker R.N.;Toradol IM 30 mg 11:50 04/02/2019 11:59 Lilliam Coekr R.N.;Valium PO 5 mg 11:50 04/02/2019 11:59 Lilliam Coker R.N. PA;GENERAL ORDERSOrder Description Priority Entered Acknowledged Initialed[Electronically signed by Lilliam Coker R.N. (14:37 0)][Electronically signed by Yoshi Pierce (20:38 04/02/2019)][Electronically locked by Lilliam Coker R.N. (14:37 04/02/2019)] Name Value Range Interpretation Code Description Data Chikis rce(s) Supporting Document(s) ID Date Data Source [id number] 04/02/2019 11:37:00 AM EST [facility] 1 Medication Reconciliation Report [facility] Emergency Department [address] [place] [address] Phone #: ext- [phone] 04/02/2019 11:32 Patient: [...] days -- Dispense 1 pack.Refills: 0. Substitution permitted.Pharmacy [facility] [address] [place] [address]. .ondansetron 8 mg disintegrating tablet Take 1 tablet three times a day for 5 days -- Dispense 15 tablet.Refills: 0. Substitution permitted.[facility] [address] [place] [address] [phone]. . -- VENU Liang Name Value Range Interpretation Code Description Data Chikis rce(s) Supporting Document(s) ID Date Data Source [id number] 04/02/2019 11:37:00 AM EST [facility] 1 Medication Administration Record [facility] Emergency Department [address] [place] [address] Phone #: ext- [phone] 04/02/2019 11:32 Patient: MARY JAIN Sex: F [...] rce(s) Supporting Document(s) ID Date Data Source [id number] 04/02/2019 11:37:00 AM EST [facility] 1 General Instructions [facility] Emergency Department [address] [place] [address] Phone #: ext- [phone] 04/02/2019 11:32 Patient: MARY JAIN Sex: F : 1985 Age: 34yAcute cervical strain.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 Substitution permitted.[facility] [address] [place] [address] [phone]. .ondansetron 8 mg disintegrating tablet Take 1 tablet three times a day for 5 days -- Dispense 15 tablet.Refills: 0. Substitution permitted.[facility] [address] [phone]. .Follow-up:Follow up with a specialist [facility] Spine [phone] Chris LEA at [facility] Neuro [phone]. Callfor an appointment. Reason for referral: evaluation and treatment. Summary of care provided to patient.Understanding of the discharge instructions verbalized by patient and family.Follow-up with: [facility], , , [address] [address], [place], [address] Follow up. Call for the next available [...] andcontributes to the pain. 2 General Instructions [facility] Emergency Department [address] [place] [address] Phone #: ext- [phone] 04/02/2019 11:32 Patient: [...] alternate ice and heat. You may use gftm-zhu-coidpmh pain medicine to control pain, unless another [...] new findings that may affect your care.Call [phone] if you have: Neck swelling, difficulty or painful swallowing Trouble breathing Chest painWhen to seek medical advice 3 General Instructions [facility] Emergency Department [address] [place] [address] Phone #: [phone] ext- [phone] 04/02/2019 11:32 Patient: MARY JAIN Sex: F : 1985 Age: 34yCall your healthcare provider right away if any of these occur: Pain becomes worse or spreads into your arms or legs Weakness or numbness in one or both arms or legs [phone] [employer]. [address] [place] [address]. All rights reserved. This information is not [...] protect it from movement. You may use trgv-tfv-pumzfvw ibuprofen or naproxen to treat pain and [...] over the painful area 4 General Instructions [facility] Emergency Department [address] [place] [address] Phone #: ext- [phone] 04/02/2019 11:32 Patient: KIAN JAINTAMI Torres Sex: F : 1985 Age: 34y Increasing pain or swelling at the joint Fever lasting 24 to 48 hours or chills, or as advised by your healthcare provider [phone] [employer]. [address] [place] [address]. All rights reserved. This information is not intended as asubstitute for professional medical care. Always follow your healthcare professional's instructions. You have been given the following additional information: Neck S prain or Strain Tendonitis(Electronically signed by VENU Liang 04/02/2019 20:38) Name Value Range Interpretation Code Description Data Chikis rce(s) Supporting Document(s) ID Date Data Source [id number] 04/02/2019 11:37:00 AM EST [facility] 1 Clinical Report - Nurses [facility] Emergency Department [address] [place] [address] Phone #: ext- [phone] 04/02/2019 11:32 Patient: [...] (no infection suspected/documented). --11:38 04/02/19 Lilliam Coker RElsy11:32 04/02/19. BP: 154/104. MAP: 120. HR: 127. RR: 18. O2 saturation: 100%. Temp: 97 F. Pain levelnow: 10. --11:38 04/02/19 Zoss, Lilliam, R.N.Weight: 62.5 kg stated. Height/Length: 62 inches Per Patient. BMI: 25.2. --11:32 04/02/19June, R. N.MedicationsGabapentin Oral. --11:33 04/02/19June, R.N. Tylenol Oral. --11:34 04/02/19June, R.N. Robaxin Oral. --11:34 04/02/19June, R.N.AllergiesProcardia. --11:34 04/02/19June, R.N.PROBLEMS:no known problems.ADDITIONAL SURGERIES:Cervical disc replacement.. --11:34 04/02/19June, R.N.HistoryPAST MEDICAL HX: Last normal menstrual period- [...] harming or 2 Clinical Report - Nurses [facility] Emergency Department [address] [place] [address] Phone #: ext- [phone] 04/02/2019 11:32 Patient: [...] No skin integrity risk identified. --11:38 04/02/19 John Paul June RKatN. Interventions To treatment room. --11:38 04/02/19 John Paul June RKtaN.PHYSICAL ASSESSMENTGENERAL / NEURO / PSYCH: Oriented X 4. Appears in pain.EXTREMITIES: Limited ROM present. Neuro-vascular status intact to the extremity. No upper extremityedema. Right shoulder. Limited ROM due to pain (diminished abduction, adduction, flexion, extension andexternal and internal rotation).SKIN: Skin intact. Skin is warm and dry. --11:39 04/02/19 [facility] June RKatN.NURSING PROGRESS NOTESReassurance given. Bed placed in lowest position. Brakes of bed on. Patient ready for evaluation- PAnotified. --11:39 04/02/19 june R.N. 11:59 04/02/2019 Prednisone PO 60 mg given. Allergies verified and confirmed 5 rights. Information reviewed with patient including reason for taking this medication. Verbalizes understanding. --11:59 04/02/19 [facility] 11:59 04/02/2019 Toradol (Ketorolac Tromethamine) IM 30 mg given. Given in the left gluteus roland. Allergies verified and confirmed 5 rights. Information reviewed with patient including reason for taking this medication. Verbalizes understanding. --11:59 04/02/19 [facility] 11:59 04/02/2019 Valium (diazePAM) PO 5 mg given. Allergies verified and confirmed 5 rights. Information reviewed with patient including reason for taking this medication and sedative warning. Verbalizes understanding. --11:59 04/02/19 Lilliam Coker R.N. 3 Clinical Report - Nurses [facility] Emergency Department [address] [place] [address] Phone #: ext- [phone] 04/02/2019 11:32 Patient: [...] parent verbalized understanding. Written instructions provided in Czech. The patient was discharged home and accompanied [...] rce(s) Supporting Document(s) ID Date Data Source [id number] 04/02/2019 11:37:00 AM EST [facility] 1 Clinical Report - Physicians/Mid Levels [facility] Emergency Department [address] [place] [address] Phone #: ext- [phone] 04/02/2019 11:32 Patient: [...] pain. 2 Clinical Report - Physicians/Mid Levels [facility] Emergency Department [address] [place] [address] Phone #: ext- [phone] 04/02/2019 11:32 Patient: [...] 14:08 3 Clinical Report - Physicians/Mid Levels [facility] Emergency Department [address] [place] [address] Phone #: ext- [phone] 04/02/2019 11:32 Patient: MARY JAIN Sex: F : 1985 Age: 34y04/02/2019.Laboratory Tests:MRI Spine Cervical W/O Cont: (SAIGE: 04/02/2019 12:15) ( MsgRcvd 04/02/2019 13:31) In Progress Test Result Flag Units (Reference) MRI CERVICAL [place] [address] PHONE: [phone] FAX: [phone] -- Name .................. : CRISTOBAL Torres Acct Number.................. : [id number] ROOM. ................. : TR-06 MR Number ................... : [id number] Stay type ............. : E/R Discharge Date......... ... : Admit Date ......... : 04/02/19 Admit Phys .................... : [facility] Date of ....... : 1985 Family Phys ................... : [employer] Phone .................. : [phone] Age ................................ : 34 Film# .................. .:[id number] Sex ................................. : F -- Unsigned transcriptions are preliminary reports and do not represent a medical or legal document MRI CERVICAL SPINE W/O CONTRA [id number] COMPLETE:04/02/19 12:15 [id number] Reason(s): Trauma/Injury -- -- -- -- MRI [...] foraminal narrowing. -- -- -- Page 1 of2 [place] [address] PHONE: [phone] FAX: [phone] -- Name .................. : CRISTOBAL Torres Acct Number.................. : [id number] ROOM. ................. : TR-06 MR Number ................... : [id number] Stay type ............. : E/R Discharge Date......... ... : 4 Clinical Report - Physicians/Mid Levels [facility] Emergency Department [address] [place] [address] Phone #: ext- [phone] 04/02/2019 11:32 Patient: MARY JAIN Sex: F : 1985 Age: 34y Admit Date ......... : 04/02/19 Admit Phys .................... : BLACK CHRI Date of ....... : 1985 Family Phys ................... : HUGH Phone .................. : [phone] Age ................................ : 34 Film# .................. .:[id number] Sex ................................. : F -- Unsigned transcriptions are preliminary reports and do not represent a medical or legal document MRI CERVICAL SPINE W/O CONTRA [id number] COMPLETE:04/02/19 12:15 [id number] Reason(s): Trauma/Injury -- -- Electronically Reviewed and Signed By DCTNAME , SIGNDATE, WAYNE -- Transcribe Initials: GODFREY , Transcribe Date: 04/02/19 13:25, Dictation Date: -- -- <<REPDIST>> -- -- -- -- Page 2 of2 --Spine Cervical Complete: (SAIGE: 04/02/2019 11:58) ( MsgRcvd 04/02/2019 12:39) In Progress Exam SPINE CERV COMP-5 OR MORE [facility] [address] [place] [address] PHONE: [phone] FAX: [phone] Name ............ ...... : CRISTOBAL Torres Acct Number.................. : [id number] ROOM. ................. : TR-06 MR Number ................... : [id number] Stay type ............. : E/R Discharge Date......... ... : Admit Date ......... : 04/02/19 Admit Phys .................... : BLACK CHRI Date of ....... : 1985 Family Phys ................... : HUGH Phone .................. : [phone] Age ................................ : 34 Film# .................. .:[id number] Sex ................................. : F Unsigned transcriptions are preliminary reports and do not represent a medical or legal document SPINE CERV COMP-5 OR MORE VIE 10210 COMPLETE:04/02/19 11:58 [id number] Reason(s): Neck Pain CERVICAL SPINE SERIES: INDICATION: [...] dictation. 5 Clinical Report - Physicians/Mid Levels [facility] Emergency Department [address] [place] [address] Phone #: ext- [phone] 04/02/2019 11:32 Patient: MARY JAIN Sex: F : 1985 Age: 34y Electronically Reviewed and Signed By DCTNAME , SIGNDATE, [facility] Transcribe Initials: GODFREY , Transcribe Date: 04/02/19 12:36, Dictation Date: <<REPDIST>> Page 1 of 1.PROGRESS AND PROCEDURESCourse of Care: 14:Apr 02 2019. Evaluation after observation. (Discussed c-spine xray and MRIresults with VENU Valderrama at [facility] and she feels s/s are not [...] Dispense 1 pack. Refills: 0. Substitution permitted. [facility] [address] [place] [address] [phone]. FaxNumber: [phone]. ondansetron 8 mg disintegrating tablet Take 1 tablet three times a day for 5 days -- Dispense 15 tablet. Refills: 0. Substitution permitted. [facility] [address] [phone]. . Follow-up: Follow up with a specialist [facility] Sp[facility] [phone] Chris LEA at [facility] Neuro [phone]. Call for an appointment. Reason for referral: evaluation and treatment. Summary of care provided to patient. 6 Clinical Report - Physicians/Mid Levels [facility] Emergency Department [address] [place] [address] Phone #: ext- [phone] 04/02/2019 11:32 Patient: MARY JAIN Sex: F : 1985 Age: 34y Understanding of the discharge instructions verbalized by patient and family. Follow-up with: [facility], , , [address] [place] [address], [facility] Follow up. Call for the next available [...] Lifetime non-drinker (finding) completed Lifetime non-drinker (finding) [facility] Smoking 10/09/2019 12:00:00 AM EDT Never smoker completed Never s [facility] Alcohol intake 10/02/2019 12:00:00 AM EDT Lifetime non-drinker (finding) completed Lifetime non-drinker (finding) [facility] Smoking 10/02/2019 12:00:00 AM EDT Never smoker completed Never s [facility] Alcohol intake 09/18/2019 12:00:00 AM EDT Lifetime non-drinker (finding) completed Lifetime non-drinker (finding) [facility] Smoking 09/18/2019 12:00:00 AM EDT Never smoker completed Never s [facility] Smoking 09/05/2019 09:07:59 AM EDT Never smoked tobacco (findi ng) completed Never smoked tobacco (finding) [facility] (Freddie Nieves MD [facility]) Alcohol intake 08/27/2019 12:00:00 AM EDT Lifetime non-drinker (finding) completed Lifetime non-drinker (finding) [facility] Smoking 08/27/2019 12:00:00 AM EDT Never smoker completed Never s [facility] Alcohol intake 06/11/2019 12:00:00 AM EDT Lifetime non-drinker (finding) completed Lifetime non-drinker (finding) [facility] Smoking 06/11/2019 12:00:00 AM EDT Never smoker completed Never [facility] Alcohol intake 05/15/2019 12:00:00 AM EST Lifetime non-drinker (finding) completed Lifetime non-drinker (finding) [facility] Smoking 05/15/2019 12:00:00 AM EST Never smoker completed Never [facility] Alcohol intake 05/06/2019 12:00:00 AM EST Lifetime non-drinker (finding) completed Lifetime non-drinker (finding) [facility] Smoking 05/06/2019 12:00:00 AM EST Never smoker completed Never [facility] Alcohol intake 05/02/2019 12:00:00 AM EST Lifetime non-drinker (finding) completed Lifetime non-drinker (finding) [facility] Smoking 05/02/2019 12:00:00 AM EST Never smoker completed Never [facility] Alcohol intake 04/24/2019 12:00:00 AM EST Lifetime non-drinker (finding) completed Lifetime non-drinker (finding) [facility] Smoking 04/24/2019 12:00:00 AM EST Never smoker completed Never [facility] Alcohol intake 04/17/2019 12:00:00 AM EST Lifetime non-drinker (finding) completed Lifetime non-drinker (finding) [facility] Smoking 04/17/2019 12:00:00 AM EST Never smoker completed Never [facility] Vital Signs ID Date Data Source UNK Name Value Range Interpretation Code Description Data Source(s) Body surface area 1.66 m2 1.66 m2 [facility] ([facility]) Body mass index (BMI) [Ratio] 26.3 kg/m2 26.3 k g/m2 [facility] ([facility]) Body height 62 [in_i] 62 [in_i] [facility] ([facility]) 5'2" Body weight 65.318 kg 65.318 kg [facility] Body weight 144.00 [lb_av] 144.00 [lb_av] [facility] ([facility]) Oxygen saturation in Arterial blood by Pulse oximetry 99 % 99 % [facility] ([facility]) Respiratory rate 18 /min 18 /min [facility] ( [facility]) Body temperature 97.9 [degF] 97.9 [degF] [facility] ([facility]) Heart rate 72 /min 72 /min [facility] ([facility]) Diastolic blood pressure 68 mm[Hg] 68 mm[Hg] [facility] ([facility]) Systolic blood pressure 112 mm[Hg] 112 mm[Hg] M [facility] ([facility]) Body surface area 1.65 m2 1.65 m2 [facility] ([facility]) Body mass index (BMI) [Ratio] 25.8 kg/m2 25.8 k g/m2 [facility] ([facility]) Body height 62 [in_i] 62 [in_i] [facility] ([facility]) 5'2" Body weight 64.014 kg 64.014 kg [facility] ([facility]) Body weight 141.12 [lb_av] 141.12 [lb_av] [facility] ([facility]) Oxygen saturation in Arterial blood by Pulse oximetry 98 % 98 % [facility] ([facility]) Respiratory rate 16 /min 16 /min [facility] ( [facility]) Body temperature 98.3 [degF] 98.3 [degF] [facility] ([facility]) Heart rate 101 /min 101 /min [facility] ([facility]) Diastolic blood pressure 70 mm[Hg] 70 mm[Hg] [facility] ([facility]) Systolic blood pressure 118 mm[Hg] 118 mm[Hg] M [facility] ([facility]) Body surface area 1.66 m2 1.66 m2 [facility] ([facility]) Body mass index (BMI) [Ratio] 26.3 kg/m2 26.3 k g/m2 [facility] ([facility]) Body height 62 [in_i] 62 [in_i] [facility] ([facility]) 5'2" Body weight 65.318 kg 65.318 kg [facility] ([facility]) Body weight 144.00 [lb_av] 144.00 [lb_av] [facility] ([facility]) Oxygen saturation in Arterial blood by Pulse oximetry 97 % 97 % [facility] ([facility]) Respiratory rate 16 /min 16 /min [facility] ( [facility]) Body temperature 99.1 [degF] 99.1 [degF] [facility] ([facility]) Heart rate 70 /min 70 /min [facility] ([facility]) Diastolic blood pressure 70 mm[Hg] 70 mm[Hg] [facility] ([facility]) Systolic blood pressure 130 mm[Hg] 130 mm[Hg] [facility]) ID Date Data Source [id number] 09/25/2019 02:05:33 PM [facility] Name Value Range Interpretation Code Description Data Source(s) WEIGHT RECORDED 143 lb 143 lb [facility] Body height Measured 62 in 62 in [facility] ID Date Data Source [id number] 09/08/2019 06:57:11 AM [facility] Name Value Range Interpretation Code Description Data Source(s) WEIGHT RECORDED 143.08 lb 143.08 lb [facility] Body height Measured 62 in 62 in [facility] ID Date Data Source [id number] 05/02/2019 06:38:40 PM [facility] Value Range Interpretation Code Description Data Source(s) WEIGHT RECORDED 143.3 lb 143.3 lb [facility] Body height Measured 62.01 in 62.01 in [facility] ID Date Data Source [id number] 04/17/2019 09:59:41 AM [facility] Name Value Range Interpretation Code Description Data Source(s) WEIGHT RECORDED 141 lb 141 lb [facility] Body height Measured 62 in 62 in [facility] ID Date Data Source [id number] 05/15/2019 02:23:48 PM [facility] Name Value Range Interpretation Code Description Data Source(s) WEIGHT RECORDED 141 lb 141 lb [facility] Body height Measured 62 in 62 in [facility] Patient Treatment Plan of Care Planned Activity Planned Date Details Description Data Source (s) Prednisone 10 MG Oral Tablet 09/05/2019 12:00:00 AM [facility] topiramate 25 MG Oral Tablet 09/03/2019 12:00:00 AM [facility] Prednisone 20 MG Oral Tablet 08/31/2019 09:00:00 AM [facility] Valproic Acid 100 MG/ML Injectable Solution 08/30/2019 01:46:52 PM [facility] Divalproex Sodium 250 MG Delayed Release Oral Tablet 12:00:00 AM [facility] Magnesium 400 MG Oral Capsule 08/30/2019 12:00:00 AM [facility] gabapentin 100 MG Oral Capsule 08/30/2019 12:00:00 AM [facility] Prednisone 10 MG Oral Tablet 08/30/2019 12:00:00 AM [facility] Prednisone 10 MG Oral Tablet 08/30/2019 12:00:00 AM [facility] Prednisone 10 MG Oral Tablet 08/30/2019 12:00:00 AM [facility] Prednisone 10 MG Oral Tablet 08/30/2019 12:00:00 AM [facility] tizanidine 4 MG Oral Tablet 08/30/2019 12:00:00 AM [facility] 4 ML Labetalol hydrochloride 5 MG/ML Cartridge 08/27/2019 02:09:43 PM [facility] Hydralazine Hydrochloride 20 MG/ML Injectable Solution 08/27/2019 02:09:43 PM [facility] Ondansetron 4 MG Oral Tablet 05/07/2019 12:00:00 AM [facility] Oxycodone Hydrochloride 5 MG Oral Tablet 05/07/2019 12:00:00 AM [facility] oxyCODONE (ROXICODONE) immediate release tablet 5 mg 020 08:40:32 AM [facility] gabapentin 400 MG Oral Capsule 02/06/2019 12:00:00 AM EST [facility] Methocarbamol 500 MG Oral Tablet [facility] Acetaminophen 500 MG Oral Tablet [facility]
[2020-05-10 13:24] LABS: BASO % 0.7 % (0.0-1.0); EOS # 0.1 10^3/uL (0.0-0.5); EOS % 2.4 % (0.0-3.0); HEMATOCRIT 39.2 % (36.0-47.0); HEMOGLOBIN 12.3 g/dl (12.0-15.5); LYMPH # 1.7 10^3/uL (1.5-5.0); LYMPH % 28.5 % (24.0-44.0); MEAN CORPUSCULAR HEMOGLOBIN 27.2 pg (27.0-33.0); MEAN CORPUSCULAR HGB CONC 31.4 g/dl (32.0-36.5); MEAN CORPUSCULAR VOLUME 86.7 fl (80.0-96.0); MONO # 0.5 10^3/uL (0.0-0.8); MONO % 7.9 % (0.0-8.0); NEUTROPHILS # 3.5 10^3/uL (1.5-8.5); NEUTROPHILS % 60.2 % (36.0-66.0); PLATELET COUNT, AUTOMATED 219 10^3/uL (150-450); RED BLOOD COUNT 4.52 10^6/uL (4.00-5.40); WHITE BLOOD COUNT 5.9 10^3/uL (4.0-10.0)
[2020-05-10 13:44] LABS: ERYTHROCYTE SEDIMENTATION RATE 14 mm/hr (0-20)
--- NOTE | 2020-05-10 15:09 | REP ---
INDICATION: sensation/color changes to Lhand; subclavian artery release. COMPARISON: None. TECHNIQUE: Standard arterial duplex techniques were used in the left upper extremity from the subclavian artery through the distal ulnar and radial arteries. FINDINGS: Left subclavian artery: 140 cm/S, triphasic Left axillary artery proximal: 107 cm/S, triphasic Left axillary artery distal: 55 cm/S, triphasic Brachial artery proximal: 81 cm/S triphasic Brachial artery distal: 66 cm/S triphasic Ulnar artery proximal: 71 cm/S triphasic Ulnar artery distal: 56 cm/S triphasic Radial artery proximal: 58 cm/S triphasic Radial artery distal: 48 cm/S triphasic Doppler waveforms appear normal throughout. Velocities as described above. IMPRESSION: 1. No Doppler ultrasound evidence of arterial stenosis or occlusion in the left upper extremity. Velocities and waveforms are grossly unremarkable. <Electronically signed by Alfonso Kern > 05/10/20 [id number]
[2020-05-10] MEDS ORDERED: methylPREDNISolone 125MG 2ML VIAL IV ONE (15:45)
[2020-05-10] MEDS ORDERED: PRED10TA2 PO (16:05)
[2020-05-10 17:00] VITALS: BP 181/105
== END 2020-05-10 17:13 | disposition home or self-care (01) ==
LOC: M ED 11:56
DX: M54.10 Radiculopathy, site unspecified (principal); Z79.899 Other long term (current) drug therapy
CPT/HCPCS: 80047; 85025; 85652; 93931; 96374; 96375; 99284; J1170; J2930

== ENCOUNTER 2021-01-04 12:10 | Emergency (ER) | payer OTHER ==
[~2021-01-04] VITALS: Ht 157.5 cm; Wt 65.5 kg
[~2021-01-04 12:10] MED LIST: PRED10TA2 PO
[2021-01-04] MEDS ORDERED: CYCLOBENZAPRINE 5MG TABLET PO ONE (18:25)
[2021-01-04] MEDS ORDERED: NORCO, ANEXSIA 5/325MG TABLET (HYDROcodone/ACETAMINOPHEN) PO ONE (18:25)
--- NOTE | 2021-01-04 20:23 | REPVR ---
PROCEDURE INFORMATION: Exam: CT Cervical Spine Without Contrast Exam date and time: 01/04/2021 6:28 PM Age: 35 years old Clinical indication: Injury or trauma; Fall; Blunt trauma; Additional info: Fell/pain TECHNIQUE: Imaging protocol: Computed tomography images of the cervical spine without contrast. Radiation optimization: All CT scans at this facility use at least one of these dose optimization techniques: automated exposure control; mA and/or kV adjustment per patient size (includes targeted exams where dose is matched to clinical indication); or iterative reconstruction. COMPARISON: CT ANGIO NECK 08/27/2019 10:56 AM FINDINGS: Bones/joints: Nonspecific straightening. Vertebral body height and AP alignment is preserved. Interbody fusion involving C6-C7. Mild prevertebral osteophytosis. No acute fracture. No osseous destruction. Discs/Spinal canal/Neural foramina: No definite significant central canal stenosis within limitations of technique. Lungs: Lung apices are normal. Pleural spaces: No visible pneumothorax. Soft tissues: Unremarkable. IMPRESSION: No acute cervical spine fracture. Electronically signed by: Alejandro Smith On 01/04/2021 20:22:48 PM
--- NOTE | 2021-01-04 20:26 | REPVR ---
PROCEDURE INFORMATION: Exam: CT Head Without Contrast Exam date and time: 01/04/2021 6:28 PM Age: 35 years old Clinical indication: Injury or trauma; Fall; Blunt trauma (contusions or hematomas); Additional info: Fell/pain TECHNIQUE: Imaging protocol: Computed tomography of the head without contrast. Radiation optimization: All CT scans at this facility use at least one of these dose optimization techniques: automated exposure control; mA and/or kV adjustment per patient size (includes targeted exams where dose is matched to clinical indication); or iterative reconstruction. COMPARISON: CT Head without contrast 08/27/2019 10:39 AM FINDINGS: Brain: Normal. No hemorrhage. Unremarkable white matter. No mass effect. Cerebral ventricles: No ventriculomegaly. Paranasal sinuses: Visualized sinuses are unremarkable. No fluid levels. Mastoid air cells: Visualized mastoid air cells are well aerated. Bones/joints: Unremarkable. No acute fracture. Soft tissues: Unremarkable. IMPRESSION: No acute intracranial abnormality. Electronically signed by: Alejandro Smith On 01/04/2021 20:25:43 PM
[2021-01-04] MEDS ORDERED: CYCL-707 PO ×2 (20:30→20:42)
[2021-01-04 20:40] VITALS: BP 168/100
== END 2021-01-04 20:46 | disposition home or self-care (01) ==
LOC: M ED 12:10
DX: S16.1XXA Strain of muscle, fascia and tendon at neck level, initial encounter (principal); W10.8XXA Fall (on) (from) other stairs and steps, initial encounter; Y92.89 Other specified places as the place of occurrence of the external cause; Y93.9 Activity, unspecified; Y99.9 Unspecified external cause status; Z98.1 Arthrodesis status; J02.9 Acute pharyngitis, unspecified; R51.9 Headache, unspecified; R05.9 Cough, unspecified